=== PATIENT | male | born 1945 | race Native Hawaiian/Other Pacific Islander ===

== ENCOUNTER 2018-11-10 10:02 | Inpatient (IN) | payer MEDICARE ==
--- NOTE | 2018-11-10 10:32 | Emergency Department Report ---
ED General Adult HPI - General Chief complaint: Medical Clearance Stated complaint: MEDICAL CLEARANCE Time Seen by Provider: 11/10/18 10:23 Source: patient, family, RN notes reviewed, old records reviewed Mode of arrival: Ambulatory Limitations: No Limitations - History of Present Illness Initial comments: This is a pleasant 72-year-old gentleman who is not known to this provider previously. The patient has a past medical history of end-stage renal disease, on dialysis, typically Friday, Friday, and hypertension. The patient reports having dual citizenship, in both the [place], and in the [facility]. He presents to the emergency room for medical clearance. He last received dialysis on Friday in the [facility]. The patient reportedly went to a local Outpatient Dialysis Ctr[facility] nephrology, and was instructed to come to the emergency room for medical clearance. The patient denies all complaints at this time. He is reportedly sent for history and physical, hepatitis panel, basic laboratory studies, and other shekhar ropriate clearance for initiation of outpatient dialysis. He currently does not have outpatient dialysis chair time. Severity scale (0 -10): 0 Associated Symptoms: denies other symptoms - Related Data Home Medications Medication Instructions Recorded Confirmed Last Taken Aspirin [Aspirin EC] 100 mg PO DAILY 11/10/18 11/10/18 11/10/18 07:00 Atorvastatin [Lipitor Tab] 10 mg PO DAILY 11/10/18 11/10/18 11/09/18 20:00 B Complex 500 mg PO DAILY 11/10/18 11/10/18 11/10/18 07:00 Clonidine HCl [Kapvay] 0.1 mg PO PRN PRN 11/10/18 11/10/18 Unknown Felodipine [Plendil Tab] 10 mg PO QDAY 11/10/18 11/10/18 11/10/18 07:00 Metoprolol Tartrate 1 tab PO DAILY 11/10/18 11/10/18 11/10/18 07:00 Multivit-Min/FA/Lycopen/Lutein 1 tab PO QAM 11/10/18 11/10/18 11/10/18 07:00 [Centrum Silver Men Tablet] [place]-3 Fatty Acids/Fish Oil [Fish 1 cap PO QDAY 11/10/18 11/10/18 11/10/18 07:00 Oil] Omeprazole 1 tab PO QDAY 11/10/18 11/10/18 11/10/18 07:00 Allergies Allergy/AdvReac Type Severity Reaction Status Date / Time No Known Allergies Allergy Verified 11/10/18 11:41 ED Review of Systems ROS: Stated complaint: MEDICAL CLEARANCE Other details as noted in HPI Constitutional: denies: fever Eyes: denies: vision change ENT: denies: epistaxis Respiratory: denies: cough Cardiovascular: denies: chest pain Genitourinary: denies: dysuria Musculoskeletal: denies: back pain Skin: denies: lesions Neurological: denies: headache Psychiatric: denies: anxiety ED Past Medical Hx - Social History Smoking Status: Never Smoker Substance Use Type: None - Medications Home Medications: Home Medications Medication Instructions Recorded Confirmed Last Taken Type Aspirin [Aspirin EC] 100 mg PO DAILY 11/10/18 11/10/18 11/10/18 07:00 History Atorvastatin [Lipitor Tab] 10 mg PO DAILY 11/10/18 11/10/18 11/09/18 20:00 History B Complex 500 mg PO DAILY 11/10/18 11/10/18 11/10/18 07:00 History Clonidine HCl [Kapvay] 0.1 mg PO PRN PRN 11/10/18 11/10/18 Unknown History Felodipine [Plendil Tab] 10 mg PO QDAY 11/10/18 11/10/18 11/10/18 07:00 History Metoprolol Tartrate 1 tab PO DAILY 11/10/18 11/10/18 11/10/18 07:00 History Multivit-Min/FA/Lycopen/Lutein 1 tab PO QAM 11/10/18 11/10/18 11/10/18 07:00 History [Centrum Silver Men Tablet] [place]-3 Fatty Acids/Fish Oil [Fish 1 cap PO QDAY 11/10/18 11/10/18 11/10/18 07:00 History Oil] Omeprazole 1 tab PO QDAY 11/10/18 11/10/18 11/10/18 07:00 History ED Physical Exam - General Limitations: No Limitations General appearance: alert, in no apparent distress - Head Head exam: Present: atraumatic, normocephalic - Eye Eye exam: Present: normal appearance, EOMI. Absent: nystagmus - ENT ENT exam: Present: normal exam, normal orophraynx, mucous membranes moist, normal external ear exam, other (there is a right sided neck, vascular catheter noted, with no redness, pus, streaking or tenderness) - Neck Neck exam: Present: normal inspection, full ROM. Absent: tenderness, meningismus - Respiratory Respiratory exam: Present: normal lung sounds bilaterally. Absent: respiratory distress - Cardiovascular Cardiovascular Exam: Present: normal rhythm, bradycardia, systolic murmur. Absent: tachycardia, irregular rhythm, diastolic murmur, rubs, gallop - GI/Abdominal GI/Abdominal exam: Present: soft. Absent: distended, tenderness, guarding, rebound, rigid, pulsatile mass - Rectal Rectal exam: Present: deferred - Extremities Exam Extremities exam: Present: normal inspection, full ROM, pedal edema, other (2+ pulses noted in the bilateral upper, lower extremities. Compartments soft. No long bony tenderness. The pelvis is stable.). Absent: calf tenderness - Back Exam Back exam: Present: normal inspection, full ROM. Absent: tenderness, CVA tenderness (R), paraspinal tenderness, vertebral tenderness - Neurological Exam Neurological exam: Present: alert, oriented X3, CN II-XII intact, other (Extraocular movements intact. Tongue midline. No facial droop. Facial sensation intact to light touch in the V1, V2, V3 distribution bilaterally. 5 and 5 strength in 4 extremities.. Sensation is intact to light touch in 4 extremities.). Absent: motor sensory deficit - Psychiatric Psychiatric exam: Present: normal affect, normal mood - Skin Skin exam: Present: warm, dry, intact, normal color. Absent: rash ED Course Vital Signs 11/10/18 11/10/18 11/10/18 10:06 10:08 10:31 Temperature 98.7 F Pulse Rate 59 L Respiratory 12 20 Rate Blood Pressure 147/78 O2 Sat by Pulse 96 98 Oximetry - Reevaluation(s) Reevaluation #1: 11/10/18 11:40 EKG found to be bradycardic with prolonged MI interval. Given hyperkalemia of 5.3, and prolonged intervals, the patient will be treated medically for her hyperkalemia. We are waiting callback from nephrology, and from hospital medicine. Reevaluation #2: 11/10/18 11:56 Dr Monet to admit awaiting call back from nephrology - Consultations Consultation #1: 11/10/18 12:06 Dr. Luong of nephrology will admit ED Medical Decision Making - Lab Data Result diagrams: 11/10/18 10:32 11/10/18 10:32 Vital Signs 11/10/18 11/10/18 10:06 10:08 Temperature 98.7 F Pulse Rate 59 L Respiratory 12 Rate Blood Pressure 147/78 O2 Sat by Pulse 96 Oximetry Lab Results 11/10/18 11/10/18 Range/Units 10:32 10:32 WBC 8.8 (4.5-11.0) K/mm3 RBC 2.89 L (3.65-5.03) M/mm3 Hgb 8.1 L (11.8-15.2) gm/dl Hct 25.6 L (35.5-45.6) % MCV 89 (84-94) fl MCH 28 (28-32) pg MCHC 32 (32-34) % RDW 17.0 H (13.2-15.2) % Plt Count 244 (140-440) K/mm3 Sodium 143 (137-145) mmol/L Potassium 5.3 H (3.6-5.0) mmol/L Chloride 108.1 H (98-107) mmol/L Carbon Dioxide 14 L (22-30) mmol/L Anion Gap 26 mmol/L BUN 84 H (9-20) mg/dL Creatinine 8.7 H (0.8-1.5) mg/dL Estimated GFR 6 ml/min BUN/Creatinine Ratio 10 % Glucose 144 H (75-100) mg/dL Calcium 7.7 L (8.4-10.2) mg/dL Magnesium 2.70 H (1.7-2.3) mg/dL Total Bilirubin 0.30 (0.1-1.2) mg/dL AST 18 (5-40) units/L ALT 9 (7-56) units/L Alkaline Phosphatase 51 (35-129) units/L Total Protein 6.6 (6.3-8.2) g/dL Albumin 4.1 (3.9-5) g/dL Albumin/Globulin Ratio 1.6 % - EKG Data -: EKG Interpreted by Pa EKG shows normal: sinus rhythm Rate: bradycardia - EKG Data When compared to previous EKG there are: previous EKG unavailable 11/10/18 11:40 Bradycardic rhythm, 49 bpm, left axis deviation, left anterior fascicular block, MI interval prolonged, numerous T-wave abnormalities, no prior for comparison, not having chest pain, abnormal EKG. Not consistent with ST elevation myocar dial infarction. - Radiology Data Radiology results: report reviewed, image reviewed X-ray of the chest is negative for acute disease. Right-sided dialysis access catheter is noted. - Medical Decision Making Differential diagnosis, including not limited to: Anemia of chronic disease, hyperkalemia, metabolic acidosis Assessment and plan: 72-year-old gentleman, who does not have outpatient dialysis access, secondary to recently arriving from the [facility], with metabolic acidosis, uremia, azotemia and hyperkalemia. The patient is afebrile, with reassuring vital signs, and in no acute distress. We will obtain a nephrology and case management consult. EKG is pending at this time. He has no medical complaints at this time. He will be admitted for dialysis given his hyperkalemia, and metabolic derangements, and I will defer to the inpatient team to further obtain the necessary outpatient studies required to initiate outpatient dialysis here in the [facility]. Critical care attestation.: If time is entered above; I have spent that time in minutes in the direct care of this critically ill patient, excluding procedure time. ED Disposition Clinical Impression: End stage renal disease, Hyperkalemia, Metabolic acidosis, Anemia of chronic disease Disposition: OP ADMIT IP TO THIS HOSP Is pt being admited?: Yes Condition: Good Referrals: PRIMARY CARE, [Primary Care Provider] - 3-5 Days
[2018-11-10 10:49] LABS: Hematocrit 25.6 % (35.5-45.6); Hemoglobin 8.1 gm/dl (11.8-15.2); Mean Corpuscular HGB Conc 32 % (32-34); Mean Corpuscular Volume 89 fl (84-94); Platelet Count 244 K/mm3 (140-440); Red Blood Count 2.89 M/mm3 (3.65-5.03)
[2018-11-10 11:02] LABS: Albumin 4.1 g/dL (3.9-5); Calcium 7.7 mg/dL (8.4-10.2)
--- NOTE | 2018-11-10 11:07 | XRay Report ---
AP CHEST: HISTORY: End-stage renal disease Heart size and pulmonary vessels are within normal limits. Previous cardiac surgery changes with valve replacement are suspected. A right IJ dual-lumen catheter terminates in the superior right atrium. There is minor scarring or segmental atelectasis at the left lung base. Otherwise the lungs are clear. No pneumothorax. Small hiatal hernia is noted posterior to the heart. IMPRESSION: No acute cardiopulmonary process is identified.
[2018-11-10] MEDS ORDERED: PROVENTIL IH ONE ×2 (11:38→13:40)
[2018-11-10] MEDS ORDERED: HumuLIN R IV ONE (11:38)
[2018-11-10] MEDS ORDERED: D50W (25GM) Syringe IV ONE (11:38)
[2018-11-10] MEDS ORDERED: KIONEX PO ONE ×2 (11:38→22:07)
[2018-11-10] MEDS ORDERED: CALCIUM GLUCONATE 1,000 MG in NACL 0.9% 100 ML IV ONE (12:00)
[2018-11-10] MEDS ORDERED: SODIUM BICARBONATE IV ONE (13:00)
[2018-11-10 14:24] LABS: Hepatitis C Virus Antibody Non-Reactive (NonReactive)
[2018-11-10] MEDS ORDERED: NACL 0.9% 100 ML IV PRN (15:13)
--- NOTE | 2018-11-10 15:13 | Consultation ---
History of Present Illness - History of Present Illness Thank you for the consultation ! Patient was evaluated today My assessment and plan are as follows; End-stage renal disease: Patient is currently on hemodialysis, and will need to continue with hemodialysis while here in the hospital Short dialysis treatment today, then tomorrow, discussed with patient, appears to be stable no shortness of breath no edema Central venous catheter: Hygiene poor no erythema Anemia and end-stage renal disease: Monitor hemoglobin and hematocrit erythropoietin as needed. Workup as required Secondary hyperparathyroidism: Check phosphorus and PTH level periodically, binders as needed Malnutrition risk: High consider high-protein diet dietitian evaluation and follow-up in general 1.5 g protein per KG body weight Fluid restriction: 1200 cc per day not to exceed more than that Adequately counseled and educated about other hospital related issues as well Labs were discussed with patient and simple Kazakh Patient does appear to have good understanding of all the dialysis related issues Patient was adequately counseled and educated regarding multiple renal related issues. overall prognosis remains guarded at this time All renal related questions were answered and simple Kazakh pertinent lab studies as well as imaging results were also discussed with patient We will continue to follow and make recommendations from renal standpoint. Thank you for the consultation Author: Torsten Luong M.D. [facility], [address] [place] [address] Tel; [phone] Source of information: From patient History of present illness Patient is a 72-year-old [place] male who has been admitted here as he could not go to dialysis facility, patient needed to have a chest x-ray as well as proper evaluation before returning to dialysis facility including a hepatitis profile. According to the patient he has been on hemodialysis and has recently come back from [facility]. He was supposed to go to [facility] but his paperwork didn't go through and hence he was sent here for evaluation and management according to the patient he has been doing his dialysis with his central venous catheter which has been working well without any problem He has no complaints of any chest pain pressure or shortness of breath nausea vomiting his bicarbonate is 14, his potassium was 5.3 for which she has received some treatment Past medical history significant for End-stage renal disease currently on hemodialysis Anemia and end-stage renal disease Secondary hyperparathyroidism Hypertension Hyperlipidemia Current allergies: None Home medication present medication: Reviewed Social history: Reviewed Family history: Reviewed Review of systems patient unable to dialyze No other complaints including shortness of breath chest pain pressure nausea and vomiting or leg swelling rrent dialysis access is central venous catheter All other review of systems negative . Physical examination Vitals: Reviewed General: No acute distress HEENT: Oral mucosa moist no pallor or icterus central venous catheter in the neck, hygiene very poor Neck: Supple without any JVD thyromegaly or nodular mass Chest: Clear to auscultation Heart: Regular rate and rhythm S1-S2 heard no S3-S4 Abdomen: Soft nontender, bowel sounds present no renal bruit no suprapubic masses no CVA tenderness noted Extremity: Minimal edema dry skin no peripheral cyanosis Endocrine: Thyroid not enlarged Psychiatric: No agitation and aggression noted Musculoskeletal: No joint effusion noted Labs and x-rays: Reviewed from this admission Medications and Allergies Allergies Allergy/AdvReac Type Severity Reaction Status Date / Time No Known Allergies Allergy Verified 11/10/18 11:41 Home Medications Medication Instructions Recorded Confirmed Last Taken Type Aspirin [Aspirin EC] 100 mg PO DAILY 11/10/18 11/10/18 11/10/18 07:00 History Atorvastatin [Lipitor Tab] 10 mg PO DAILY 11/10/18 11/10/18 11/09/18 20:00 History B Complex 500 mg PO DAILY 11/10/18 11/10/18 11/10/18 07:00 History Clonidine HCl [Kapvay] 0.1 mg PO PRN PRN 11/10/18 11/10/18 Unknown History Felodipine [Plendil Tab] 10 mg PO QDAY 11/10/18 11/10/18 11/10/18 07:00 History Metoprolol Tartrate 1 tab PO DAILY 11/10/18 11/10/18 11/10/18 07:00 History Multivit-Min/FA/Lycopen/Lutein 1 tab PO QAM 11/10/18 11/10/18 11/10/18 07:00 History [Centrum Silver Men Tablet] [place]-3 Fatty Acids/Fish Oil [Fish 1 cap PO QDAY 11/10/18 11/10/18 11/10/18 07: 00 History Oil] Omeprazole 1 tab PO QDAY 11/10/18 11/10/18 11/10/18 07:00 History Exam - Vital Signs Vital signs: Vital Signs Pulse BP Pulse Ox 59 L 147/78 96 11/10/18 10:06 11/10/18 10:06 11/10/18 10:06 Results - Lab Results 11/10/18 10:32 11/10/18 10:32 Most recent lab results Calcium 7.7 mg/dL (8.4-10.2) L 11/10/18 10:32 Magnesium 2.70 mg/dL (1.7-2.3) H 11/10/18 10:32
[2018-11-10] MEDS ORDERED: NACL 0.9 (PRIMING MACHINE ONLY DIALYSIS) MC ONE (20:02)
[2018-11-10] MEDS ORDERED: AMBIEN PO PRN (23:16)
[2018-11-10] MEDS ORDERED: DILAUDID IV PRN (23:16)
[2018-11-10] MEDS ORDERED: SODIUM CHLORIDE FLUSH SYRINGE 10 ML IV PRN (23:16)
[2018-11-10] MEDS ORDERED: PERCOCET 5/325 PO PRN (23:16)
--- NOTE | 2018-11-11 04:57 | History and Physical Report ---
History of Present Illness Date of examination: 11/10/18 Date of admission: 11/10/18 11:57 Chief complaint: Missed Hemodialysis History of present illness: 72 y/o [place]/ male to a [place] was started on Hemodialysis in June 2018 and had a vas cath and failed AVG on Rt forearm.Moved to [facility] for a few months to be with his and comes back to [facility] on Friday11/08/18..He Had HD in [facility] on Friday.And due for HD yesterday.No arrangemernts were made for HD on regular basis here.Patient is a [facility] Citizen.No SOB No Orthopnea.Patient went Local HD center and was sent here for medical clearance and placement.Has a vas cath in Rt IJ with poor dressing. The patient denies all complaints at this time. He is reportedly sent for hist ory and physical, hepatitis panel, basic laboratory studies, and other appropriate clearance for initiation of outpatient dialysis. He currently does not have outpatient dialysis chair time.Out patient dialysis to be arranged by casework manager Past Medical Hx Htn ESRD HLD GERD Past surgical History AVG Vas cath Family history Htn Social History Smoking Status: Never Smoker Substance Use Type: None 'Review of Systems ROS: Stated complaint: MEDICAL CLEARANCE Other details as noted in HPI Constitutional: denies: fever Eyes: denies: vision change ENT: denies: epistaxis Respiratory: denies: cough Cardiovascular: denies: chest pain Genitourinary: denies: dysuria Musculoskeletal: denies: back pain Skin: denies: lesions Neurological: denies: headache Psychiatric: denies: anxiety Medications and Allergies Allergies Allergy/AdvReac Type Severity Reaction Status Date / Time No Known Allergies Allergy Verified 11/10/18 11:41 Home Medications Medication Instructions Recorded Confirmed Last Taken Type Aspirin [Aspirin EC] 100 mg PO DAILY 11/10/18 11/10/18 11/10/18 07:00 History Atorvastatin [Lipitor Tab] 10 mg PO DAILY 11/10/18 11/10/18 11/09/18 20:00 History B Complex 500 mg PO DAILY 11/10/18 11/10/18 11/10/18 07:00 History Clonidine HCl [Kapvay] 0.1 mg PO PRN PRN 11/10/18 11/10/18 Unknown History Felodipine [Plendil Tab] 10 mg PO QDAY 11/10/18 11/10/18 11/10/18 07:00 History Metoprolol Tartrate 1 tab PO DAILY 11/10/18 11/10/18 11/10/18 07:00 History Multivit-Min/FA/Lycopen/Lutein 1 tab PO QAM 11/10/18 11/10/18 11/10/18 07:00 History [Centrum Silver Men Tablet] [place]-3 Fatty Acids/Fish Oil [Fish 1 cap PO QDAY 11/10/18 11/10/18 11/10/18 07:00 History Oil] Omeprazole 1 tab PO QDAY 11/10/18 11/10/18 11/10/18 07:00 History Active Meds: Active Medications Acetaminophen (Tylenol) 650 mg PO Q4H PRN PRN Reason: Pain MILD(1-3)/Fever >100.5/WEISS Amlodipine Besylate (Norvasc) 10 mg PO DAILY [facility] Aspirin (Halfprin Ec) 100 mg PO DAILY [facility] Atorvastatin Calcium (Lipitor) 10 mg PO DAILY [facility] Clonidine HCl (Catapres) 0.1 mg PO Q8H PRN PRN Reason: BLOOD PRESSURE Famotidine (Pepcid) 10 mg PO BID [facility] Fish Oil (Fish Oil) 1,000 mg PO QDAY [facility] Hydromorphone HCl (Dilaudid) 0.5 mg IV Q3H PRN PRN Reason: Pain , Severe (7-10) Sodium Chloride (Nacl 0.9%) 100 mls @ 999 mls/hr IV QUENTIN PRN PRN Reason: Hypotension Metoprolol Tartrate (Lopressor) 50 mg PO DAILY [facility] Miscellaneous Medication (Multivit-Min/Fa/Lycopen/Lutein [Centrum Silver Men Tablet]) 1 tab PO QAM [facility] Miscellaneous Medication (Omeprazole [Omeprazole]) 1 tab PO QDAY [facility] Ondansetron HCl (Zofran) 4 mg IV Q8H PRN PRN Reason: Nausea And Vomiting Oxycodone/Acetaminophen (Percocet 5/325) 1 tab PO Q6H PRN PRN Reason: Pain, Moderate (4-6) Pneumococcal Polyvalent Vaccine (Pneumovax 23) 0.5 ml IM .ONCE ONE Stop: 11/11/18 12:01 Sodium Chloride (Sodium Chloride Flush Syringe 10 Ml) 10 ml IV BID [facility] Sodium Chloride (Sodium Chloride Flush Syringe 10 Ml) 10 ml IV PRN PRN PRN Reason: LINE FLUSH Zolpidem Tartrate (Ambien) 5 mg PO QHS PRN PRN Reason: Insomnia Review of Systems All systems: negative Exam - Constitutional Vitals: Temp Pulse Resp BP Pulse Ox 98.4 F 48 L 16 151/69 99 11/10/18 23:16 11/10/18 23:16 11/10/18 23:16 11/10/18 23:16 11/10/18 23:16 General appearance: Present: no acute distress, well-nourished - EENT Eyes: Present: PERRL ENT: hearing intact, clear oral mucosa, other - Neck Neck: Present: supple, normal ROM, other (Vas cath Rt IJ) - Respiratory Respiratory effort: normal Respiratory: bilateral: CTA - Cardiovascular Heart rate: 78 Rhythm: regular Heart Sounds: Present: S1 & S2. Absent: rub, click - Extremities Extremities: no ischemia, pulses intact, pulses symmetrical, No edema Peripheral Pulses: within normal limits - Abdominal General gastrointestinal: Present: soft, non-tender, non-distended, normal bowel sounds Male genitourinary: Present: normal - Rectal Rectal Exam: deferred - Integumentary Integumentary: Present: clear, warm, dry - Musculoskeletal Musculoskeletal: gait normal, strength equal bilaterally - Psychiatric Psychiatric: appropriate mood/affect, intact judgment & insight - Neurologic Neurologic: CNII-XII intact, moves all extremities Results - Labs CBC & Chem 7: 11/10/18 10:32 11/10/18 10:32 Labs: Laboratory Last Values WBC 8.8 K/mm3 (4.5-11.0) 11/10/18 10:32 RBC 2.89 M/mm3 (3.65-5.03) L 11/10/18 10:32 Hgb 8.1 gm/dl (11.8-15.2) L 11/10/18 10:32 Hct 25.6 % (35.5-45.6) L 11/10/18 10:32 MCV 89 fl (84-94) 11/10/18 10:32 MCH 28 pg (28-32) 11/10/18 10:32 MCHC 32 % (32-34) 11/10/18 10:32 RDW 17.0 % (13.2-15.2) H 11/10/18 10:32 Plt Count 244 K/mm3 (140-440) 11/10/18 10:32 Sodium 143 mmol/L (137-145) 11/10/18 10:32 Potassium 5.3 mmol/L (3.6-5.0) H 11/10/18 10:32 Chloride 108.1 mmol/L (98-107) H 11/10/18 10:32 Carbon Dioxide 14 mmol/L (22-30) L 11/10/18 10:32 Anion Gap 26 mmol/L 11/10/18 10:32 BUN 84 mg/dL (9-20) H 11/10/18 10:32 Creatinine 8.7 mg/dL (0.8-1.5) H 11/10/18 10:32 Estimated GFR 6 ml/min 11/10/18 10:32 BUN/Creatinine Ratio 10 % 11/10/18 10:32 Glucose 144 mg/dL (75-100) H 11/10/18 10:32 Hemoglobin A1c 5.8 % (4-6) 11/10/18 Unknown Calcium 7.7 mg/dL (8.4-10.2) L 11/10/18 10:32 Phosphorus 4.00 mg/dL (2.5-4.5) 11/10/18 16:29 Magnesium 2.70 mg/dL (1.7-2.3) H 11/10/18 10:32 Total Bilirubin 0.30 mg/dL (0.1-1.2) 11/10/18 10:32 AST 18 units/L (5-40) 11/10/18 10:32 ALT 9 units/L (7-56) 11/10/18 10:32 Alkaline Phosphatase 51 units/L (35-129) 11/10/18 10:32 Total Protein 6.6 g/dL (6.3-8.2) 11/10/18 10:32 Albumin 4.1 g/dL (3.9-5) 11/10/18 10:32 Albumin/Globulin Ratio 1.6 % 11/10/18 10:32 PTH Intact 217.4 pg/mL (15-65) H 11/10/18 16:29 Hepatitis A IgM Ab Non-reactive (NonReactive) 11/10/18 10:32 Hep B Core IgM Ab Non-reactive (NonReactive) 11/10/18 10:32 Hepatitis C Antibody Non-reactive (NonReactive) 11/10/18 10:32 Short CBC 11/10/18 Range/Units 10:32 WBC 8.8 (4.5-11.0) K/mm3 Hgb 8.1 L (11.8-15.2) gm/dl Hct 25.6 L (35.5-45.6) % Plt Count 244 (140-440) K/mm3 BMP 11/10/18 10:32 Sodium 143 Potassium 5.3 H Chloride 108.1 H Carbon Dioxide 14 L BUN 84 H Creatinine 8.7 H Glucose 144 H Calcium 7.7 L Liver Function 11/10/18 Range/Units 10:32 Total Bilirubin 0.30 (0.1-1.2) mg/dL AST 18 (5-40) units/L ALT 9 (7-56) units/L Alkaline Phosphatase 51 (35-129) units/L Albumin 4.1 (3.9-5) g/dL - Imaging and Cardiology EKG: report reviewed (49/min Sinus Bradycardia,LVH LAFB) Chest x-ray: report reviewed (NAF) Assessment and Plan Advance Directives: Yes (Full code) VTE prophylaxis?: Chemical Plan of care discussed with patient/family: Yes - Patient Problems (1) ESRD needing dialysis Current Visit: Yes Status: Chronic Plan to address problem: HD planned Nephrology consulted May need a new f [facility] IR consult placed Patient will be staying for a few months in [facility] He goes back and forth between 2 countries and doesn't seem to understand the implications. Apparently manages a rental property in [facility] and doesn't want to come here even though she is a [place] citizen. He is going to stay with his daughter Case management consulted (2) Hyperkalemia Current Visit: Yes Status: Acute Plan to address problem: Was given Kayexalate and BIcarb and Dextrose/insulin (3) HTN (hypertension) Current Visit: Yes Status: Chronic Qualifiers: Hypertension type: essential hypertension Qualified Code(s): I10 - Essential (primary) hypertension Plan to address problem: Cont antihypertensives (4) HLD (hyperlipidemia) Current Visit: Yes Status: Chronic Qualifiers: Hyperlipidemia type: mixed hyperlipidemia Qualified Code(s): E78.2 - Mixed hyperlipidemia Plan to address problem: COnt statins (5) GERD (gastroesophageal reflux disease) Current Visit: Yes Status: Chronic Qualifiers: Esophagitis presence: without esophagitis Qualified Code(s): K21.9 - Gastro-esophageal reflux disease without esophagitis Plan to address problem: COnt PPI's (6) Anemia of chronic disease Current Visit: Yes Status: Chronic Plan to address problem: May need Epogen Will defer to Nephrology (7) Secondary hyperparathyroidism (of renal origin) Current Visit: Yes Status: Chronic Plan to address problem: Check phosphorus and PTH levels (8) Malnutrition Current Visit: Yes Status: Chronic Qualifiers: Protein-calorie malnutrition severity: moderate Plan to address problem: High protein diet (9) DVT prophylaxis Current Visit: Yes Status: Acute Plan to address problem: Heparin and GI prophylaxis
[2018-11-11 05:46] LABS: Basophils # (Auto) 0.1 K/mm3 (0.0-0.1); Basophils % (Auto) 1.2 % (0.0-1.8); Eosinophils # (Auto) 0.5 K/mm3 (0.0-0.4); Eosinophils % (Auto) 6.9 % (0.0-4.3); Hematocrit 24.2 % (35.5-45.6); Lymphocytes # (Auto) 1.3 K/mm3 (1.2-5.4); Lymphocytes % (Auto) 18.7 % (13.4-35.0); Mean Corpuscular HGB Conc 33 % (32-34); Mean Corpuscular Volume 88 fl (84-94); Monocytes # (Auto) 0.5 K/mm3 (0.0-0.8); Platelet Count 220 K/mm3 (140-440); Red Blood Count 2.76 M/mm3 (3.65-5.03); Red Cell Distribution Width 16.6 % (13.2-15.2)
[2018-11-11] MEDS ORDERED: CATAPRES PO PRN (06:00)
[2018-11-11 06:12] LABS: Albumin 3.9 g/dL (3.9-5); Calcium 7.7 mg/dL (8.4-10.2)
[2018-11-11] MEDS ORDERED: HEPARIN 10,000 UNITS/10 ML ONE (08:12)
[2018-11-11] MEDS ORDERED: HEPARIN/NS 5000 UNIT/500ML(CATH LAB) 1,000 ML IR ONE (08:12)
[2018-11-11] MEDS ORDERED: VERSED ONE (08:19)
[2018-11-11] MEDS ORDERED: SUBLIMAZE ONE (08:19)
[2018-11-11] MEDS: XYLOCAINE 2% INFILTRATI ONE ×2 (08:29→08:32)
--- NOTE | 2018-11-11 08:47 | Consultation ---
History of Present Illness - Reason for Consult Consult date: 11/11/18 malfunctioning dialysis access - History of Present Illness Patient with a history of an stage renal disease on hemodialysis. He has a Vas- Cath in the right external jugular vein placed in the [facility] which is partially dislodged and nonfunctional. Patient will require access for hemodialysis Past History Past Medical History: dialysis, ESRD Past Surgical History: Other (right EJ Vas-Cath) Medications and Allergies Allergies Allergy/AdvReac Type Severity Reaction Status Date / Time No Known Allergies Allergy Verified 11/10/18 11:41 Home Medications Medication Instructions Recorded Confirmed Last Taken Type Aspirin [Aspirin EC] 100 mg PO DAILY 11/10/18 11/10/18 11/10/18 07:00 History Atorvastatin [Lipitor Tab] 10 mg PO DAILY 11/10/18 11/10/18 11/09/18 20:00 History B Complex 500 mg PO DAILY 11/10/18 11/10/18 11/10/18 07:00 History Clonidine HCl [Kapvay] 0.1 mg PO PRN PRN 11/10/18 11/10/18 Unknown History Felodipine [Plendil Tab] 10 mg PO QDAY 11/10/18 11/10/18 11/10/18 07:00 History Metoprolol Tartrate 1 tab PO DAILY 11/10/18 11/10/18 11/10/18 07:00 History Multivit-Min/FA/Lycopen/Lutein 1 tab PO QAM 11/10/18 11/10/18 11/10/18 07:00 Hi story [Centrum Silver Men Tablet] [place]-3 Fatty Acids/Fish Oil [Fish 1 cap PO QDAY 11/10/18 11/10/18 11/10/18 07:00 History Oil] Omeprazole 1 tab PO QDAY 11/10/18 11/10/18 11/10/18 07:00 History Active Meds: Active Medications Acetaminophen (Tylenol) 650 mg PO Q4H PRN PRN Reason: Pain MILD(1-3)/Fever >100.5/WEISS Amlodipine Besylate (Norvasc) 10 mg PO DAILY NAFISA Aspirin (Halfprin Ec) 100 mg PO DAILY NAFISA Atorvastatin Calcium (Lipitor) 10 mg PO DAILY NAFISA Clonidine HCl (Catapres) 0.1 mg PO Q8H PRN PRN Reason: BLOOD PRESSURE Famotidine (Pepcid) 10 mg PO BID [facility] Fish Oil (Fish Oil) 1,000 mg PO QDAY [facility] Hydromorphone HCl (Dilaudid) 0.5 mg IV Q3H PRN PRN Reason: Pain , Severe (7-10) Sodium Chloride (Nacl 0.9%) 100 mls @ 999 mls/hr IV QUENTIN PRN PRN Reason: Hypotension Metoprolol Tartrate (Lopressor) 50 mg PO DAILY [facility] Miscellaneous Medication (Multivit-Min/Fa/Lycopen/Lutein [Centrum Silver Men Tablet]) 1 tab PO QAM NAFISA Miscellaneous Medication (Omeprazole [Omeprazole]) 1 tab PO QDAY NAFISA Ondansetron HCl (Zofran) 4 mg IV Q8H PRN PRN Reason: Nausea And Vomiting Oxycodone/Acetaminophen (Percocet 5/325) 1 tab PO Q6H PRN PRN Reason: Pain, Moderate (4-6) Pneumococcal Polyvalent Vaccine (Pneumovax 23) 0.5 ml IM .ONCE ONE Stop: 11/11/18 12:01 Sodium Chloride (Sodium Chloride Flush Syringe 10 Ml) 10 ml IV BID [facility] Last Admin: 11/11/18 00:00 Dose: 10 ml Documented by: Sodium Chloride (Sodium Chloride Flush Syringe 10 Ml) 10 ml IV PRN PRN PRN Reason: LINE FLUSH Zolpidem Tartrate (Ambien) 5 mg PO QHS PRN PRN Reason: Insomnia Review of Systems All systems: negative Exam - Constitutional Vitals: Temp Pulse Resp BP Pulse Ox 98.5 F 50 L 15 151/76 100 11/11/18 03:40 11/11/18 03:40 11/11/18 03:40 11/11/18 03:40 11/11/18 03:40 General appearance: Present: no acute distress - EENT Eyes: Present: EOM intact ENT: hearing intact - Neck Neck: Present: supple, normal ROM - Respiratory Respiratory effort: normal - Extremities Extremities: no ischemia, Full ROM - Abdominal General gastrointestinal: Present: deferred Male genitourinary: Present: deferred - Rectal Rectal Exam: deferred - Integumentary Integumentary: Present: clear, warm - Musculoskeletal Musculoskeletal: strength equal bilaterally - Psychiatric Psychiatric: appropriate mood/affect, cooperative - Neurologic Neurologic: no focal deficits, moves all extremities Results - Labs CBC & Chem 7: 11/11/18 04:57 11/11/18 04:57 Labs: Abnormal lab results 11/10/18 11/10/18 11/10/18 Range/Units 10:32 10:32 16:29 RBC 2.89 L (3.65-5.03) M/mm3 Hgb 8.1 L (11.8-15.2) gm/dl Hct 25.6 L (35.5-45.6) % RDW 17.0 H (13.2-15.2) % Eos % (Auto) (0.0-4.3) % Eos # (0.0-0.4) K/mm3 Potassium 5.3 H (3.6-5.0) mmol/L Chloride 108.1 H (98-107) mmol/L Carbon Dioxide 14 L (22-30) mmol/L BUN 84 H (9-20) mg/dL Creatinine 8.7 H (0.8-1.5) mg/dL Glucose 144 H (75-100) mg/dL Calcium 7.7 L (8.4-10.2) mg/dL Magnesium 2.70 H (1.7-2.3) mg/dL Total Protein (6.3-8.2) g/dL PTH Intact 217.4 H (15-65) pg/mL 11/11/18 11/11/18 Range/Units 04:57 04:57 RBC 2.76 L (3.65-5.03) M/mm3 Hgb 8.0 L (11.8-15.2) gm/dl Hct 24.2 L (35.5-45.6) % RDW 16.6 H (13.2-15.2) % Eos % (Auto) 6.9 H (0.0-4.3) % Eos # 0.5 H (0.0-0.4) K/mm3 Potassium 5.3 H (3.6-5.0) mmol/L Chloride 113.9 H (98-107) mmol/L Carbon Dioxide 14 L (22-30) mmol/L BUN 85 H (9-20) mg/dL Creatinine 9.5 H (0.8-1.5) mg/dL Glucose 127 H (75-100) mg/dL Calcium 7.7 L (8.4-10.2) mg/dL Magnesium (1.7-2.3) mg/dL Total Protein 6.2 L (6.3-8.2) g/dL PTH Intact (15-65) pg/mL Assessment and Plan Patient will be brought to the [facility] for removal of his Vascath and placement of a PermCath using a different venotomy site.
--- NOTE | 2018-11-11 08:50 | Operative Report ---
Operative Report Operative Report: Exam: Ultrasound and fluoroscopic guided placement of permacath Clinical indication: Patient with a history of end-stage renal disease requiring dialysis access Date: 11/11/2018 Procedure: Following an explanation of the risks, benefits and alternatives; written informed consent was obtained. The patient was brought to the injury Suite and placed in supine position on the examination table. Initial ultrasound evaluation of his right neck demonstrated a patent right internal jugular vein. The patient's previously placed Vascath appeared to utilize a right external jugular vein. The patient's right neck and chest wall were prepped and draped in the usual sterile fashion. 1% lidocaine was used for anesthesia. Under ultrasound guidance, the right internal jugular vein was cannulated with a 7 cm 18-gauge needle. A 0.035 guidewire was advanced into the IVC under fluoroscopy to document intravenous positioning for anchoring. Needle was removed. An appropriate catheter exit site was chosen along the lateral right chest wall. 1% lidocaine was used for anesthesia of the catheter exit site along the trouble tract. A 23 cm tunnel hemodialysis catheter was then tunneled antegrade from the catheter exit site to the venotomy site. Following serial dilation over the guidewire under fluoroscopy, a 15 Malay peel-away sheath was placed over the guidewire under fluoroscopy and advanced centrally. The guidewire and trocar were removed. The catheter was placed through the peel-away sheath in the peel-away sheath removed. The catheter tip was positioned in the proximal right atrium. Both ports flushed and aspirated easily and were then locked with appropriate volumes of heparin. The venotomy was closed using 4-0 Vicryl suture and Dermabond. 3-0 Vicryl suture and Dermabond were also applied to the catheter exit site. The patient's previously placed Vas-Cath was then removed. Hemostasis was achieved using manual compression. A sterile dressing was then applied. The patient tolerated the procedure well. There were no immediate post procedure complications. Conscious sedation was performed under the guidance of radiologic nursing. Continuous cardiopulmonary monitoring was utilized. Impression: 1) Ultrasound and fluoroscopic guided placement of permacath via the right internal jugular vein. 2) Removal of previously placed Vas-Cath in the right external jugular vein.
[2018-11-11] MEDS ORDERED: NACL 0.9 (PRIMING MACHINE ONLY DIALYSIS) MC ONE (09:17)
[2018-11-11] MEDS ORDERED: NACL 0.9% 100 ML IV PRN (09:39)
--- NOTE | 2018-11-11 09:43 | Progress Note ---
Subjective Interval history: Patient was seen today for follow-up on multiple renal related issues Events of this hospitalization noted His dialysis catheter did not work yesterday A new catheter has been placed Patient does require dialysis today Given sodium bicarbonate due to metabolic acidosis Patient denies having any chest pain pressure or shortness of breath Vitals labs intake output medications were reviewed Social history: Reviewed Allergies: Reviewed Family history: Reviewed Physical examination HEENT: Oral mucosa moist no pallor or icterus Neck: Supple no JVD Until venous catheter site unremarkable Chest: Clear to auscultation anteriorly CVS: Regular rate and rhythm S1 and S2 heard Abdomen: Soft nontender no suprapubic masses no organomegaly appreciable Extremity: Dry skin less than 1+ peripheral edema Musculoskeletal: No joint effusion noted in knees and ankle Neurological: Alert awake Dermatology: No petechial rashes Psychiatry: No evidence of any agitation and aggression noted Assessment and plan End-stage renal disease: Patient will continue with hemodialysis, monitor dialysis related labs Will order for hemodialysis treatment today Patient will need fistula creation shortly Malfunctioning catheter which was replaced with a permacath Moderately severe metabolic acidosis given sodium bicarbonate yesterday patient does need hemodialysis and follow-up on labs Will start him on multivitamin 1 tablet daily Anemia in end-stage renal disease: Monitor hemoglobin and hematocrit, erythropoietin as needed Secondary hyperparathyroidism periodically check phosphorus and PTH level Hypertension and volume: , Adjust medications as needed, ultrafiltration as tolerated keep systolic blood pressure above 100 Malnutrition risk: High please consider high protein diet as well as nutrition follow-up, patient needs at least 1.5 g protein per KG body weight If he is doing otherwise well he can be considered for discharge after dialysis today to follow-up with dialysis facility for outpatient dialysis, social work case manager to follow-up on this Patient was adequately counseled and educated regarding multiple renal related issues Pertinent lab findings were discussed with patient, patient does exhibit good understanding of renal issues We'll continue to follow and make recommendation from renal standpoint Objective - Vital Signs Vital signs: Vital Signs - 12hr 11/10/18 11/11/18 23:16 03:40 Temperature 98.4 F 98.5 F Pulse Rate 48 L 50 L Respiratory 16 15 Rate Blood Pressure 151/69 151/76 O2 Sat by Pulse 99 100 Oximetry - Lab 11/11/18 04:57 11/11/18 04:57 Most recent lab results Calcium 7.7 mg/dL (8.4-10.2) L 11/11/18 04:57 Phosphorus 4.00 mg/dL (2.5-4.5) 11/10/18 16:29 Magnesium 2.70 mg/dL (1.7-2.3) H 11/10/18 10:32 Medications & Allergies - Medications Allergies/Adverse Reactions: Allergies No Known Allergies Allergy (Verified 11/10/18 11:41) Home Medications: Home Medications Medication Instructions Recorded Confirmed Last Taken Type Aspirin [Aspirin EC] 100 mg PO DAILY 11/10/18 11/10/18 11/10/18 07:00 History Atorvastatin [Lipitor Tab] 10 mg PO DAILY 11/10/18 11/10/18 11/09/18 20:00 History B Complex 500 mg PO DAILY 11/10/18 11/10/18 11/10/18 07:00 History Clonidine HCl [Kapvay] 0.1 mg PO PRN PRN 11/10/18 11/10/18 Unknown History Felodipine [Plendil Tab] 10 mg PO QDAY 11/10/18 11/10/18 11/10/18 07:00 History Metoprolol Tartrate 1 tab PO DAILY 11/10/18 11/10/18 11/10/18 07:00 History Multivit-Min/FA/Lycopen/Lutein 1 tab PO QAM 11/10/18 11/10/18 11/10/18 07:00 History [Centrum Silver Men Tablet] [place]-3 Fatty Acids/Fish Oil [Fish 1 cap PO QDAY 11/10/18 11/10/18 11/10/18 07:00 History Oil] Omeprazole 1 tab PO QDAY 11/10/18 11/10/18 11/10/18 07:00 History Active Medications: Generic Name Dose Route Start Last Admin Trade Name Freq PRN Reason Stop Dose Admin Acetaminophen 650 mg 11/10/18 23:16 Tylenol PO Q4H PRN Pain MILD(1-3)/Fever >100.5/WEISS Amlodipine Besylate 10 mg 11/11/18 10:00 Norvasc PO DAILY NAFISA Aspirin 100 mg 11/11/18 10:00 Halfprin Ec PO DAILY NAFISA Atorvastatin Calcium 10 mg 11/11/18 10:00 Lipitor PO DAILY NAFISA Clonidine HCl 0.1 mg 11/11/18 06:00 Catapres PO Q8H PRN BLOOD PRESSURE Famotidine 10 mg 11/11/18 10:00 Pepcid PO BID NAFISA Fish Oil 1,000 mg 11/11/18 10:00 Fish Oil PO QDAY NAFISA Hydromorphone HCl 0.5 mg 11/10/18 23:16 Dilaudid IV Q3H PRN Pain , Severe (7-10) Sodium Chloride 100 mls @ 999 mls/hr 11/10/18 15:13 Nacl 0.9% IV QUENTIN PRN Hypotension Sodium Chloride 100 mls @ 999 mls/hr 11/11/18 09:39 Nacl 0.9% IV QUENTIN PRN Hypotension Metoprolol Tartrate 50 mg 11/11/18 10:00 Lopressor PO DAILY NAFISA Miscellaneous Medication 1 tab 11/11/18 10:00 Multivit-Min/Fa/Lycopen/Lutein [Centrum Silver Men Tablet] PO QAM NAFISA Miscellaneous Medication 1 tab 11/11/18 10:00 Omeprazole [Omeprazole] PO QDAY NAFISA Ondansetron HCl 4 mg 11/10/18 23:16 Zofran IV Q8H PRN Nausea And Vomiting Oxycodone/Acetaminophen 1 tab 11/10/18 23:16 Percocet 5/325 PO Q6H PRN Pain, Moderate (4-6) Pneumococcal Polyvalent Vaccine 0.5 ml 11/11/18 12:00 Pneumovax 23 IM 11/11/18 12:01 .ONCE ONE Sodium Chloride 10 ml 11/10/18 23:45 11/11/18 00:00 Sodium Chloride Flush Syringe 10 Ml IV 10 ml BID NAFISA Administration Sodium Chloride 10 ml 11/10/18 23:16 Sodium Chloride Flush Syringe 10 Ml IV PRN PRN LINE FLUSH Zolpidem Tartrate 5 mg 11/10/18 23:16 Ambien PO QHS PRN Insomnia
[2018-11-11] MEDS ORDERED: FELODIPINE 10 MG PO SCH (10:00)
[2018-11-11] MEDS ORDERED: MULTIVIT MIN PO SCH (10:00)
[2018-11-11] MEDS ORDERED: LYCOPEN PO SCH (10:00)
[2018-11-11] MEDS ORDERED: LUTEIN PO SCH (10:00)
[2018-11-11] MEDS ORDERED: HALFPRIN EC PO SCH (10:00)
[2018-11-11] MEDS ORDERED: OMEPRAZOLE PO SCH (10:00)
[2018-11-11] MEDS ORDERED: [UNRECOGNIZED DRUG - OTHER] PO SCH (10:00)
[2018-11-11] MEDS ORDERED: AFLURIA QUAD 2018-2019 SYRINGE IM ONE (12:00)
[2018-11-11] MEDS ORDERED: PNEUMOVAX 23 IM ONE (12:00)
[2018-11-11] MEDS: PEPCID PO SCH ×3 (15:49→21:20)
[2018-11-11] MEDS: NORVASC PO SCH (15:49)
[2018-11-11] MEDS: PROTONIX PO SCH (15:50)
[2018-11-11] MEDS: THERAGRAN-M Tab PO SCH (15:50)
[2018-11-11] MEDS: LOPRESSOR PO SCH (15:51)
[2018-11-11] MEDS: FISH OIL PO SCH (15:51)
[2018-11-11] MEDS: SODIUM CHLORIDE FLUSH SYRINGE 10 ML IV SCH ×3 (15:52→21:12)
--- NOTE | 2018-11-11 18:08 | Progress Note ---
Assessment and Plan Assessment and plan: 72 y/o [place]/ male to a [place] was started on Hemodialysis in June 2018 and had a vas cath and failed AVG on Rt forearm.Moved to [facility] for a few months to be with his and comes back to [facility] on Friday11/08/18..He Had HD in [facility] on Friday.And due for HD yesterday.No arrangements were made for HD on regular basis here.Patient is a [place].No SOB No Orthopnea.Patient went Local HD center and was sent here for medical clearance and placement.Has a vas cath in Rt IJ with poor dressing. The patient denies all complaints at this time. He is reportedly sent for history and physical, hepatitis panel, basic laboratory studies, and other appropriate clearance for initiation of outpatient dialysis. He currently does not have outpatient dialysis chair time.Out patient dialysis to be arranged by rn case manager hospice (1) ESRD needing dialysis Current Visit: Yes Status: Chronic Plan to address problem: HD planned Nephrology consulted and input noted. Outpatient dialysis placement started by case management Access fixed Patient will be staying for a few months in [facility] He goes back and forth between 2 countries and doesn't seem to understand the implications. Apparently manages a rental property in [facility] and doesn't want to come here even though she is a [place] citizen. He is going to stay with his daughter Case management consulted (2) Hyperkalemia Current Visit: Yes Status: Acute Plan to address problem: Was given Kayexalate and BIcarb and Dextrose/insulin (3) HTN (hypertension) Current Visit: Yes Status: Chronic Qualifiers: Hypertension type: essential hypertension Qualified Code(s): I10 - Essential (primary) hypertension Plan to address problem: Cont antihypertensives (4) HLD (hyperlipidemia) Current Visit: Yes Status: Chronic Qualifiers: Hyperlipidemia type: mixed hyperlipidemia Qualified Code(s): E78.2 - Mixed hyperlipidemia Plan to address problem: COnt statins (5) GERD (gastroesophageal reflux disease) Current Visit: Yes Status: Chronic Qualifiers: Esophagitis presence: without esophagitis Qualified Code(s): K21.9 - Gastro-esophageal reflux disease without esophagitis Plan to address problem: COnt PPI's (6) Anemia of chronic disease Current Visit: Yes Status: Chronic Plan to address problem: May need Epogen Will defer to Nephrology (7) Secondary hyperparathyroidism (of renal origin) Current Visit: Yes Status: Chronic Plan to address problem: Check phosphorus and PTH levels (8) Malnutrition Current Visit: Yes Status: Chronic Qualifiers: Protein-calorie malnutrition severity: moderate Plan to address problem: High protein diet (9) DVT prophylaxis Current Visit: Yes Status: Acute Plan to address problem: Heparin and GI prophylaxis History Interval history: Patient seen and examined getting dialysis, access fixed, no new complaints. Hospitalist Physical - Physical exam Narrative exam: General appearance: Present: no acute distress, well-nourished - EENT Eyes: Present: PERRL ENT: hearing intact, clear oral mucosa, other - Neck Neck: Present: supple, normal ROM, other (Vas cath Rt IJ) - Respiratory Respiratory effort: normal Respiratory: bilateral: CTA - Cardiovascular Heart rate: 78 Rhythm: regular Heart Sounds: Present: S1 & S2. Absent: rub, click - Extremities Extremities: no ischemia, pulses intact, pulses symmetrical, No edema Peripheral Pulses: within normal limits - Abdominal General gastrointestinal: Present: soft, non-tender, non-distended, normal bowel sounds Male genitourinary: Present: normal - Rectal Rectal Exam: deferred - Integumentary Integumentary: Present: clear, warm, dry - Musculoskeletal Musculoskeletal: gait normal, strength equal bilaterally - Psychiatric Psychiatric: appropriate mood/affect, intact judgment & insight - Neurologic Neurologic: CNII-XII intact, moves all extremities - Constitutional Vitals: Temp Pulse Resp BP Pulse Ox 97.6 F 79 16 156/99 100 11/11/18 13:00 11/11/18 15:51 11/11/18 13:00 11/11/18 15:51 11/11/18 03:40 General appearance: Present: no acute distress Results - Labs CBC & Chem 7: 11/11/18 04:57 11/11/18 04:57 Labs: Laboratory Last Values WBC 6.9 K/mm3 (4.5-11.0) 11/11/18 04:57 RBC 2.76 M/mm3 (3.65-5.03) L 11/11/18 04:57 Hgb 8.0 gm/dl (11.8-15.2) L 11/11/18 04:57 Hct 24.2 % (35.5-45.6) L 11/11/18 04:57 MCV 88 fl (84-94) 11/11/18 04:57 MCH 29 pg (28-32) 11/11/18 04:57 MCHC 33 % (32-34) 11/11/18 04:57 RDW 16.6 % (13.2-15.2) H 11/11/18 04:57 Plt Count 220 K/mm3 (140-440) 11/11/18 04:57 Lymph % (Auto) 18.7 % (13.4-35.0) 11/11/18 04:57 [place] % (Auto) 7.0 % (0.0-7.3) 11/11/18 04:57 Eos % (Auto) 6.9 % (0.0-4.3) H 11/11/18 04:57 Baso % (Auto) 1.2 % (0.0-1.8) 11/11/18 04:57 Lymph # 1.3 K/mm3 (1.2-5.4) 11/11/18 04:57 [place] # 0.5 K/mm3 (0.0-0.8) 11/11/18 04:57 Eos # 0.5 K/mm3 (0.0-0.4) H 11/11/18 04:57 Baso # 0.1 K/mm3 (0.0-0.1) 11/11/18 04:57 Seg Neutrophils % 66.2 % (40.0-70.0) 11/11/18 04:57 Seg Neutrophils # 4.6 K/mm3 (1.8-7.7) 11/11/18 04:57 Sodium 143 mmol/L (137-145) 11/11/18 04:57 Potassium 5.3 mmol/L (3.6-5.0) H 11/11/18 04:57 Chloride 113.9 mmol/L (98-107) H 11/11/18 04:57 Carbon Dioxide 14 mmol/L (22-30) L 11/11/18 04:57 Anion Gap 20 mmol/L 11/11/18 04:57 BUN 85 mg/dL (9-20) H 11/11/18 04:57 Creatinine 9.5 mg/dL (0.8-1.5) H 11/11/18 04:57 Estimated GFR 5 ml/min 11/11/18 04:57 BUN/Creatinine Ratio 9 % 11/11/18 04:57 Glucose 127 mg/dL (75-100) H 11/11/18 04:57 Hemoglobin A1c 5.8 % (4-6) 11/10/18 Unknown Calcium 7.7 mg/dL (8.4-10.2) L 11/11/18 04:57 Phosphorus 4.00 mg/dL (2.5-4.5) 11/10/18 16:29 Magnesium 2.70 mg/dL (1.7-2.3) H 11/10/18 10:32 Total Bilirubin 0.40 mg/dL (0.1-1.2) 11/11/18 04:57 AST 19 units/L (5-40) 11/11/18 04:57 ALT 9 units/L (7-56) 11/11/18 04:57 Alkaline Phosphatase 45 units/L (35-129) 11/11/18 04:57 Total Protein 6.2 g/dL (6.3-8.2) L 11/11/18 04:57 Albumin 3.9 g/dL (3.9-5) 11/11/18 04:57 Albumin/Globulin Ratio 1.7 % 11/11/18 04:57 PTH Intact 217.4 pg/mL (15-65) H 11/10/18 16:29 Hepatitis A IgM Ab Non-reactive (NonReactive) 11/10/18 10:32 Hep B Core IgM Ab Non-reactive (NonReactive) 11/10/18 10:32 Hepatitis C Antibody Non-reactive (NonReactive) 11/10/18 10:32
[2018-11-12] MEDS: TYLENOL PO PRN ×2 (00:36→19:35)
[2018-11-12 06:12] LABS: Hematocrit 25.7 % (35.5-45.6); Hemoglobin 8.6 gm/dl (11.8-15.2)
[2018-11-12] MEDS ORDERED: NACL 0.9% 100 ML IV PRN (08:51)
--- NOTE | 2018-11-12 08:51 | Progress Note ---
Subjective Interval history: Patient was seen today for follow-up on multiple renal related issues Tolerated hemodialysis very well yesterday with a new catheter Previous catheter did not work Patient is from [facility] pending acceptance at [facility] Patient denies having any chest pain pressure or shortness of breath Vitals labs intake output medications were reviewed Social history: Reviewed Allergies: Reviewed Family history: Reviewed Physical examination HEENT: Oral mucosa moist no pallor or icterus Neck: Supple no JVD Bleeding some from CVC no fresh oozing Central venous catheter site unremarkable Chest: Clear to auscultation anteriorly CVS: Regular rate and rhythm S1 and S2 heard Abdomen: Soft nontender no suprapubic masses no organomegaly appreciable Extremity: Dry skin less than 1+ peripheral edema Musculoskeletal: No joint effusion noted in knees and ankle Neurological: Alert awake Dermatology: No petechial rashes Psychiatry: No evidence of any agitation and aggression noted Assessment and plan End-stage renal disease: Patient will continue with hemodialysis, monitor dialysis related labs Will keep him on Friday schedule Oozing from CVC , getting DDAVP, IV by Dr Hemphill , need s 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 Pending the patient acceptance at outpatient dialysis facility Metabolic acidosis: Currently better Continue to monitor dialysis related labs Catheter care: Discussed with patient Will also need a permanent access, will discuss with vascular surgery Will need to continue with multivitamin 1 tablet daily Anemia in end-stage renal disease: Monitor hemoglobin and hematocrit, erythropoietin as needed Secondary hyperparathyroidism periodically check phosphorus and PTH level Hypertension and volume: , Adjust medications as needed, ultrafiltration as tolerated keep systolic blood pressure above 100 Malnutrition risk: High please consider high protein diet as well as nutrition follow-up, patient needs at least 1.5 g protein per KG body weight Stable for discharge from renal standpoint We'll continue to follow and make recommendation from renal standpoint Objective - Vital Signs Vital signs: Vital Signs - 12hr 11/11/18 11/12/18 11/12/18 22:00 02:33 07:30 Temperature 98.4 F 98.3 F Pulse Rate 66 70 Pulse Rate [ 78 Right Radial] Respiratory 18 18 18 Rate Blood Pressure 135/77 170/80 O2 Sat by Pulse 100 98 97 Oximetry - Lab 11/12/18 05:52 11/11/18 04:57 Most recent lab results Calcium 7.7 mg/dL (8.4-10.2) L 11/11/18 04:57 Phosphorus 4.00 mg/dL (2.5-4.5) 11/10/18 16:29 Magnesium 2.70 mg/dL (1.7-2.3) H 11/10/18 10:32 Medications & Allergies - Medications Allergies/Adverse Reactions: Allergies No Known Allergies Allergy (Verified 11/10/18 11:41) Home Medications: Home Medications Medication Instructions Recorded Confirmed Last Taken Type Aspirin [Aspirin EC] 100 mg PO DAILY 11/10/18 11/10/18 11/10/18 07:00 History Atorvastatin [Lipitor Tab] 10 mg PO DAILY 11/10/18 11/10/18 11/09/18 20:00 History B Complex 500 mg PO DAILY 11/10/18 11/10/18 11/10/18 07:00 History Clonidine HCl [Kapvay] 0.1 mg PO PRN PRN 11/10/18 11/10/18 Unknown History Felodipine [Plendil Tab] 10 mg PO QDAY 11/10/18 11/10/18 11/10/18 07:00 History Metoprolol Tartrate 1 tab PO DAILY 11/10/18 11/10/18 11/10/18 07:00 History Multivit-Min/FA/Lycopen/Lutein 1 tab PO QAM 11/10/18 11/10/18 11/10/18 07:00 History [Centrum Silver Men Tablet] [place]-3 Fatty Acids/Fish Oil [Fish 1 cap PO QDAY 11/10/18 11/10/18 11/10/18 07:00 History Oil] Omeprazole 1 tab PO QDAY 11/10/18 11/10/18 11/10/18 07:00 History Allopurinol [Zyloprim] 100 mg PO QDAY 11/12/18 11/12/18 Unknown History Active Medications: Generic Name Dose Route Start Last Admin Trade Name Freq PRN Reason Stop Dose Admin Acetaminophen 650 mg 11/10/18 23:16 11/12/18 00:36 Tylenol PO 650 mg Q4H PRN Administration Pain MILD(1-3)/Fever >100.5/WEISS Amlodipine Besylate 10 mg 11/11/18 10:00 11/11/18 15:49 Norvasc PO 10 mg DAILY NAFISA Administration Atorvastatin Calcium 10 mg 11/11/18 10:00 11/11/18 15:50 Lipitor PO 10 mg DAILY NAFISA Administration Clonidine HCl 0.1 mg 11/11/18 06:00 Catapres PO Q8H PRN BLOOD PRESSURE Famotidine 10 mg 11/11/18 10:00 11/11/18 21:20 Pepcid PO Not Given BID NAFISA Fish Oil 1,000 mg 11/11/18 10:00 11/11/18 15:51 Fish Oil PO 1,000 mg QDAY NAFISA Administration Hydromorphone HCl 0.5 mg 11/10/18 23:16 Dilaudid IV Q3H PRN Pain , Severe (7-10) Sodium Chloride 100 mls @ 999 mls/hr 11/10/18 15:13 Nacl 0.9% IV QUENTIN PRN Hypotension Sodium Chloride 100 mls @ 999 mls/hr 11/11/18 09:39 Nacl 0.9% IV QUENTIN PRN Hypotension Metoprolol Tartrate 50 mg 11/11/18 10:00 11/11/18 15:51 Lopressor PO 50 mg DAILY NAFISA Administration Multivitamins/Minerals 1 each 11/11/18 12:00 11/11/18 15:50 Theragran-M Tab PO 1 each QDAY NAFISA Administration Ondansetron HCl 4 mg 11/10/18 23:16 Zofran IV Q8H PRN Nausea And Vomiting Oxycodone/Acetaminophen 1 tab 11/10/18 23:16 Percocet 5/325 PO Q6H PRN Pain, Moderate (4-6) Pantoprazole Sodium 40 mg 11/11/18 12:00 11/11/18 15:50 Protonix PO 40 mg DAILY NAFISA Administration Sodium Chloride 10 ml 11/10/18 23:45 11/11/18 21:12 Sodium Chloride Flush Syringe 10 Ml IV 10 ml BID NAFISA Administration Sodium Chloride 10 ml 11/10/18 23:16 Sodium Chloride Flush Syringe 10 Ml IV PRN PRN LINE FLUSH Zolpidem Tartrate 5 mg 11/10/18 23:16 Ambien PO QHS PRN Insomnia
[2018-11-12] MEDS ORDERED: DDAVP 20 MCG in NACL 0.9% 50 ML IV ONE (09:38)
[2018-11-12] MEDS: PROTONIX PO SCH (11:11)
[2018-11-12] MEDS: FISH OIL PO SCH (11:11)
[2018-11-12] MEDS: THERAGRAN-M Tab PO SCH (11:11)
--- NOTE | 2018-11-12 11:28 | Event Note ---
Date: 11/12/18 Contacted regarding bleeding from PermCath site. H&H reviewed which was stable. Pressure dressing applied. Prior dressing provided in adequate pressure. 20 g of DDAVP ordered. No further bleeding. Pressure dressing can be removed in 24-48 hours.
--- NOTE | 2018-11-12 14:46 | Progress Note ---
Assessment and Plan Assessment and plan: 72 y/o Maldivian/ male to a Maldivian was started on Hemodialysis in June 2018 and had a vas cath and failed AVG on Rt forearm.Moved to [facility] for a few months to be with his and comes back to [facility] on Friday11/08/18. He Had HD in [facility] on Friday. And due for HD yesterday. No arrangements were made for HD on regular basis here.Patient is a [facility] Citizen. No SOB No Orthopnea. Patient went Local HD center and was sent here for medical clearance and placement. Has a vas cath in Rt IJ with poor dressing. * Patient underwent replacement of Permacath * Noted some bleeding from site of previous permcath, expected for this condition. Recieved DDAVP and pressure applied. ASA held for 24 hrs. * Vascular and Nephrology input noted * Correction of Hyperkalemia with dialysis, In addition to Kayxalate * (1) ESRD needing dialysis (2) Hyperkalemia (3) HTN (hypertension) (4) HLD (hyperlipidemia) (5) GERD (gastroesophageal reflux disease) (6) Anemia of chronic disease (7) Secondary hyperparathyroidism (of renal origin) (8) Malnutrition (9) Metabolic Acidosis (10) Uremic Bleed- Resolved (11) DVT prophylaxis Plan Continue current management Awaiting chair time for dialysis outpatient and then the patient can be discharge Restart ASA on discharge per discussion with Nephrology History Interval history: Patient seen and examined this morning with no new complaints. Nursing staff reports the patient was bleeding from the neck area on the lateral side sites of Vas-Cath. Patient denies any chest pain, nausea, vomiting, or diarreha. Hospitalist Physical - Physical exam Narrative exam: VITAL SIGNS: Reviewed. GENERAL: The patient appeared well nourished and normally developed, Vital signs as documented. HEAD: No signs of head trauma. EYES: Pupils are equal. Extraocular motions intact. EARS: Hearing grossly intact. MOUTH: Oropharynx is normal. NECK: No adenopathy, no JVD. Pressure dressing in place with mild erythema noted. CHEST: Chest with clear breath sounds bilaterally. No wheezes, rales, or rhonchi. Permacath to the left chest wall CARDIAC: Regular rate and rhythm. S1 and S2, without murmurs, gallops, or rubs. VASCULAR: No Edema. Peripheral pulses normal and equal in all extremities. ABDOMEN: Soft, non tender and non distended. No rebound or guarding, and no masses palpated. Bowel Sounds normal. MUSCULOSKELETAL: Good range of motion of all major joints. Extremities without clubbing, cyanosis or edema. NEUROLOGIC EXAM: Alert and oriented x 3 No focal sensory or strength deficit s. Speech normal. Follows commands. PSYCHIATRIC: Mood normal. SKIN: No rash or lesions. - Constitutional Vitals: Temp Pulse Resp BP Pulse Ox 98.3 F 70 18 170/80 97 11/12/18 07:30 11/12/18 07:30 11/12/18 07:30 11/12/18 07:30 11/12/18 07:30 General appearance: Present: no acute distress Results - Labs CBC & Chem 7: 11/12/18 05:52 11/11/18 04:57 Labs: Laboratory Last Values WBC 6.9 K/mm3 (4.5-11.0) 11/11/18 04:57 RBC 2.76 M/mm3 (3.65-5.03) L 11/11/18 04:57 Hgb 8.6 gm/dl (11.8-15.2) L 11/12/18 05:52 Hct 25.7 % (35.5-45.6) L 11/12/18 05:52 MCV 88 fl (84-94) 11/11/18 04:57 MCH 29 pg (28-32) 11/11/18 04:57 MCHC 33 % (32-34) 11/11/18 04:57 RDW 16.6 % (13.2-15.2) H 11/11/18 04:57 Plt Count 220 K/mm3 (140-440) 11/11/18 04:57 Lymph % (Auto) 18.7 % (13.4-35.0) 11/11/18 04:57 [place] % (Auto) 7.0 % (0.0-7.3) 11/11/18 04:57 Eos % (Auto) 6.9 % (0.0-4.3) H 11/11/18 04:57 Baso % (Auto) 1.2 % (0.0-1.8) 11/11/18 04:57 Lymph # 1.3 K/mm3 (1.2-5.4) 11/11/18 04:57 [place] # 0.5 K/mm3 (0.0-0.8) 11/11/18 04:57 Eos # 0.5 K/mm3 (0.0-0.4) H 11/11/18 04:57 Baso # 0.1 K/mm3 (0.0-0.1) 11/11/18 04:57 Seg Neutrophils % 66.2 % (40.0-70.0) 11/11/18 04:57 Seg Neutrophils # 4.6 K/mm3 (1.8-7.7) 11/11/18 04:57 Sodium 143 mmol/L (137-145) 11/11/18 04:57 Potassium 5.3 mmol/L (3.6-5.0) H 11/11/18 04:57 Chloride 113.9 mmol/L (98-107) H 11/11/18 04:57 Carbon Dioxide 14 mmol/L (22-30) L 11/11/18 04:57 Anion Gap 20 mmol/L 11/11/18 04:57 BUN 85 mg/dL (9-20) H 11/11/18 04:57 Creatinine 9.5 mg/dL (0.8-1.5) H 11/11/18 04:57 Estimated GFR 5 ml/min 11/11/18 04:57 BUN/Creatinine Ratio 9 % 11/11/18 04:57 Glucose 127 mg/dL (75-100) H 11/11/18 04:57 POC Glucose 287 (70-105) H 11/10/18 14:04 Hemoglobin A1c 5.8 % (4-6) 11/10/18 Unknown Calcium 7.7 mg/dL (8.4-10.2) L 11/11/18 04:57 Phosphorus 4.00 mg/dL (2.5-4.5) 11/10/18 16:29 Magnesium 2.70 mg/dL (1.7-2.3) H 11/10/18 10:32 Total Bilirubin 0.40 mg/dL (0.1-1.2) 11/11/18 04:57 AST 19 units/L (5-40) 11/11/18 04:57 ALT 9 units/L (7-56) 11/11/18 04:57 Alkaline Phosphatase 45 units/L (35-129) 11/11/18 04:57 Total Protein 6.2 g/dL (6.3-8.2) L 11/11/18 04:57 Albumin 3.9 g/dL (3.9-5) 11/11/18 04:57 Albumin/Globulin Ratio 1.7 % 11/11/18 04:57 PTH Intact 217.4 pg/mL (15-65) H 11/10/18 16:29 Hepatitis A IgM Ab Non-reactive (NonReactive) 11/10/18 10:32 Hep B Core IgM Ab Non-reactive (NonReactive) 11/10/18 10:32 Hepatitis C Antibody Non-reactive (NonReactive) 11/10/18 10:32 - Imaging and Cardiology Chest x-ray: image reviewed (no acute pathology)
[2018-11-12] MEDS: PEPCID PO SCH ×2 (15:29→23:38)
[2018-11-12] MEDS: LOPRESSOR PO SCH (15:29)
[2018-11-12] MEDS: NORVASC PO SCH (15:29)
[2018-11-12] MEDS: SODIUM CHLORIDE FLUSH SYRINGE 10 ML IV SCH ×2 (15:30→21:30)
[2018-11-12] MEDS ORDERED: NACL 0.9 (PRIMING MACHINE ONLY DIALYSIS) MC ONE (19:00)
[2018-11-12] MEDS: ZOFRAN IV PRN (22:24)
[2018-11-13 04:41] LABS: Hematocrit 24.6 % (35.5-45.6); Hemoglobin 8.2 gm/dl (11.8-15.2)
[2018-11-13 08:08] LABS: Hematocrit 25.4 % (35.5-45.6); Hemoglobin 8.5 gm/dl (11.8-15.2)
[2018-11-13 08:29] LABS: Calcium 7.5 mg/dL (8.4-10.2)
[2018-11-13] MEDS: NORVASC PO SCH (09:40)
[2018-11-13] MEDS: PROTONIX PO SCH (09:40)
[2018-11-13] MEDS: THERAGRAN-M Tab PO SCH (09:40)
[2018-11-13] MEDS: FISH OIL PO SCH (09:40)
[2018-11-13] MEDS: LOPRESSOR PO SCH (09:41)
[2018-11-13] MEDS: SODIUM CHLORIDE FLUSH SYRINGE 10 ML IV SCH ×2 (09:41→21:13)
[2018-11-13] MEDS: PEPCID PO SCH ×2 (09:41→21:11)
[2018-11-13] MEDS ORDERED: DDAVP 20 MCG in NACL 0.9% 50 ML IV ONE (11:00)
[2018-11-13] MEDS ORDERED: XYLOCAINE 1%/ EPI 1:100,000 INFILTRATI ONE (13:54)
--- NOTE | 2018-11-13 14:29 | Event Note ---
Date: 11/13/18 Patient had bleeding again from the right neck. Pressure dressing reapplied and DDAVP readministered. Despite greater than 24 hrs of pressure dressing, patient still has some oozing after a few hours. Will be brought downstairs for evaluation in the [employer] lab[facility].
--- NOTE | 2018-11-13 15:42 | Progress Note ---
Assessment and Plan Bleed from Perm cath- s/p DDAVP and pressure - not resolved, plan to take back to OR today ESRD needing dialysis, renal following, need chair time Hyperkalemia due to ESRD - improved after kayexalate and HD HTN (hypertension) HLD (hyperlipidemia) GERD (gastroesophageal reflux disease) - cont home meds, adjust as needed Anemia of chronic disease, monitor H/H Secondary hyperparathyroidism (of renal origin) Metabolic Acidosis due to ESRD - Mx per renal DVT prophylaxis, SCD Plan Continue current management Awaiting chair time for dialysis outpatient and then the patient can be discharge Restart ASA on discharge if bleeding stops, per discussion with Nephrology Brief History: 72 y/o Citizen Of [place]/ male to a Citizen [place] was started on Hemodialysis in June 2018 and had a vas cath and failed AVG on Rt forearm. Moved to [facility] for a few months to be with his and comes back to [facility] on Friday11/08/18. He Had his last HD in [facility] before this admission. No arrangements were made for HD on regular basis here. Patient is a [facility] Citizen. Patient went Local HD center and was sent here for medical clearance and placement. Has a vas cath in Rt IJ with poor dressing. * Patient underwent replacement of Permacath * Need outpt HD set up before discharge * Noted bleeding from site of previous permcath, Recieved DDAVP and pressure applied. ASA held, plan for OR again today Hospitalist Physical VITAL SIGNS: Reviewed. GENERAL: The patient appeared well nourished and normally developed, Vital signs as documented. HEAD: No signs of head trauma. EYES: Pupils are equal. Extraocular motions intact. EARS: Hearing grossly intact. MOUTH: Oropharynx is normal. NECK: No adenopathy, no JVD. Pressure dressing in place with mild erythema noted. CHEST: Chest with clear breath sounds bilaterally. No wheezes, rales, or rhonchi. Permacath to the left chest wall CARDIAC: Regular rate and rhythm. S1 and S2, without murmurs, gallops, or r ubs. VASCULAR: No Edema. Peripheral pulses normal and equal in all extremities. ABDOMEN: Soft, non tender and non distended. No rebound or guarding, and no masses palpated. Bowel Sounds normal. MUSCULOSKELETAL: Good range of motion of all major joints. Extremities without clubbing, cyanosis or edema. NEUROLOGIC EXAM: Alert and oriented x 3 No focal sensory or strength deficits. Speech normal. Follows commands. PSYCHIATRIC: Mood normal. SKIN: No rash or lesions. Subjective Date of service: 11/13/18 Interval history: Patient seen and examined. Nursing staff reports the patient was cont to bleed from the neck area on the lateral side sites of perm-Cath o/n. Objective - Constitutional Vitals: Vital Signs - 12hr 11/13/18 11/13/18 11/13/18 08:25 09:40 09:41 Temperature 98.0 F Pulse Rate 79 79 79 Pulse Rate [ Right Radial] Respiratory 20 Rate Blood Pressure 133/84 133/84 133/84 O2 Sat by Pulse 100 Oximetry 11/13/18 11/13/18 11/13/18 10:00 11:18 11:27 Temperature Pulse Rate Pulse Rate [ 79 Right Radial] Respiratory 20 Rate Blood Pressure 149/73 117/83 O2 Sat by Pulse 100 Oximetry 11/13/18 11/13/18 11/13/18 11:38 12:09 13:29 Temperature 98.1 F Pulse Rate 67 Pulse Rate [ Right Radial] Respiratory 18 20 Rate Blood Pressure 152/59 131/71 O2 Sat by Pulse 92 Oximetry - Labs CBC & Chem 7: 11/14/18 04:30 11/14/18 04:30 Labs: Abnormal lab results 11/13/18 11/13/18 11/13/18 Range/Units 04:10 07:58 07:58 Hgb 8.2 L 8.5 L (11.8-15.2) gm/dl Hct 24.6 L 25.4 L (35.5-45.6) % Sodium 134 L D (137-145) mmol/L Chloride 94.7 L (98-107) mmol/L Creatinine 3.9 H D (0.8-1.5) mg/dL Glucose 123 H (75-100) mg/dL Calcium 7.5 L (8.4-10.2) mg/dL
--- NOTE | 2018-11-13 18:34 | Progress Note ---
Assessment and Plan Impression: * ESRD * HTN * Anemia in ESRD * HTN PLan: * hd q TTHSAT * uf as tolerated with hd * daily lytes * strict i/os * renal diet * stable for dc from renal standpoint Pending the patient acceptance at outpatient dialysis facility Subjective Date of service: 11/13/18 Principal diagnosis: renal failure Interval history: resting well in bed today Objective - Exam Narrative Exam: HEENT: Oral mucosa moist no pallor or icterus Neck: Supple no JVD Bleeding some from CVC no fresh oozing Central venous catheter site unremarkable Chest: Clear to auscultation anteriorly CVS: Regular rate and rhythm S1 and S2 heard Abdomen: Soft nontender no suprapubic masses no organomegaly appreciable Extremity: Dry skin less than 1+ peripheral edema Musculoskeletal: No joint effusion noted in knees and ankle Neurological: Alert awake Dermatology: No petechial rashes Psychiatry: No evidence of any agitation and aggression noted - Vital Signs Vital signs: Vital Signs - 12hr 11/13/18 11/13/18 11/13/18 08:25 09:40 09:41 Temperature 98.0 F Pulse Rate 79 79 79 Pulse Rate [ Right Radial] Respiratory 20 Rate Blood Pressure 133/84 133/84 133/84 O2 Sat by Pulse 100 Oximetry 11/13/18 11/13/18 11/13/18 10:00 11:18 11:27 Temperature Pulse Rate Pulse Rate [ 79 Right Radial] Respiratory 20 Rate Blood Pressure 149/73 117/83 O2 Sat by Pulse 100 Oximetry 11/13/18 11/13/18 11/13/18 11:38 12:09 13:29 Temperature 98.1 F Pulse Rate 67 Pulse Rate [ Right Radial] Respiratory 18 20 Rate Blood Pressure 152/59 131/71 O2 Sat by Pulse 92 Oximetry - Lab 11/13/18 07:58 11/13/18 07:58 Most recent lab results Calcium 7.5 mg/dL (8.4-10.2) L 11/13/18 07:58 Phosphorus 4.00 mg/dL (2.5-4.5) 11/10/18 16:29 Magnesium 2.70 mg/dL (1.7-2.3) H 11/10/18 10:32 Medications & Allergies - Medications Allergies/Adverse Reactions: Allergies No Known Allergies Allergy (Verified 11/10/18 11:41) Home Medications: Home Medications Medication Instructions Recorded Confirmed Last Taken Type Aspirin [Aspirin EC] 100 mg PO DAILY 11/10/18 11/10/18 11/10/18 07:00 History Atorvastatin [Lipitor Tab] 10 mg PO DAILY 11/10/18 11/10/18 11/09/18 20:00 History B Complex 500 mg PO DAILY 11/10/18 11/10/18 11/10/18 07:00 History Clonidine HCl [Kapvay] 0.1 mg PO PRN PRN 11/10/18 11/10/18 Unknown History Felodipine [Plendil Tab] 10 mg PO QDAY 11/10/18 11/10/18 11/10/18 07:00 History Metoprolol Tartrate 1 tab PO DAILY 11/10/18 11/10/18 11/10/18 07:00 History Multivit-Min/FA/Lycopen/Lutein 1 tab PO QAM 11/10/18 11/10/18 11/10/18 07:00 History [Centrum Silver Men Tablet] [place]-3 Fatty Acids/Fish Oil [Fish 1 cap PO QDAY 11/10/18 11/10/18 11/10/18 07:00 History Oil] Omeprazole 1 tab PO QDAY 11/10/18 11/10/18 11/10/18 07:00 History Allopurinol [Zyloprim] 100 mg PO QDAY 11/12/18 11/12/18 Unknown History Active Medications: Generic Name Dose Route Start Last Admin Trade Name Freq PRN Reason Stop Dose Admin Acetaminophen 650 mg 11/10/18 23:16 11/12/18 19:35 Tylenol PO 650 mg Q4H PRN Administration Pain MILD(1-3)/Fever >100.5/WEISS Amlodipine Besylate 10 mg 11/11/18 10:00 11/13/18 09:40 Norvasc PO 10 mg DAILY NAFISA Administration Atorvastatin Calcium 10 mg 11/11/18 10:00 11/13/18 09:39 Lipitor PO 10 mg DAILY NAFISA Administration Clonidine HCl 0.1 mg 11/11/18 06:00 Catapres PO Q8H PRN BLOOD PRESSURE Famotidine 10 mg 11/11/18 10:00 11/13/18 09:41 Pepcid PO Not Given BID NAFISA Fish Oil 1,000 mg 11/11/18 10:00 11/13/18 09:40 Fish Oil PO 1,000 mg QDAY NAFISA Administration Hydromorphone HCl 0.5 mg 11/10/18 23:16 Dilaudid IV Q3H PRN Pain , Severe (7-10) Sodium Chloride 100 mls @ 999 mls/hr 11/12/18 08:51 Nacl 0.9% IV QUENTIN PRN Hypotension Metoprolol Tartrate 50 mg 11/11/18 10:00 11/13/18 09:41 Lopressor PO 50 mg DAILY NAFISA Administration Multivitamins/Minerals 1 each 11/11/18 12:00 11/13/18 09:40 Theragran-M Tab PO 1 each QDAY NAFISA Administration Ondansetron HCl 4 mg 11/10/18 23:16 11/12/18 22:24 Zofran IV 4 mg Q8H PRN Administration Nausea And Vomiting Oxycodone/Acetaminophen 1 tab 11/10/18 23:16 11/13/18 12:09 Percocet 5/325 PO 1 tab Q6H PRN Administration Pain, Moderate (4-6) Pantoprazole Sodium 40 mg 11/11/18 12:00 11/13/18 09:40 Protonix PO 40 mg DAILY NAFISA Administration Sodium Chloride 10 ml 11/10/18 23:45 11/13/18 09:41 Sodium Chloride Flush Syringe 10 Ml IV 10 ml BID NAFISA Administration Sodium Chloride 10 ml 11/10/18 23:16 Sodium Chloride Flush Syringe 10 Ml IV PRN PRN LINE FLUSH Zolpidem Tartrate 5 mg 11/10/18 23:16 11/12/18 22:24 Ambien PO 5 mg QHS PRN Administration Insomnia
[2018-11-13] MEDS: TYLENOL PO PRN (22:35)
[2018-11-14 05:23] LABS: Basophils # (Auto) 0.1 K/mm3 (0.0-0.1); Basophils % (Auto) 1.2 % (0.0-1.8); Eosinophils # (Auto) 0.7 K/mm3 (0.0-0.4); Eosinophils % (Auto) 8.9 % (0.0-4.3); Hematocrit 20.3 % (35.5-45.6); Hemoglobin 6.8 gm/dl (11.8-15.2); Lymphocytes # (Auto) 1.7 K/mm3 (1.2-5.4); Lymphocytes % (Auto) 22.3 % (13.4-35.0); Mean Corpuscular HGB Conc 34 % (32-34); Mean Corpuscular Volume 87 fl (84-94); Monocytes # (Auto) 1.1 K/mm3 (0.0-0.8); Monocytes % (Auto) 14.2 % (0.0-7.3); Platelet Count 227 K/mm3 (140-440); Red Blood Count 2.34 M/mm3 (3.65-5.03); Red Cell Distribution Width 15.4 % (13.2-15.2)
[2018-11-14 06:21] LABS: Calcium 7.3 mg/dL (8.4-10.2)
[2018-11-14] MEDS ORDERED: NACL 0.9% 500 ML 500 ML IV ONE (08:33)
--- NOTE | 2018-11-14 09:10 | Progress Note ---
Assessment and Plan Impression: * ESRD * HTN * Anemia in ESRD * HTN PLan: * hd q TTHSAT * uf as tolerated with hd * daily lytes * strict i/os * renal diet * stable for dc from renal standpoint Pending the patient acceptance at outpatient dialysis facility Subjective Date of service: 11/14/18 Principal diagnosis: renal failure Interval history: resting well in bed today Objective - Exam Narrative Exam: HEENT: Oral mucosa moist no pallor or icterus Neck: Supple no JVD Bleeding some from CVC no fresh oozing Central venous catheter site unremarkable Chest: Clear to auscultation anteriorly CVS: Regular rate and rhythm S1 and S2 heard Abdomen: Soft nontender no suprapubic masses no organomegaly appreciable Extremity: Dry skin less than 1+ peripheral edema Musculoskeletal: No joint effusion noted in knees and ankle Neurological: Alert awake Dermatology: No petechial rashes Psychiatry: No evidence of any agitation and aggression noted - Vital Signs Vital signs: Vital Signs - 12hr 11/14/18 11/14/18 11/14/18 02:01 02:03 07:44 Temperature 98.4 F 98.8 F Pulse Rate 89 65 Respiratory 18 18 Rate Blood Pressure 152/72 173/79 O2 Sat by Pulse 98 96 Oximetry - Lab 11/14/18 04:30 11/14/18 04:30 Most recent lab results Calcium 7.3 mg/dL (8.4-10.2) L 11/14/18 04:30 Phosphorus 4.00 mg/dL (2.5-4.5) 11/10/18 16:29 Magnesium 2.70 mg/dL (1.7-2.3) H 11/10/18 10:32 Medications & Allergies - Medications Allergies/Adverse Reactions: Allergies No Known Allergies Allergy (Verified 11/10/18 11:41) Home Medications: Home Medications Medication Instructions Recorded Confirmed Last Taken Type Aspirin [Aspirin EC] 100 mg PO DAILY 11/10/18 11/10/18 11/10/18 07:00 History Atorvastatin [Lipitor Tab] 10 mg PO DAILY 11/10/18 11/10/18 11/09/18 20:00 History B Complex 500 mg PO DAILY 11/10/18 11/10/18 11/10/18 07:00 History Clonidine HCl [Kapvay] 0.1 mg PO PRN PRN 11/10/18 11/10/18 Unknown History Felodipine [Plendil Tab] 10 mg PO QDAY 11/10/18 11/10/18 11/10/18 07:00 History Metoprolol Tartrate 1 tab PO DAILY 11/10/18 11/10/18 11/10/18 07:00 History Multivit-Min/FA/Lycopen/Lutein 1 tab PO QAM 11/10/18 11/10/18 11/10/18 07:00 History [Centrum Silver Men Tablet] [place]-3 Fatty Acids/Fish Oil [Fish 1 cap PO QDAY 11/10/18 11/10/18 11/10/18 0 7:00 History Oil] Omeprazole 1 tab PO QDAY 11/10/18 11/10/18 11/10/18 07:00 History Allopurinol [Zyloprim] 100 mg PO QDAY 11/12/18 11/12/18 Unknown History Active Medications: Generic Name Dose Route Start Last Admin Trade Name Freq PRN Reason Stop Dose Admin Acetaminophen 650 mg 11/10/18 23:16 11/13/18 22:35 Tylenol PO 650 mg Q4H PRN Administration Pain MILD(1-3)/Fever >100.5/WEISS Amlodipine Besylate 10 mg 11/11/18 10:00 11/13/18 09:40 Norvasc PO 10 mg DAILY NAFISA Administration Atorvastatin Calcium 10 mg 11/11/18 10:00 11/13/18 09:39 Lipitor PO 10 mg DAILY NAFISA Administration Clonidine HCl 0.1 mg 11/11/18 06:00 Catapres PO Q8H PRN BLOOD PRESSURE Famotidine 10 mg 11/11/18 10:00 11/13/18 21:11 Pepcid PO 10 mg BID NAFISA Administration Fish Oil 1,000 mg 11/11/18 10:00 11/13/18 09:40 Fish Oil PO 1,000 mg QDAY NAFISA Administration Hydromorphone HCl 0.5 mg 11/10/18 23:16 Dilaudid IV Q3H PRN Pain , Severe (7-10) Sodium Chloride 100 mls @ 999 mls/hr 11/12/18 08:51 Nacl 0.9% IV QUENTIN PRN Hypotension Metoprolol Tartrate 50 mg 11/11/18 10:00 11/13/18 09:41 Lopressor PO 50 mg DAILY NAFISA Administration Multivitamins/Minerals 1 each 11/11/18 12:00 11/13/18 09:40 Theragran-M Tab PO 1 each QDAY NAFISA Administration Ondansetron HCl 4 mg 11/10/18 23:16 11/12/18 22:24 Zofran IV 4 mg Q8H PRN Administration Nausea And Vomiting Oxycodone/Acetaminophen 1 tab 11/10/18 23:16 11/13/18 12:09 Percocet 5/325 PO 1 tab Q6H PRN Administration Pain, Moderate (4-6) Pantoprazole Sodium 40 mg 11/11/18 12:00 11/13/18 09:40 Protonix PO 40 mg DAILY NAFISA Administration Sodium Chloride 10 ml 11/10/18 23:45 11/13/18 21:13 Sodium Chloride Flush Syringe 10 Ml IV 10 ml BID NAFISA Administration Sodium Chloride 10 ml 11/10/18 23:16 Sodium Chloride Flush Syringe 10 Ml IV PRN PRN LINE FLUSH Zolpidem Tartrate 5 mg 11/10/18 23:16 11/12/18 22:24 Ambien PO 5 mg QHS PRN Administration Insomnia
[2018-11-14] MEDS: NORVASC PO SCH ×2 (10:28→14:49)
[2018-11-14] MEDS: LOPRESSOR PO SCH ×2 (10:28→14:50)
--- NOTE | 2018-11-14 13:36 | Progress Note ---
Assessment and Plan Anemia - hb dropped to 6.8 today - due to acute blood loss and underlying Anemia of chronic disease, monitor H/H - transfuse one unit PRBC today Bleed from Perm cath- s/p DDAVP and pressure - not resolved with medical MX, s/p replacement of perm cath yesterday ESRD needing dialysis, renal following, need chair time Hyperkalemia due to ESRD - improved after kayexalate and HD HTN (hypertension) HLD (hyperlipidemia) GERD (gastroesophageal reflux disease) - cont home meds, adjust as needed Secondary hyperparathyroidism (of renal origin) Metabolic Acidosis due to ESRD - Mx per renal DVT prophylaxis, SCD Plan Continue current management Awaiting chair time for dialysis outpatient and then the patient can be discharge Restart ASA on discharge if bleeding stops, per discussion with Nephrology Brief History: 72 y/o Chadian/ male to a Chadian was started on Hemodialysis in June 2018 and had a vas cath and failed AVG on Rt forearm. Moved to [facility] for a few months to be with his and comes back to [facility] on Friday11/08/18. He Had his last HD in [facility] before this admission. No arrangements were made for HD on regular basis here. Patient is a [facility] Citizen. Patient went Local HD center and was sent here for medical clearance and placement. Has a vas cath in Rt IJ with poor dressing. His vascath removed and Patient underwent placement of Permacath. Noted bleeding from site of newly placed permcath, Recieved DDAVP and pressure applied. ASA held, but continue to bleed, then taken to OR again to replace permcath. Need outpt HD set up before discharge. Hospitalist Physical VITAL SIGNS: Reviewed. GENERAL: The patient appeared well nourished and normally developed, Vital signs as documented. HEAD: No signs of head trauma. EYES: Pupils are equal. Extraocular motions intact. EARS: Hearing grossly intact. MOUTH: Oropharynx is normal. NECK: No adenopathy, no JVD. Pressure dressing in place with mild erythema noted. CHEST: Chest with clear breath sounds bilaterally. No wheezes, rales, or rhonchi. Permacath to the left chest wall CARDIAC: Regular rate and rhythm. S1 and S2, without murmurs, gallops, or rubs . VASCULAR: No Edema. Peripheral pulses normal and equal in all extremities. ABDOMEN: Soft, non tender and non distended. No rebound or guarding, and no masses palpated. Bowel Sounds normal. MUSCULOSKELETAL: Good range of motion of all major joints. Extremities without clubbing, cyanosis or edema. NEUROLOGIC EXAM: Alert and oriented x 3 No focal sensory or strength deficits. Speech normal. Follows commands. PSYCHIATRIC: Mood normal. SKIN: No rash or lesions. Subjective Date of service: 11/14/18 Principal diagnosis: renal failure Interval history: Patient seen and examined. no acute issue o/n no chest pain, or SOB no further active bleeding Objective - Constitutional Vitals: Vital Signs - 12hr 11/14/18 11/14/18 11/14/18 02:01 02:03 07:44 Temperature 98.4 F 98.8 F Pulse Rate 89 65 Respiratory 18 18 Rate Blood Pressure 152/72 173/79 O2 Sat by Pulse 98 96 Oximetry 11/14/18 11/14/18 11/14/18 10:25 10:30 10:45 Temperature 98.4 F Pulse Rate 62 63 63 Respiratory 16 Rate Blood Pressure 160/93 180/84 151/83 O2 Sat by Pulse Oximetry 11/14/18 11/14/18 11/14/18 11:00 11:15 11:30 Temperature Pulse Rate 59 L 67 67 Respiratory Rate Blood Pressure 152/89 157/89 158/89 O2 Sat by Pulse Oximetry 11/14/18 11/14/18 11/14/18 11:45 12:00 12:15 Temperature Pulse Rate 67 62 67 Respiratory Rate Blood Pressure 157/89 149/85 166/78 O2 Sat by Pulse Oximetry 11/14/18 11/14/18 11/14/18 12:30 12:45 13:00 Temperature 98.4 F Pulse Rate 67 70 70 Respiratory 16 Rate Blood Pressure 166/78 149/88 168/92 O2 Sat by Pulse Oximetry 11/14/18 11/14/18 13:15 13:31 Temperature 98.3 F Pulse Rate 70 70 Respiratory 16 16 Rate Blood Pressure 154/93 126/87 O2 Sat by Pulse Oximetry - Labs CBC & Chem 7: 11/14/18 16:02 11/14/18 04:30 Labs: Abnormal lab results 11/14/18 11/14/18 11/14/18 Range/Units 04:30 04:30 11:12 RBC 2.34 L (3.65-5.03) M/mm3 Hgb 6.8 L (11.8-15.2) gm/dl Hct 20.3 L (35.5-45.6) % RDW 15.4 H (13.2-15.2) % [place] % (Auto) 14.2 H (0.0-7.3) % Eos % (Auto) 8.9 H (0.0-4.3) % [place] # 1.1 H (0.0-0.8) K/mm3 Eos # 0.7 H (0.0-0.4) K/mm3 Carbon Dioxide 20 L (22-30) mmol/L BUN 27 H (9-20) mg/dL Creatinine 6.1 H D (0.8-1.5) mg/dL Glucose 116 H (75-100) mg/dL Calcium 7.3 L (8.4-10.2) mg/dL Crossmatch See Detail
[2018-11-14] MEDS ORDERED: NACL 0.9 (PRIMING MACHINE ONLY DIALYSIS) MC ONE (13:46)
[2018-11-14] MEDS: PROTONIX PO SCH (14:50)
[2018-11-14] MEDS: SODIUM CHLORIDE FLUSH SYRINGE 10 ML IV SCH ×2 (14:51→21:00)
[2018-11-14] MEDS: PEPCID PO SCH ×2 (14:51→21:01)
[2018-11-14] MEDS: THERAGRAN-M Tab PO SCH (14:51)
[2018-11-14] MEDS: TYLENOL PO PRN (15:17)
[2018-11-14] MEDS: ZOFRAN IV PRN (15:17)
[2018-11-14] MEDS: FISH OIL PO SCH (15:17)
--- NOTE | 2018-11-14 15:38 | Vascular Lab Report ---
PROCEDURE: VL VENOUS DUPLEX UE BILAT TECHNIQUE: Transverse longitudinal sonograms obtained with stuart scale sonography. Spectral and color Doppler evaluation. Duplex study. HISTORY: vein mapping for esrd COMPARISONS: None FINDINGS: Vessel diameter measurement (cm) and an velocity (cm/s): Right upper extremity: Brachial artery 0.38; 86 Radial artery: 0.17; 41 Ulnar artery: 0.19; 76 Axillary artery: 0.61; 104 Axillary vein: 0.64 Basilic vein: Upper biceps: 0.6 Mid bicep: 0.19 Low bicep 0.17 Antecubital fossa: 0.27 Upper forearm: 0.1 Cephalic vein: Shoulder 0.25 Upper biceps 0.22 Mid biceps 0.22 Low biceps 0.23 Antecubital fossa 0.2 Upper forearm 0.17 Mid forearm 0.17 Distal forearm 0.12 Left upper extremity: Brachial artery: 0.44; 56 Radial artery: 0.2; 74 Ulnar artery: 0.17, 55 Axillary artery: 0.53; 86 Axillary vein: 0.5 Basilic vein: Upper biceps: 0.48 Mid bicep: 0.42 Lobe bicep: 0.42 And if cubital fossa: 0.31 Upper forearm: 0.28 Mid forearm: 0.28 Distal forearm: 0.25 Cephalic vein: Shoulder: 0.23 Upper bicep 0.26 Mid biceps 0.15 Low biceps 0.22 Antecubital fossa: 0.2 cm Upper forearm 0.14 Midforearm 0.19 Distal forearm 0.13 Bilateral cephalic and basilic veins are patent. No thrombus or filling defect. Arteries demonstrate normal triphasic waveforms. IMPRESSION: Arterial and venous measurements as above.. This document is electronically signed by Abner Paige MD., November 14 2018 03:36:02 PM ET
[2018-11-14 16:23] LABS: Hematocrit 26.3 % (35.5-45.6)
[2018-11-15] MEDS: FISH OIL PO SCH (10:52)
[2018-11-15] MEDS: PEPCID PO SCH ×2 (10:52→21:20)
[2018-11-15] MEDS: PROTONIX PO SCH (10:52)
[2018-11-15] MEDS: THERAGRAN-M Tab PO SCH (10:52)
[2018-11-15] MEDS: NORVASC PO SCH (10:53)
[2018-11-15] MEDS: SODIUM CHLORIDE FLUSH SYRINGE 10 ML IV SCH ×2 (10:53→21:21)
[2018-11-15] MEDS: LOPRESSOR PO SCH (10:53)
--- NOTE | 2018-11-15 11:41 | Progress Note ---
Assessment and Plan Anemia - hb dropped to 6.8 - due to acute blood loss and underlying Anemia of chronic disease, monitor H/H - s/p transfuse one unit PRBC on 11/14 Bleed from Perm cath- s/p DDAVP and pressure - not resolved with medical MX, s/p replacement of perm cath 11/13/18 ESRD needing dialysis, renal following, need chair time Hyperkalemia due to ESRD - improved after kayexalate and HD HTN (hypertension) HLD (hyperlipidemia) GERD (gastroesophageal reflux disease) - cont home meds, adjust as needed Secondary hyperparathyroidism (of renal origin) Metabolic Acidosis due to ESRD - Mx per renal DVT prophylaxis, SCD Plan Continue current management Awaiting chair time for dialysis outpatient pending hep B panel and then the patient can be discharge Restart ASA on discharge if bleeding stops, per discussion with Nephrology Brief History: 72 y/o Israeli/ male to a Israeli was started on Hemodialysis in June 2018 and had a vas cath and failed AVG on Rt forearm. Moved to [facility] for a few months to be with his and comes back to [facility] on Friday11/08/18. He Had his last HD in [facility] before this admission. No arrangements were made for HD on regular basis here. Patient is a [facility] Citizen. Patient went Local HD center and was sent here for medical clearance and placement. Has a vas cath in Rt IJ with poor dressing. His vascath removed and Patient underwent placement of Permacath. Noted bleeding from site of newly placed permcath, Recieved DDAVP and pressure applied. ASA held, but continue to bleed, then taken to OR again to replace permcath. Need outpt HD set up before discharge. Hospitalist Physical VITAL SIGNS: Reviewed. GENERAL: The patient appeared well nourished and normally developed, Vital signs as documented. HEAD: No signs of head trauma. EYES: Pupils are equal. Extraocular motions intact. EARS: Hearing grossly intact. MOUTH: Oropharynx is normal. NECK: No adenopathy, no JVD. Pressure dressing in place with mild erythema noted. CHEST: Chest with clear breath sounds bilaterally. No wheezes, rales, or rho nchi. Permacath to the left chest wall CARDIAC: Regular rate and rhythm. S1 and S2, without murmurs, gallops, or rubs. VASCULAR: No Edema. Peripheral pulses normal and equal in all extremities. ABDOMEN: Soft, non tender and non distended. No rebound or guarding, and no masses palpated. Bowel Sounds normal. MUSCULOSKELETAL: Good range of motion of all major joints. Extremities without clubbing, cyanosis or edema. NEUROLOGIC EXAM: Alert and oriented x 3 No focal sensory or strength deficits. Speech normal. Follows commands. PSYCHIATRIC: Mood normal. SKIN: No rash or lesions. Subjective Date of service: 11/15/18 Principal diagnosis: renal failure Interval history: Patient seen and examined. no acute issue o/n no chest pain, or SOB no further active bleeding Objective - Constitutional Vitals: Vital Signs - 12hr 11/15/18 11/15/18 02:07 09:20 Temperature 98.6 F 99.6 F Pulse Rate 90 Respiratory 20 Rate Blood Pressure 165/86 [Left] O2 Sat by Pulse 98 Oximetry - Labs CBC & Chem 7: 11/14/18 16:02 11/14/18 04:30 Labs: Abnormal lab results 11/14/18 11/14/18 Range/Units 11:12 16:02 Hgb 9.0 L (11.8-15.2) gm/dl Hct 26.3 L D (35.5-45.6) % Crossmatch See Detail
--- NOTE | 2018-11-15 12:20 | Progress Note ---
Assessment and Plan Impression: * ESRD * HTN * Anemia in ESRD * HTN PLan: * hd q TTHSAT * uf as tolerated with hd * daily lytes * strict i/os * renal diet * stable for dc from renal standpoint Pending the patient acceptance at outpatient dialysis facility Subjective Date of service: 11/15/18 Principal diagnosis: renal failure Interval history: resting well in bed today Objective - Exam Narrative Exam: HEENT: Oral mucosa moist no pallor or icterus Neck: Supple no JVD Bleeding some from CVC no fresh oozing Central venous catheter site unremarkable Chest: Clear to auscultation anteriorly CVS: Regular rate and rhythm S1 and S2 heard Abdomen: Soft nontender no suprapubic masses no organomegaly appreciable Extremity: Dry skin less than 1+ peripheral edema Musculoskeletal: No joint effusion noted in knees and ankle Neurological: Alert awake Dermatology: No petechial rashes Psychiatry: No evidence of any agitation and aggression noted - Vital Signs Vital signs: Vital Signs - 12hr 11/15/18 11/15/18 02:07 09:20 Temperature 98.6 F 99.6 F Pulse Rate 90 Respiratory 20 Rate Blood Pressure 165/86 [Left] O2 Sat by Pulse 98 Oximetry - Lab 11/14/18 16:02 11/14/18 04:30 Most recent lab results Calcium 7.3 mg/dL (8.4-10.2) L 11/14/18 04:30 Phosphorus 4.00 mg/dL (2.5-4.5) 11/10/18 16:29 Magnesium 2.70 mg/dL (1.7-2.3) H 11/10/18 10:32 Medications & Allergies - Medications Allergies/Adverse Reactions: Allergies No Known Allergies Allergy (Verified 11/10/18 11:41) Home Medications: Home Medications Medication Instructions Recorded Confirmed Last Taken Type Aspirin [Aspirin EC] 100 mg PO DAILY 11/10/18 11/10/18 11/10/18 07:00 History Atorvastatin [Lipitor Tab] 10 mg PO DAILY 11/10/18 11/10/18 11/09/18 20:00 History B Complex 500 mg PO DAILY 11/10/18 11/10/18 11/10/18 07:00 History Clonidine HCl [Kapvay] 0.1 mg PO PRN PRN 11/10/18 11/10/18 Unknown History Felodipine [Plendil Tab] 10 mg PO QDAY 11/10/18 11/10/18 11/10/18 07:00 History Metoprolol Tartrate 1 tab PO DAILY 11/10/18 11/10/18 11/10/18 07:00 History Multivit-Min/FA/Lycopen/Lutein 1 tab PO QAM 11/10/18 11/10/18 11/10/18 07:00 History [Centrum Silver Men Tablet] [place]-3 Fatty Acids/Fish Oil [Fish 1 cap PO QDAY 11/10/18 11/10/18 11/10/18 07:00 History Oil] Omeprazole 1 tab PO QDAY 11/10/18 11/10/18 11/10/18 07:00 History Allopurinol [Zyloprim] 100 mg PO QDAY 11/12/18 11/12/18 Unknown History Active Medications: Generic Name Dose Route Start Last Admin Trade Name Freq PRN Reason Stop Dose Admin Acetaminophen 650 mg 11/10/18 23:16 11/14/18 15:17 Tylenol PO 650 mg Q4H PRN Administration Pain MILD(1-3)/Fever >100.5/WEISS Amlodipine Besylate 10 mg 11/11/18 10:00 11/15/18 10:53 Norvasc PO 10 mg DAILY NAFISA Administration Atorvastatin Calcium 10 mg 11/11/18 10:00 11/15/18 10:52 Lipitor PO 10 mg DAILY NAFISA Administration Clonidine HCl 0.1 mg 11/11/18 06:00 Catapres PO Q8H PRN BLOOD PRESSURE Famotidine 10 mg 11/11/18 10:00 11/15/18 10:52 Pepcid PO 10 mg BID NAFISA Administration Fish Oil 1,000 mg 11/11/18 10:00 11/15/18 10:52 Fish Oil PO 1,000 mg QDAY NAFISA Administration Hydromorphone HCl 0.5 mg 11/10/18 23:16 Dilaudid IV Q3H PRN Pain , Severe (7-10) Sodium Chloride 100 mls @ 999 mls/hr 11/12/18 08:51 Nacl 0.9% IV QUENTIN PRN Hypotension Metoprolol Tartrate 50 mg 11/11/18 10:00 11/15/18 10:53 Lopressor PO 50 mg DAILY NAFISA Administration Multivitamins/Minerals 1 each 11/11/18 12:00 11/15/18 10:52 Theragran-M Tab PO 1 each QDAY NAFISA Administration Ondansetron HCl 4 mg 11/10/18 23:16 11/14/18 15:17 Zofran IV 4 mg Q8H PRN Administration Nausea And Vomiting Oxycodone/Acetaminophen 1 tab 11/10/18 23:16 11/13/18 12:09 Percocet 5/325 PO 1 tab Q6H PRN Administration Pain, Moderate (4-6) Pantoprazole Sodium 40 mg 11/11/18 12:00 11/15/18 10:52 Protonix PO 40 mg DAILY NAFISA Administration Sodium Chloride 10 ml 11/10/18 23:45 11/15/18 10:53 Sodium Chloride Flush Syringe 10 Ml IV 10 ml BID NAFISA Administration Sodium Chloride 10 ml 11/10/18 23:16 Sodium Chloride Flush Syringe 10 Ml IV PRN PRN LINE FLUSH Zolpidem Tartrate 5 mg 11/10/18 23:16 11/12/18 22:24 Ambien PO 5 mg QHS PRN Administration Insomnia
--- NOTE | 2018-11-16 08:08 | Procedure Note ---
Date of procedure: 11/13/18 Pre-op diagnosis: Oozing from catheter insertion site Post-op diagnosis: same Procedure: Patient status post placement of permacath which had persistent oozing despite the application of pressure dressings and DDAVP. Patient was brought to the cardiac catheterization lab. It is likely that a small vessel was transected from the catheter tunnel. The patient's venotomy site was clean and multiple 4- 0 Vicryl sutures were applied. Dermabond and a small compression dressing was then applied. The patient had no bleeding at the conclusion of the procedure. Anesthesia: local Surgeon: YOLANDA BRYANT Estimated blood loss: minimal Pathology: none Condition: stable Disposition: floor
[2018-11-16] MEDS: PEPCID PO SCH ×2 (09:09→22:03)
--- NOTE | 2018-11-16 09:09 | Event Note ---
Date: 11/16/18 Dressing change. No evidence of any bleeding following his intervention on Friday. Patient may be discharged from a vascular standpoint.
[2018-11-16] MEDS: LOPRESSOR PO SCH (09:10)
[2018-11-16] MEDS: FISH OIL PO SCH (09:10)
[2018-11-16] MEDS: THERAGRAN-M Tab PO SCH (09:10)
[2018-11-16] MEDS: NORVASC PO SCH (09:10)
[2018-11-16] MEDS: SODIUM CHLORIDE FLUSH SYRINGE 10 ML IV SCH ×2 (09:12→22:03)
[2018-11-16] MEDS: PROTONIX PO SCH (09:15)
--- NOTE | 2018-11-16 12:31 | Progress Note ---
Assessment and Plan - Patient Problems (1) End stage renal disease Current Visit: Yes Status: Acute Plan to address problem: End stage renal disease Access right IJ PermCath Patient does not yet have outpatient dialysis placement was discussed with soc ial worker who is is still working on outpatient dialysis placement Will need outpatient dialysis placement prior to discharge Appreciate social work assistance Current schedule Friday (2) Metabolic acidosis Current Visit: Yes Status: Acute Plan to address problem: Metabolic acidosis Mild We'll initiate hemodialysis currently Friday (3) Anemia of chronic disease Current Visit: Yes Status: Chronic Plan to address problem: Moderate anemia Hemoglobin 9 g per DL Etiologies secondary to chronic kidney disease Monitor CBC (4) Hypertension Current Visit: Yes Status: Acute Qualifiers: Hypertension type: essential hypertension Qualified Code(s): I10 - Essential (primary) hypertension Plan to address problem: Hypertension. Controlled Continue medications Optimize volume status with dialysis Needs outpatient dialysis placement prior to discharge Subjective Date of service: 11/11/18 Interval history: 72-year-old gentleman with medical history significant for end-stage renal disease recently transferred from [facility] unable to secure an outpatient dialysis unit as of yet admitted requiring dialysis He was seen today. He is anxious to be discharged denies any bleeding Denies any orthopnea PND Objective - Vital Signs Vital signs: Vital Signs - 12hr 11/16/18 11/16/18 11/16/18 02:42 07:30 09:10 Temperature 98.3 F 98.8 F Pulse Rate 62 66 66 Pulse Rate [ Right Radial] Respiratory 20 20 Rate Blood Pressure 144/74 168/87 168/87 O2 Sat by Pulse 94 100 Oximetry 11/16/18 10:00 Temperature Pulse Rate Pulse Rate [ 66 Right Radial] Respiratory 20 Rate Blood Pressure O2 Sat by Pulse 100 Oximetry - General Appearance General appearance: well-developed, well-nourished EENT: ATNC, PERRL Neck: no JVD, JVD Respiratory: Present: Clear to Ascultation Cardiology: S1S2 Gastrointestinal: normal, normoactive bowel sounds Integumentary: no rash Neurologic: alert and oriented x3, reflexes 2+ and symmetric, gait normal Musculoskeletal: deferred Psychiatric: mood/affect appropriate - Lab 11/14/18 16:02 11/14/18 04:30 Most recent lab results Calcium 7.3 mg/dL (8.4-10.2) L 03/16/19 04:30 Phosphorus 4.00 mg/dL (2.5-4.5) 11/10/18 16:29 Magnesium 2.70 mg/dL (1.7-2.3) H 11/10/18 10:32 Medications & Allergies - Medications Allergies/Adverse Reactions: Allergies No Known Allergies Allergy (Verified 11/10/18 11:41) Home Medications: Home Medications Medication Instructions Recorded Confirmed Last Taken Type Aspirin [Aspirin EC] 100 mg PO DAILY 11/10/18 11/10/18 11/10/18 07:00 History Atorvastatin [Lipitor Tab] 10 mg PO DAILY 11/10/18 11/10/18 11/09/18 20:00 History B Complex 500 mg PO DAILY 11/10/18 11/10/18 11/10/18 07:00 History Clonidine HCl [Kapvay] 0.1 mg PO PRN PRN 11/10/18 11/10/18 Unknown History Felodipine [Plendil Tab] 10 mg PO QDAY 11/10/18 11/10/18 11/10/18 07:00 History Metoprolol Tartrate 1 tab PO DAILY 11/10/18 11/10/18 11/10/18 07:00 History Multivit-Min/FA/Lycopen/Lutein 1 tab PO QAM 11/10/18 11/10/18 11/10/18 07:00 History [Centrum Silver Men Tablet] [place]-3 Fatty Acids/Fish Oil [Fish 1 cap PO QDAY 11/10/18 11/10/18 11/10/18 07:00 History Oil] Omeprazole 1 tab PO QDAY 11/10/18 11/10/18 11/10/18 07:00 History Allopurinol [Zyloprim] 100 mg PO QDAY 11/12/18 11/12/18 Unknown History Active Medications: Generic Name Dose Route Start Last Admin Trade Name Freq PRN Reason Stop Dose Admin Acetaminophen 650 mg 11/10/18 23:16 11/14/18 15:17 Tylenol PO 650 mg Q4H PRN Administration Pain MILD(1-3)/Fever >100.5/WEISS Amlodipine Besylate 10 mg 11/11/18 10:00 11/16/18 09:10 Norvasc PO 10 mg DAILY NAFISA Administration Atorvastatin Calcium 10 mg 11/11/18 10:00 11/16/18 09:09 Lipitor PO 10 mg DAILY NAFISA Administration Clonidine HCl 0.1 mg 11/11/18 06:00 Catapres PO Q8H PRN BLOOD PRESSURE Famotidine 10 mg 11/11/18 10:00 11/16/18 09:09 Pepcid PO 10 mg BID NAFISA Administration Fish Oil 1,000 mg 11/11/18 10:00 11/16/18 09:10 Fish Oil PO 1,000 mg QDAY NAFISA Administration Hydromorphone HCl 0.5 mg 11/10/18 23:16 11/15/18 17:06 Dilaudid IV 0.5 mg Q3H PRN Administration Pain , Severe (7-10) Sodium Chloride 100 mls @ 999 mls/hr 11/12/18 08:51 Nacl 0.9% IV QUENTIN PRN Hypotension Metoprolol Tartrate 50 mg 11/11/18 10:00 11/16/18 09:10 Lopressor PO 50 mg DAILY NAFISA Administration Multivitamins/Minerals 1 each 11/11/18 12:00 11/16/18 09:10 Theragran-M Tab PO 1 each QDAY NAFISA Administration Ondansetron HCl 4 mg 11/10/18 23:16 11/14/18 15:17 Zofran IV 4 mg Q8H PRN Administration Nausea And Vomiting Oxycodone/Acetaminophen 1 tab 11/10/18 23:16 11/13/18 12:09 Percocet 5/325 PO 1 tab Q6H PRN Administration Pain, Moderate (4-6) Pantoprazole Sodium 40 mg 11/11/18 12:00 11/16/18 09:15 Protonix PO 40 mg DAILY NAFISA Administration Sodium Chloride 10 ml 11/10/18 23:45 11/16/18 09:12 Sodium Chloride Flush Syringe 10 Ml IV 10 ml BID NAFISA Administration Sodium Chloride 10 ml 11/10/18 23:16 Sodium Chloride Flush Syringe 10 Ml IV PRN PRN LINE FLUSH Zolpidem Tartrate 5 mg 11/10/18 23:16 11/12/18 22:24 Ambien PO 5 mg QHS PRN Administration Insomnia
--- NOTE | 2018-11-16 14:56 | Progress Note ---
Assessment and Plan Anemia - hb dropped to 6.8 - due to acute blood loss and underlying Anemia of chronic disease, monitor H/H - s/p transfuse one unit PRBC on 11/14 Bleed from Perm cath- s/p DDAVP and pressure - not resolved with medical MX, s/p replacement of perm cath 11/13/18 ESRD needing dialysis, renal following, need chair time Hyperkalemia due to ESRD - improved after kayexalate and HD HTN (hypertension) HLD (hyperlipidemia) GERD (gastroesophageal reflux disease) - cont home meds, adjust as needed Secondary hyperparathyroidism (of renal origin) Metabolic Acidosis due to ESRD - Mx per renal DVT prophylaxis, SCD Plan Continue current management Awaiting chair time for dialysis outpatient pending hep B panel and then the patient can be discharge Restart ASA on discharge if bleeding stops, per discussion with Nephrology Brief History: 72 y/o [place]/ male to a [place] was started on Hemodialysis in June 2018 and had a vas cath and failed AVG on Rt forearm. Moved to [facility] for a few months to be with his and comes back to [facility] on Friday11/08/18. He Had his last HD in [facility] before this admission. No arrangements were made for HD on regular basis here. Patient is a [facility] Citizen. Patient went Local HD center and was sent here for medical clearance and placement. Has a vas cath in Rt IJ with poor dressing. His vascath removed and Patient underwent placement of Permacath. Noted bleeding from site of newly placed permcath, Recieved DDAVP and pressure applied. ASA held, but continue to bleed, then taken to OR again to replace permcath. Need outpt HD set up before discharge. Hospitalist Physical VITAL SIGNS: Reviewed. GENERAL: The patient appeared well nourished and normally developed, Vital signs as documented. HEAD: No signs of head trauma. EYES: Pupils are equal. Extraocular motions intact. EARS: Hearing grossly intact. MOUTH: Oropharynx is normal. NECK: No adenopathy, no JVD. Pressure dressing in place with mild erythema noted. CHEST: Chest with clear breath sounds bilaterally. No wheezes, rales, or rho nchi. Permacath to the left chest wall CARDIAC: Regular rate and rhythm. S1 and S2, without murmurs, gallops, or rubs. VASCULAR: No Edema. Peripheral pulses normal and equal in all extremities. ABDOMEN: Soft, non tender and non distended. No rebound or guarding, and no masses palpated. Bowel Sounds normal. MUSCULOSKELETAL: Good range of motion of all major joints. Extremities without clubbing, cyanosis or edema. NEUROLOGIC EXAM: Alert and oriented x 3 No focal sensory or strength deficits. Speech normal. Follows commands. PSYCHIATRIC: Mood normal. SKIN: No rash or lesions. Subjective Date of service: 11/16/18 Principal diagnosis: renal failure Interval history: Patient seen and examined. no acute issue o/n no chest pain, or SOB no further active bleeding Waiting for outpt HD set up Objective - Constitutional Vitals: Vital Signs - 12hr 11/16/18 11/16/18 11/16/18 07:30 09:10 10:00 Temperature 98.8 F Pulse Rate 66 66 Pulse Rate [ 66 Right Radial] Respiratory 20 20 Rate Blood Pressure 168/87 168/87 O2 Sat by Pulse 100 100 Oximetry 11/16/18 13:29 Temperature 98.8 F Pulse Rate 63 Pulse Rate [ Right Radial] Respiratory 20 Rate Blood Pressure 145/74 O2 Sat by Pulse 97 Oximetry - Labs CBC & Chem 7: 11/16/18 15:09 11/16/18 15:09
[2018-11-16 15:26] LABS: Hematocrit 25.7 % (35.5-45.6); Hemoglobin 8.8 gm/dl (11.8-15.2); Mean Corpuscular HGB Conc 34 % (32-34); Mean Corpuscular Volume 86 fl (84-94); Platelet Count 316 K/mm3 (140-440); Red Blood Count 2.98 M/mm3 (3.65-5.03); Red Cell Distribution Width 15.2 % (13.2-15.2)
[2018-11-16 15:47] LABS: Calcium 7.1 mg/dL (8.4-10.2)
[2018-11-17] MEDS: THERAGRAN-M Tab PO SCH (09:31)
[2018-11-17] MEDS: FISH OIL PO SCH (09:31)
[2018-11-17] MEDS: PROTONIX PO SCH (09:32)
[2018-11-17] MEDS: PEPCID PO SCH ×2 (09:32→23:36)
[2018-11-17] MEDS: SODIUM CHLORIDE FLUSH SYRINGE 10 ML IV SCH ×2 (09:32→23:36)
[2018-11-17] MEDS: NORVASC PO SCH (09:33)
[2018-11-17] MEDS: LOPRESSOR PO SCH (09:34)
[2018-11-17 09:56] LABS: Hepatitis B Surface Antigen Nonreactive (Negative)
--- NOTE | 2018-11-17 12:20 | Discharge Summary ---
Providers - Providers Date of Admission: 11/11/18 15:05 Date of discharge: 11/18/18 Attending physician: PRASHANTH TOBIN 11/10/18 10:32 Consult to Case Management [CONS] Stat Services Needed at Discharge: Sports Official Notified:: yes 11/10/18 11:20 Consult to Physician [CONS] Urgent Comment: Consulting Provider: CÉSAR SHIN Physician Instructions: Reason For Exam: ckd 11/10/18 22:08 Consult to Physician [CONS] Urgent Comment: Already informed Consulting Provider: YOLANDA BRYANT Physician Instructions: Reason For Exam: permacath placement 11/11/18 07:52 Consult to Case Management [CONS] Routine Services Needed at Discharge: Home Health Services Notified:: case management Additional Physician Instructions: Dialysis placement Hospitalization Condition: Good Pertinent studies: CXR Hospital course: Brief History: 72 y/o Cook Islander/ male who was started on Hemodialysis in June 2018 and had a vas cath and failed AVG on Rt forearm. Moved to [facility] for a few months to be with his and comes back to [facility] on Friday11/08/18. He Had his last HD in [facility] before this admission. No arrangements were made for HD on regular basis here. Patient is a [facility] Citizen. Patient went Local HD center and was sent here for medical clearance and placement. Has a vas cath in Rt IJ with poor dressing. His vascath removed and Patient underwent placement of Permacath. Noted bleeding from site of newly placed permcath, Recieved DDAVP and pressure applied. ASA held, but continue to bleed, then taken to OR again to replace permcath. H/H dropped due to acute bleed from permcath site, s/p one unit PRBC transfusion. Arranged outpt HD set up before discharge and was discharged home on stable condition. Discharge diagnosis and management: Anemia - hb dropped to 6.8 - due to acute blood loss from perm cath and underlying Anemia of chronic disease, monitor H/H - s/p transfuse one unit PRBC on 11/14 Bleed from Perm cath- s/p DDAVP and pressure - not resolved with medical MX, s/p replacement of perm cath 11/13/18 ESRD needing dialysis, renal following for HD, Hyperkalemia due to ESRD - improved after kayexalate and HD HTN (hypertension) HLD (hyperlipidemia) GERD (gastroesophageal reflux disease) - cont home meds, adjust as needed Secondary hyperparathyroidism (of renal origin) Metabolic Acidosis due to ESRD - Mx per renal DVT prophylaxis, SCD Hospitalist Physical VITAL SIGNS: Reviewed. GENERAL: The patient appeared well nourished and normally developed, Vital signs as documented. HEAD: No signs of head trauma. EYES: Pupils are equal. Extraocular motions intact. EARS: Hearing grossly intact. MOUTH: Oropharynx is normal. NECK: No adenopathy, no JVD. Pressure dressing in place with mild erythema noted. CHEST: Chest with clear breath sounds bilaterally. No wheezes, rales, or rhonchi. Permacath to the left chest wall CARDIAC: Regular rate and rhythm. S1 and S2, without murmurs, gallops, or rubs. VASCULAR: No Edema. Peripheral pulses normal and equal in all extremities. ABDOMEN: Soft, non tender and non distended. No rebound or guarding, and no masses palpated. Bowel Sounds normal. MUSCULOSKELETAL: Good range of motion of all major joints. Extremities without clubbing, cyanosis or edema. NEUROLOGIC EXAM: Alert and oriented x 3 No focal sensory or strength deficits. Speech normal. Follows commands. PSYCHIATRIC: Mood normal. SKIN: No rash or lesions. Disposition: DC-01 TO HOME OR SELFCARE Time spent for discharge: 34 minutes Core Measure Documentation - Palliative Care Palliative Care/ Comfort Measures: Not Applicable - Core Measures Any of the following diagnoses?: none Exam - Constitutional Vitals: Temp Pulse Resp BP Pulse Ox 98.8 F 60 18 129/71 99 11/17/18 07:46 11/17/18 10:00 11/17/18 10:00 11/17/18 07:46 11/17/18 10:00 Plan Activity: advance as tolerated Weight Bearing Status: Non-Weight Bearing Diet: renal Special Instructions: restrict fluid intake to (1.2L/day) Follow up with: PRIMARY CARE, [Referring] - 3-5 Days Prescriptions: amLODIPine [Norvasc] 10 mg PO DAILY #30 tablet
--- NOTE | 2018-11-17 14:03 | Progress Note ---
Assessment and Plan - Patient Problems (1) End stage renal disease Current Visit: Yes Status: Acute Plan to address problem: End stage renal disease Access right IJ PermCath Patient does not yet have outpatient dialysis placement was discussed with soc ial worker who is is still working on outpatient dialysis placement Will need outpatient dialysis placement prior to discharge Appreciate social work assistance Current schedule Friday (2) Metabolic acidosis Current Visit: Yes Status: Acute Plan to address problem: Metabolic acidosis Mild We'll initiate hemodialysis currently Friday (3) Anemia of chronic disease Current Visit: Yes Status: Chronic Plan to address problem: Moderate anemia Hemoglobin 9 g per DL Etiologies secondary to chronic kidney disease Monitor CBC (4) Hypertension Current Visit: Yes Status: Acute Qualifiers: Hypertension type: essential hypertension Qualified Code(s): I10 - Essential (primary) hypertension Plan to address problem: Hypertension. Controlled Continue medications Optimize volume status with dialysis Needs outpatient dialysis placement prior to discharge Subjective Principal diagnosis: renal failure Interval history: 72-year-old gentleman with medical history significant for end-stage renal disease recently transferred from [facility] unable to secure an outpatient dialysis unit as of yet admitted requiring dialysis He was seen today. I attest I saw the patient on hemodialysis Denies any complaints He is awaiting hemodialysis placement Objective - Vital Signs Vital signs: Vital Signs - 12hr 11/17/18 11/17/18 11/17/18 07:46 10:00 10:15 Temperature 98.8 F 97.7 F Pulse Rate 60 56 L 59 L Pulse Rate [ 60 From Monitor] Respiratory 18 18 Rate Blood Pressure 129/71 128/77 121/75 O2 Sat by Pulse 99 99 Oximetry 11/17/18 11/17/18 11/17/18 10:30 10:45 11:00 Temperature Pulse Rate 108 H 63 62 Pulse Rate [ From Monitor] Respiratory Rate Blood Pressure 140/85 130/74 125/76 O2 Sat by Pulse Oximetry 11/17/18 11/17/18 11/17/18 11:15 11:30 11:45 Temperature Pulse Rate 66 64 64 Pulse Rate [ From Monitor] Respiratory Rate Blood Pressure 129/85 141/91 135/86 O2 Sat by Pulse Oximetry 11/17/18 11/17/18 11/17/18 12:00 12:15 12:30 Temperature Pulse Rate 66 77 67 Pulse Rate [ From Monitor] Respiratory Rate Blood Pressure 135/88 154/84 136/84 O2 Sat by Pulse Oximetry 11/17/18 12:45 Temperature Pulse Rate 74 Pulse Rate [ From Monitor] Respiratory Rate Blood Pressure 133/91 O2 Sat by Pulse Oximetry - General Appearance General appearance: well-developed, well-nourished EENT: ATNC, PERRL, mucous membranes moist Neck: no JVD Respiratory: Present: Clear to Ascultation Cardiology: regular, S1S2 Gastrointestinal: normal, normoactive bowel sounds Integumentary: no rash Neurologic: alert and oriented x3, CN 3-12 intact Musculoskeletal: deferred Psychiatric: mood/affect appropriate - Lab 11/16/18 15:09 11/16/18 15:09 Most recent lab results Calcium 7.1 mg/dL (8.4-10.2) L 11/16/18 15:09 Phosphorus 4.00 mg/dL (2.5-4.5) 11/10/18 16:29 Magnesium 2.70 mg/dL (1.7-2.3) H 11/10/18 10:32 - Imaging Chest x-ray: image reviewed (I reviewed chest x-ray without any edema) Medications & Allergies - Medications Allergies/Adverse Reactions: Allergies No Known Allergies Allergy (Verified 11/10/18 11:41) Home Medications: Home Medications Medication Instructions Recorded Confirmed Last Taken Type Aspirin [Aspirin EC] 100 mg PO DAILY 11/10/18 11/10/18 11/10/18 07:00 History Atorvastatin [Lipitor] 10 mg PO DAILY 11/10/18 11/10/18 11/09/18 20:00 History B Complex 500 mg PO DAILY 11/10/18 11/10/18 11/10/18 07:00 History Clonidine HCl [Kapvay] 0.1 mg PO PRN PRN 11/10/18 11/10/18 Unknown History Felodipine [Plendil] 10 mg PO QDAY 11/10/18 11/10/18 11/10/18 07:00 History Metoprolol Tartrate 1 tab PO DAILY 11/10/18 11/10/18 11/10/18 07:00 History Multivit-Min/FA/Lycopen/Lutein 1 tab PO QAM 11/10/18 11/10/18 11/10/18 07:00 History [Centrum Silver Men Tablet] [place]-3 Fatty Acids/Fish Oil [Fish 1 cap PO QDAY 11/10/18 11/10/18 11/10/18 07:00 History Oil] Allopurinol [Zyloprim] 100 mg PO QDAY 11/12/18 11/12/18 Unknown History amLODIPine [Norvasc] 10 mg PO DAILY #30 tablet 11/17/18 Unknown Rx Active Medications: Generic Name Dose Route Start Last Admin Trade Name Freq PRN Reason Stop Dose Admin Acetaminophen 650 mg 11/10/18 23:16 11/14/18 15:17 Tylenol PO 650 mg Q4H PRN Administration Pain MILD(1-3)/Fever >100.5/WEISS Amlodipine Besylate 10 mg 11/11/18 10:00 11/17/18 09:33 Norvasc PO Not Given DAILY NAFISA Atorvastatin Calcium 10 mg 11/11/18 10:00 11/17/18 09:31 Lipitor PO 10 mg DAILY NAFISA Administration Clonidine HCl 0.1 mg 11/11/18 06:00 Catapres PO Q8H PRN BLOOD PRESSURE Famotidine 10 mg 11/11/18 10:00 11/17/18 09:32 Pepcid PO 10 mg BID NAFISA Administration Fish Oil 1,000 mg 11/11/18 10:00 11/17/18 09:31 Fish Oil PO 1,000 mg QDAY NAFISA Administration Hydromorphone HCl 0.5 mg 11/10/18 23:16 11/15/18 17:06 Dilaudid IV 0.5 mg Q3H PRN Administration Pain , Severe (7-10) Sodium Chloride 100 mls @ 999 mls/hr 11/12/18 08:51 Nacl 0.9% IV QUENTIN PRN Hypotension Metoprolol Tartrate 50 mg 11/11/18 10:00 11/17/18 09:34 Lopressor PO Not Given DAILY [facility] Multivitamins/Minerals 1 each 11/11/18 12:00 11/17/18 09:31 Theragran-M Tab PO 1 each QDAY NAFISA Administration Ondansetron HCl 4 mg 11/10/18 23:16 11/14/18 15:17 Zofran IV 4 mg Q8H PRN Administration Nausea And Vomiting Oxycodone/Acetaminophen 1 tab 11/10/18 23:16 11/13/18 12:09 Percocet 5/325 PO 1 tab Q6H PRN Administration Pain, Moderate (4-6) Pantoprazole Sodium 40 mg 11/11/18 12:00 11/17/18 09:32 Protonix PO 40 mg DAILY NAFISA Administration Sodium Chloride 10 ml 11/10/18 23:45 11/17/18 09:32 Sodium Chloride Flush Syringe 10 Ml IV 10 ml BID NAFISA Administration Sodium Chloride 10 ml 11/10/18 23:16 Sodium Chloride Flush Syringe 10 Ml IV PRN PRN LINE FLUSH Zolpidem Tartrate 5 mg 11/10/18 23:16 11/12/18 22:24 Ambien PO 5 mg QHS PRN Administration Insomnia
[2018-11-17] MEDS ORDERED: NACL 0.9 (PRIMING MACHINE ONLY DIALYSIS) MC ONE (15:00)
[2018-11-17] MEDS ORDERED: SENOKOT S PO PRN (23:57)
[2018-11-18] MEDS: LOPRESSOR PO SCH (09:19)
[2018-11-18] MEDS: FISH OIL PO SCH (09:20)
[2018-11-18] MEDS: PEPCID PO SCH (09:20)
[2018-11-18] MEDS: NORVASC PO SCH (09:20)
[2018-11-18] MEDS: THERAGRAN-M Tab PO SCH (09:20)
[2018-11-18] MEDS: SODIUM CHLORIDE FLUSH SYRINGE 10 ML IV SCH (09:21)
[2018-11-18] MEDS: PROTONIX PO SCH (10:38)
--- NOTE | 2018-11-18 10:39 | Progress Note ---
Assessment and Plan Anemia - hb dropped to 6.8 - due to acute blood loss and underlying Anemia of chronic disease, monitor H/H - s/p transfuse one unit PRBC on 11/14 Bleed from Perm cath- s/p DDAVP and pressure - not resolved with medical MX, s/p replacement of perm cath 11/13/18 ESRD needing dialysis, renal following, need chair time Hyperkalemia due to ESRD - improved after kayexalate and HD HTN (hypertension) HLD (hyperlipidemia) GERD (gastroesophageal reflux disease) - cont home meds, adjust as needed Secondary hyperparathyroidism (of renal origin) Metabolic Acidosis due to ESRD - Mx per renal DVT prophylaxis, SCD Plan Continue current management Awaiting chair time for dialysis outpatient pending hep B panel and then the patient can be discharge Restart ASA on discharge if bleeding stops, per discussion with Nephrology Brief History: 72 y/o Brazilian/ male to a Brazilian was started on Hemodialysis in June 2018 and had a vas cath and failed AVG on Rt forearm. Moved to [facility] for a few months to be with his and comes back to [facility] on Friday11/08/18. He Had his last HD in [facility] before this admission. No arrangements were made for HD on regular basis here. Patient is a [facility] Citizen. Patient went Local HD center and was sent here for medical clearance and placement. Has a vas cath in Rt IJ with poor dressing. His vascath removed and Patient underwent placement of Permacath. Noted bleeding from site of newly placed permcath, Recieved DDAVP and pressure applied. ASA held, but continue to bleed, then taken to OR again to replace permcath. Need outpt HD set up before discharge. Hospitalist Physical VITAL SIGNS: Reviewed. GENERAL: The patient appeared well nourished and normally developed, Vital signs as documented. HEAD: No signs of head trauma. EYES: Pupils are equal. Extraocular motions intact. EARS: Hearing grossly intact. MOUTH: Oropharynx is normal. NECK: No adenopathy, no JVD. Pressure dressing in place with mild erythema noted. CHEST: Chest with clear breath sounds bilaterally. No wheezes, rales, or rho nchi. Permacath to the left chest wall CARDIAC: Regular rate and rhythm. S1 and S2, without murmurs, gallops, or rubs. VASCULAR: No Edema. Peripheral pulses normal and equal in all extremities. ABDOMEN: Soft, non tender and non distended. No rebound or guarding, and no masses palpated. Bowel Sounds normal. MUSCULOSKELETAL: Good range of motion of all major joints. Extremities without clubbing, cyanosis or edema. NEUROLOGIC EXAM: Alert and oriented x 3 No focal sensory or strength deficits. Speech normal. Follows commands. PSYCHIATRIC: Mood normal. SKIN: No rash or lesions. Subjective Date of service: 11/17/18 Principal diagnosis: renal failure Interval history: Patient seen and examined. no acute issue o/n no chest pain, or SOB no further active bleeding Waiting for outpt HD set up Objective - Constitutional Vitals: Vital Signs - 12hr 11/18/18 11/18/18 11/18/18 02:53 02:54 07:19 Temperature 98.7 F 99.0 F Pulse Rate 71 79 Respiratory 18 18 Rate Blood Pressure 138/80 154/85 O2 Sat by Pulse 99 99 Oximetry 11/18/18 09:19 Temperature Pulse Rate 79 Respiratory Rate Blood Pressure 154/85 O2 Sat by Pulse Oximetry - Labs CBC & Chem 7: 11/16/18 15:09 11/16/18 15:09
[2018-11-18] MEDS ORDERED: NACL 0.9% 100 ML IV PRN (11:00)
--- NOTE | 2018-11-18 13:23 | Progress Note ---
Assessment and Plan - Patient Problems (1) End stage renal disease Current Visit: Yes Status: Acute Plan to address problem: End stage renal disease Access right IJ PermCath Patient does not yet have outpatient dialysis placement was discussed with soc ial worker who is is still working on outpatient dialysis placement Will need outpatient dialysis placement prior to discharge Appreciate social work assistance Repeat dialysis today Dialysis schedule outpatient will be Friday at [facility] dialysis starting friday11/20/2018 at 3:30pm. (2) Metabolic acidosis Current Visit: Yes Status: Acute Plan to address problem: Metabolic acidosis Mild Continue hemodialysis currently Friday (3) Anemia of chronic disease Current Visit: Yes Status: Chronic Plan to address problem: Moderate anemia Hemoglobin 9 g per DL Etiologies secondary to chronic kidney disease Monitor CBC (4) Hypertension Current Visit: Yes Status: Acute Qualifiers: Hypertension type: essential hypertension Qualified Code(s): I10 - Essential (primary) hypertension Plan to address problem: Hypertension. Controlled Continue medications Optimize volume status with dialysis Patient can be discharged to follow up at outpatient dialysis on Friday Thank you for this consultation. Subjective Principal diagnosis: renal failure Interval history: 72-year-old gentleman with medical history significant for end-stage renal disease recently transferred from [facility] unable to secure an outpatient dialysis unit as of yet admitted requiring dialysis He was seen today. I attest I saw the patient on hemodialysis at 12:45pm Denies any complaints He has been accepted at [facility] with chair time 3:30pm starting this friday Appreciate social work assistance. The patient was notified Repeat hemodialysis today Discussed with patient's daughter regarding compliance with renal diet Objective - Vital Signs Vital signs: Vital Signs - 12hr 11/18/18 11/18/18 11/18/18 02:53 02:54 07:19 Temperature 98.7 F 99.0 F Pulse Rate 71 79 Respiratory 18 18 Rate Blood Pressure 138/80 154/85 O2 Sat by Pulse 99 99 Oximetry 11/18/18 11/18/18 11/18/18 09:19 10:50 11:00 Temperature 97.8 F Pulse Rate 79 60 61 Respiratory 20 Rate Blood Pressure 154/85 117/73 139/80 O2 Sat by Pulse Oximetry 11/18/18 11/18/18 11/18/18 11:15 11:30 11:45 Temperature Pulse Rate 60 57 L 57 L Respiratory Rate Blood Pressure 125/76 116/65 108/64 O2 Sat by Pulse Oximetry 11/18/18 11/18/18 11/18/18 12:00 12:15 12:30 Temperature Pulse Rate 60 59 L 60 Respiratory Rate Blood Pressure 129/74 131/75 121/73 O2 Sat by Pulse Oximetry - General Appearance General appearance: well-developed, well-nourished EENT: ATNC, PERRL, mucous membranes moist Neck: no JVD Respiratory: Present: Clear to Ascultation Cardiology: regular, S1S2 Gastrointestinal: normal, normoactive bowel sounds Integumentary: no rash Neurologic: alert and oriented x3, CN 3-12 intact Musculoskeletal: deferred Psychiatric: mood/affect appropriate - Lab 11/16/18 15:09 11/16/18 15:09 Most recent lab results Calcium 7.1 mg/dL (8.4-10.2) L 11/16/18 15:09 Phosphorus 4.00 mg/dL (2.5-4.5) 11/10/18 16:29 Magnesium 2.70 mg/dL (1.7-2.3) H 11/10/18 10:32 - Imaging Chest x-ray: report reviewed (I reviewed chest x-ray without any overt edema) Medications & Allergies - Medications Allergies/Adverse Reactions: Allergies No Known Allergies Allergy (Verified 11/10/18 11:41) Home Medications: Home Medications Medication Instructions Recorded Confirmed Last Taken Type Aspirin [Aspirin EC] 100 mg PO DAILY 11/10/18 11/10/18 11/10/18 07:00 History Atorvastatin [Lipitor] 10 mg PO DAILY 11/10/18 11/10/18 11/09/18 20:00 History B Complex 500 mg PO DAILY 11/10/18 11/10/18 11/10/18 07:00 History Clonidine HCl [Kapvay] 0.1 mg PO PRN PRN 11/10/18 11/10/18 Unknown History Felodipine [Plendil] 10 mg PO QDAY 11/10/18 11/10/18 11/10/18 07:00 History Metoprolol Tartrate 1 tab PO DAILY 11/10/18 11/10/18 11/10/18 07:00 History Multivit-Min/FA/Lycopen/Lutein 1 tab PO QAM 11/10/18 11/10/18 11/10/18 07:00 History [Centrum Silver Men Tablet] [place]-3 Fatty Acids/Fish Oil [Fish 1 cap PO QDAY 11/10/18 11/10/18 11/10/18 07:00 History Oil] Allopurinol [Zyloprim] 100 mg PO QDAY 11/12/18 11/12/18 Unknown History amLODIPine [Norvasc] 10 mg PO DAILY #30 tablet 11/17/18 Unknown Rx Active Medications: Generic Name Dose Route Start Last Admin Trade Name Freq PRN Reason Stop Dose Admin Acetaminophen 650 mg 11/10/18 23:16 11/14/18 15:17 Tylenol PO 650 mg Q4H PRN Administration Pain MILD(1-3)/Fever >100.5/WEISS Amlodipine Besylate 10 mg 11/11/18 10:00 11/18/18 09:20 Norvasc PO 10 mg DAILY NAFISA Administration Atorvastatin Calcium 10 mg 11/11/18 10:00 11/18/18 09:20 Lipitor PO 10 mg DAILY NAFISA Administration Clonidine HCl 0.1 mg 11/11/18 06:00 Catapres PO Q8H PRN BLOOD PRESSURE Famotidine 10 mg 11/11/18 10:00 11/18/18 09:20 Pepcid PO 10 mg BID NAFISA Administration Fish Oil 1,000 mg 11/11/18 10:00 11/18/18 09:20 Fish Oil PO 1,000 mg QDAY NAFISA Administration Hydromorphone HCl 0.5 mg 11/10/18 23:16 11/15/18 17:06 Dilaudid IV 0.5 mg Q3H PRN Administration Pain , Severe (7-10) Sodium Chloride 100 mls @ 999 mls/hr 11/18/18 11:00 Nacl 0.9% IV QUENTIN PRN Hypotension Metoprolol Tartrate 50 mg 11/11/18 10:00 11/18/18 09:19 Lopressor PO 50 mg DAILY NAFISA Administration Multivitamins/Minerals 1 each 11/11/18 12:00 11/18/18 09:20 Theragran-M Tab PO 1 each QDAY NAFISA Administration Ondansetron HCl 4 mg 11/10/18 23:16 11/14/18 15:17 Zofran IV 4 mg Q8H PRN Administration Nausea And Vomiting Oxycodone/Acetaminophen 1 tab 11/10/18 23:16 11/13/18 12:09 Percocet 5/325 PO 1 tab Q6H PRN Administration Pain, Moderate (4-6) Pantoprazole Sodium 40 mg 11/11/18 12:00 11/18/18 10:38 Protonix PO Not Given DAILY NAFISA Senna/Docusate Sodium 2 tab 11/17/18 23:57 11/18/18 00:46 Senokot S PO 2 tab QHS PRN Administration Laxative Effect Sodium Chloride 10 ml 11/10/18 23:45 11/18/18 09:21 Sodium Chloride Flush Syringe 10 Ml IV 10 ml BID NAFISA Administration Sodium Chloride 10 ml 11/10/18 23:16 Sodium Chloride Flush Syringe 10 Ml IV PRN PRN LINE FLUSH Zolpidem Tartrate 5 mg 11/10/18 23:16 11/12/18 22:24 Ambien PO 5 mg QHS PRN Administration Insomnia
[2018-11-18] MEDS ORDERED: PROCRIT IV STA (14:10)
[2018-11-18 19:18] VITALS: BP 125/74
[2018-11-18] MEDS ORDERED: NACL 0.9 (PRIMING MACHINE ONLY DIALYSIS) MC ONE (20:11)
== END 2018-11-18 15:40 | disposition home or self-care (01) | DRG 264 ==
LOC: ED 10:02 → 4A 11:57 → OBSVTOIN 11-11 15:05 → 2B-ACE 11-11 15:07
PROVIDERS: ADMIT Internal Medicine; ATTEND Internal Medicine
PROC: B2141ZZ Fluoroscopy of Right Heart using Low Osmolar Contrast (ICD-10-PCS; principal; 2018-11-11)
PROC: 05PYX3Z Removal of Infusion Device from Upper Vein, External Approach (ICD-10-PCS; 2018-11-11)
PROC: 0JH63XZ Insertion of Tunneled Vascular Access Device into Chest Subcutaneous Tissue and Fascia, Percutaneous Approach (ICD-10-PCS; 2018-11-11)
PROC: B244YZZ Ultrasonography of Right Heart using Other Contrast (ICD-10-PCS; 2018-11-11)
PROC: 02H633Z Insertion of Infusion Device into Right Atrium, Percutaneous Approach (ICD-10-PCS; 2018-11-11)
PROC: 3E0234Z Introduction of Serum, Toxoid and Vaccine into Muscle, Percutaneous Approach (ICD-10-PCS; 2018-11-11)
PROC: 5A1D70Z Performance of Urinary Filtration, Intermittent, Less than 6 Hours Per Day (ICD-10-PCS; 2018-11-11)
PROC: 5A1D70Z Performance of Urinary Filtration, Intermittent, Less than 6 Hours Per Day (ICD-10-PCS; 2018-11-12)
PROC: 0X363ZZ Control Bleeding in Right Upper Extremity, Percutaneous Approach (ICD-10-PCS; 2018-11-13)
PROC: 0J2TXYZ Change Other Device in Trunk Subcutaneous Tissue and Fascia, External Approach (ICD-10-PCS; 2018-11-13)
PROC: 30233N1 Transfusion of Nonautologous Red Blood Cells into Peripheral Vein, Percutaneous Approach (ICD-10-PCS; 2018-11-14)
PROC: 5A1D70Z Performance of Urinary Filtration, Intermittent, Less than 6 Hours Per Day (ICD-10-PCS; 2018-11-14)
PROC: 5A1D70Z Performance of Urinary Filtration, Intermittent, Less than 6 Hours Per Day (ICD-10-PCS; 2018-11-17)
PROC: 5A1D70Z Performance of Urinary Filtration, Intermittent, Less than 6 Hours Per Day (ICD-10-PCS; 2018-11-18)
DX: T82.42XA Displacement of vascular dialysis catheter, initial encounter (principal); N18.6 End stage renal disease; E87.2 Acidosis; E44.0 Moderate protein-calorie malnutrition; N25.81 Secondary hyperparathyroidism of renal origin; I12.0 Hypertensive chronic kidney disease with stage 5 chronic kidney disease or end stage renal disease; D62 Acute posthemorrhagic anemia; T82.41XA Breakdown (mechanical) of vascular dialysis catheter, initial encounter; D63.8 Anemia in other chronic diseases classified elsewhere; E87.5 Hyperkalemia; K21.9 Gastro-esophageal reflux disease without esophagitis; E78.2 Mixed hyperlipidemia; D63.1 Anemia in chronic kidney disease; T82.838A Hemorrhage due to vascular prosthetic devices, implants and grafts, initial encounter; Y83.8 Other surgical procedures as the cause of abnormal reaction of the patient, or of later complication, without mention of misadventure at the time of the procedure; Y92.89 Other specified places as the place of occurrence of the external cause; Z68.24 Body mass index [BMI] 24.0-24.9, adult; Z23 Encounter for immunization; Z82.49 Family history of ischemic heart disease and other diseases of the circulatory system; Z79.82 Long term (current) use of aspirin
CPT/HCPCS: 12001; 36415; 36558; 71046; 76937; 77001; 80048; 80053; 80074; 82962; 83036; 83735; 83970; 84100; 85014; 85018; 85025; 85027; 86850; 86900; 86901; 86920; 90686; 90732; 93005; 93010; 93970; 94640; G0378; A9270-GY; C1750; J0610; J0885; J1170; J1644; J1815; J2250; J2405; J2597; J3010; J7030; J7040; P9016

== ENCOUNTER 2018-12-09 13:38 | Emergency (ER) | payer MEDICARE, OTHER ==
[2018-12-09] MEDS ORDERED: NORCO 10/325 PO ONE (14:23)
[2018-12-09] MEDS ORDERED: ZOFRAN ODT PO ONE (14:23)
[2018-12-09 15:12] LABS: Basophils # (Auto) 0.1 K/mm3 (0.0-0.1); Eosinophils # (Auto) 0.1 K/mm3 (0.0-0.4); Eosinophils % (Auto) 0.7 % (0.0-4.3); Hematocrit 31.3 % (35.5-45.6); Hemoglobin 10.5 gm/dl (11.8-15.2); Lymphocytes # (Auto) 0.8 K/mm3 (1.2-5.4); Lymphocytes % (Auto) 9.4 % (13.4-35.0); Mean Corpuscular HGB Conc 34 % (32-34); Mean Corpuscular Volume 91 fl (84-94); Monocytes % (Auto) 10.6 % (0.0-7.3); Platelet Count 274 K/mm3 (140-440); Red Blood Count 3.43 M/mm3 (3.65-5.03); Red Cell Distribution Width 19.9 % (13.2-15.2)
--- NOTE | 2018-12-09 15:17 | Cat Scan Report ---
CT ABDOMEN PELVIS WITHOUT CONTRAST: HISTORY: Left flank pain. COMPARISON: none. TECHNIQUE: Helical CT in 1.25mm intervals without IV contrast. Sagittal and coronal reconstructions. FINDINGS: Lung bases: A very large hiatal hernia is identified. There is essentially a thoracic stomach. There is compressive atelectasis in the left lower lobe secondary to the hernia. A 2.4 x 1.3 cm ovoid mass is identified on the right side of T11. This most likely represents a benign neurogenic lesion such as a schwannoma or neurofibroma. Liver: Normal. Biliary system: Normal. Pancreas: Normal. Spleen: Normal. Kidneys/ureters/bladder: Both kidneys are atrophic with diffuse cortical thinning. There are scattered simple appearing cysts in both kidneys. No evidence for nephrolithiasis or hydronephrosis. The ureters and bladder are unremarkable. Adrenal glands: Normal. Aorta: Normal. Intestines: No evidence for bowel obstruction or focal inflammation. Appendix: Normal. Pelvic viscera: Normal. Ascites: None. Adenopathy: None. Musculoskeletal: Intact. Mild osteopenia is suspected. Mild levoscoliosis of the thoracolumbar spine. IMPRESSION: No acute process is identified. No clear explanation for left flank pain. Large hiatal hernia with compressive atelectasis in the left lower lobe. Chronic renal parenchymal disease. Bilateral renal cysts. Scoliosis.
[2018-12-09 15:22] LABS: INR 0.96 (0.87-1.13)
[2018-12-09 15:23] LABS: Partial Thromboplastin Time 38.3 Sec. (24.2-36.6)
[2018-12-09 15:41] LABS: Albumin 3.8 g/dL (3.9-5)
[2018-12-09 17:18] LABS: Bilirubin,Urine NEG (Negative); Blood,Urine NEG (Negative); Color,Urine Yellow (Yellow); Hyaline Casts,Urine 1 /LPF; Mucus,Urine FEW /HPF; Urobilinogen,Urine < 2.0 mg/dL (<2.0)
--- NOTE | 2018-12-09 17:46 | Emergency Department Report ---
ED General Adult HPI - General Chief complaint: Back Pain/Injury Stated complaint: CHILLS/BACK PAIN Time Seen by Provider: 12/09/18 14:04 Source: EMS Mode of arrival: Stretcher Limitations: No Limitations - History of Present Illness Initial comments: Patient presents to the emergency department with a chief complaint of left- sided flank pain that does not radiate. Patient has a history of low back pain but denies any recent injury. Patient states that he does make urine daily in that he is on dialysis. Patient has fever, abdominal pain, chest pain, headache. -: Gradual Location: back Radiation: non-radiation Severity scale (0 -10): 5 Quality: aching, dull Consistency: constant Improves with: rest Worsens with: movement Associated Symptoms: denies other symptoms Treatments Prior to Arrival: none - Related Data Home Medications Medication Instructions Recorded Confirmed Last Taken Aspirin [Aspirin EC] 100 mg PO DAILY 11/10/18 11/10/18 11/10/18 07:00 Atorvastatin [Lipitor] 10 mg PO DAILY 11/10/18 11/10/18 11/09/18 20:00 B Complex 500 mg PO DAILY 11/10/18 11/10/18 11/10/18 07:00 Clonidine HCl [Kapvay] 0.1 mg PO PRN PRN 11/10/18 11/10/18 Unknown Felodipine [Plendil] 10 mg PO QDAY 11/10/18 11/10/18 11/10/18 07:00 Metoprolol Tartrate 1 tab PO DAILY 11/10/18 11/10/18 11/10/18 07:00 Multivit-Min/FA/Lycopen/Lutein 1 tab PO QAM 11/10/18 11/10/18 11/10/18 07:00 [Centrum Silver Men Tablet] Cunningham-3 Fatty Acids/Fish Oil [Fish 1 cap PO QDAY 11/10/18 11/10/18 11/10/18 07:00 Oil] Allopurinol [Zyloprim] 100 mg PO QDAY 11/12/18 11/12/18 Unknown Previous Rx's Medication Instructions Recorded Last Taken Type amLODIPine [Norvasc] 10 mg PO DAILY #30 tablet 11/17/18 Unknown Rx Acetaminophen/Codeine [Tylenol 1 tab PO Q6H PRN #15 tab 12/09/18 Unknown Rx /Codeine # 3 tab] Allergies Allergy/AdvReac Type Severity Reaction Status Date / Time No Known Allergies Allergy Verified 11/10/18 11:41 ED Review of Systems ROS: Stated complaint: CHILLS/BACK PAIN Other details as noted in HPI Comment: All other systems reviewed and negative Constitutional: denies: chills, fever Eyes: denies: eye pain, eye discharge, vision change ENT: denies: ear pain, throat pain Respiratory: denies: cough, shortness of breath, wheezing Cardiovascular: denies: chest pain, palpitations Endocrine: no symptoms reported Gastrointestinal: denies: abdominal pain, nausea, diarrhea Genitourinary: denies: urgency, dysuria Musculoskeletal: back pain. denies: joint swelling, arthralgia Skin: denies: rash, lesions Neurological: denies: headache, weakness, paresthesias Psychiatric: denies: anxiety, depression Hematological/Lymphatic: denies: easy bleeding, easy bruising ED Past Medical Hx - Past Medical History Hx Hypertension: Yes Hx GERD: Yes Hx Renal Disease: Yes - Surgical History Additional Surgical History: open heart surgery - Social History Smoking Status: Never Smoker Substance Use Type: None - Medications Home Medications: Home Medications Medication Instructions Recorded Confirmed Last Taken Type Aspirin [Aspirin EC] 100 mg PO DAILY 11/10/18 11/10/18 11/10/18 07:00 History Atorvastatin [Lipitor] 10 mg PO DAILY 11/10/18 11/10/18 11/09/18 20:00 History B Complex 500 mg PO DAILY 11/10/18 11/10/18 11/10/18 07:00 History Clonidine HCl [Kapvay] 0.1 mg PO PRN PRN 11/10/18 11/10/18 Unknown History Felodipine [Plendil] 10 mg PO QDAY 11/10/18 11/10/18 11/10/18 07:00 History Metoprolol Tartrate 1 tab PO DAILY 11/10/18 11/10/18 11/10/18 07:00 History Multivit-Min/FA/Lycopen/Lutein 1 tab PO QAM 11/10/18 11/10/18 11/10/18 07:00 History [Centrum Silver Men Tablet] Cunningham-3 Fatty Acids/Fish Oil [Fish 1 cap PO QDAY 11/10/18 11/10/18 11/10/18 07:00 History Oil] Allopurinol [Zyloprim] 100 mg PO QDAY 11/12/18 11/12/18 Unknown History amLODIPine [Norvasc] 10 mg PO DAILY #30 tablet 11/17/18 Unknown Rx Acetaminophen/Codeine [Tylenol 1 tab PO Q6H PRN #15 tab 12/09/18 Unknown Rx /Codeine # 3 tab] ED Physical Exam - General Limitations: No Limitations General appearance: alert, in no apparent distress - Head Head exam: Present: atraumatic, normocephalic - Eye Eye exam: Present: normal appearance, PERRL, EOMI - ENT ENT exam: Present: mucous membranes moist - Neck Neck exam: Present: normal inspection - Respiratory Respiratory exam: Present: normal lung sounds bilaterally. Absent: respiratory distress, wheezes, rales, rhonchi - Cardiovascular Cardiovascular Exam: Present: regular rate, normal rhythm. Absent: systolic murmur, diastolic murmur, rubs, gallop - GI/Abdominal GI/Abdominal exam: Present: soft, normal bowel sounds. Absent: distended, tenderness - Rectal Rectal exam: Present: deferred - Extremities Exam Extremities exam: Present: normal inspection - Back Exam Back exam: Present: normal inspection - Neurological Exam Neurological exam: Present: alert, oriented X3, CN II-XII intact. Absent: motor sensory deficit - Psychiatric Psychiatric exam: Present: normal affect, normal mood - Skin Skin exam: Present: warm, dry, intact, normal color. Absent: rash ED Course Vital Signs 12/09/18 12/09/18 12/09/18 13:44 13:45 13:49 Temperature 99.7 F H Pulse Rate 88 89 89 Respiratory 15 14 16 Rate Blood Pressure Blood Pressure 137/92 [Left] O2 Sat by Pulse 95 96 99 Oximetry 12/09/18 12/09/18 12/09/18 14:01 14:15 14:30 Temperature Pulse Rate 88 78 78 Respiratory 12 16 15 Rate Blood Pressure 137/92 122/62 131/60 Blood Pressure [Left] O2 Sat by Pulse 95 94 95 Oximetry 12/09/18 12/09/18 12/09/18 15:27 15:30 15:45 Temperature Pulse Rate 71 70 78 Respiratory 17 25 H 13 Rate Blood Pressure 131/60 113/59 113/59 Blood Pressure [Left] O2 Sat by Pulse 87 96 99 Oximetry 12/09/18 12/09/18 12/09/18 16:00 16:15 16:31 Temperature Pulse Rate 73 75 75 Respiratory 17 17 11 L Rate Blood Pressure 129/70 126/64 127/60 Blood Pressure [Left] O2 Sat by Pulse 99 97 97 Oximetry 12/09/18 12/09/18 12/09/18 16:45 17:01 17:15 Temperature Pulse Rate 76 73 72 Respiratory 11 L 14 14 Rate Blood Pressure 127/60 118/57 118/57 Blood Pressure [Left] O2 Sat by Pulse 94 95 98 Oximetry ED Medical Decision Making - Lab Data Result diagrams: 12/09/18 14:53 12/09/18 14:53 Lab Results 12/09/18 12/09/18 12/09/18 Range/Units 14:53 14:53 14:53 WBC 9.0 (4.5-11.0) K/mm3 RBC 3.43 L (3.65-5.03) M/mm3 Hgb 10.5 L (11.8-15.2) gm/dl Hct 31.3 L (35.5-45.6) % MCV 91 (84-94) fl MCH 31 (28-32) pg MCHC 34 (32-34) % RDW 19.9 H (13.2-15.2) % Plt Count 274 (140-440) K/mm3 Lymph % (Auto) 9.4 L (13.4-35.0) % [place] % (Auto) 10.6 H (0.0-7.3) % Eos % (Auto) 0.7 (0.0-4.3) % Baso % (Auto) 1.0 (0.0-1.8) % Lymph # 0.8 L (1.2-5.4) K/mm3 [place] # 1.0 H (0.0-0.8) K/mm3 Eos # 0.1 (0.0-0.4) K/mm3 Baso # 0.1 (0.0-0.1) K/mm3 Seg Neutrophils % 78.3 H (40.0-70.0) % Seg Neutrophils # 7.0 (1.8-7.7) K/mm3 PT 13.4 (12.2-14.9) Sec. INR 0.96 (0.87-1.13) APTT 38.3 H (24.2-36.6) Sec. Sodium 137 (137-145) mmol/L Potassium 2.9 L* (3.6-5.0) mmol/L Chloride 96.9 L (98-107) mmol/L Carbon Dioxide 23 (22-30) mmol/L Anion Gap 20 mmol/L BUN 26 H (9-20) mg/dL Creatinine 5.3 H (0.8-1.5) mg/dL Estimated GFR 11 ml/min BUN/Creatinine Ratio 5 % Glucose 142 H (75-100) mg/dL Calcium 8.0 L (8.4-10.2) mg/dL Magnesium 2.10 (1.7-2.3) mg/dL Total Bilirubin 0.50 (0.1-1.2) mg/dL AST 17 (5-40) units/L ALT 11 (7-56) units/L Alkaline Phosphatase 57 (35-129) units/L Total Protein 6.8 (6.3-8.2) g/dL Albumin 3.8 L (3.9-5) g/dL Albumin/Globulin Ratio 1.3 % Urine Color (Yellow) Urine Turbidity (Clear) Urine pH (5.0-7.0) Ur Specific [place] (1.003-1.030) Urine Protein (Negative) mg/dL Urine Glucose (UA) (Negative) mg/dL Urine Ketones (Negative) mg/dL Urine Blood (Negative) Urine Nitrite (Negative) Urine Bilirubin (Negative) Urine Urobilinogen (<2.0) mg/dL Ur Leukocyte Esterase (Negative) Urine WBC (Auto) (0.0-6.0) /HPF Urine RBC (Auto) (0.0-6.0) /HPF U Epithel Cells (Auto) (0-13.0) /HPF Hyaline Casts /LPF Urine Mucus /HPF 12/09/18 Range/Units Unknown WBC (4.5-11.0) K/mm3 RBC (3.65-5.03) M/mm3 Hgb (11.8-15.2) gm/dl Hct (35.5-45.6) % MCV (84-94) fl MCH (28-32) pg MCHC (32-34) % RDW (13.2-15.2) % Plt Count (140-440) K/mm3 Lymph % (Auto) (13.4-35.0) % [place] % (Auto) (0.0-7.3) % Eos % (Auto) (0.0-4.3) % Baso % (Auto) (0.0-1.8) % Lymph # (1.2-5.4) K/mm3 [place] # (0.0-0.8) K/mm3 Eos # (0.0-0.4) K/mm3 Baso # (0.0-0.1) K/mm3 Seg Neutrophils % (40.0-70.0) % Seg Neutrophils # (1.8-7.7) K/mm3 PT (12.2-14.9) Sec. INR (0.87-1.13) APTT (24.2-36.6) Sec. Sodium (137-145) mmol/L Potassium (3.6-5.0) mmol/L Chloride (98-107) mmol/L Carbon Dioxide (22-30) mmol/L Anion Gap mmol/L BUN (9-20) mg/dL Creatinine (0.8-1.5) mg/dL Estimated GFR ml/min BUN/Creatinine Ratio % Glucose (75-100) mg/dL Calcium (8.4-10.2) mg/dL Magnesium (1.7-2.3) mg/dL Total Bilirubin (0.1-1.2) mg/dL AST (5-40) units/L ALT (7-56) units/L Alkaline Phosphatase (35-129) units/L Total Protein (6.3-8.2) g/dL Albumin (3.9-5) g/dL Albumin/Globulin Ratio % Urine Color Yellow (Yellow) Urine Turbidity Clear (Clear) Urine pH 5.0 (5.0-7.0) Ur Specific [place] 1.010 (1.003-1.030) Urine Protein 100 mg/dl (Negative) mg/dL Urine Glucose (UA) Neg (Negative) mg/dL Urine Ketones Neg (Negative) mg/dL Urine Blood Neg (Negative) Urine Nitrite Neg (Negative) Urine Bilirubin Neg (Negative) Urine Urobilinogen < 2.0 (<2.0) mg/dL Ur Leukocyte Esterase Neg (Negative) Urine WBC (Auto) 2.0 (0.0-6.0) /HPF Urine RBC (Auto) 2.0 (0.0-6.0) /HPF U Epithel Cells (Auto) < 1.0 (0-13.0) /HPF Hyaline Casts 1 /LPF Urine Mucus Few /HPF - Radiology Data Radiology results: report reviewed - Medical Decision Making Discussed results with the patient Critical care attestation.: If time is entered above; I have spent that time in minutes in the direct care of this critically ill patient, excluding procedure time. ED Disposition Clinical Impression: Flank pain, Lower back pain Disposition: TO HOME OR SELFCARE Is pt being admited?: No Does the pt Need Aspirin: No Condition: Stable Instructions: Acute Low Back Pain (ED), Flank Pain (ED) Additional Instructions: return if worse Prescriptions: Acetaminophen/Codeine [Tylenol /Codeine # 3 tab] 1 tab PO Q6H PRN #15 tab PRN Reason: pain Referrals: [facility] [Other] - 3-5 Days [facility] [Provider Group] - 3-5 Days [facility] [Provider Group] - 3-5 Days [facility] [Outside] - 3-5 Days Time of Disposition: 17:56
[2018-12-09 18:53] VITALS: BP 112/48
== END 2018-12-09 18:45 | disposition home or self-care (01) ==
LOC: ED 13:38
DX: R10.9 Unspecified abdominal pain (principal); M54.5 Low back pain; I10 Essential (primary) hypertension; K21.9 Gastro-esophageal reflux disease without esophagitis
CPT/HCPCS: 36415; 74176; 80053; 81001; 83735; 85025; 85610; 85730; Q0162

== ENCOUNTER 2019-01-13 13:51 | Inpatient (IN) | payer MEDICARE ==
--- NOTE | 2019-01-13 13:57 | Emergency Department Report ---
Blank Doc - Documentation Documentation: This is a 73-year-old male that presents with dialysis catheter displaced. Pat ient stated was doing dialysis and about 1.5 hours was displaced. This initial assessment/diagnostic orders/clinical plan/treatment(s) is/are subject to change based on patient's health status, clinical progression and re- assessment by fellow clinical providers in the ED. Further treatment and workup at subsequent clinical providers discretion. Patient/guardians urged not to elope from the ED as their condition may be serious if not clinically assessed and managed. Initial orders include: 1- Patient sent to MAIN ED for further evaluation and treatment. 2- labs 3- EKG
[2019-01-13 15:00] LABS: Basophils % (Auto) 0.8 % (0.0-1.8); Eosinophils # (Auto) 0.3 K/mm3 (0.0-0.4); Eosinophils % (Auto) 5.2 % (0.0-4.3); Hematocrit 39.5 % (35.5-45.6); Hemoglobin 13.2 gm/dl (11.8-15.2); Lymphocytes # (Auto) 1.1 K/mm3 (1.2-5.4); Lymphocytes % (Auto) 18.6 % (13.4-35.0); Mean Corpuscular HGB Conc 34 % (32-34); Mean Corpuscular Volume 91 fl (84-94); Monocytes # (Auto) 0.7 K/mm3 (0.0-0.8); Monocytes % (Auto) 11.9 % (0.0-7.3); Platelet Count 323 K/mm3 (140-440); Red Blood Count 4.34 M/mm3 (3.65-5.03); Red Cell Distribution Width 16.2 % (13.2-15.2)
[2019-01-13 15:20] LABS: Alanine Aminotransferase 10 units/L (7-56); Albumin 4.4 g/dL (3.9-5); BUN/Creatinine Ratio 6; Blood Urea Nitrogen 32 mg/dL (9-20); Calcium 8.7 mg/dL (8.4-10.2); Hemolysis Index 9
[2019-01-13 15:32] LABS: Bilirubin,Direct < 0.2 mg/dL (0-0.2)
--- NOTE | 2019-01-13 17:04 | Emergency Department Report ---
ED General Adult HPI - General Chief complaint: Medical Clearance Stated complaint: DISLODGEMENT OF DIALYSIS PORT Time Seen by Provider: 01/13/19 13:55 Source: patient, RN notes reviewed, old records reviewed Mode of arrival: Wheelchair Limitations: No Limitations - History of Present Illness Initial comments: Nephrology: Dr. Adan Vascular surgery: Dr. Hemphill Past medical history: End-stage renal disease, on dialysis, Friday, Friday, Friday, dual citizenship, resident of both the [facility] and the [facility], hypertension, high cholesterol This is a pleasant 73-year-old gentleman. I have evaluated this patient in the past. He is brought to the hospital by emergency medical services due to his dialysis catheter being dislodged during dialysis. The patient only reportedly received 90 minutes of his dialysis therapy. He indicates the permacath appears to be more dislodged and at baseline. He denies physical pain at this time. He denies other complaints at this time. In the emergency room, the patient is found to be afebrile, with reassuring vital signs. His physical exam demonstrates a dislodged permacath. Contacted vascular surgeon on-call, Dr. Hemphill, who advised admission for catheter site observation, as the catheter is at high risk for either dislodging, and causing uncontrollable bleeding, or at high risk for infection. He recommends the patient be nothing by mouth after midnight. The case is presented to the Hospital physician, Dr. Mobley, who has accepted the patient to the medical service for a dislodged PermCath. Discussed this with the patient, who verbalized understanding, and stated he is amenable to hospitalization for permacath exchange. -: Sudden Improves with: none Worsens with: none Associated Symptoms: denies other symptoms - Related Data Home Medications Medication Instructions Recorded Confirmed Last Taken Atorvastatin [Lipitor] 10 mg PO DAILY 11/10/18 12/12/18 12/11/18 18:00 B Complex 500 mg PO DAILY 11/10/18 12/12/18 12/12/18 06:00 Clonidine HCl [Kapvay] 0.1 mg PO PRN PRN 11/10/18 12/12/18 Unknown Felodipine [Plendil] 10 mg PO QDAY 11/10/18 12/12/18 12/12/18 06:00 Metoprolol Tartrate 1 tab PO DAILY 11/10/18 12/12/18 12/12/18 06:00 Multivit-Min/FA/Lycopen/Lutein 1 tab PO QAM 11/10/18 12/12/18 12/12/18 06:00 [Centrum Silver Men Tablet] [place]-3 Fatty Acids/Fish Oil [Fish 1 cap PO QDAY 11/10/18 12/12/18 12/12/18 06:00 Oil] Allopurinol [Zyloprim] 100 mg PO QDAY 11/12/18 12/12/18 12/12/18 06:00 Calcium Carbonate [Qsns-Rmn-288] 500 mg PO TID 12/14/18 12/14/18 12/11/18 Previous Rx's Medication Instructions Recorded Last Taken Type amLODIPine [Norvasc] 10 mg PO DAILY #30 tablet 11/17/18 12/12/18 06:00 Rx Acetaminophen [Tylenol] 325 mg PO Q4HR PRN #30 capsule 12/09/18 12/12/18 06:00 Rx Acetaminophen/Codeine [Tylenol 1 tab PO Q6H PRN #15 tab 12/09/18 Unknown Rx /Codeine # 3 tab] Aspirin EC [Aspirin Enteric Coated 81 mg PO QDAY tablet 12/18/18 Unknown Rx TAB] Allergies Allergy/AdvReac Type Severity Reaction Status Date / Time No Known Allergies Allergy Verified 12/12/18 07:15 ED Review of Systems ROS: Stated complaint: DISLODGEMENT OF DIALYSIS PORT Other details as noted in HPI Comment: All other systems reviewed and negative ED Past Medical Hx - Past Medical History Previous Medical History?: Yes Hx Hypertension: Yes Hx Congestive Heart Failure: No Hx GERD: Yes Hx Renal Disease: Yes Hx Kidney Stones: Yes - Surgical History Past Surgical History?: Yes Hx Open Heart Surgery: Yes (2012) Hx Cholecystectomy: No Hx Appendectomy: No Additional Surgical History: open heart surgery - Social History Smoking Status: Never Smoker Substance Use Type: None - Medications Home Medications: Home Medications Medication Instructions Recorded Confirmed Last Taken Type Atorvastatin [Lipitor] 10 mg PO DAILY 11/10/18 12/12/18 12/11/18 18:00 History B Complex 500 mg PO DAILY 11/10/18 12/12/18 12/12/18 06:00 History Clonidine HCl [Kapvay] 0.1 mg PO PRN PRN 11/10/18 12/12/18 Unknown History Felodipine [Plendil] 10 mg PO QDAY 11/10/18 12/12/18 12/12/18 06:00 History Metoprolol Tartrate 1 tab PO DAILY 11/10/18 12/12/18 12/12/18 06:00 History Multivit-Min/FA/Lycopen/Lutein 1 tab PO QAM 11/10/18 12/12/18 12/12/18 06:00 History [Centrum Silver Men Tablet] [place]-3 Fatty Acids/Fish Oil [Fish 1 cap PO QDAY 11/10/18 12/12/18 12/12/18 06:00 History Oil] Allopurinol [Zyloprim] 100 mg PO QDAY 11/12/18 12/12/18 12/12/18 06:00 History amLODIPine [Norvasc] 10 mg PO DAILY #30 tablet 11/17/18 12/12/18 12/12/18 06:00 Rx Acetaminophen [Tylenol] 325 mg PO Q4HR PRN #30 capsule 12/09/18 12/12/18 12/12/18 06:00 Rx Acetaminophen/Codeine [Tylenol 1 tab PO Q6H PRN #15 tab 12/09/18 12/12/18 Unknown Rx /Codeine # 3 tab] Calcium Carbonate [[id number]-313] 500 mg PO TID 12/14/18 12/14/18 12/11/18 History Aspirin EC [Aspirin Enteric Coated 81 mg PO QDAY tablet 12/18/18 Unknown Rx TAB] ED Physical Exam - General Limitations: No Limitations General appearance: alert, in no apparent distress - Head Head exam: Present: atraumatic, normocephalic - Eye Eye exam: Present: normal appearance, EOMI. Absent: nystagmus - ENT ENT exam: Present: normal exam, normal orophraynx, mucous membranes moist, normal external ear exam - Neck Neck exam: Present: normal inspection, full ROM. Absent: tenderness, meningismus - Respiratory Respiratory exam: Present: normal lung sounds bilaterally, other (there is a right-sided permacath noted, with no redness, pus or streaking, approximately 8-10 cm of catheter are noted from the introduction site.). Absent: respiratory distress, wheezes, rales, rhonchi, stridor, chest wall tenderness - Cardiovascular Cardiovascular Exam: Present: normal rhythm, bradycardia, normal heart sounds. Absent: tachycardia, irregular rhythm, systolic murmur, diastolic murmur, rubs, gallop - GI/Abdominal GI/Abdominal exam: Present: soft. Absent: distended, tenderness, guarding, rebo und, rigid, pulsatile mass - Rectal Rectal exam: Present: deferred - Extremities Exam Extremities exam: Present: normal inspection, full ROM, other (2+ pulses noted in the bilateral upper, lower extremities. Compartments soft. No long bony tenderness. The pelvis is stable.). Absent: calf tenderness - Back Exam Back exam: Present: normal inspection, full ROM. Absent: tenderness, CVA tenderness (R), muscle spasm, paraspinal tenderness, vertebral tenderness - Neurological Exam Neurological exam: Present: alert, oriented X3, other (Extraocular movements intact. Tongue midline. No facial droop. Facial sensation intact to light touch in the V1, V2, V3 distribution bilaterally. 5 and 5 strength in 4 extremities.. Sensation is intact to light touch in 4 extremities.). Absent: motor sensory deficit - Psychiatric Psychiatric exam: Present: normal affect, normal mood - Skin Skin exam: Present: warm, dry, intact, normal color. Absent: rash ED Course Vital Signs 01/13/19 13:58 Temperature 98.1 F Pulse Rate 52 L Respiratory 20 Rate Blood Pressure 165/86 O2 Sat by Pulse 100 Oximetry ED Medical Decision Making - Lab Data Result diagrams: 01/13/19 14:29 01/13/19 14:29 Vital Signs 01/13/19 13:58 Temperature 98.1 F Pulse Rate 52 L Respiratory 20 Rate Blood Pressure 165/86 O2 Sat by Pulse 100 Oximetry Lab Results 01/13/19 01/13/19 01/13/19 Range/Units 14:29 14:29 14:38 WBC 6.1 (4.5-11.0) K/mm3 RBC 4.34 (3.65-5.03) M/mm3 Hgb 13.2 (11.8-15.2) gm/dl Hct 39.5 (35.5-45.6) % MCV 91 (84-94) fl MCH 31 (28-32) pg MCHC 34 (32-34) % RDW 16.2 H (13.2-15.2) % Plt Count 323 (140-440) K/mm3 Lymph % (Auto) 18.6 (13.4-35.0) % [place] % (Auto) 11.9 H (0.0-7.3) % Eos % (Auto) 5.2 H (0.0-4.3) % Baso % (Auto) 0.8 (0.0-1.8) % Lymph # 1.1 L (1.2-5.4) K/mm3 [place] # 0.7 (0.0-0.8) K/mm3 Eos # 0.3 (0.0-0.4) K/mm3 Baso # 0.0 (0.0-0.1) K/mm3 Seg Neutrophils % 63.5 (40.0-70.0) % Seg Neutrophils # 3.9 (1.8-7.7) K/mm3 Sodium 132 L (137-145) mmol/L Potassium 3.8 (3.6-5.0) mmol/L Chloride 94.8 L (98-107) mmol/L Carbon Dioxide 20 L (22-30) mmol/L Anion Gap 21 mmol/L BUN 32 H (9-20) mg/dL Creatinine 5.4 H (0.8-1.5) mg/dL Estimated GFR 10 ml/min BUN/Creatinine Ratio 6 % Glucose 109 H (75-100) mg/dL Calcium 8.7 (8.4-10.2) mg/dL Total Bilirubin 0.50 (0.1-1.2) mg/dL Direct Bilirubin < 0.2 (0-0.2) mg/dL Indirect Bilirubin 0.3 mg/dL AST 19 (5-40) units/L ALT 10 (7-56) units/L Alkaline Phosphatase 68 (35-129) units/L Total Protein 7.2 (6.3-8.2) g/dL Albumin 4.4 (3.9-5) g/dL Albumin/Globulin Ratio 1.6 % Blood Type O POSITIVE Antibody Screen Negative - EKG Data -: EKG Interpreted by Me Rate: bradycardia - EKG Data 01/13/19 18:35 This is a sinus bradycardia, left axis deviation, QTC prolonged, UT interval prolonged, borderline left anterior fascicular block, borderline left ventricular hypertrophy, not having chest pain, this is an abnormal EKG, this is not consistent with ST elevation myocardial infarction. - Medical Decision Making Differential diagnosis, including but not limited to, end-stage renal disease, hyperkalemia, permacath dislodgment Assessment and plan: 73-year-old gentleman with dislodged vascular dialysis access catheter, with recommendations for overnight observation, secondary to risk of bleeding and infection, as per vascular surgery, to have catheter changed tomorrow. Critical care attestation.: If time is entered above; I have spent that time in minutes in the direct care of this critically ill patient, excluding procedure time. ED Disposition Clinical Impression: ESRD needing dialysis, Dialysis catheter clot or failure Disposition: 09 OP ADMIT IP TO THIS HOSP Is pt being admited?: Yes Condition: Good Referrals: [facility] [Other] - 3-5 Days
--- NOTE | 2019-01-13 17:50 | History and Physical Report ---
History of Present Illness Chief complaint: My catheter fell out History of present illness: 73 YO Male with ESRD on HD(M,W,F), GERD, HTN, CAD S/P CABG presents to ED for evaluation. Pt states that he went to his routine dialysis center for dialysis. Pt was undergoing dialysis and was unable to complete dialysis because his dialysis catheter was not working. Pt underwent dialysis for 1/5 hours but usually is dialyzed for hrs. EMS notified and the patient transported to [facility]. Pt seen and evaluated in ED and found to have a dislodged dialysis catheter, as well as ESRD complicated by Acidosis. Pt denies fever, chills, CP, Palpitations, NVD, Trauma, BRBPR, Productive cough, skin rash, or recent ill contacts. Nephro logy consulted in ED. IR consulted in ED for dialysis catheter replacement. Prior admission on 12/12/18 reviewed. All listed medication reviewed at time of admission. Past History Past Medical History: CAD, ESRD, GERD, hypertension Past Surgical History: CABG, Other (Dialysis access) Social history: , lives with family. denies: smoking, alcohol abuse, prescription drug abuse Family history: hypertension Medications and Allergies Allergies Allergy/AdvReac Type Severity Reaction Status Date / Time No Known Allergies Allergy Verified 12/12/18 07:15 Home Medications Medication Instructions Recorded Confirmed Last Taken Type Atorvastatin [Lipitor] 10 mg PO DAILY 11/10/18 12/12/18 12/11/18 18:00 History B Complex 500 mg PO DAILY 11/10/18 12/12/18 12/12/18 06:00 History Clonidine HCl [Kapvay] 0.1 mg PO PRN PRN 11/10/18 12/12/18 Unknown History Felodipine [Plendil] 10 mg PO QDAY 11/10/18 12/12/18 12/12/18 06:00 History Metoprolol Tartrate 1 tab PO DAILY 11/10/18 12/12/18 12/12/18 06:00 History Multivit-Min/FA/Lycopen/Lutein 1 tab PO QAM 11/10/18 12/12/18 12/12/18 06:00 History [Centrum Silver Men Tablet] [place]-3 Fatty Acids/Fish Oil [Fish 1 cap PO QDAY 11/10/18 12/12/18 12/12/18 06:00 History Oil] Allopurinol [Zyloprim] 100 mg PO QDAY 11/12/18 12/12/18 12/12/18 06:00 History amLODIPine [Norvasc] 10 mg PO DAILY #30 tablet 11/17/18 12/12/18 12/12/18 06:00 Rx Acetaminophen [Tylenol] 325 mg PO Q4HR PRN #30 capsule 12/09/18 12/12/18 12/12/18 06:00 Rx Acetaminophen/Codeine [Tylenol 1 tab PO Q6H PRN #15 tab 12/09/18 12/12/18 Unknown Rx /Codeine # 3 tab] Calcium Carbonate [[id number]] 500 mg PO TID 12/14/18 12/14/18 12/11/18 History Aspirin EC [Aspirin Enteric Coated 81 mg PO QDAY tablet 12/18/18 Unknown Rx TAB] Review of Systems Constitutional: no weight loss, no weight gain, no fever, no chills Ears, nose, mouth and throat: no ear pain, no ear discharge, no tinnitis, no decreased hearing, no nose pain Cardiovascular: no chest pain, no orthopnea, no palpitations, no rapid/irregular heart beat, no edema Respiratory: no cough, no cough with sputum, no excessive sputum, no hemoptysis, no shortness of breath Gastrointestinal: no abdominal pain, no nausea, no vomiting, no diarrhea, no constipation Genitourinary Male: no hematuria, no flank pain, no discharge, no urinary frequency, no urinary hesitancy Rectal: no pain, no incontinence, no bleeding Musculoskeletal: no neck stiffness, no neck pain, no shooting arm pain, no low back pain, no shooting leg pain Integumentary: no rash, no pruritis, no redness, no sores, no wounds Neurological: no head injury, no transient paralysis, no paralysis, no weakness, no parathesias, no numbness, no tingling Psychiatric: no anxiety, no memory loss, no change in sleep habits, no sleep disturbances, no insomnia, no hypersomnia, no change in appetite Endocrine: no cold intolerance, no heat intolerance, no polyphagia, no excessive thirst, no polydipsia, no polyuria Hematologic/Lymphatic: no easy bruising, no easy bleeding, no lymphadenopathy Allergic/Immunologic: no allergic rhinitis, no wheezing, no persistent infections, no anaphylaxis Exam - Constitutional Vitals: Temp Pulse Resp BP Pulse Ox 98.1 F 52 L 20 165/86 100 01/13/19 13:58 01/13/19 13:58 01/13/19 13:58 01/13/19 13:58 01/13/19 13:58 General appearance: Present: mild distress - EENT Eyes: Present: PERRL ENT: hearing intact, clear oral mucosa - Neck Neck: Present: supple, normal ROM - Respiratory Respiratory effort: normal Respiratory: bilateral: CTA - Cardiovascular Heart Sounds: Present: S1 & S2. Absent: rub, click - Extremities Extremities: pulses symmetrical, No edema Peripheral Pulses: within normal limits - Abdominal General gastrointestinal: Present: soft, non-tender, non-distended, normal bowel sounds Male genitourinary: Present: normal - Integumentary Integumentary: Present: clear, warm, dry - Musculoskeletal Musculoskeletal: gait normal, strength equal bilaterally - Psychiatric Psychiatric: appropriate mood/affect, intact judgment & insight - Neurologic Neurologic: CNII-XII intact, moves all extremities Results - Labs CBC & Chem 7: 01/13/19 14:29 01/13/19 14:29 Labs: Abnormal lab results 01/13/19 01/13/19 Range/Units 14:29 14:29 RDW 16.2 H (13.2-15.2) % [place] % (Auto) 11.9 H (0.0-7.3) % Eos % (Auto) 5.2 H (0.0-4.3) % Lymph # 1.1 L (1.2-5.4) K/mm3 Sodium 132 L (137-145) mmol/L Chloride 94.8 L (98-107) mmol/L Carbon Dioxide 20 L (22-30) mmol/L BUN 32 H (9-20) mg/dL Creatinine 5.4 H (0.8-1.5) mg/dL Glucose 109 H (75-100) mg/dL Assessment and Plan - Patient Problems (1) ESRD needing dialysis Current Visit: Yes Status: Chronic Plan to address problem: Nephrology consulted in dialysis, CBC, CMP, strict I/O, monitor uop q shift, daily weight, avoid nephrotoxic agents, (2) Metabolic acidosis Current Visit: No Status: Acute Plan to address problem: BMP, IV bicarbonate, repeat bmp in am. (3) Dialysis catheter clot or failure Current Visit: Yes Status: Acute Plan to address problem: IR consulted, pending replacement in AM. (4) HTN (hypertension) Current Visit: Yes Status: Acute Qualifiers: Hypertension type: essential hypertension Qualified Code(s): I10 - Essential (primary) hypertension Plan to address problem: Monitor BP q shift, continue current antihypertensive therapy (5) GERD (gastroesophageal reflux disease) Current Visit: No Status: Chronic Qualifiers: Esophagitis presence: without esophagitis Qualified Code(s): K21.9 - Gastro-esophageal reflux disease without esophagitis Plan to address problem: PPi therapy, supportive care. (6) DVT prophylaxis Current Visit: No Status: Acute Plan to address problem: SCD to BLE while in bed,
[2019-01-13] MEDS ORDERED: ZOFRAN IV PRN (18:04)
[2019-01-13] MEDS ORDERED: TYLENOL PO PRN (18:04)
[2019-01-13] MEDS ORDERED: SODIUM CHLORIDE FLUSH SYRINGE 10 ML IV PRN (18:04)
[2019-01-13] MEDS ORDERED: PROVENTIL IH PRN (18:04)
[2019-01-13] MEDS ORDERED: TYLENOL #3 PO PRN (18:06)
[2019-01-13] MEDS ORDERED: NON-FORMULARY (Clonidine Hcl [Kapvay] 0.1 MG) PO PRN (18:06)
[2019-01-13] MEDS ORDERED: NON-FORMULARY (Acetaminophen [Tylenol] 325 MG) PO PRN (18:06)
[2019-01-13] MEDS ORDERED: CATAPRES PO PRN (20:39)
[2019-01-13] MEDS: SODIUM CHLORIDE FLUSH SYRINGE 10 ML IV SCH (22:24)
[2019-01-13] MEDS: OSCAL PO SCH (23:00)
[2019-01-14] MEDS ORDERED: AMBIEN PO PRN (02:26)
[2019-01-14 05:49] LABS: Calcium 7.7 mg/dL (8.4-10.2)
--- NOTE | 2019-01-14 09:11 | Consultation ---
History of Present Illness - Reason for Consult Consult date: 01/14/19 end stage renal disease Past History Past Medical History: CAD, ESRD, GERD, hypertension Past Surgical History: CABG, Other (Dialysis access) Social history: , lives with family. denies: smoking, alcohol abuse, prescription drug abuse Family history: hypertension Medications and Allergies Allergies Allergy/AdvReac Type Severity Reaction Status Date / Time No Known Allergies Allergy Verified 12/12/18 07:15 Home Medications Medication Instructions Recorded Confirmed Last Taken Type Atorvastatin [Lipitor] 10 mg PO DAILY 11/10/18 01/13/19 12/11/18 18:00 History B Complex 500 mg PO DAILY 11/10/18 01/13/19 12/12/18 06:00 History Clonidine HCl [Kapvay] 0.1 mg PO PRN PRN 11/10/18 01/13/19 Unknown History Felodipine [Plendil] 10 mg PO QDAY 11/10/18 01/13/19 12/12/18 06:00 History Metoprolol Tartrate 1 tab PO DAILY 11/10/18 01/13/19 12/12/18 06:00 History Multivit-Min/FA/Lycopen/Lutein 1 tab PO QAM 11/10/18 01/13/19 12/12/18 06:00 History [Centrum Silver Men Tablet] [place]-3 Fatty Acids/Fish Oil [Fish 1 cap PO QDAY 11/10/18 01/13/19 12/12/18 06:00 History Oil] Allopurinol [Zyloprim] 100 mg PO QDAY 11/12/18 01/13/19 12/12/18 06:00 History amLODIPine [Norvasc] 10 mg PO DAILY #30 tablet 11/17/18 01/13/19 12/12/18 06:00 Rx Acetaminophen [Tylenol] 325 mg PO Q4HR PRN #30 capsule 12/09/18 01/13/19 12/12/18 06:00 Rx Acetaminophen/Codeine [Tylenol 1 tab PO Q6H PRN #15 tab 12/09/18 01/13/19 Unknown Rx /Codeine # 3 tab] Calcium Carbonate [[id number]] 500 mg PO TID 12/14/18 01/13/19 12/11/18 His tory Aspirin EC [Aspirin Enteric Coated 81 mg PO QDAY tablet 12/18/18 01/13/19 Unknown Rx TAB] Active Meds: Active Medications Acetaminophen (Tylenol) 650 mg PO Q4H PRN PRN Reason: Pain MILD(1-3)/Fever >100.5/WEISS Acetaminophen/Codeine Phosphate (Tylenol #3) 1 tab PO Q6H PRN PRN Reason: pain Albuterol (Proventil) 2.5 mg IH Q4HRT PRN PRN Reason: Shortness Of Breath Allopurinol (Zyloprim) 100 mg PO QDAY [facility] Amlodipine Besylate (Norvasc) 10 mg PO DAILY [facility] Aspirin (Halfprin Ec) 81 mg PO QDAY [facility] Atorvastatin Calcium (Lipitor) 10 mg PO DAILY [facility] Calcium Carbonate/Glycine (Oscal) 500 mg PO TID [facility] Last Admin: 01/13/19 23:00 Dose: 500 mg Documented by: Clonidine HCl (Catapres) 0.1 mg PO DAILY PRN PRN Reason: Hypertension Fish Oil (Fish Oil) 1,000 mg PO QDAY [facility] Metoprolol Tartrate (Lopressor) 50 mg PO DAILY [facility] Multivitamins/Minerals (Theragran-M Tab) 1 each PO QDAY [facility] Ondansetron HCl (Zofran) 4 mg IV Q8H PRN PRN Reason: Nausea And Vomiting Sodium Chloride (Sodium Chloride Flush Syringe 10 Ml) 10 ml IV BID [facility] Last Admin: 01/13/19 22:24 Dose: 10 ml Documented by: Sodium Chloride (Sodium Chloride Flush Syringe 10 Ml) 10 ml IV PRN PRN PRN Reason: LINE FLUSH Vitamin B Complex/Vitamin C (Allbee With C) 1 each PO QDAY [facility] Zolpidem Tartrate (Ambien) 5 mg PO QHS PRN PRN Reason: Sleep Last Admin: 01/14/19 02:38 Dose: 5 mg Documented by: Exam - Vital Signs Vital signs: Vital Signs Temp Pulse Resp BP Pulse Ox 98.1 F 52 L 20 165/86 100 01/13/19 13:58 01/13/19 13:58 01/13/19 13:58 01/13/19 13:58 01/13/19 13:58 Results - Lab Results 01/13/19 14:29 01/14/19 04:51 Most recent lab results Calcium 7.7 mg/dL (8.4-10.2) L 05/16/19 04:51 Assessment and Plan Impression: * End stage renal disease * Malfunctioning/dislodged permcath * Possible (not definite) small mobile bioprosthetic AV vegetation * Hx of Catheter associated bactermia --Blood cx: MRSE (Dec 09 - outpatient dialysis clinic, 2/2 bottles) --Blood cx: NGTD (Dec 11) * Aortic valve replacement * Lower back pain * Hypertension * Anemia secondary to ESRD * Secondary hyperparathyroidism Plan: * Continue HD MWF - UF as tolerated * Resume Vanco - patient to receive 6week course (stop date 01/23) * IR consulted by ED * Continue antiHTN medications * Dose medications for renal function * Epogen TIW prn * Renal diet
[2019-01-14] MEDS ORDERED: VANCOMYCIN/NS 1 GM/250 ML 1 GM/250 ML BAG IV ONE (09:17)
[2019-01-14] MEDS ORDERED: LYCOPEN PO SCH (10:00)
[2019-01-14] MEDS ORDERED: ALLBEE WITH C PO SCH (10:00)
[2019-01-14] MEDS ORDERED: NORVASC PO SCH ×2 (10:00)
[2019-01-14] MEDS ORDERED: FISH OIL PO SCH (10:00)
[2019-01-14] MEDS ORDERED: LOPRESSOR PO SCH (10:00)
[2019-01-14] MEDS ORDERED: FELODIPINE 10 MG PO SCH (10:00)
[2019-01-14] MEDS ORDERED: MULTIVIT MIN PO SCH (10:00)
[2019-01-14] MEDS ORDERED: HALFPRIN EC PO SCH (10:00)
[2019-01-14] MEDS ORDERED: LUTEIN PO SCH (10:00)
[2019-01-14] MEDS ORDERED: THERAGRAN-M Tab PO SCH (10:00)
[2019-01-14] MEDS ORDERED: VANCOMYCIN PHARMACY TO DOSE IV SCH (10:00)
[2019-01-14] MEDS ORDERED: ZYLOPRIM PO SCH (10:00)
[2019-01-14] MEDS ORDERED: B COMPLEX PO SCH (10:00)
[2019-01-14] MEDS ORDERED: [UNRECOGNIZED DRUG - OTHER] PO SCH (10:00)
[2019-01-14] MEDS: SODIUM CHLORIDE FLUSH SYRINGE 10 ML IV SCH (10:45)
[2019-01-14] MEDS: OSCAL PO SCH (10:45)
--- NOTE | 2019-01-14 11:48 | Progress Note ---
Assessment and Plan Assessment and plan: My catheter fell out History of present illness: 73 YO Male with ESRD on HD(M,W,F), GERD, HTN, CAD S/P CABG presents to ED for evaluation. Pt states that he went to his routine dialysis center for dialysis. Pt was undergoing dialysis and was unable to complete dialysis because his dialysis catheter was not working. Pt underwent dialysis for 1/5 hours but usually is dialyzed for hrs. EMS notified and the patient transported to [facility]. Pt seen and evaluated in ED and found to have a dislodged dialysis catheter, as well as ESRD complicated by Acidosis. Pt denies fever, chills, CP, Palpitations, NVD, Trauma, BRBPR, Productive cough, skin rash, or recent ill contacts. Nephrology consulted in ED. IR consulted in ED for dialysis catheter replacement. Prior admission on 12/12/18 reviewed. All listed medication reviewed at time of admission. Past History Past Medical History: CAD, ESRD, GERD, hypertension ESRD needing dialysis Nephrology consulted in dialysis, CBC, CMP, strict I/O, monitor uop q shift, daily weight, avoid nephrotoxic agents, Metabolic acidosis BMP, IV bicarbonate, repeat bmp in am. Dialysis catheter clot or failure IR consulted, pending replacement in AM. HTN (hypertension) Monitor BP q shift, continue current antihypertensive therapy GERD (gastroesophageal reflux disease) PPi therapy, supportive care. DVT prophylaxis SCD to BLE while in bed, Hospitalist Physical - Constitutional Vitals: Temp Pulse Resp BP Pulse Ox 97.6 F 60 18 154/70 98 01/14/19 07:46 01/14/19 08:24 01/14/19 08:24 01/14/19 10:48 01/14/19 08:24 General appearance: Present: mild distress Results - Labs CBC & Chem 7: 01/13/19 14:29 01/14/19 04:51 Labs: Laboratory Last Values WBC 6.1 K/mm3 (4.5-11.0) 01/13/19 14:29 RBC 4.34 M/mm3 (3.65-5.03) 01/13/19 14:29 Hgb 13.2 gm/dl (11.8-15.2) 01/13/19 14:29 Hct 39.5 % (35.5-45.6) 01/13/19 14:29 MCV 91 fl (84-94) 01/13/19 14:29 MCH 31 pg (28-32) 01/13/19 14:29 MCHC 34 % (32-34) 01/13/19 14:29 RDW 16.2 % (13.2-15.2) H 01/13/19 14:29 Plt Count 323 K/mm3 (140-440) 01/13/19 14:29 Lymph % (Auto) 18.6 % (13.4-35.0) 01/13/19 14:29 [place] % (Auto) 11.9 % (0.0-7.3) H 01/13/19 14:29 Eos % (Auto) 5.2 % (0.0-4.3) H 01/13/19 14:29 Baso % (Auto) 0.8 % (0.0-1.8) 01/13/19 14:29 Lymph # 1.1 K/mm3 (1.2-5.4) L 01/13/19 14:29 [place] # 0.7 K/mm3 (0.0-0.8) 01/13/19 14:29 Eos # 0.3 K/mm3 (0.0-0.4) 01/13/19 14:29 Baso # 0.0 K/mm3 (0.0-0.1) 01/13/19 14:29 Seg Neutrophils % 63.5 % (40.0-70.0) 01/13/19 14:29 Seg Neutrophils # 3.9 K/mm3 (1.8-7.7) 01/13/19 14:29 Sodium 133 mmol/L (137-145) L 01/14/19 04:51 Potassium 4.3 mmol/L (3.6-5.0) 01/14/19 04:51 Chloride 98.4 mmol/L (98-107) 01/14/19 04:51 Carbon Dioxide 19 mmol/L (22-30) L 01/14/19 04:51 20 mmol/L 01/14/19 04:51 BUN 37 mg/dL (9-20) H 01/14/19 04:51 6.5 mg/dL (0.8-1.5) H 01/14/19 04:51 Estimated GFR 8 ml/min 01/14/19 04:51 6 % 01/14/19 04:51 Glucose 114 mg/dL (75-100) H 01/14/19 04:51 POC Glucose 115 (70-105) H 01/14/19 08:19 Calcium 7.7 mg/dL (8.4-10.2) L 01/14/19 04:51 0.50 mg/dL (0.1-1.2) 01/13/19 14:29 < 0.2 mg/dL (0-0.2) 01/13/19 14:29 0.3 mg/dL 01/13/19 14:29 AST 19 units/L (5-40) 01/13/19 14:29 ALT 10 units/L (7-56) 01/13/19 14:29 68 units/L (35-129) 01/13/19 14:29 7.2 g/dL (6.3-8.2) 01/13/19 14:29 4.4 g/dL (3.9-5) 01/13/19 14:29 1.6 % 01/13/19 14:29 Blood Type O POSITIVE 01/13/19 14:38 Antibody Screen Negative 01/13/19 14:38 Active Medications - Current Medications Current Medications: Generic Name Dose Route Start Last Admin Trade Name Freq PRN Reason Stop Dose Admin Acetaminophen 650 mg 01/13/19 18:04 Tylenol PO Q4H PRN Pain MILD(1-3)/Fever >100.5/WEISS Acetaminophen/Codeine Phosphate 1 tab 01/13/19 18:06 Tylenol #3 PO Q6H PRN pain Albuterol 2.5 mg 01/13/19 18:04 Proventil IH Q4HRT PRN Shortness Of Breath Allopurinol 100 mg 01/14/19 10:00 01/14/19 10:46 Zyloprim PO 100 mg QDAY NAFISA Administration Amlodipine Besylate 10 mg 01/14/19 10:00 01/14/19 10:54 Norvasc PO Not Given DAILY NAFISA Aspirin 81 mg 01/14/19 10:00 01/14/19 10:46 Halfprin Ec PO 81 mg QDAY NAFISA Administration Atorvastatin Calcium 10 mg 01/14/19 10:00 01/14/19 10:46 Lipitor PO 10 mg DAILY NAFISA Administration Calcium Carbonate/Glycine 500 mg 01/13/19 20:00 01/14/19 10:45 Oscal PO 500 mg TID NAFISA Administration Clonidine HCl 0.1 mg 01/13/19 20:39 Catapres PO DAILY PRN Hypertension Fish Oil 1,000 mg 01/14/19 10:00 01/14/19 10:44 Fish Oil PO 1,000 mg QDAY NAFISA Administration Vancomycin HCl 1 gm in 250 mls @ 167.007 mls/hr 01/14/19 09:17 Vancomycin/Ns 1 Gm/250 Ml IV 01/14/19 10:46 ONCE ONE Protocol Metoprolol Tartrate 50 mg 01/14/19 10:00 01/14/19 10:48 Lopressor PO 50 mg DAILY NAFISA Administration Multivitamins/Minerals 1 each 01/14/19 10:00 01/14/19 10:44 Theragran-M Tab PO 1 each QDAY NAFISA Administration Ondansetron HCl 4 mg 01/13/19 18:04 Zofran IV Q8H PRN Nausea And Vomiting Sodium Chloride 10 ml 01/13/19 22:00 01/14/19 10:45 Sodium Chloride Flush Syringe 10 Ml IV 10 ml BID NAFISA Administration Sodium Chloride 10 ml 01/13/19 18:04 Sodium Chloride Flush Syringe 10 Ml IV PRN PRN LINE FLUSH Vitamin B Complex/Vitamin C 1 each 01/14/19 10:00 01/14/19 10:45 Allbee With C PO 1 each QDAY NAFISA Administration Zolpidem Tartrate 5 mg 01/14/19 02:26 01/14/19 02:38 Ambien PO 5 mg QHS PRN Administration Sleep
--- NOTE | 2019-01-14 11:52 | Discharge Summary ---
Providers - Providers Date of Admission: 01/13/19 18:05 Attending physician: MARIA TERESA BAL MD 01/13/19 17:03 Consult to Physician [CONS] Urgent Comment: called ans. serv/ yuli Consulting Provider: YOLANDA BELLA Physician Instructions: Reason For Exam: permacath malposition 01/13/19 18:08 Consult to Physician [CONS] Routine Comment: called answ. service/ yuli Consulting Provider: JACEY HINES Physician Instructions: Reason For Exam: ESRD Primary care physician: MURTAZA LAWSON Hospitalization Condition: Good Hospital course: 73-year-old man with history of end-stage renal disease who presents with dialysis catheter malfunction. Patient was admitted to the hospital, he underwent exchange of dialysis catheter after which he was discharged. Diagnoses End-stage renal disease Dialysis catheter malfunction Hypertension GERD Disposition: DC- TO HOME OR SELFCARE Time spent for discharge: 33 mins Core Measure Documentation - Palliative Care Palliative Care/ Comfort Measures: Not Applicable - Core Measures Any of the following diagnoses?: none Exam - Constitutional Vitals: Temp Pulse Resp BP Pulse Ox 97.6 F 60 18 154/70 98 01/14/19 07:46 01/14/19 08:24 01/14/19 08:24 01/14/19 10:48 01/14/19 08:24 General appearance: Present: no acute distress, well-nourished - EENT Eyes: Present: PERRL ENT: hearing intact, clear oral mucosa - Neck Neck: Present: supple, normal ROM - Respiratory Respiratory effort: normal Respiratory: bilateral: CTA - Cardiovascular Heart Sounds: Present: S1 & S2. Absent: rub, click - Extremities Extremities: pulses symmetrical, No edema Peripheral Pulses: within normal limits - Abdominal General gastrointestinal: Present: soft, non-tender, non-distended, normal bowel sounds Male genitourinary: Present: normal - Integumentary Integumentary: Present: clear, warm, dry - Musculoskeletal Musculoskeletal: gait normal, strength equal bilaterally - Psychiatric Psychiatric: appropriate mood/affect, intact judgment & insight - Neurologic Neurologic: CNII-XII intact, moves all extremities Plan Follow up with: [facility] [Other] - 3-5 Days
[2019-01-14] MEDS ORDERED: XYLOCAINE 1%/ EPI 1:100,000 INFILTRATI ONE (12:05)
[2019-01-14] MEDS ORDERED: ANCEF/STERILE WATER 2 GM/20 ML 2 GM/20 ML SYRINGE IV ONE (12:05)
[2019-01-14] MEDS ORDERED: NACL 0.9% 250ML 250 ML ONE (12:05)
[2019-01-14] MEDS ORDERED: HEPARIN/NS 5000 UNIT/500ML(CATH LAB) 500 ML IR ONE (12:05)
--- NOTE | 2019-01-14 12:08 | Consultation ---
History of Present Illness - Reason for Consult Consult date: 01/14/19 Permcath dislodgement - History of Present Illness 73 year old Male with ESRD on HD(M,W,F), GERD, HTN, CAD S/P CABG presents to ED for evaluation. Pt states that he went to his routine dialysis center for dialysis. Pt was undergoing dialysis and was unable to complete dialysis because his dialysis catheter was partially dislodged. Pt underwent dialysis for 1.5 hours but usually is dialyzed for a longer period. EMS notified and the patient transported to [facility]. Pt seen and evaluated in ED and found to have a dislodged dialysis catheter, as well as ESRD complicated by Acidosis. Pt denies fever, chills, CP, Palpitations, NVD, Trauma, BRBPR, Productive cough, skin rash, or recent ill contacts. Nephrology consulted in ED. IR consulted in ED for dialysis catheter replacement. Prior admission on 12/12/18 reviewed. All listed medication reviewed at time of admission. Patient's catheter was partially dislodged and needs to be replaced. Could not be discharged due to concern about catheter completely falling out and patient bleeding. Past History Past Medical History: CAD, ESRD, GERD, hypertension Past Surgical History: CABG, Other (Dialysis access) Social history: , lives with family. denies: smoking, alcohol abuse, prescription drug abuse Family history: hypertension Medications and Allergies Allergies Allergy/AdvReac Type Severity Reaction Status Date / Time No Known Allergies Allergy Verified 12/12/18 07:15 Home Medications Medication Instructions Recorded Confirmed Last Taken Type Atorvastatin [Lipitor] 10 mg PO DAILY 11/10/18 01/13/19 12/11/18 18:00 History B Complex 500 mg PO DAILY 11/10/18 01/13/19 12/12/18 06:00 History Clonidine HCl [Kapvay] 0.1 mg PO PRN PRN 11/10/18 01/13/19 Unknown History Felodipine [Plendil] 10 mg PO QDAY 11/10/18 01/13/19 12/12/18 06:00 History Metoprolol Tartrate 1 tab PO DAILY 11/10/18 01/13/19 12/12/18 06:00 History Multivit-Min/FA/Lycopen/Lutein 1 tab PO QAM 11/10/18 01/13/19 12/12/18 06:00 History [Centrum Silver Men Tablet] [facility] Fatty Acids/Fish Oil [Fish 1 cap PO QDAY 11/10/18 01/13/19 12/12/18 06:00 History Oil] Allopurinol [Zyloprim] 100 mg PO QDAY 11/12/18 01/13/19 12/12/18 06:00 History amLODIPine [Norvasc] 10 mg PO DAILY #30 tablet 11/17/18 01/13/19 12/12/18 06:00 Rx Acetaminophen [Tylenol] 325 mg PO Q4HR PRN #30 capsule 12/09/18 01/13/19 12/12/18 06:00 Rx Acetaminophen/Codeine [Tylenol 1 tab PO Q6H PRN #15 tab 12/09/18 01/13/19 Unknown Rx /Codeine # 3 tab] Calcium Carbonate [[id number]] 500 mg PO TID 12/14/18 01/13/19 12/11/18 History Aspirin EC [Aspirin Enteric Coated 81 mg PO QDAY tablet 12/18/18 01/13/19 Unknown Rx TAB] Active Meds: Active Medications Acetaminophen (Tylenol) 650 mg PO Q4H PRN PRN Reason: Pain MILD(1-3)/Fever >100.5/WEISS Acetaminophen/Codeine Phosphate (Tylenol #3) 1 tab PO Q6H PRN PRN Reason: pain Albuterol (Proventil) 2.5 mg IH Q4HRT PRN PRN Reason: Shortness Of Breath Allopurinol (Zyloprim) 100 mg PO QDAY [facility] Last Admin: 01/14/19 10:46 Dose: 100 mg Documented by: Amlodipine Besylate (Norvasc) 10 mg PO DAILY [facility] Last Admin: 01/14/19 10:54 Dose: Not Given Documented by: Aspirin (Halfprin Ec) 81 mg PO QDAY [facility] Last Admin: 01/14/19 10:46 Dose: 81 mg Documented by: Atorvastatin Calcium (Lipitor) 10 mg PO DAILY [facility] Last Admin: 01/14/19 10:46 Dose: 10 mg Documented by: Calcium Carbonate/Glycine (Oscal) 500 mg PO TID [facility] Last Admin: 01/14/19 10:45 Dose: 500 mg Documented by: Clonidine HCl (Catapres) 0.1 mg PO DAILY PRN PRN Reason: Hypertension Fish Oil (Fish Oil) 1,000 mg PO QDAY [facility] Last Admin: 01/14/19 10:44 Dose: 1,000 mg Documented by: Vancomycin HCl (Vancomycin/Ns 1 Gm/250 Ml) 1 gm in 250 mls @ 167.007 mls/hr IV ONCE ONE; Protocol Stop: 01/14/19 10:46 Metoprolol Tartrate (Lopressor) 50 mg PO DAILY [facility] Last Admin: 01/14/19 10:48 Dose: 50 mg Documented by: Multivitamins/Minerals (Theragran-M Tab) 1 each PO QDAY [facility] Last Admin: 01/14/19 10:44 Dose: 1 each Documented by: Ondansetron HCl (Zofran) 4 mg IV Q8H PRN PRN Reason: Nausea And Vomiting Sodium Chloride (Sodium Chloride Flush Syringe 10 Ml) 10 ml IV BID [facility] Last Admin: 01/14/19 10:45 Dose: 10 ml Documented by: Sodium Chloride (Sodium Chloride Flush Syringe 10 Ml) 10 ml IV PRN PRN PRN Reason: LINE FLUSH Vitamin B Complex/Vitamin C ([place]bee With C) 1 each PO QDAY [facility] Last Admin: 01/14/19 10:45 Dose: 1 each Documented by: Zolpidem Tartrate (Ambien) 5 mg PO QHS PRN PRN Reason: Sleep Last Admin: 01/14/19 02:38 Dose: 5 mg Documented by: Review of Systems All systems: negative (see HPI) Exam - Constitutional Vitals: Temp Pulse Resp BP Pulse Ox 97.6 F 60 18 154/70 98 01/14/19 07:46 01/14/19 08:24 01/14/19 08:24 01/14/19 10:48 01/14/19 08:24 General appearance: Present: no acute distress - EENT Eyes: Present: EOM intact ENT: hearing intact - Respiratory Respiratory effort: normal - Cardiovascular Rhythm: other (chest catheter taped to body.) - Extremities Extremities: normal temperature, normal color - Abdominal General gastrointestinal: Present: soft - Psychiatric Psychiatric: appropriate mood/affect, cooperative Results - Labs CBC & Chem 7: 01/13/19 14:29 01/14/19 04:51 Labs: Abnormal lab results 01/13/19 01/13/19 01/14/19 Range/Units 14:29 14:29 04:51 RDW 16.2 H (13.2-15.2) % Lamar % (Auto) 11.9 H (0.0-7.3) % Eos % (Auto) 5.2 H (0.0-4.3) % Lymph # 1.1 L (1.2-5.4) K/mm3 Sodium 132 L 133 L (137-145) mmol/L Chloride 94.8 L (98-107) mmol/L Carbon Dioxide 20 L 19 L (22-30) mmol/L BUN 32 H 37 H (9-20) mg/dL Creatinine 5.4 H 6.5 H (0.8-1.5) mg/dL Glucose 109 H 114 H (75-100) mg/dL POC Glucose (70-105) Calcium 7.7 L (8.4-10.2) mg/dL 01/14/19 Range/Units 08:19 RDW (13.2-15.2) % Lamar % (Auto) (0.0-7.3) % Eos % (Auto) (0.0-4.3) % Lymph # (1.2-5.4) K/mm3 Sodium (137-145) mmol/L Chloride (98-107) mmol/L Carbon Dioxide (22-30) mmol/L BUN (9-20) mg/dL Creatinine (0.8-1.5) mg/dL Glucose (75-100) mg/dL POC Glucose 115 H (70-105) Calcium (8.4-10.2) mg/dL Assessment and Plan 73 year old with ESRD and permcath partial dislodgment. Needs to have permcath exchanged. R/B/A discussed with patient.
[2019-01-14] MEDS: VERSED ONE ×2 (12:34→12:41)
[2019-01-14] MEDS: SUBLIMAZE ONE ×2 (12:34→12:41)
[2019-01-14] MEDS: HEPARIN 10,000 UNITS/10 ML ONE ×2 (12:42→12:43)
--- NOTE | 2019-01-14 12:52 | Operative Report ---
Operative Report Operative Report: EXAM: 1. Fluoroscopic guided exchange of a right internal jugular tunneled cuffed hemodialysis catheter. DATE: 01/14/19 INDICATION: PermCath malfunction with partial dislodgment of PermCath requiring exchange MEDICATIONS: Please see nursing report for full details. DIRECTOR PERIOPERATIVE: YOLANDA BELLA MD DEVICES: 23 cm tip to cuff 15 Fr dual lumen hemodialysis catheter ; existing catheter was a 23 cm tip to cuff dual lumen hemodialysis catheter CONTRAST: None PROCEDURE: The risks, benefits, and alternatives were discussed and informed consent was obtained. The patient was transported to the angiography suite in satisfactory/stable condition and was transported onto the angiography table. The patient was prepped and draped in a sterile fashion. The existing PermCath was prepped and draped in a sterile fashion. Heparin was removed from the lumens and then saline was used to flush the lumens. A stiff angled Glidewire was advanced through each of the lumens of the existing PermCath. Lidocaine was used to anesthetize the existing PermCath dermatotomy. The PermCath was already partially dislodged with the tip in the right innominate vein. Over the 0.035 inch wire, the existing PermCath was removed and the wire was cleaned with ChloraPrep. A new PermCath was advanced over the wire and position centrally under fluoroscopic guidance. 2-0 Ethilon suture was used to secure the catheter at the dermatotomy. The catheter was charged with heparin in thousand units per mL of space. Sterile dressing applied. Biopatch applied. The patient was transferred from the angiography suite back to the floor in stable condition. FINDINGS: 1. Excellent flow was obtained through the dialysis catheter with 20 mL syringes. 2. The new catheter tip is in the right atrium. IMPRESSION: 1. Successful fluoroscopic guided replacement of a right internal jugular tunneled cuffed hemodialysis catheter.
[2019-01-14] MEDS ORDERED: NACL 0.9% 100 ML IV PRN (13:07)
[2019-01-14 14:13] VITALS: BP 153/70
== END 2019-01-14 15:30 | disposition home or self-care (01) | DRG 286 ==
LOC: ED 13:51 → 2B-ACE 18:05
PROVIDERS: ADMIT Internal Medicine; ATTEND Internal Medicine
PROC: 0JPT3XZ Removal of Tunneled Vascular Access Device from Trunk Subcutaneous Tissue and Fascia, Percutaneous Approach (ICD-10-PCS; principal; 2019-01-14)
PROC: B2141ZZ Fluoroscopy of Right Heart using Low Osmolar Contrast (ICD-10-PCS; 2019-01-14)
PROC: 0JH63XZ Insertion of Tunneled Vascular Access Device into Chest Subcutaneous Tissue and Fascia, Percutaneous Approach (ICD-10-PCS; 2019-01-14)
PROC: 05PY33Z Removal of Infusion Device from Upper Vein, Percutaneous Approach (ICD-10-PCS; 2019-01-14)
PROC: 02H633Z Insertion of Infusion Device into Right Atrium, Percutaneous Approach (ICD-10-PCS; 2019-01-14)
DX: T82.42XA Displacement of vascular dialysis catheter, initial encounter (principal); N18.6 End stage renal disease; E87.2 Acidosis; N25.81 Secondary hyperparathyroidism of renal origin; I12.0 Hypertensive chronic kidney disease with stage 5 chronic kidney disease or end stage renal disease; T82.41XA Breakdown (mechanical) of vascular dialysis catheter, initial encounter; K21.9 Gastro-esophageal reflux disease without esophagitis; Z95.1 Presence of aortocoronary bypass graft; I25.10 Atherosclerotic heart disease of native coronary artery without angina pectoris; Y83.8 Other surgical procedures as the cause of abnormal reaction of the patient, or of later complication, without mention of misadventure at the time of the procedure; Y92.89 Other specified places as the place of occurrence of the external cause; D63.1 Anemia in chronic kidney disease; Z95.2 Presence of prosthetic heart valve; Z79.82 Long term (current) use of aspirin
CPT/HCPCS: 36415; 36581; 77001; 80048; 80076; 80202; 82962; 85025; 86850; 86900; 86901; 93005; 93010; 96374; 99285; G0378; A9270-GY; C1750; C1769; J0690; J1644; J2250; J3010; J3246; J7050

== ENCOUNTER 2019-03-25 10:55 | Day surgery (SDC) | payer MEDICARE ==
[~2019-03-25 10:55] MED LIST: ANCEF/NS 1 GM/50 ML 1 GM/50 ML BAG IV NR
[2019-03-25] MEDS ORDERED: NACL 0.9% 1000 ML 1,000 ML ONE (11:33)
[2019-03-25] MEDS ORDERED: SUBLIMAZE IV PRN (11:35)
--- NOTE | 2019-03-25 11:35 | Anesthesia Day of Surgery ---
Anesthesia Day of Surgery - Day of Surgery Patient Examined: Yes Patient H&P Reviewed: Yes Patient is NPO: Yes Beta Blockers: Yes
--- NOTE | 2019-03-25 11:35 | Anesthesia Consultation ---
Anesthesia Consult and Med Hx Date of service: 03/25/19 - Airway Anesthetic Teeth Evaluation: Dentures ROM Head & Neck: Adequate Mental/Hyoid Distance: Adequate Mallampati Class: Class II Intubation Access Assessment: Probably Good - Pulmonary Exam CTA: Yes - Cardiac Exam Cardiac Exam: RRR - Pre-Operative Health Status ASA Pre-Surgery Classification: ASA4 Proposed Anesthetic Plan: General - Pulmonary Hx Smoking: Yes (Former; quit 5 yrs) Hx Respiratory Symptoms: No - Cardiovascular System Hx Hypertension: Yes Hx Coronary Artery Disease: Yes Hx Heart Attack/AMI: Yes (took metoprolol and clonidine this morning) Hx Percutaneous Transluminal Coronary Angioplasty (PTCA): No Hx Cardia Arrhythmia: Yes (hx atrial bradycardia) Hx Pacemaker: No Hx Internal Defibrillator: No Hx Valvular Heart Disease: Yes (s/p AVR 2013; MVP) - Central Nervous System CVA: No - Gastrointestinal Hx Gastroesophageal Reflux Disease: Yes (Well controlled ) - Endocrine Hx End Stage Renal Disease: Yes (last HD 03/24/19) Hx Liver Disease: No Hx Insulin Dependent Diabetes: No Hx Non-Insulin Dependent Diabetes: No Hx Thyroid Disease: No - Hematic Hx Anemia: Yes - Other Systems Hx Obesity: No - Additional Comments Anesthesia Medical History Comments: HOLLIS 11/2018 EF 55-60%
[2019-03-25] MEDS ORDERED: NACL 0.9% 1000 ML 1,000 ML IV SCH (12:00)
[2019-03-25] MEDS ORDERED: MARCAINE 0.5% INFILTRATI ONE ×2 (12:23→14:26)
[2019-03-25] MEDS ORDERED: PAPAVERINE ONE (12:23)
[2019-03-25] MEDS ORDERED: PROTAMINE SULFATE ONE (12:23)
[2019-03-25] MEDS ORDERED: HEPARIN 10,000 UNITS/10 ML ONE (12:24)
[2019-03-25] MEDS ORDERED: SODIUM BICARBONATE ONE (12:24)
[2019-03-25] MEDS ORDERED: XYLOCAINE 1%/ EPI 1:100,000 INFILTRATI ONE (12:24)
[2019-03-25] MEDS ORDERED: NACL 0.9% 500 ML 500 ML ONE (12:24)
[2019-03-25] MEDS ORDERED: NITROGLYCERIN SYRINGE 0 ML ONE (12:25)
[2019-03-25] MEDS ORDERED: NACL 0.9% 250ML 250 ML ONE (12:28)
[2019-03-25] MEDS ORDERED: RIFADIN ONE (12:28)
[2019-03-25] MEDS ORDERED: XYLOCAINE MPF 2% ONE (12:54)
[2019-03-25] MEDS ORDERED: SUBLIMAZE ONE ×2 (12:55→14:26)
[2019-03-25] MEDS ORDERED: VERSED ONE (12:55)
[2019-03-25] MEDS ORDERED: DIPRIVAN 10 MG/ML IV ONE (12:55)
[2019-03-25] MEDS ORDERED: PHENYLEPHRINE/NS Syringe 1,000 MCG/10 ML IV ONE (13:00)
[2019-03-25] MEDS ORDERED: ANCEF/STERILE WATER 2 GM/20 ML IV NR (13:00)
[2019-03-25] MEDS ORDERED: HEPARIN 10,000 UNITS/10 ML IV ONE (14:26)
[2019-03-25] MEDS ORDERED: NACL 0.9% 250ML IV ONE (14:27)
[2019-03-25] MEDS ORDERED: NACL 0.9% 500 ML IRRIGATION ONE (14:27)
[2019-03-25] MEDS ORDERED: RIFADIN IV ONE (14:28)
--- NOTE | 2019-03-25 15:09 | Short Stay Summary ---
Short Stay Documentation Date of service: 03/25/19 Narrative H&P: See H&P - History H&P: obtained from office - Allergies and Medications Current Medications: Allergies No Known Allergies Allergy (Verified 03/24/19 17:36) Home Medications Medication Instructions Recorded Confirmed Last Taken Type Atorvastatin [Lipitor] 10 mg PO DAILY 11/10/18 03/24/19 03/24/19 09:00 History B Complex 500 mg PO DAILY 11/10/18 03/24/19 03/24/19 09:00 History Clonidine HCl [Kapvay] 0.1 mg PO PRN PRN 11/10/18 03/25/19 03/25/19 07:00 History Metoprolol Tartrate 1 tab PO DAILY 11/10/18 03/25/19 03/25/19 07:00 History Multivit-Min/FA/Lycopen/Lutein 1 tab PO QAM 11/10/18 03/24/19 03/24/19 09:00 History [Centrum Silver Men Tablet] [facility]-3 Fatty Acids/Fish Oil [Fish 1 cap PO QDAY 11/10/18 03/25/19 03/24/19 09:00 History Oil] Allopurinol [Zyloprim] 100 mg PO QDAY 11/12/18 03/24/19 03/24/19 09:00 History Calcium Carbonate [[id number]] 500 mg PO TID 12/14/18 03/25/19 03/24/19 18:00 History Aspirin EC 81 mg PO QDAY tablet 12/18/18 03/24/19 03/24/19 09:00 Rx Omeprazole 20 mg PO DAILY 03/24/19 03/25/19 03/24/19 09:00 History Active Medications Cefazolin Sodium (Ancef/Sterile Water 2 Gm/20 Ml) 2 gm IV PREOP NR Stop: 03/25/19 23:59 Fentanyl (Sublimaze) 50 mcg IV Q5MIN PRN PRN Reason: Pain , Severe (7-10) Stop: 03/25/19 23:36 Sodium Chloride (Nacl 0.9% 1000 Ml) 1,000 mls @ 42 mls/hr IV DIRECT [facility] Last Admin: 03/25/19 12:15 Dose: 42 mls/hr Documented by: - Brief post op/procedure progress note Date of procedure: 03/25/19 Pre-op diagnosis: ESRD Post-op diagnosis: same Procedure: 1. Creation of Left Brachial Artery to Left Axillary Vein AV Graft with 6 mm Bovine Graft Anesthesia: LEONARD Surgeon: RUBÉN MORROW Estimated blood loss: minimal Pathology: none Condition: stable - Disposition Condition at discharge: Good Disposition: DC-01 TO HOME OR SELFCARE Short Stay Discharge Plan Activity: other (no heavy lifting with left arm) Wound: open to air, keep clean and dry, other (okay to wash the wound with soap and water but do not soak in water) Follow up with: RUBÉN MORROW MD [Staff Physician] - 14 Days Prescriptions: HYDROcodone/APAP 7.5-325 [Wilson 7.5/325] 1 each PO Q6HR PRN #40 tablet PRN Reason: Pain
--- NOTE | 2019-03-25 15:11 | Operative Report ---
Operative Report Operative Report: Date of procedure: 03/25/2019 Pre-operative diagnosis: End-Stage Renal Disease Post-operative diagnosis: Same Procedure(s): 1. Creation of Left Brachial Artery to Axillary Vein AV Graft with 6 mm Bovine Graft Surgeon: Jaime Paige MD Dual Rate Supervisor: None Anesthesia: General Endotracheal Anesthesia EBL: Minimal Counts: Correct Complications: None Condition: Stable Findings: Successful Creation of Left Arm AV Graft Specimen: None Indication: The patient is a 73-year-old male with a history of end-stage renal disease who is currently on hemodialysis through a right internal jugular permacath. He is in need of long-term dialysis access and does not have adequate vein for creation of AV fistula. He requires creation of AV graft in his left arm because he is right-hand dominant. He was given risks, benefits, and alternative procedures and consented to the procedure. Description of Procedure: The patient was brought to the operating room and laid in supine position after general endotracheal anesthesia was achieved the left arm was prepped and draped in normal sterile fashion. A longitudinal incision was made on the medial aspect of the arm just proximal to the antecubital crease and carried down to the brachial artery using sharp dissection. The brachial artery was dissected out circumferentially both proximally and distally and controlled with vessel loops. A second incision was created in longitudinal fashion on the medial aspect of the arm just distal to the axillary crease and carried down to the axillary vein using sharp dissection. Axillary vein was dissected out circumferentially and controlled with a vessel loop. I then used a Zayra-Wick tunneler to tunnel from the brachial artery incision to the axillary vein incision and then put an 6 mm bovine through the tunnel. I infused with heparinized saline to ensure that it was not twisted or kinked. I put the brachial artery vessel loops on tension controlling the flow and then created an arteriotomy using an 11 blade and Silva scissors. I beveled the graft and created an end-to-side anastomosis using 6-0 Prolene running fashion. I clamped the graft just proximal to the anastomosis and then released the vessel loops restoring flow in the brachial artery. I placed quick clot in incision to achi tomer hemostasis. I cut the proximal end of the graft to the appropriate length and beveled the graft in preparation for a venous anastomosis. I controlled the axillary vein a Satinsky clamp and created a venotomy using an 11 blade and Silva scissors. I created an end to side anastomosis using a 6-0 Prolene in running fashion. Prior to completing the anastomosis I flushed the graft to ensure there was no thrombus and then completed the anastamosis. I released all clamps allowing flow into the AV graft which had an excellent thrill. I packed the wound with quick clot to achieve hemostasis. I anesthetized both wounds with 0.5% Marcaine and then closed both wounds in 2 layers using 3-0 Vicryl in running fashion in the deep dermal layer and 4-0 Monocryl in running fashion the subcuticular layer. I dressed both wounds with Dermabond. The patient tolerated the procedure well all sponge needle and instrument counts were correct the patient was taken to recovery in stable condition.
[2019-03-25 16:06] VITALS: BP 158/91
--- NOTE | 2019-03-25 16:16 | Post Anesthesia Evaluation ---
- Post Anesthesia Evaluation Patient Participated: Yes Airway Patent: Yes Stable Respiratory Function: Yes Nausea/Vomiting: No Temp > 96.8F: Yes Pain Manageable: Yes Adequeate Hydration: Yes Anesthesia Complications: No
== END 2019-03-25 10:56 | disposition home or self-care (01) ==
LOC: OR 10:55
PROVIDERS: ATTEND Surgery Vascular Surgery
DX: I12.0 Hypertensive chronic kidney disease with stage 5 chronic kidney disease or end stage renal disease (principal); N18.6 End stage renal disease; E78.5 Hyperlipidemia, unspecified; K21.9 Gastro-esophageal reflux disease without esophagitis; I25.10 Atherosclerotic heart disease of native coronary artery without angina pectoris; M19.90 Unspecified osteoarthritis, unspecified site; M06.9 Rheumatoid arthritis, unspecified; F32.9 Major depressive disorder, single episode, unspecified; Z98.890 Other specified postprocedural states; Z79.899 Other long term (current) drug therapy; Z79.82 Long term (current) use of aspirin; Z87.891 Personal history of nicotine dependence; Z86.718 Personal history of other venous thrombosis and embolism; Z87.442 Personal history of urinary calculi; Z99.2 Dependence on renal dialysis; Z86.2 Personal history of diseases of the blood and blood-forming organs and certain disorders involving the immune mechanism
CPT/HCPCS: 36830; 82803; C1768; J0690; J1644; J2250; J2370; J2704; J3010; J3490; J7030; J7040; J7050; J2440; J2720

== ENCOUNTER 2019-04-01 12:35 | Emergency (ER) | payer MEDICARE ==
--- NOTE | 2019-04-01 12:44 | Emergency Department Report ---
Blank Doc - Documentation Documentation: This is a 73-year-old male that presents with hematuria with some abdominal pa in. This initial assessment/diagnostic orders/clinical plan/treatment(s) is/are subject to change based on patient's health status, clinical progression and re- assessment by fellow clinical providers in the ED. Further treatment and workup at subsequent clinical providers discretion. Patient/guardians urged not to elope from the ED as their condition may be serious if not clinically assessed and managed. Initial orders include: 1- Patient sent to MAIN ED for further evaluation and treatment 2- labs 3- UA
[2019-04-01 13:12] LABS: Basophils # (Auto) 0.1 K/mm3 (0.0-0.1); Basophils % (Auto) 0.9 % (0.0-1.8); Eosinophils # (Auto) 0.6 K/mm3 (0.0-0.4); Eosinophils % (Auto) 4.5 % (0.0-4.3); Hematocrit 37.1 % (35.5-45.6); Hemoglobin 12.6 gm/dl (11.8-15.2); Lymphocytes % (Auto) 14.8 % (13.4-35.0); Mean Corpuscular HGB Conc 34 % (32-34); Mean Corpuscular Volume 95 fl (84-94); Monocytes # (Auto) 1.1 K/mm3 (0.0-0.8); Monocytes % (Auto) 8.1 % (0.0-7.3); Red Blood Count 3.91 M/mm3 (3.65-5.03); Red Cell Distribution Width 16.8 % (13.2-15.2)
--- NOTE | 2019-04-01 13:15 | Emergency Department Report ---
HPI - General Chief Complaint: Abdominal Pain Time Seen by Provider: 04/01/19 12:43 - HPI HPI: Room 5 The patient is a 73-year-old male presenting with chief complaint of hematuria. Patient admits to hematuria for one day. Patient denies dysuria or fever. Patient denies nausea or vomiting. Patient denies pain of any type Location: [See above] Duration: [See above] Quality: [See above] Severity: [See above] Modifying factors: [see above] Context: [see above] Mode of transportation: [not driving] ED Past Medical Hx - Past Medical History Hx Hypertension: Yes Hx Deep Vein Thrombosis: Yes Hx GERD: Yes Hx Renal Disease: Yes Hx Arthritis: Yes (All joints) Hx Headaches / Migraines: Yes Hx Kidney Stones: Yes - Surgical History Hx Open Heart Surgery: Yes (2012 Aortic valve replacement) Additional Surgical History: open heart surgery - Family History Family history: no significant - Social History Smoking Status: Never Smoker Substance Use Type: None - Medications Home Medications: Home Medications Medication Instructions Recorded Confirmed Last Taken Type Atorvastatin [Lipitor] 10 mg PO DAILY 11/10/18 04/01/19 03/24/19 09:00 History B Complex 500 mg PO DAILY 11/10/18 04/01/19 03/24/19 09:00 History Clonidine HCl [Kapvay] 0.1 mg PO BID PRN 11/10/18 04/01/19 03/25/19 07:00 History Metoprolol Tartrate 1 tab PO DAILY 11/10/18 04/01/19 03/25/19 07:00 History Multivit-Min/FA/Lycopen/Lutein 1 tab PO QAM 11/10/18 04/01/19 03/24/19 09:00 History [Centrum Silver Men Tablet] [place]-3 Fatty Acids/Fish Oil [Fish 1 cap PO DAILY 11/10/18 04/01/19 03/24/19 09:00 History Oil] Allopurinol [Zyloprim] 100 mg PO DAILY 11/12/18 04/01/19 03/24/19 09:00 History Calcium Carbonate [Pcen-Kbi-609] 500 mg PO TID 12/14/18 04/01/19 03/24/19 18:00 History Aspirin EC 81 mg PO QDAY tablet 12/18/18 04/01/19 03/24/19 09:00 Rx HYDROcodone/APAP 7.5-325 [[place] 1 each PO Q6HR PRN #40 tablet 03/25/19 04/01/19 Unknown Rx 7.5/325] Omeprazole 40 mg PO DAILY 04/01/19 04/01/19 Unknown History Sulfamethoxazole/Trimethoprim 1 each PO BID #14 tablet 04/01/19 Unknown Rx [Bactrim DS TAB] ED Review of Systems ROS: Stated complaint: BLOOD IN URINE/DIALYSIS PATIENT Other details as noted in HPI Constitutional: denies: fever Eyes: denies: eye pain ENT: denies: throat pain Respiratory: no symptoms reported Cardiovascular: denies: chest pain Endocrine: no symptoms reported Gastrointestinal: denies: abdominal pain, nausea, vomiting Genitourinary: hematuria. denies: dysuria Musculoskeletal: denies: back pain Neurological: denies: headache Physical Exam - Physical Exam Vital Signs: Vital Signs 04/01/19 12:43 Temperature 98.3 F Pulse Rate 59 L Respiratory 20 Rate Blood Pressure 140/74 O2 Sat by Pulse 99 Oximetry Physical Exam: GENERAL: The patient is well-developed well-nourished male standing in room not obtained. Acute distress. [] HEENT: Normocephalic. Atraumatic. Extraocular motions are intact. Patient has moist mucous membranes. NECK: Supple. Trachea midline CHEST/LUNGS: Clear to auscultation. There is no respiratory distress noted. HEART/CARDIOVASCULAR: Regular. There is no tachycardia. There is no gallop rub or murmur. ABDOMEN: Abdomen is soft, nontender. Patient has normal bowel sounds. There is no abdominal distention. SKIN: There is no rash. There is no edema. There is no diaphoresis. NEURO: The patient is awake, alert, and oriented. The patient is cooperative. The patient has normal speech and gait. MUSCULOSKELETAL: There is no CVA tenderness. There is no evidence of acute injury. ED Course Vital Signs 04/01/19 12:43 Temperature 98.3 F Pulse Rate 59 L Respiratory 20 Rate Blood Pressure 140/74 O2 Sat by Pulse 99 Oximetry ED Medical Decision Making - Lab Data Result diagrams: 04/01/19 12:48 04/01/19 12:48 Laboratory Tests 04/01/19 04/01/19 04/01/19 12:48 12:48 12:48 WBC 13.4 H RBC 3.91 Hgb 12.6 Hct 37.1 MCV 95 H MCH 32 MCHC 34 RDW 16.8 H Plt Count 278 Lymph % (Auto) 14.8 [place] % (Auto) 8.1 H Eos % (Auto) 4.5 H Baso % (Auto) 0.9 Lymph # 2.0 [place] # 1.1 H Eos # 0.6 H Baso # 0.1 Add Manual Diff Complete Seg Neutrophils % 71.7 H Seg Neutrophils # 9.6 H PT INR APTT Sodium 130 L Potassium 4.0 Chloride 91.2 L Carbon Dioxide 22 Anion Gap 21 BUN 24 H Creatinine 5.1 H Estimated GFR 11 BUN/Creatinine Ratio 5 Glucose 106 H Calcium 8.7 Total Creatine Kinase 77 Urine Color Urine Turbidity Urine pH Ur Specific [place] Urine Protein Urine Glucose (UA) Urine Ketones Urine Blood Urine Nitrite Urine Bilirubin Urine Urobilinogen Ur Leukocyte Esterase Urine WBC (Auto) Urine RBC (Auto) U Epithel Cells (Auto) 04/01/19 04/01/19 13:13 14:15 WBC RBC Hgb Hct MCV MCH MCHC RDW Plt Count Lymph % (Auto) [place] % (Auto) Eos % (Auto) Baso % (Auto) Lymph # [place] # Eos # Baso # Add Manual Diff Seg Neutrophils % Seg Neutrophils # PT 12.5 INR 0.96 APTT 23.7 L Sodium Potassium Chloride Carbon Dioxide Anion Gap BUN Creatinine Estimated GFR BUN/Creatinine Ratio Glucose Calcium Total Creatine Kinase Urine Color Yellow Urine Turbidity Hazy Urine pH 7.0 Ur Specific [place] 1.012 Urine Protein 100 mg/dl Urine Glucose (UA) Neg Urine Ketones Neg Urine Blood Neg Urine Nitrite Neg Urine Bilirubin Neg Urine Urobilinogen < 2.0 Ur Leukocyte Esterase Tr Urine WBC (Auto) 6.0 Urine RBC (Auto) < 1.0 U Epithel Cells (Auto) < 1.0 - Radiology Data Radiology results: report reviewed (CT abdomen and pelvis), image reviewed (CT abdomen and pelvis) [facility] [address] [place] [address] Cat Scan Report Signed Patient: BILL SARMIENTO MR#: [id number] : 1945 Acct:[id number] Age/Sex: 73 / M ADM Date: 04/01/19 Loc: ED Attending Dr: Ordering Physician: MIC EUCEDA MD Date of Service: 04/01/19 Procedure(s): CT abdomen pelvis wo con Accession Number(s): [id number] cc: MIC EUCEDA MD CT ABDOMEN AND PELVIS WITHOUT CONTRAST HISTORY: Hematuria for 2 days COMPARISON: None. TECHNIQUE: Axial CT images were obtained through the abdomen and pelvis without IV contrast. Sagittal and coronal reformatted images. All CT scans at this location are performed using CT dose reduction for ALARA by means of automated exposure control. FINDINGS: CT ABDOMEN: Lung Bases: A large hiatal hernia is identified. The visualized lung bases are adequately aerated. Heart size is borderline. 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 Liver: No significant abnormality. Biliary: No significant abnormality. Spleen: No significant abnormality. Unenlarged. Pancreas: No significant abnormality. Adrenals: No significant abnormality. Kidneys: Both kidneys are atrophic with multiple simple appearing cysts. There is no evidence for obvious mass, calculus or hydronephrosis. The ureters are normal course and caliber. The bladder is unremarkable. Lymphatics: No lymphad enopathy. Vasculature: No significant abnormality. Bowel/Peritoneum: Mild diverticulosis of the colon is noted. No evidence for inflammation or obstruction. No free air or free fluid. Normal appendix. CT PELVIS: : No significant abnormality. Osseous Structures: Intact. Moderate thoracolumbar spondylosis is noted. Additional Findings: None IMPRESSION: No acute process is identified. No clear explanation for hematuria. Renal atrophy with bilateral renal cysts, unchanged. Large hiatal hernia. Mild diverticulosis of the colon. Signer Name: Heraclio Estrada Jr, MD Signed: 04/01/2019 2:13 PM Workstation Name: [id number] Transcribed By: TTR Dictated By: HERACLIO ESTRADA JR, MD Electronically Authenticated By: HERACLIO ESTRADA JR, MD Signed Date/Time: 04/01/19 1413 DD/ 1408 TD/TT: - Medical Decision Making Patient's workup has been negative so far with exception of leukocytosis. Given the lack of other etiology for hematuria I will treat patient empirically for UTI while awaiting urine culture - Differential Diagnosis UTI, renal colic, bladder mass, prostatitis Critical care attestation.: If time is entered above; I have spent that time in minutes in the direct care of this critically ill patient, excluding procedure time. ED Disposition Clinical Impression: Hematuria Disposition: DC-01 TO HOME OR SELFCARE Is pt being admited?: No Does the pt Need Aspirin: No Condition: Stable Instructions: Acute Hematuria (ED) Additional Instructions: Return to the emergency department immediately should you develop worsening symptoms, fever, inability to tolerate food or liquid or any other concerns. Prescriptions: Sulfamethoxazole/Trimethoprim [Bactrim DS TAB] 1 each PO BID #14 tablet Referrals: ZOIE ARTEAGA MD [Staff Physician] - 3-5 Days (Dr. Arteaga is a urologist. Please follow up with him for further evaluation) Time of Disposition: 14:46
[2019-04-01 13:20] LABS: Platelet Count 278 K/mm3 (140-440)
[2019-04-01 13:32] LABS: Calcium 8.7 mg/dL (8.4-10.2)
[2019-04-01 13:42] LABS: INR 0.96 (0.87-1.13)
[2019-04-01 13:43] LABS: Partial Thromboplastin Time 23.7 Sec. (24.2-36.6)
--- NOTE | 2019-04-01 14:17 | Cat Scan Report ---
CT ABDOMEN AND PELVIS WITHOUT CONTRAST HISTORY: Hematuria for 2 days COMPARISON: None. TECHNIQUE: Axial CT images were obtained through the abdomen and pelvis without IV contrast. Sagittal and coronal reformatted images. All CT scans at this location are performed using CT dose reduction for ALARA by means of automated exposure control. FINDINGS: CT ABDOMEN: Lung Bases: A large hiatal hernia is identified. The visualized lung bases are adequately aerated. He art size is borderline. 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 Liver: No significant abnormality. Biliary: No significant abnormality. Spleen: No significant abnormality. Unenlarged. Pancreas: No significant abnormality. Adrenals: No significant abnormality. Kidneys: Both kidneys are atrophic with multiple simple appearing cysts. There is no evidence for obv ious mass, calculus or hydronephrosis. The ureters are normal course and caliber. The bladder is unre markable. Lymphatics: No lymphadenopathy. Vasculature: No significant abnormality. Bowel/Peritoneum: Mild diverticulosis of the colon is noted. No evidence for inflammation or obstruct ion. No free air or free fluid. Normal appendix. CT PELVIS: : No significant abnormality. Osseous Structures: Intact. Moderate thoracolumbar spondylosis is noted. Additional Findings: None IMPRESSION: No acute process is identified. No clear explanation for hematuria. Renal atrophy with bilateral renal cysts, unchanged. Large hiatal hernia. Mild diverticulosis of the colon. Signer Name: Heraclio Estrada Jr, MD Signed: 04/01/2019 2:13 PM Workstation Name: [id number]
[2019-04-01 14:36] LABS: Bilirubin,Urine NEG (Negative); Blood,Urine NEG (Negative); Color,Urine Yellow (Yellow); RBC,Urine < 1.0 /HPF (0.0-6.0); Urobilinogen,Urine < 2.0 mg/dL (<2.0)
[2019-04-01 16:20] VITALS: BP 124/56
== END 2019-04-01 16:20 | disposition home or self-care (01) ==
LOC: ED 12:35
DX: R31.9 Hematuria, unspecified (principal); I10 Essential (primary) hypertension; K21.9 Gastro-esophageal reflux disease without esophagitis; M19.90 Unspecified osteoarthritis, unspecified site; G43.909 Migraine, unspecified, not intractable, without status migrainosus; Z87.442 Personal history of urinary calculi; Z86.718 Personal history of other venous thrombosis and embolism; Z98.890 Other specified postprocedural states; Z79.899 Other long term (current) drug therapy
CPT/HCPCS: 36415; 74176; 80048; 81001; 82550; 85025; 85610; 85730; 87086

== ENCOUNTER 2019-06-22 19:01 | Inpatient (IN) | payer MEDICARE ==
--- NOTE | 2019-06-22 21:14 | Emergency Department Report ---
ED General Adult HPI - General Chief complaint: Altered Mental Status Stated complaint: WEAKNESS/CONSTIPATION/MISSED DIALYSIS Time Seen by Provider: 06/22/19 21:05 Source: EMS Mode of arrival: Stretcher Limitations: Altered Mental Status - History of Present Illness Initial comments: 73-year-old male brought in by EMS and daughter for altered mental status with weakness 1 week. Daughter reports that patient had missed his dialysis on Friday the went today. Good reports he's had 4 falls today. Daughter reports that he is having some memory loss in delusional thoughts of people. Patient complains of hip pain. Daughter reports Patient has fallen 4 times today fell on his buttocks and one unwitnessed fall. Daughter reports no downt [place]. Reported loss of consciousness or head injury. Patient is followed by [facility] on [facility] for dialysis. His dialysis days are Friday and Friday. Patient does not have a primary care provider at this time. Patient has recently relocated from the [facility] 2018 and lives with his daughter. Onset/Timin -: week(s) ( for weakness and today with multiple falls) Severity scale (0 -10): 0 Improves with: none Worsens with: none - Related Data Home Medications Medication Instructions Recorded Confirmed Last Taken B Complex 500 mg PO DAILY 11/10/18 06/23/19 03/24/19 09:00 Clonidine HCl [Kapvay] 0.1 mg PO BID 11/10/18 06/23/19 03/25/19 07:00 Metoprolol Tartrate 1 tab PO BID 11/10/18 06/23/19 03/25/19 07:00 Multivit-Min/FA/Lycopen/Lutein 1 tab PO QAM 11/10/18 06/23/19 03/24/19 09:00 [Centrum Silver Men Tablet] [place]-3 Fatty Acids/Fish Oil [Fish 1 cap PO DAILY 11/10/18 06/23/19 03/24/19 09:00 Oil] Calcium Carbonate [Nfnm-Eog-324] 500 mg PO TID 12/14/18 06/23/19 03/24/19 18:00 Omeprazole 40 mg PO DAILY 04/01/19 06/23/19 Unknown Allergies Allergy/AdvReac Type Severity Reaction Status Date / Time No Known Allergies Allergy Verified 03/24/19 17:36 ED Review of Systems ROS: Stated complaint: WEAKNESS/CONSTIPATION/MISSED DIALYSIS Other details as noted in HPI ED Past Medical Hx - Past Medical History Hx Hypertension: Yes Hx Heart Attack/AMI: Yes (took metoprolol and clonidine this morning) Hx Deep Vein Thrombosis: Yes Hx GERD: Yes Hx Liver Disease: No Hx Renal Disease: Yes Hx Arthritis: Yes (All joints) Hx Headaches / Migraines: Yes Hx Kidney Stones: Yes - Surgical History Hx Open Heart Surgery: Yes (2012 Aortic valve replacement) Hx Pacemaker: No Hx Internal Defibrillator: No Additional Surgical History: open heart surgery - Social History Smoking Status: Never Smoker Substance Use Type: None - Medications Home Medications: Home Medications Medication Instructions Recorded Confirmed Last Taken Type B Complex 500 mg PO DAILY 11/10/18 06/23/19 03/24/19 09:00 History Clonidine HCl [Kapvay] 0.1 mg PO BID 11/10/18 06/23/19 03/25/19 07:00 History Metoprolol Tartrate 1 tab PO BID 11/10/18 06/23/19 03/25/19 07:00 History Multivit-Min/FA/Lycopen/Lutein 1 tab PO QAM 11/10/18 06/23/19 03/24/19 09:00 History [Centrum Silver Men Tablet] [place]-3 Fatty Acids/Fish Oil [Fish 1 cap PO DAILY 11/10/18 06/23/19 03/24/19 09:00 History Oil] Calcium Carbonate [Kseh-Vmy-381] 500 mg PO TID 12/14/18 06/23/19 03/24/19 18:00 History Omeprazole 40 mg PO DAILY 04/01/19 06/23/19 Unknown History ED Physical Exam - General Limitations: Altered Mental Status General appearance: alert, in no apparent distress - Head Head exam: Present: atraumatic, normocephalic - Eye Eye exam: Present: normal appearance - ENT ENT exam: Present: mucous membranes moist - Neck Neck exam: Present: normal inspection, full ROM - Respiratory Respiratory exam: Present: normal lung sounds bilaterally. Absent: respiratory distress - Cardiovascular Cardiovascular Exam: Present: regular rate, normal rhythm. Absent: systolic murmur, diastolic murmur, rubs, gallop - GI/Abdominal GI/Abdominal exam: Present: soft, normal bowel sounds. Absent: distended, tenderness - Extremities Exam Extremities exam: Present: normal inspection - Neurological Exam Neurological exam: Present: alert, oriented X3 - Expanded Neurological Exam Expanded Cranial nerves: EOM's Intact: Normal, Gag Reflex: Normal, Tongue Deviation: Normal, Nystagmus: Normal, Facial Sensation: Normal, Facial Palsy with Forehead Movement: Normal, Facial Palsy without Forehead Movement: Normal Cerebellar function: Finger to Nose: Normal, Heel to Klein: Normal, Romberg: Normal Upper motor neuron: [place] Neglect: Normal, Pronator Drift: Normal, Babinski Sign: Normal, Sensory Extinction: Normal Sensory exam: Upper Extremity Light Touch: Normal, Upper Extremity Pin Prick: Normal, Upper Extremity Temperature: Normal, UE 2 Point Discrimination: Normal, Lower Extremity Light Touch: Normal, Lower Extremity Pin Prick: Normal, Lower Extremity Temperature: Normal, LE 2 Point Discrimination: Normal Motor strength exam: RUE: 4, LUE: 4, RLE: 4, LLE: 4 Best Eye Response ([place]): (4) open spontaneously Best Motor Response ([place]): (6) obeys commands Best Verbal Response ([place]): (5) oriented [place] Total: 15 - Psychiatric Psychiatric exam: Present: normal affect, normal mood - Skin Skin exam: Present: warm, dry, intact, normal color. Absent: rash ED Course Vital Signs 06/22/19 06/22/19 06/22/19 20:28 20:31 20:34 Temperature 98.8 F Pulse Rate 99 H 56 L 54 L Respiratory 19 23 Rate Blood Pressure 144/58 144/58 O2 Sat by Pulse 100 Oximetry 06/22/19 06/22/19 06/22/19 20:45 21:00 21:15 Temperature Pulse Rate 57 L 60 61 Respiratory 20 20 24 Rate Blood Pressure 151/58 140/64 140/64 O2 Sat by Pulse 78 L 97 100 Oximetry 06/22/19 06/22/19 06/22/19 22:07 22:41 22:45 Temperature Pulse Rate 67 Respiratory 16 Rate Blood Pressure 136/56 136/56 132/58 O2 Sat by Pulse 97 Oximetry 06/22/19 06/22/19 06/22/19 22:53 23:00 23:15 Temperature 97.7 F Pulse Rate 56 L 56 L Respiratory 14 17 Rate Blood Pressure 151/63 136/56 O2 Sat by Pulse 100 Oximetry 06/22/19 06/22/19 06/23/19 23:31 23:45 00:01 Temperature Pulse Rate 69 62 60 Respiratory 21 15 9 L Rate Blood Pressure 136/66 131/59 138/62 O2 Sat by Pulse 98 100 94 Oximetry 06/23/19 06/23/19 06/23/19 00:15 00:30 00:45 Temperature Pulse Rate 58 L 58 L 62 Respiratory 22 20 20 Rate Blood Pressure 124/59 130/62 125/49 O2 Sat by Pulse 99 98 98 Oximetry 06/23/19 06/23/19 06/23/19 01:00 01:15 01:30 Temperature Pulse Rate 58 L 59 L 57 L Respiratory 11 L 22 21 Rate Blood Pressure 124/49 129/59 136/60 O2 Sat by Pulse 100 99 100 Oximetry 06/23/19 06/23/19 06/23/19 01:45 02:01 02:15 Temperature Pulse Rate 59 L 59 L 58 L Respiratory 10 L 12 17 Rate Blood Pressure 130/62 129/59 129/59 O2 Sat by Pulse 85 100 98 Oximetry 06/23/19 06/23/19 06/23/19 02:31 02:47 03:01 Temperature Pulse Rate 69 60 Respiratory 15 19 Rate Blood Pressure 128/94 128/94 128/94 O2 Sat by Pulse 99 69 L 100 Oximetry 06/23/19 06/23/19 06/23/19 03:11 03:21 03:31 Temperature Pulse Rate 59 L 58 L 55 L Respiratory 16 13 9 L Rate Blood Pressure 128/94 128/94 128/94 O2 Sat by Pulse 100 90 Oximetry 06/23/19 03:41 Temperature Pulse Rate 60 Respiratory 19 Rate Blood Pressure 128/94 O2 Sat by Pulse Oximetry ED Medical Decision Making - Lab Data Result diagrams: 06/22/19 21:25 06/22/19 21:54 Critical care attestation.: If time is entered above; I have spent that time in minutes in the direct care of this critically ill patient, excluding procedure time. ED Disposition Disposition: -09 OP ADMIT IP TO THIS HOSP Is pt being admited?: Yes Does the pt Need Aspirin: Yes Condition: Stable
[2019-06-22] MEDS ORDERED: TYLENOL PO ONE (21:15)
--- NOTE | 2019-06-22 21:20 | Event Note ---
Date of service: 06/22/19 Face to Face: This is a 73-year-old gentleman. I have evaluated this patient in the past. He presents to the ER with his daughter. Has a history of end-stage renal disease, on dialysis, presumed early dementia. He is brought to the hospital by his daughter for increasing frequency of falls. She reports the patient has been progressively unsteady over the past few weeks and months. However, he reportedly refuses to walk without a walker. He is reportedly had 3-4 falls within the past 2-3 days. He denies physical pain. He is alert to name, location. He knows his daughter by name. There is no past pointing, there is no pronator drift, there is normal [id number], and he walks with a steady gait with a one-person assist. There is no facial droop, the tongue is midline, and he has 5 out of 5 strength bilateral upper, lower extremities, and sensation is intact to light touch in bilateral upper, lower extremities. Laboratory studies are reviewed and appreciated, has a nonspecific drop in hemoglobin, hematocrit. It is macrocytic, however, may be anemia of chronic disease. Recommended. Guaiac examination, rectal temperature, EKG, straight catheter for urinalysis acquisition, and medication reconciliation. I suspect that the patient is experiencing the natural expected history of underlying dementia, and may benefit from outpatient home physical therapy, and or occupational therapy. Case management consult has been requested, assuming patient is discharged. We are waiting for the aforementioned interventions to be performed. Currently, he is afebrile with reassuring vital signs, his objective imaging studies were negative for emergent findings. Elevated troponin is reviewed and appreciated, this is most likely a type II, troponin leak, likely secondary to underlying chronic renal insufficiency. change in plans at 1135 pm found to have dramatic drop in hemoglobin and hematocrit he is guiac positive no recollection of colonscopy he may have a slow gi bleed contributing to his symptoms d/w GI, Dr Josue Banks, who will follow in consultation recommend admission for furthe revaluation instructed INES to ascertain who the patients private renal doctor is patient and daughter do not know who his renal doctor is Vital Signs 06/22/19 06/22/19 06/22/19 20:28 20:31 20:34 Temperature 98.8 F Pulse Rate 99 H 56 L 54 L Respiratory 19 23 Rate Blood Pressure 144/58 144/58 O2 Sat by Pulse 100 Oximetry 06/22/19 06/22/19 06/22/19 20:45 21:00 21:15 Temperature Pulse Rate 57 L 60 61 Respiratory 20 20 24 Rate Blood Pressure 151/58 140/64 140/64 O2 Sat by Pulse 78 L 97 100 Oximetry 06/22/19 06/22/19 22:07 22:53 Temperature 97.7 F Pulse Rate Respiratory Rate Blood Pressure 136/56 O2 Sat by Pulse Oximetry Lab Results 06/22/19 06/22/19 06/22/19 Range/Units 21:25 21:25 21:25 WBC 7.9 (4.5-11.0) K/mm3 RBC 2.46 L (3.65-5.03) M/mm3 Hgb 8.6 L (11.8-15.2) gm/dl Hct 26.1 L (35.5-45.6) % MCV 106 H (84-94) fl MCH 35 H (28-32) pg MCHC 33 (32-34) % RDW 16.5 H (13.2-15.2) % Plt Count 144 (140-440) K/mm3 Lymph % (Auto) 15.4 (13.4-35.0) % [place] % (Auto) 9.3 H (0.0-7.3) % Eos % (Auto) 3.9 (0.0-4.3) % Baso % (Auto) 1.3 (0.0-1.8) % Lymph # 1.2 (1.2-5.4) K/mm3 [place] # 0.7 (0.0-0.8) K/mm3 Eos # 0.3 (0.0-0.4) K/mm3 Baso # 0.1 (0.0-0.1) K/mm3 Seg Neutrophils % 70.1 H (40.0-70.0) % Seg Neutrophils # 5.5 (1.8-7.7) K/mm3 PT 12.5 (12.2-14.9) Sec. INR 0.96 (0.87-1.13) APTT 27.5 (24.2-36.6) Sec. Sodium (137-145) mmol/L Potassium (3.6-5.0) mmol/L Chloride (98-107) mmol/L Carbon Dioxide (22-30) mmol/L Anion Gap mmol/L BUN (9-20) mg/dL Creatinine (0.8-1.5) mg/dL Estimated GFR ml/min BUN/Creatinine Ratio % Glucose (75-100) mg/dL POC Glucose (70-105) Calcium (8.4-10.2) mg/dL Ammonia 56.0 (25-60) umol/L Total Creatine Kinase (55-170) units/L Troponin T (0.00-0.029) ng/mL TSH (0.270-4.200) mlU/mL Salicylates (2.8-20.0) mg/dL Acetaminophen (10.0-30.0) ug/mL Plasma/Serum Alcohol (0-0.07) % 06/22/19 06/22/19 06/22/19 Range/Units 21:25 21:54 21:54 WBC (4.5-11.0) K/mm3 RBC (3.65-5.03) M/mm3 Hgb (11.8-15.2) gm/dl Hct (35.5-45.6) % MCV (84-94) fl MCH (28-32) pg MCHC (32-34) % RDW (13.2-15.2) % Plt Count (140-440) K/mm3 Lymph % (Auto) (13.4-35.0) % [place] % (Auto) (0.0-7.3) % Eos % (Auto) (0.0-4.3) % Baso % (Auto) (0.0-1.8) % Lymph # (1.2-5.4) K/mm3 [place] # (0.0-0.8) K/mm3 Eos # (0.0-0.4) K/mm3 Baso # (0.0-0.1) K/mm3 Seg Neutrophils % (40.0-70.0) % Seg Neutrophils # (1.8-7.7) K/mm3 PT (12.2-14.9) Sec. INR (0.87-1.13) APTT (24.2-36.6) Sec. Sodium 132 L (137-145) mmol/L Potassium 3.3 L (3.6-5.0) mmol/L Chloride 92.7 L (98-107) mmol/L Carbon Dioxide 23 (22-30) mmol/L Anion Gap 20 mmol/L BUN 24 H (9-20) mg/dL Creatinine 5.0 H (0.8-1.5) mg/dL Estimated GFR 11 ml/min BUN/Creatinine Ratio 5 % Glucose 105 H (75-100) mg/dL POC Glucose (70-105) Calcium 12.0 H (8.4-10.2) mg/dL Ammonia (25-60) umol/L Total Creatine Kinase (55-170) units/L Troponin T 0.032 H (0.00-0.029) ng/mL TSH 1.180 (0.270-4.200) mlU/mL Salicylates (2.8-20.0) mg/dL Acetaminophen (10.0-30.0) ug/mL Plasma/Serum Alcohol (0-0.07) % 06/22/19 06/22/19 06/22/19 Range/Units 21:54 21:54 21:54 WBC (4.5-11.0) K/mm3 RBC (3.65-5.03) M/mm3 Hgb (11.8-15.2) gm/dl Hct (35.5-45.6) % MCV (84-94) fl MCH (28-32) pg MCHC (32-34) % RDW (13.2-15.2) % Plt Count (140-440) K/mm3 Lymph % (Auto) (13.4-35.0) % [place] % (Auto) (0.0-7.3) % Eos % (Auto) (0.0-4.3) % Baso % (Auto) (0.0-1.8) % Lymph # (1.2-5.4) K/mm3 [place] # (0.0-0.8) K/mm3 Eos # (0.0-0.4) K/mm3 Baso # (0.0-0.1) K/mm3 Seg Neutrophils % (40.0-70.0) % Seg Neutrophils # (1.8-7.7) K/mm3 PT (12.2-14.9) Sec. INR (0.87-1.13) APTT (24.2-36.6) Sec. Sodium (137-145) mmol/L Potassium (3.6-5.0) mmol/L Chloride (98-107) mmol/L Carbon Dioxide (22-30) mmol/L Anion Gap mmol/L BUN (9-20) mg/dL Creatinine (0.8-1.5) mg/dL Estimated GFR ml/min BUN/Creatinine Ratio % Glucose (75-100) mg/dL POC Glucose (70-105) Calcium (8.4-10.2) mg/dL Ammonia (25-60) umol/L Total Creatine Kinase 248 H (55-170) units/L Troponin T (0.00-0.029) ng/mL TSH (0.270-4.200) mlU/mL Salicylates < 0.3 L (2.8-20.0) mg/dL Acetaminophen < 5.0 L (10.0-30.0) ug/mL Plasma/Serum Alcohol (0-0.07) % 06/22/19 06/22/19 Range/Units 21:54 22:06 WBC (4.5-11.0) K/mm3 RBC (3.65-5.03) M/mm3 Hgb (11.8-15.2) gm/dl Hct (35.5-45.6) % MCV (84-94) fl MCH (28-32) pg MCHC (32-34) % RDW (13.2-15.2) % Plt Count (140-440) K/mm3 Lymph % (Auto) (13.4-35.0) % [place] % (Auto) (0.0-7.3) % Eos % (Auto) (0.0-4.3) % Baso % (Auto) (0.0-1.8) % Lymph # (1.2-5.4) K/mm3 [place] # (0.0-0.8) K/mm3 Eos # (0.0-0.4) K/mm3 Baso # (0.0-0.1) K/mm3 Seg Neutrophils % (40.0-70.0) % Seg Neutrophils # (1.8-7.7) K/mm3 PT (12.2-14.9) Sec. INR (0.87-1.13) APTT (24.2-36.6) Sec. Sodium (137-145) mmol/L Potassium (3.6-5.0) mmol/L Chloride (98-107) mmol/L Carbon Dioxide (22-30) mmol/L Anion Gap mmol/L BUN (9-20) mg/dL Creatinine (0.8-1.5) mg/dL Estimated GFR ml/min BUN/Creatinine Ratio % Glucose (75-100) mg/dL POC Glucose 115 H (70-105) Calcium (8.4-10.2) mg/dL Ammonia (25-60) umol/L Total Creatine Kinase (55-170) units/L Troponin T (0.00-0.029) ng/mL TSH (0.270-4.200) mlU/mL Salicylates (2.8-20.0) mg/dL Acetaminophen (10.0-30.0) ug/mL Plasma/Serum Alcohol < 0.01 (0-0.07) %
[2019-06-22 21:37] LABS: Basophils # (Auto) 0.1 K/mm3 (0.0-0.1); Basophils % (Auto) 1.3 % (0.0-1.8); Eosinophils # (Auto) 0.3 K/mm3 (0.0-0.4); Eosinophils % (Auto) 3.9 % (0.0-4.3); Hematocrit 26.1 % (35.5-45.6); Hemoglobin 8.6 gm/dl (11.8-15.2); Lymphocytes # (Auto) 1.2 K/mm3 (1.2-5.4); Lymphocytes % (Auto) 15.4 % (13.4-35.0); Mean Corpuscular HGB Conc 33 % (32-34); Mean Corpuscular Volume 106 fl (84-94); Monocytes # (Auto) 0.7 K/mm3 (0.0-0.8); Monocytes % (Auto) 9.3 % (0.0-7.3); Platelet Count 144 K/mm3 (140-440); Red Blood Count 2.46 M/mm3 (3.65-5.03); Red Cell Distribution Width 16.5 % (13.2-15.2)
[2019-06-22 21:47] LABS: INR 0.96 (0.87-1.13)
[2019-06-22 21:48] LABS: Partial Thromboplastin Time 27.5 Sec. (24.2-36.6)
--- NOTE | 2019-06-22 22:23 | Cat Scan Report ---
CT BRAIN: 06/22/2019 INDICATION / CLINICAL INFORMATION: fall AMS. COMPARISON: None available. FINDINGS: BRAIN/INTRACRANIAL STRUCTURES: Unenhanced CT images of the brain demonstrate no evidence of acute int racranial abnormality. Ventricles and sulci are prominent in size, consistent with prominent diffuse cerebral atrophy. There is no evidence of acute ischemic injury, hemorrhage, or mass. There are no abnormal extra-axial fluid collections. EXTRACRANIAL STRUCTURES: Unremarkable. IMPRESSION: No acute abnormality. All CT scans at this location are performed using dose reduction to ALARA by means of automated expos ure control. Signer Name: Ilan Mari MD Signed: 06/22/2019 10:19 PM Workstation Name: [id number]
--- NOTE | 2019-06-22 22:47 | Cat Scan Report ---
CT CERVICAL SPINE: 06/22/2019 INDICATION / CLINICAL INFORMATION: fall. COMPARISON: None available. FINDINGS: CT images of the cervical spine were obtained. Images are evaluated in the axial, coronal, and sagit olga planes. There is no evidence of acute abnormality. Vertebral body alignment is intact. There is no evidence of fracture. Facet degenerative changes are present primarily on the right side in the mid and lower cervical spin e. LEVEL BY LEVEL ANALYSIS: . CRANIOCERVICAL JUNCTION: Unremarkable. PARASPINAL STRUCTURES: Unremarkable IMPRESSION: No acute abnormality. All CT scans at this location are performed using dose reduction to ALARA by means of automated expos ure control. Signer Name: Ilan Mari MD Signed: 06/22/2019 10:43 PM Workstation Name: [id number]
--- NOTE | 2019-06-22 22:48 | XRay Report ---
BILATERAL HIP RADIOGRAPHS 3 VIEWS INDICATION / CLINICAL INFORMATION: fall hip pain COMPARISON: None available. FINDINGS: BONES / JOINT(S): No acute fracture or subluxation. There is mild degenerative change in the hips SOFT TISSUES: No significant abnormality. ADDITIONAL FINDINGS: None. Signer Name: Francisco J Elizondo MD Signed: 06/22/2019 10:44 PM Workstation Name: [email or web address]
[2019-06-22 23:28] LABS: Bacteria,Urine 3+ /HPF (Negative); Bilirubin,Urine NEG (Negative); Blood,Urine LG (Negative); Color,Urine Yellow (Yellow); Urobilinogen,Urine < 2.0 mg/dL (<2.0)
[2019-06-22 23:35] LABS: Chol/HDL Ratio 2.47 %
[2019-06-22 23:36] LABS: RBC,Urine > 182.0 /HPF (0.0-6.0)
[2019-06-23] MEDS ORDERED: CATAPRES PO PRN (00:51)
[2019-06-23] MEDS ORDERED: ZOFRAN IV PRN (00:53)
[2019-06-23] MEDS ORDERED: SODIUM CHLORIDE FLUSH SYRINGE 10 ML IV PRN (00:53)
[2019-06-23] MEDS ORDERED: TYLENOL PO PRN (00:53)
--- NOTE | 2019-06-23 01:02 | History and Physical Report ---
<TERESA KRISHNA - Last Filed: 06/23/19 01:59> History of Present Illness Date of examination: 06/23/19 Date of admission: 06/23/2019 Chief complaint: AMS, frequent falls History of present illness: 73-year-old Malagasy male with history of ESRD on HD, anemia, hypertension, gout, GERD, kidney stones, and migraines, who presents to [facility] ED with complaints of AMS and increase in frequency of falls. Pt is a poor historian. History is provided by daughter who is present at the bedside, and review of medical records. Patient's daughter states that patient had multiple falls over the past 2 days. Per pt he has been feeling dizzy lately and his balance is off. He is complaining of bilateral 6/10 hip pain. The daughter believes that her father's mentation is altered and he is not at baseline. Patient missed scheduled dialysis appointment at [facility] ([place], [place]) on Thursday 06/21, because he was not feeling well. Pt has displayed increased weakness over the past week. Pt states that he has been constipated, and used fleet enema on Friday and was able to pass small amount of very dark stool. He has not has a bowel movement since. Denies: head injury/ trauma, loss of consciousness, or visual disturbances A review of medical records showed that patient was seen in ED on 04/01/2019 complaints of hematuria. He was treated empirically for UTI and advised follow- up with Dr. Arteaga (urologist) as outpatient. Past History Past Medical History: arthritis, ESRD (on HD M/W/F), GERD, hypertension, hyperlipidemia, other (gout, kidney stones, migraines) Past Surgical History: Other (Aortic valve replacement (2012), NEERAJ AV fistula) Social history: lives with family Family history: hypertension Medications and Allergies Allergies Allergy/AdvReac Type Severity Reaction Status Date / Time No Known Allergies Allergy Verified 03/24/19 17:36 Home Medications Medication Instructions Recorded Confirmed Last Taken Type B Complex 500 mg PO DAILY 11/10/18 06/23/19 03/24/19 09:00 History Clonidine HCl [Kapvay] 0.1 mg PO BID 11/10/18 06/23/19 03/25/19 07:00 History Metoprolol Tartrate 1 tab PO BID 0306/23/19 03/25/19 07:00 History Multivit-Min/FA/Lycopen/Lutein 1 tab PO QAM 11/10/18 06/23/19 03/24/19 09:00 History [Centrum Silver Men Tablet] Mildred-3 Fatty Acids/Fish Oil [Fish 1 cap PO DAILY 11/10/18 06/23/19 03/24/19 09:00 History Oil] Calcium Carbonate [[id number]] 500 mg PO TID 12/14/18 06/23/19 03/24/19 18:00 History Omeprazole 40 mg PO DAILY 04/01/19 06/23/19 Unknown History Review of Systems All systems: negative Constitutional: weakness Gastrointestinal: constipation, melena Musculoskeletal: frequent falls Neurological: other (dizziness) Exam - Physical Exam Narrative exam: General appearance: Present: No acute distress, alert and orientedx3, well- developed, adult male, - EENT Eyes: Present: PERRL, EOM intact ENT: hearing intact, missing teeth - Neck Neck: Present: supple, normal ROM - Respiratory Respiratory effort: Non-labored Respiratory: bilateral: CTA with diminished bases bilaterally - Cardiovascular Heart rate:60 (bpm) Rhythm:SB, prolonged ME interval, incomplete left bundle branch block Heart Sounds: Present: S1, S2 - Extremities Extremities: no ischemia, pulses intact, upper arm AV fistula - Peripheral Assessment Peripheral Pulses: within normal limits - Abdominal General gastrointestinal: soft, non-tender, normal bowel sounds, heme positive - Integumentary Integumentary: Present: warm, dry - Musculoskeletal Musculoskeletal: generalized weakness, able to move all extremities -Neurological Neurological: CN II-XII grossly intact - Psychiatric Psychiatric: cooperative - Constitutional Vitals: Temp Pulse Resp BP Pulse Ox 97.7 F 61 24 136/56 100 06/22/19 22:53 06/22/19 21:15 06/22/19 21:15 06/22/19 22:07 06/22/19 21:15 Results - Labs CBC & Chem 7: 06/22/19 21:25 06/22/19 21:54 Labs: Laboratory Last Values WBC 7.9 K/mm3 (4.5-11.0) 06/22/19 21:25 RBC 2.46 M/mm3 (3.65-5.03) L 06/22/19 21:25 Hgb 8.6 gm/dl (11.8-15.2) L 06/22/19 21: Hct 26.1 % (35.5-45.6) L 06/22/19 21: MCV 106 fl (84-94) H 06/22/19 21:25 MCH 35 pg (28-32) H 06/22/19 21: MCHC 33 % (32-34) 06/22/19 21: RDW 16.5 % (13.2-15.2) H 06/22/19 21:25 Plt Count 144 K/mm3 (140-440) 06/22/19 21: Lymph % (Auto) 15.4 % (13.4-35.0) 06/22/19 21: [place] % (Auto) 9.3 % (0.0-7.3) H 06/22/19 21: Eos % (Auto) 3.9 % (0.0-4.3) 06/22/19 21: Baso % (Auto) 1.3 % (0.0-1.8) 06/22/19 21: Lymph # 1.2 K/mm3 (1.2-5.4) 06/22/19 21: [place] # 0.7 K/mm3 (0.0-0.8) 06/22/19 21: Eos # 0.3 K/mm3 (0.0-0.4) 06/22/19 21:25 Baso # 0.1 K/mm3 (0.0-0.1) 06/22/19 21: Seg Neutrophils % 70.1 % (40.0-70.0) H 06/22/19 21:25 Seg Neutrophils # 5.5 K/mm3 (1.8-7.7) 06/22/19 21:25 PT 12.5 Sec. (12.2-14.9) 06/22/19 21: INR 0.96 (0.87-1.13) 06/22/19 21:25 APTT 27.5 Sec. (24.2-36.6) 06/22/19 21:25 Sodium 132 mmol/L (137-145) L 06/22/19: Potassium 3.3 mmol/L (3.6-5.0) L 06/22/19 21:54 Chloride 92.7 mmol/L (98-107) L 06/22/19 21:54 Carbon Dioxide 23 mmol/L (22-30) 06/22/19 21:54 Anion Gap 20 mmol/L 06/22/19 21:54 BUN 24 mg/dL (9-20) H 06/22/19 21:54 Creatinine 5.0 mg/dL (0.8-1.5) H 06/22/19 21:54 Estimated GFR 11 ml/min 06/22/19 21:54 BUN/Creatinine Ratio 5 % 06/22/19 21:54 Glucose 105 mg/dL (75-100) H 06/22/19 21:54 POC Glucose 115 (70-105) H 06/22/19 22:06 Calcium 12.0 mg/dL (8.4-10.2) H 06/22/19 21:54 Ammonia 56.0 umol/L (25-60) 06/22/19 21:25 Total Creatine Kinase 248 units/L (55-170) H 06/22/19 21:54 Troponin T 0.032 ng/mL (0.00-0.029) H 06/22/19 21:54 Triglycerides 133 mg/dL (2-149) 06/22/19 21:54 Cholesterol 173 mg/dL (50-199) 06/22/19 21:54 LDL Cholesterol Direct 102 mg/dL (50-130) 06/22/19 21:54 HDL Cholesterol 70 mg/dL (40-59) H 06/22/19 21:54 Cholesterol/HDL Ratio 2.47 % 06/22/19 21:54 TSH 1.180 mlU/mL (0.270-4.200) 06/22/19 21:25 Urine Color Yellow (Yellow) 06/22/19 22:45 Urine Turbidity Slightly-cloudy (Clear) 06/22/19 22:45 Urine pH 5.0 (5.0-7.0) 06/22/19 22:45 Ur Specific [place] 1.012 (1.003-1.030) 06/22/19 22:45 Urine Protein 100 mg/dl mg/dL (Negative) 06/22/19 22:45 Urine Glucose (UA) Neg mg/dL (Negative) 06/22/19 22:45 Urine Ketones Neg mg/dL (Negative) 06/22/19 22:45 Urine Blood Lg (Negative) 06/22/19 22:45 Urine Nitrite Neg (Negative) 06/22/19 22:45 Urine Bilirubin Neg (Negative) 06/22/19 22:45 Urine Urobilinogen < 2.0 mg/dL (<2.0) 06/22/19 22:45 Ur Leukocyte Esterase Tr (Negative) 06/22/19 22:45 Urine WBC (Auto) 32.0 /HPF (0.0-6.0) H 06/22/19 22:45 Urine RBC (Auto) > 182.0 /HPF (0.0-6.0) 06/22/19 22:45 Urine Bacteria (Auto) 3+ /HPF (Negative) 06/22/19 22:45 Salicylates < 0.3 mg/dL (2.8-20.0) L 06/22/19 21:54 Acetaminophen < 5.0 ug/mL (10.0-30.0) L 06/22/19 21:54 Plasma/Serum Alcohol < 0.01 % (0-0.07) 06/22/19 21:54 Blood Type O POSITIVE 06/22/19 23:46 - Imaging and Cardiology Imaging and Cardiology: CT Head: FINDINGS: BRAIN/INTRACRANIAL STRUCTURES: Unenhanced CT images of the brain demonstrate no evidence of acute intracranial abnormality. Ventricles and sulci are prominent in size, consistent with prominent diffuse cerebral atrophy. There is no evidence of acute ischemic injury, hemorrhage, or mass. There are no abnormal extra- axial fluid collections. EXTRACRANIAL STRUCTURES: Unremarkable. IMPRESSION: No acute abnormality. CT Cervical Spine: FINDINGS: CT images of the cervical spine were obtained. Images are evaluated in the axial, coronal, and sagittal planes. There is no evidence of acute abnormality. Vertebral body alignment is intact. There is no evidence of fracture. Facet degenerative changes are present primarily on the right side in the mid and lower cervical spine. LEVEL BY LEVEL ANALYSIS: CRANIOCERVICAL JUNCTION: Unremarkable. PARASPINAL STRUCTURES: Unremarkable IMPRESSION: No acute abnormality. XR Bilateral Hips: FINDINGS: BONES / JOINT(S): No acute fracture or subluxation. There is mild degenerative change in the hips SOFT TISSUES: No significant abnormality. ADDITIONAL FINDINGS: None. Assessment and Plan Assessment and plan: 73-year-old Malagasy male with history of ESRD on HD, anemia, hypertension, gout, GERD, kidney stones, and migraines, who presents to [facility] ED with complaints of AMS and increase in frequency of falls. UTI -Hx of UTI -Empirically tx for UTI 04/01/19 -Urine WBC 32 -Urine culture pending -On IV Abx Anemia of Chronic Disease -Acute blood loss -Hemoglobin on admission 8.6 -Heme positive -Continue to monitor hemoglobin -Transfuse as needed -PPI BID -GI consulted Acute metabolic encephalopathy -Likely secondary to UTI -Continue supportive care -Neuro checks ESRD on HD -M/W/F -Missed HD on 06/21; last dialyzed 06/22 -Nephrology consulted Elevated Troponin -Likely secondary to chronic renal insufficiency -EKG unrevealing for acute ischemic abnormalities Recent Fall -Per daughter pt has been experiencing increased frequency of falls -Unsteady gait -XR Bilateral Hips showed mild degenerative change in the hips -CT Head negative -CT Cervical Spine -PT/OT eval pending -Case Management consult pending HTN -Monitor BP -Resume home antihypertensive meds DVT PPX -SCD's -Hold all antiplatelet and systemic anticoagulation for now Advance Directives: No VTE prophylaxis?: Mechanical Plan of care discussed with patient/family: Yes <KANDI SOTELO - Last Filed: 06/23/19 06:37> History of Present Illness Date of admission: 06/23/19 00:53 Medications and Allergies Active Meds: Active Medications Acetaminophen (Tylenol) 650 mg PO Q4H PRN PRN Reason: Pain MILD(1-3)/Fever >100.5/WEISS Allopurinol (Zyloprim) 100 mg PO DAILY [facility] Atorvastatin Calcium (Lipitor) 10 mg PO DAILY [facility] Calcium Carbonate/Glycine (Oscal) 1,250 mg PO TID [facility] Clonidine HCl (Catapres) 0.1 mg PO BID PRN PRN Reason: Blood Pressure Fish Oil (Fish Oil) 1,000 mg PO DAILY [facility] Ceftriaxone Sodium (Rocephin/Ns 1 Gm/50 Ml) 1 gm in 50 mls @ 100 mls/hr IV Q24HR [facility]; Protocol Metoprolol Tartrate (Lopressor) 50 mg PO DAILY@0800 [facility] Multivitamins/Minerals (Theragran-M Tab) 1 each PO QDAY [facility] Ondansetron HCl (Zofran) 4 mg IV Q6H PRN PRN Reason: Nausea And Vomiting Pantoprazole Sodium (Protonix) 40 mg IV BID [facility]AFISA Sodium Chloride (Sodium Chloride Flush Syringe 10 Ml) 10 ml IV BID NAFISA Sodium Chloride (Sodium Chloride Flush Syringe 10 Ml) 10 ml IV PRN PRN PRN Reason: LINE FLUSH Vitamin B Complex/Vitamin C ([place] With C) 1 each PO QDAY NAFISA Exam - Constitutional Vitals: Temp Pulse Resp BP Pulse Ox 98.4 F 56 L 18 137/64 99 06/23/19 04:29 06/23/19 04:29 06/23/19 05:00 06/23/19 04:29 06/23/19 04:29 Results - Labs CBC & Chem 7: 06/22/19 21:25 06/22/19 21:54 Labs: Laboratory Last Values WBC 7.9 K/mm3 (4.5-11.0) 06/22/19 21:25 RBC 2.46 M/mm3 (3.65-5.03) L 06/22/19 21:25 Hgb 8.6 gm/dl (11.8-15.2) L 06/22/19 21:25 Hct 26.1 % (35.5-45.6) L 06/22/19 21:25 MCV 106 fl (84-94) H 06/22/19 21:25 MCH 35 pg (28-32) H 06/22/19 21:25 MCHC 33 % (32-34) 06/22/19 21:25 RDW 16.5 % (13.2-15.2) H 06/22/19 21:25 Plt Count 144 K/mm3 (140-440) 06/22/19 21:25 Lymph % (Auto) 15.4 % (13.4-35.0) 06/22/19 21:25 [place] % (Auto) 9.3 % (0.0-7.3) H 06/22/19 21:25 Eos % (Auto) 3.9 % (0.0-4.3) 06/22/19 21:25 Baso % (Auto) 1.3 % (0.0-1.8) 06/22/19 21:25 Lymph # 1.2 K/mm3 (1.2-5.4) 06/22/19 21:25 [place] # 0.7 K/mm3 (0.0-0.8) 06/22/19 21:25 Eos # 0.3 K/mm3 (0.0-0.4) 06/22/19 21:25 Baso # 0.1 K/mm3 (0.0-0.1) 06/22/19 21:25 Seg Neutrophils % 70.1 % (40.0-70.0) H 06/22/19 21:25 Seg Neutrophils # 5.5 K/mm3 (1.8-7.7) 06/22/19 21:25 PT 12.5 Sec. (12.2-14.9) 06/22/19 21:25 INR 0.96 (0.87-1.13) 06/22/19 21:25 APTT 27.5 Sec. (24.2-36.6) 06/22/19 21:25 Sodium 132 mmol/L (137-145) L 06/22/19 21:54 Potassium 3.3 mmol/L (3.6-5.0) L 06/22/19 21:54 Chloride 92.7 mmol/L (98-107) L 06/22/19 21:54 Carbon Dioxide 23 mmol/L (22-30) 06/22/19 21:54 Anion Gap 20 mmol/L 06/22/19 21:54 BUN 24 mg/dL (9-20) H 06/22/19 21:54 Creatinine 5.0 mg/dL (0.8-1.5) H 06/22/19 21:54 Estimated GFR 11 ml/min 06/22/19 21:54 BUN/Creatinine Ratio 5 % 06/22/19 21:54 Glucose 105 mg/dL (75-100) H 06/22/19 21:54 POC Glucose 115 (70-105) H 06/22/19 22:06 Calcium 12.0 mg/dL (8.4-10.2) H 06/22/19 21:54 Ammonia 56.0 umol/L (25-60) 06/22/19 21:25 Total Creatine Kinase 248 units/L (55-170) H 06/22/19 21:54 Troponin T 0.032 ng/mL (0.00-0.029) H 06/22/19 21:54 Triglycerides 133 mg/dL (2-149) 06/22/19 21:54 Cholesterol 173 mg/dL (50-199) 06/22/19 21:54 LDL Cholesterol Direct 102 mg/dL (50-130) 06/22/19 21:54 HDL Cholesterol 70 mg/dL (40-59) H 06/22/19 21:54 Cholesterol/HDL Ratio 2.47 % 06/22/19 21:54 TSH 1.180 mlU/mL (0.270-4.200) 06/22/19 21:25 Urine Color Yellow (Yellow) 06/22/19 22:45 Urine Turbidity Slightly-cloudy (Clear) 06/22/19 22:45 Urine pH 5.0 (5.0-7.0) 06/22/19 22:45 Ur Specific [place] 1.012 (1.003-1.030) 06/22/19 22:45 Urine Protein 100 mg/dl mg/dL (Negative) 06/22/19 22:45 Urine Glucose (UA) Neg mg/dL (Negative) 06/22/19:45 Urine Ketones Neg mg/dL (Negative) 06/22/19 22:45 Urine Blood Lg (Negative) 06/22/19 22:45 Urine Nitrite Neg (Negative) 06/22/19:45 Urine Bilirubin Neg (Negative) 06/22/19:45 Urine Urobilinogen < 2.0 mg/dL (<2.0) 06/22/19 22:45 Ur Leukocyte Esterase Tr (Negative) 06/22/19 22:45 Urine WBC (Auto) 32.0 /HPF (0.0-6.0) H 06/22/19:45 Urine RBC (Auto) > 182.0 /HPF (0.0-6.0) 06/22/19 22:45 Urine Bacteria (Auto) 3+ /HPF (Negative) 06/22/19 22:45 Salicylates < 0.3 mg/dL (2.8-20.0) L 06/22/19 21:54 Acetaminophen < 5.0 ug/mL (10.0-30.0) L 06/22/19 21:54 Plasma/Serum Alcohol < 0.01 % (0-0.07) 06/22/19 21:54 Blood Type O POSITIVE 06/22/19 23:46 Antibody Screen Negative 06/22/19 23:46 Assessment and Plan Assessment and plan: 73-year-old man with a history of end-stage renal disease on dialysis, hyp ertension, GERD, ago was brought to the emergency room by her daughter for increased falls over the last 2 days and confusion. He was found to have a urinary tract infection. Change Levaquin to Rocephin. Also his hemoglobin was noted to be lower than previous admissions, he was heme positive, agree with GI consult. Cardiac enzymes, check serial enzymes and echo
[2019-06-23 07:28] LABS: Creatine Kinase MB 3.4 ng/mL (0.0-4.0)
[2019-06-23] MEDS: OSCAL PO SCH ×4 (08:28→20:01)
[2019-06-23] MEDS: METOPROLOL PO SCH (08:29)
[2019-06-23] MEDS: PROTONIX IV SCH ×2 (09:20→21:59)
[2019-06-23] MEDS: ROCEPHIN/NS 1 GM/50 ML 1 GM/50 ML BAG IV SCH (09:20)
[2019-06-23] MEDS: SODIUM CHLORIDE FLUSH SYRINGE 10 ML IV SCH ×2 (09:21→23:41)
[2019-06-23] MEDS: ZYLOPRIM PO SCH (09:39)
[2019-06-23] MEDS: ALLBEE WITH C PO SCH (09:39)
[2019-06-23] MEDS: FISH OIL PO SCH (09:39)
[2019-06-23] MEDS: THERAGRAN-M Tab PO SCH (09:39)
[2019-06-23] MEDS ORDERED: PROTONIX PO SCH (10:00)
[2019-06-23] MEDS ORDERED: ROCEPHIN/NS 1 GM/50 ML 1 GM/50 ML BAG IV SCH (10:00)
[2019-06-23] MEDS ORDERED: LEVAQUIN 750MG/150ML 750 MG/150 ML BAG IV SCH (10:00)
--- NOTE | 2019-06-23 12:20 | Gastroenterology Consultation ---
History of Present Illness - Reason for Consult Consult date: 06/23/19 GIB Requesting physician: GURPREET TAN - History of Present Illness Patient is a 73 y/o male with PMH of ESRD on HD, chronic anemia, HTN, gout, GERD, kidney stones, and migraines who presented to ED with AMS and increase frequency in falls per daughter. Upon admission, he was found to have a drop in H/H compared to previous admission to which GI has been consulted. This afternoon patient was resting in bed w/o acute distress but noted to be poor historian. Currently has no GI complaints. Denies fever, CP, SOB, N/v, abd pain, hematemesis, melena, diarrhea, constipation or hematochezia. No prior hx of GI bleeding. No NSAID use. No previous EGD/colonoscopy per pt. No known Fhx of GI cancers. Past History Past Medical History: other (as per HPI) Past Surgical History: Other (Aortic valve replacement (2012), NEERAJ AV fistula) Social history: lives with family Family history: hypertension Medications and Allergies Allergies Allergy/AdvReac Type Severity Reaction Status Date / Time No Known Allergies Allergy Verified 03/24/19 17:36 Home Medications Medication Instructions Recorded Confirmed Last Taken Type B Complex 500 mg PO DAILY 11/10/18 06/23/19 03/24/19 09:00 History Clonidine HCl [Kapvay] 0.1 mg PO BID 11/10/18 06/23/19 03/25/19 07:00 History Metoprolol Tartrate 1 tab PO BID 11/10/18 06/23/19 03/25/19 07:00 History Multivit-Min/FA/Lycopen/Lutein 1 tab PO QAM 11/10/18 06/23/19 03/24/19 09:00 History [Centrum Silver Men Tablet] [place]-3 Fatty Acids/Fish Oil [Fish 1 cap PO DAILY 11/10/18 06/23/19 03/24/19 09:00 History Oil] Calcium Carbonate [[id number]] 500 mg PO TID 12/14/18 06/23/19 03/24/19 18:00 History Omeprazole 40 mg PO DAILY 04/01/19 06/23/19 Unknown History Active Meds: Active Medications Acetaminophen (Tylenol) 650 mg PO Q4H PRN PRN Reason: Pain MILD(1-3)/Fever >100.5/WEISS Allopurinol (Zyloprim) 100 mg PO DAILY [facility] Last Admin: 06/23/19 09:39 Dose: Not Given Documented by: Atorvastatin Calcium (Lipitor) 10 mg PO DAILY [facility] Last Admin: 06/23/19 09:39 Dose: Not Given Documented by: Calcium Carbonate/Glycine (Oscal) 1,250 mg PO TID [facility] Last Admin: 06/23/19 08:30 Dose: Not Given Documented by: Clonidine HCl (Catapres) 0.1 mg PO BID PRN PRN Reason: Blood Pressure Fish Oil (Fish Oil) 1,000 mg PO DAILY [facility] Last Admin: 06/23/19 09:39 Dose: Not Given Documented by: Ceftriaxone Sodium (Rocephin/Ns 1 Gm/50 Ml) 1 gm in 50 mls @ 100 mls/hr IV Q24HR [facility]; Protocol Last Admin: 06/23/19 09:20 Dose: 100 mls/hr Documented by: Metoprolol Tartrate (Lopressor) 50 mg PO DAILY@0800 [facility] Last Admin: 06/23/19 08:29 Dose: Not Given Documented by: Multivitamins/Minerals (Theragran-M Tab) 1 each PO QDAY [facility] Last Admin: 06/23/19 09:39 Dose: Not Given Documented by: Ondansetron HCl (Zofran) 4 mg IV Q6H PRN PRN Reason: Nausea And Vomiting Pantoprazole Sodium (Protonix) 40 mg IV BID [facility] Last Admin: 06/23/19 09:20 Dose: 40 mg Documented by: Sodium Chloride (Sodium Chloride Flush Syringe 10 Ml) 10 ml IV BID [facility] Last Admin: 06/23/19 09:21 Dose: 10 ml Documented by: Sodium Chloride (Sodium Chloride Flush Syringe 10 Ml) 10 ml IV PRN PRN PRN Reason: LINE FLUSH Vitamin B Complex/Vitamin C (Allbee With C) 1 each PO QDAY [facility] Last Admin: 06/23/19 09:39 Dose: Not Given Documented by: medications reviewed/updated as required Review of Systems - Review of Systems All systems: negative Gastrointestinal: no abdominal pain, no nausea, no vomiting, no hematemesis, no coffee ground emesis, no melena, no hematochezia Exam - Constitutional Vital Signs: Temp Pulse Resp BP Pulse Ox 98.2 F 56 L 18 156/80 94 06/23/19 08:45 06/23/19 08:45 06/23/19 08:45 06/23/19 09:11 06/23/19 09:11 General appearance: no acute distress - EENT Eyes: PERRL, EOM intact ENT: hearing intact - Respiratory Respiratory effort: normal Respiratory: bilateral: CTA - Cardiovascular Rhythm: regular - Gastrointestinal General gastrointestinal: Present: soft, non-tender, non-distended, normal bowel sounds Rectal Exam: stool brown (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 (Meli RN)) - Neurologic Neurological: oriented to person, oriented to place - Labs CBC & Chem 7: 06/22/19 21:25 06/22/19 21:54 Lab Results: Laboratory Results - last 24 hr 06/22/19 06/22/19 06/22/19 21:25 21:25 21:25 WBC 7.9 RBC 2.46 L Hgb 8.6 L Hct 26.1 L MCV 106 H MCH 35 H MCHC 33 RDW 16.5 H Plt Count 144 Lymph % (Auto) 15.4 [place] % (Auto) 9.3 H Eos % (Auto) 3.9 Baso % (Auto) 1.3 Lymph # 1.2 [place] # 0.7 Eos # 0.3 Baso # 0.1 Seg Neutrophils % 70.1 H Seg Neutrophils # 5.5 PT 12.5 INR 0.96 APTT 27.5 Sodium Potassium Chloride Carbon Dioxide Anion Gap BUN Creatinine Estimated GFR BUN/Creatinine Ratio Glucose POC Glucose Calcium Ammonia 56.0 Total Creatine Kinase CK-MB (CK-2) CK-MB (CK-2) Rel Index Troponin T Triglycerides Cholesterol LDL Cholesterol Direct HDL Cholesterol Cholesterol/HDL Ratio TSH Urine Color Urine Turbidity Urine pH Ur Specific [place] Urine Protein Urine Glucose (UA) Urine Ketones Urine Blood Urine Nitrite Urine Bilirubin Urine Urobilinogen Ur Leukocyte Esterase Urine WBC (Auto) Urine RBC (Auto) Urine Bacteria (Auto) Salicylates Acetaminophen Plasma/Serum Alcohol Blood Type Antibody Screen 06/22/19 06/22/19 06/22/19 21:25 21:54 21:54 WBC RBC Hgb Hct MCV MCH MCHC RDW Plt Count Lymph % (Auto) [place] % (Auto) Eos % (Auto) Baso % (Auto) Lymph # [place] # Eos # Baso # Seg Neutrophils % Seg Neutrophils # PT INR APTT Sodium 132 L Potassium 3.3 L Chloride 92.7 L Carbon Dioxide 23 Anion Gap 20 BUN 24 H Creatinine 5.0 H Estimated GFR 11 BUN/Creatinine Ratio 5 Glucose 105 H POC Glucose Calcium 12.0 H Ammonia Total Creatine Kinase CK-MB (CK-2) CK-MB (CK-2) Rel Index Troponin T 0.032 H Triglycerides 133 Cholesterol 173 LDL Cholesterol Direct 102 HDL Cholesterol 70 H Cholesterol/HDL Ratio 2.47 TSH 1.180 Urine Color Urine Turbidity Urine pH Ur Specific [place] Urine Protein Urine Glucose (UA) Urine Ketones Urine Blood Urine Nitrite Urine Bilirubin Urine Urobilinogen Ur Leukocyte Esterase Urine WBC (Auto) Urine RBC (Auto) Urine Bacteria (Auto) Salicylates Acetaminophen Plasma/Serum Alcohol Blood Type Antibody Screen 06/22/19 06/22/19 06/22/19 21:54 21:54 21:54 WBC RBC Hgb Hct MCV MCH MCHC RDW Plt Count Lymph % (Auto) [place] % (Auto) Eos % (Auto) Baso % (Auto) Lymph # [place] # Eos # Baso # Seg Neutrophils % Seg Neutrophils # PT INR APTT Sodium Potassium Chloride Carbon Dioxide Anion Gap BUN Creatinine Estimated GFR BUN/Creatinine Ratio Glucose POC Glucose Calcium Ammonia Total Creatine Kinase 248 H CK-MB (CK-2) CK-MB (CK-2) Rel Index Troponin T Triglycerides Cholesterol LDL Cholesterol Direct HDL Cholesterol Cholesterol/HDL Ratio TSH Urine Color Urine Turbidity Urine pH Ur Specific [place] Urine Protein Urine Glucose (UA) Urine Ketones Urine Blood Urine Nitrite Urine Bilirubin Urine Urobilinogen Ur Leukocyte Esterase Urine WBC (Auto) Urine RBC (Auto) Urine Bacteria (Auto) Salicylates < 0.3 L Acetaminophen < 5.0 L Plasma/Serum Alcohol Blood Type Antibody Screen 06/22/19 06/22/19 06/22/19 21:54 22:06 22:45 WBC RBC Hgb Hct MCV MCH MCHC RDW Plt Count Lymph % (Auto) [place] % (Auto) Eos % (Auto) Baso % (Auto) Lymph # [place] # Eos # Baso # Seg Neutrophils % Seg Neutrophils # PT INR APTT Sodium Potassium Chloride Carbon Dioxide Anion Gap BUN Creatinine Estimated GFR BUN/Creatinine Ratio Glucose POC Glucose 115 H Calcium Ammonia Total Creatine Kinase CK-MB (CK-2) CK-MB (CK-2) Rel Index Troponin T Triglycerides Cholesterol LDL Cholesterol Direct HDL Cholesterol Cholesterol/HDL Ratio TSH Urine Color Yellow Urine Turbidity Slightly-cloudy Urine pH 5.0 Ur Specific [place] 1.012 Urine Protein 100 mg/dl Urine Glucose (UA) Neg Urine Ketones Neg Urine Blood Lg Urine Nitrite Neg Urine Bilirubin Neg Urine Urobilinogen < 2.0 Ur Leukocyte Esterase Tr Urine WBC (Auto) 32.0 H Urine RBC (Auto) > 182.0 Urine Bacteria (Auto) 3+ Salicylates Acetaminophen Plasma/Serum Alcohol < 0.01 Blood Type Antibody Screen 06/22/19 06/23/19 06/23/19 23:46 06:55 06:55 WBC RBC Hgb Hct MCV MCH MCHC RDW Plt Count Lymph % (Auto) [place] % (Auto) Eos % (Auto) Baso % (Auto) Lymph # [place] # Eos # Baso # Seg Neutrophils % Seg Neutrophils # PT INR APTT Sodium Potassium Chloride Carbon Dioxide Anion Gap BUN Creatinine Estimated GFR BUN/Creatinine Ratio Glucose POC Glucose Calcium Ammonia Total Creatine Kinase 173 H CK-MB (CK-2) 3.4 CK-MB (CK-2) Rel Index 1.9 Troponin T 0.026 Triglycerides Cholesterol LDL Cholesterol Direct HDL Cholesterol Cholesterol/HDL Ratio TSH Urine Color Urine Turbidity Urine pH Ur Specific [place] Urine Protein Urine Glucose (UA) Urine Ketones Urine Blood Urine Nitrite Urine Bilirubin Urine Urobilinogen Ur Leukocyte Esterase Urine WBC (Auto) Urine RBC (Auto) Urine Bacteria (Auto) Salicylates Acetaminophen Plasma/Serum Alcohol Blood Type O POSITIVE Antibody Screen Negative Assessment and Plan 1.anemia -stool occult positive -INR WNL -Hgb 8.6-trended down compared to previous admission -continue to monitor H/H and transfuse as needed -no active signs of bleeding -rectal with brown stool -etiology unclear-likely 2/2 chronic disease vs other -iron studies in am -will schedule for EGD/colonoscopy tomorrow for further evaluation (r/o GI patho logy) -okay for clear liquids today then NPO after MN -continue PPI and supportive care -will follow
[2019-06-23 13:26] LABS: Creatine Kinase MB 3.8 ng/mL (0.0-4.0)
[2019-06-23 13:37] LABS: Hepatitis B Surface Antigen Non-Reactive (Negative); Hepatitis C Virus Antibody Non-Reactive (NonReactive)
--- NOTE | 2019-06-23 15:59 | Consultation ---
History of Present Illness - Reason for Consult end stage renal disease - History of Present Illness 73 year old Gentleman with medical history of End stage renal disease, HTN, recently started on dialysis . He reports he has feeling unwell reports some dark stools. Denies any orthopnea or PND. Denies any abdominal pain. He reports he had dialysis yesterday but usual schedule is MWF at [facility]. He denies any lower extremity edema. Past History Past Medical History: other (as per HPI) Past Surgical History: Other (Aortic valve replacement (2013), NEERAJ AV fistula) Social history: lives with family Family history: hypertension Medications and Allergies Allergies Allergy/AdvReac Type Severity Reaction Status Date / Time No Known Allergies Allergy Verified 03/24/19 17:36 Home Medications Medication Instructions Recorded Confirmed Last Taken Type B Complex 500 mg PO DAILY 11/10/18 06/23/19 03/24/19 09:00 History Clonidine HCl [Kapvay] 0.1 mg PO BID 11/10/18 06/23/19 03/25/19 07:00 History Metoprolol Tartrate 1 tab PO BID 11/10/18 06/23/19 03/25/19 07:00 History Multivit-Min/FA/Lycopen/Lutein 1 tab PO QAM 11/10/18 06/23/19 03/24/19 09:00 History [Centrum Silver Men Tablet] [place]-3 Fatty Acids/Fish Oil [Fish 1 cap PO DAILY 11/10/18 06/23/19 03/24/19 09:00 History Oil] Calcium Carbonate [[id number]] 500 mg PO TID 12/14/18 06/23/19 03/24/19 18:00 History Omeprazole 40 mg PO DAILY 04/01/19 06/23/19 Unknown History Active Meds: Active Medications Acetaminophen (Tylenol) 650 mg PO Q4H PRN PRN Reason: Pain MILD(1-3)/Fever >100.5/WEISS Allopurinol (Zyloprim) 100 mg PO DAILY [facility] Last Admin: 06/23/19 09:39 Dose: Not Given Documented by: Atorvastatin Calcium (Lipitor) 10 mg PO DAILY [facility] Last Admin: 06/23/19 09:39 Dose: Not Given Documented by: Calcium Carbonate/Glycine (Oscal) 1,250 mg PO TID [facility] Last Admin: 06/23/19 14:25 Dose: 1,250 mg Documented by: Clonidine HCl (Catapres) 0.1 mg PO BID PRN PRN Reason: Blood Pressure Fish Oil (Fish Oil) 1,000 mg PO DAILY [facility] Last Admin: 06/23/19 09:39 Dose: Not Given Documented by: Ceftriaxone Sodium (Rocephin/Ns 1 Gm/50 Ml) 1 gm in 50 mls @ 100 mls/hr IV Q24H R [facility]; Protocol Last Admin: 06/23/19 09:20 Dose: 100 mls/hr Documented by: Metoprolol Tartrate (Lopressor) 50 mg PO DAILY@0800 [facility] Last Admin: 06/23/19 08:29 Dose: Not Given Documented by: Multivitamins/Minerals (Theragran-M Tab) 1 each PO QDAY [facility] Last Admin: 06/23/19 09:39 Dose: Not Given Documented by: Ondansetron HCl (Zofran) 4 mg IV Q6H PRN PRN Reason: Nausea And Vomiting Pantoprazole Sodium (Protonix) 40 mg IV BID [facility] Last Admin: 06/23/19 09:20 Dose: 40 mg Documented by: Polyethylene Glycol/Electrolytes (Golytely) 4,000 ml PO ONCE ONE Stop: 06/23/19 16:12 Sodium Chloride (Sodium Chloride Flush Syringe 10 Ml) 10 ml IV BID [facility] Last Admin: 06/23/19 09:21 Dose: 10 ml Documented by: Sodium Chloride (Sodium Chloride Flush Syringe 10 Ml) 10 ml IV PRN PRN PRN Reason: LINE FLUSH Vitamin B Complex/Vitamin C (Allbee With C) 1 each PO QDAY [facility] Last Admin: 06/23/19 09:39 Dose: Not Given Documented by: Review of Systems Constitutional: no weight loss, no weight gain, no fever, no chills Ears, nose, mouth and throat: no ear pain, no ear discharge Cardiovascular: no chest pain, no orthopnea, no palpitations Respiratory: no cough, no cough with sputum Gastrointestinal: other (dark stools. ), no abdominal pain, no nausea, no vomiting Genitourinary Male: no dysuria, no urinary frequency, no urinary hesitancy Musculoskeletal: no neck stiffness, no neck pain Integumentary: no deferred, no rash Neurological: no head injury, no transient paralysis Psychiatric: no anxiety, no memory loss Endocrine: no cold intolerance, no heat intolerance Hematologic/Lymphatic: easy bleeding, no easy bruising Exam - Vital Signs Vital signs: Vital Signs Pulse 99 H 06/22/19 20:28 - General Appearance General appearance: well-developed, well-nourished EENT: ATNC, PERRL Neck: Present: neck supple Respiratory: Clear to Ascultation Heart: regular, S1S2 Gastrointestinal: Present: normal, normoactive bowel sounds Integumentary: no rash Neurologic: alert and oriented x3, CN 3-12 intact Psychiatric: mood/affect appropriate Results - Lab Results 06/22/19 21:25 06/22/19 21:54 Most recent lab results Calcium 12.0 mg/dL (8.4-10.2) H 06/22/19 21:54 - Image Kidney/bladder ultrasound: other (I reviewed head CT without any acute ab normality. ) Assessment and Plan - Patient Problems (1) End stage renal disease Current Visit: Yes Status: Acute Plan to address problem: End stage renal disease access :left arm AVF Will repeat diaysis MWF. (2) Anemia of chronic disease Current Visit: Yes Status: Chronic Plan to address problem: Moderate anemia : Hb: 8.8g/dl 2/2 renal failure will add epogen evaluate for ongoing bleeding. (3) HTN (hypertension) Current Visit: No Status: Acute Qualifiers: Hypertension type: essential hypertension Qualified Code(s): I10 - Essential (primary) hypertension Plan to address problem: HTN :uncontrolled continue current medications. (4) Hypokalemia Current Visit: No Status: Acute Plan to address problem: Hypokalemia : recently received hemodialysis . repeat HD today.
[2019-06-23] MEDS ORDERED: GOLYTELY PO ONE ×2 (16:11→20:00)
--- NOTE | 2019-06-23 16:59 | Event Note ---
Date: 06/23/19 Patient has history of ESRD on HD, had dark stool, anemia. GI and nephrology consulted and recommendations appreciated. continue management per H/P.
[2019-06-24 06:18] LABS: Basophils # (Auto) 0.1 K/mm3 (0.0-0.1); Eosinophils # (Auto) 0.2 K/mm3 (0.0-0.4); Eosinophils % (Auto) 2.5 % (0.0-4.3); Hematocrit 26.1 % (35.5-45.6); Hemoglobin 8.9 gm/dl (11.8-15.2); Lymphocytes # (Auto) 0.8 K/mm3 (1.2-5.4); Lymphocytes % (Auto) 11.9 % (13.4-35.0); Mean Corpuscular HGB Conc 34 % (32-34); Mean Corpuscular Volume 101 fl (84-94); Monocytes # (Auto) 0.6 K/mm3 (0.0-0.8); Platelet Count 229 K/mm3 (140-440); Red Blood Count 2.57 M/mm3 (3.65-5.03); Red Cell Distribution Width 15.8 % (13.2-15.2)
[2019-06-24 06:40] LABS: Calcium 9.8 mg/dL (8.4-10.2)
[2019-06-24] MEDS ORDERED: NACL 0.9% 1000 ML 1,000 ML IV SCH ×2 (08:00→11:00)
[2019-06-24] MEDS: METOPROLOL PO SCH (08:38)
[2019-06-24] MEDS: OSCAL PO SCH ×2 (08:38→15:14)
--- NOTE | 2019-06-24 10:06 | Progress Note ---
Assessment and Plan - Patient Problems (1) End stage renal disease Current Visit: Yes Status: Acute Plan to address problem: End stage renal disease access :left arm AVF Will repeat diaysis MWF. (2) Anemia of chronic disease Current Visit: Yes Status: Chronic Plan to address problem: Moderate anemia : Hb: 8.9g/dl 2/2 renal failure will add epogen Hemoglobin is stable. (3) HTN (hypertension) Current Visit: No Status: Acute Qualifiers: Hypertension type: essential hypertension Qualified Code(s): I10 - Essential (primary) hypertension Plan to address problem: HTN :uncontrolled continue current medications. (4) Hypokalemia Current Visit: No Status: Acute Plan to address problem: Hypokalemia : recently received hemodialysis . continue HD MWf. Subjective Interval history: 73 year old Gentleman with medical history of End stage renal disease, HTN, recently started on dialysis . He reports he has feeling unwell reports some dark stools. Denies any orthopnea or PND. Denies any abdominal pain. He reports he had dialysis yesterday but usual schedule is MWF at [facility]. He denies any lower extremity edema. patient seen today has not had any dark stools anxious to be discharged,. Objective - Vital Signs Vital signs: Vital Signs - 12hr 06/24/19 06/24/19 06/24/19 01:19 02:10 08:32 Temperature 97.8 F 99.4 F Pulse Rate 67 98 H Respiratory 18 18 18 Rate Blood Pressure 107/46 137/73 O2 Sat by Pulse 92 99 Oximetry - General Appearance General appearance: well-developed, well-nourished EENT: ATNC, PERRL Neck: no JVD Respiratory: Present: Clear to Ascultation Cardiology: regular, S1S2 Gastrointestinal: normal, normoactive bowel sounds Integumentary: no rash Neurologic: alert and oriented x3, CN 3-12 intact Musculoskeletal: deferred Psychiatric: mood/affect appropriate - Lab 06/24/19 05:49 06/24/19 05:49 Most recent lab results Calcium 9.8 mg/dL (8.4-10.2) D 06/24/19 05:49 - Imaging Chest x-ray: image reviewed Medications & Allergies - Medications Allergies/Adverse Reactions: Allergies No Known Allergies Allergy (Verified 03/24/19 17:36) Home Medications: Home Medications Medication Instructions Recorded Confirmed Last Taken Type B Complex 500 mg PO DAILY 11/10/18 06/23/19 03/24/19 09:00 History Clonidine HCl [Kapvay] 0.1 mg PO BID 11/10/18 06/23/19 03/25/19 07:00 History Metoprolol Tartrate 1 tab PO BID 11/10/18 06/23/19 03/25/19 07:00 History Multivit-Min/FA/Lycopen/Lutein 1 tab PO QAM 11/10/18 06/23/19 03/24/19 09:00 History [Centrum Silver Men Tablet] [place]-3 Fatty Acids/Fish Oil [Fish 1 cap PO DAILY 11/10/18 06/23/19 03/24/19 09:00 History Oil] Calcium Carbonate [[id number]] 500 mg PO TID 12/14/18 06/23/19 03/24/19 18:00 History Omeprazole 40 mg PO DAILY 04/01/19 06/23/19 Unknown History Active Medications: Generic Name Dose Route Start Last Admin Trade Name Jeronimo PRN Reason Stop Dose Admin Acetaminophen 650 mg 06/23/19 00:53 06/24/19 00:14 Tylenol PO 650 mg Q4H PRN Administration Pain MILD(1-3)/Fever >100.5/WEISS Allopurinol 100 mg 06/23/19 10:00 06/23/19 09:39 Zyloprim PO Not Given DAILY [facility] Atorvastatin Calcium 10 mg 06/23/19 10:00 06/23/19 09:39 Lipitor PO Not Given DAILY [facility] Calcium Carbonate/Glycine 1,250 mg 06/23/19 08:00 06/23/19 20:01 Oscal PO 1,250 mg TID NAFISA Administration Clonidine HCl 0.1 mg 06/23/19 00:51 Catapres PO BID PRN Blood Pressure Fish Oil 1,000 mg 06/23/19 10:00 06/23/19 09:39 Fish Oil PO Not Given DAILY [facility] Ceftriaxone Sodium 1 gm in 50 mls @ 100 mls/hr 06/23/19 02:03 06/23/19 09:50 Rocephin/Ns 1 Gm/50 Ml IV Infused Q24HR NAFISA Infusion Protocol Sodium Chloride 1,000 mls @ 50 mls/hr 06/24/19 08:00 Nacl 0.9% 1000 Ml IV DIRECT [facility] Metoprolol Tartrate 50 mg 06/23/19 08:00 06/23/19 08:29 Lopressor PO Not Given DAILY@0800 [facility] Multivitamins/Minerals 1 each 06/23/19 10:00 06/23/19 09:39 Theragran-M Tab PO Not Given QDAY [facility] Ondansetron HCl 4 mg 06/23/19 00:53 Zofran IV Q6H PRN Nausea And Vomiting Pantoprazole Sodium 40 mg 06/23/19 10:00 06/23/19 21:59 Protonix IV 40 mg BID NAFISA Administration Sodium Chloride 10 ml 06/23/19 10:00 06/23/19 23:41 Sodium Chloride Flush Syringe 10 Ml IV 10 ml BID NAFISA Administration Sodium Chloride 10 ml 06/23/19 00:53 Sodium Chloride Flush Syringe 10 Ml IV PRN PRN LINE FLUSH Vitamin B Complex/Vitamin C 1 each 06/23/19 10:00 06/23/19 09:39 Allbee With C PO Not Given QDAY [facility]
[2019-06-24] MEDS ORDERED: PROCRIT SUB-Q NR (10:08)
[2019-06-24] MEDS: THERAGRAN-M Tab PO SCH (10:17)
[2019-06-24] MEDS: PROTONIX IV SCH (10:17)
[2019-06-24] MEDS: SODIUM CHLORIDE FLUSH SYRINGE 10 ML IV SCH (10:17)
[2019-06-24] MEDS: FISH OIL PO SCH (10:18)
[2019-06-24] MEDS: ALLBEE WITH C PO SCH (10:18)
[2019-06-24] MEDS: ZYLOPRIM PO SCH (10:18)
[2019-06-24] MEDS ORDERED: XYLOCAINE MPF 2% ONE (10:30)
--- NOTE | 2019-06-24 10:36 | Anesthesia Day of Surgery ---
Anesthesia Day of Surgery - Day of Surgery Patient Examined: Yes Patient H&P Reviewed: Yes Patient is NPO: Yes
--- NOTE | 2019-06-24 10:38 | Anesthesia Consultation ---
Anesthesia Consult and Med Hx Date of service: 06/24/19 - Airway Anesthetic Teeth Evaluation: Good, Dentures ROM Head & Neck: Adequate Mental/Hyoid Distance: Adequate Mallampati Class: Class II Intubation Access Assessment: Probably Good - Pre-Operative Health Status ASA Pre-Surgery Classification: ASA3 Proposed Anesthetic Plan: MAC - Pulmonary Hx Smoking: Yes Hx Respiratory Symptoms: No - Cardiovascular System Hx Hypertension: Yes Hx Coronary Artery Disease: Yes Hx Heart Attack/AMI: Yes Hx Percutaneous Transluminal Coronary Angioplasty (PTCA): No Hx Cardia Arrhythmia: Yes (hx atrial bradycardia) Hx Pacemaker: No Hx Internal Defibrillator: No Hx Valvular Heart Disease: Yes (s/p AVR 2013; MVP) - Central Nervous System CVA: No Hx Psychiatric Problems: Yes (Depression) - Gastrointestinal Hx Ulcer: No (Esoph varices) Hx Gastroesophageal Reflux Disease: Yes (Well controlled ) - Endocrine Hx Renal Disease: Yes Hx End Stage Renal Disease: Yes (Last HD yesterday) Hx Liver Disease: No Hx Insulin Dependent Diabetes: No Hx Non-Insulin Dependent Diabetes: No Hx Thyroid Disease: No - Hematic Hx Anemia: Yes - Other Systems Hx Cancer: No Hx Obesity: No
[2019-06-24] MEDS ORDERED: DIPRIVAN 10 MG/ML IV ONE (14:10)
--- NOTE | 2019-06-24 14:29 | Post Operative Note ---
Pre-op diagnosis: Anemia Post-op diagnosis: other (Fair prep, tics, Int hemorr, gastritis, HH) Findings: 1. No bleeding upper/lower 2. Tics in colon (few, medium) 3. Fair prep 4. Grade I internal hemorrhoids 5. Antrum gastritis, cold bx 6. No varices 7. Hiatal Hernia Procedure: EGD with cold bx and Colonoscopy Anesthesia: MAC Surgeon: CHAPO HOOK Estimated blood loss: minimal Pathology: list (1. Gastric Antrum) Specimen disposition: to lab Condition: stable Disposition: floor (1. Suspect anemia from ESRD; no acute bleeding. 2. Protonix QD for gastritis. 3. Avoid NSAIDs, but cardiac ASA is OK. 4. Consider surgical repair of HH. 5. Will sign; please call with questions.)
--- NOTE | 2019-06-24 14:46 | Operative Report ---
PROCEDURE PERFORMED: Esophagogastroduodenoscopy with cold biopsy as well as colonoscopy. PREOPERATIVE DIAGNOSES: Diverticulosis, fair preparation, hemorrhoids, gastritis. ENDOSCOPIST: Giacomo Ferrell MD INSTRUMENT: Olympus video endoscope. MEDICATIONS: MAC anesthesia by Anesthesia Services. COMPLICATIONS: No apparent complications. ESTIMATED BLOOD LOSS: Minimal. SPECIMENS: Gastric antrum. IMPLANTS: None. ASSISTANTS: None. CONDITION AT COMPLETION: Stable. TECHNIQUE: The patient was informed of the risks and benefits of the procedure. He signed the informed consent to proceed. He was placed in left lateral decubitus position. The above sedative medications were given. His vital signs remained stable throughout the procedure. The instrument was advanced from the mouth to the second portion of the duodenum under direct visualization. At that point, the bowel was insufflated and the endoscope was slowly withdrawn. The bed was then rotated and the colonoscope was advanced from the anus to the cecum under direct visualization. The cecum was identified by the appendiceal orifice and the ileocecal valve. The bowel was then insufflated and the endoscope was slowly withdrawn. The quality of preparation was fair. FINDINGS: 1. No acute bleeding in the upper or lower gastrointestinal tract. 2. A few scattered diverticula in the colon, medium size. 3. Only fair preparation of the colon with a small amount of solid stool throughout the colon that was lavaged as possible. 4. Grade 1 internal hemorrhoids. 5. Gastritis, mild, with erosions in the antrum, status post cold biopsy. 6. No evidence of esophageal or gastric varices. 7. Hiatal hernia present. RECOMMENDATIONS: 1. I suspect his anemia is from end-stage renal disease; there was no active bleeding present. 2. Protonix daily therapy for gastritis. 3. Avoid nonsteroidal anti-inflammatory drugs, but cardiac aspirin is okay. 4. Consider surgical repair of hiatal hernia. 5. We will sign off. Please call with questions. JOB# [id number] FALGUNI/NTS
[2019-06-24] MEDS: ROCEPHIN/NS 1 GM/50 ML 1 GM/50 ML BAG IV SCH (15:15)
--- NOTE | 2019-06-24 15:15 | Post Anesthesia Evaluation ---
- Post Anesthesia Evaluation Patient Participated: Yes Airway Patent: Yes Stable Respiratory Function: Yes Nausea/Vomiting: No Temp > 96.8F: Yes Pain Manageable: Yes Adequeate Hydration: Yes Anesthesia Complications: No Block Receding Appropriately: Not Applicable Patient on Ventilator: No
--- NOTE | 2019-06-24 15:27 | Progress Note ---
Assessment and Plan Assessment and plan: 73-year-old male with history of ESRD on HD, anemia, hypertension, gout, GERD, kidney stones, and migraines, who presents to [facility] ED with complaints of AMS and increase in frequency of falls. UTI -Hx of UTI -Empirically tx for UTI 04/01/19 -Urine WBC 32 -Urine culture pending -On IV Abx Anemia of Chronic Disease -Acute blood loss -Hemoglobin on admission 8.6 -Heme positive -Continue to monitor hemoglobin -Transfuse as needed -PPI BID -GI consulted and did EGD, no active bleeding, biopsy was taken. Acute metabolic encephalopathy - resolved ESRD on HD -M/W/F -Missed HD on 06/21; last dialyzed 06/22 -Nephrology consulted Elevated Troponin -Likely secondary to chronic renal insufficiency -EKG unrevealing for acute ischemic abnormalities Recent Fall -Per daughter pt has been experiencing increased frequency of falls -Unsteady gait -XR Bilateral Hips showed mild degenerative change in the hips -CT Head negative -CT Cervical Spine -PT/OT eval no needs -Case Management consult pending HTN -Monitor BP -Resume home antihypertensive meds DVT PPX -SCD's -Hold all antiplatelet and systemic anticoagulation for now History Interval history: patient was seen and evaluated this morning, no new complaints, patient is going to have EGD today. Hospitalist Physical - Physical exam Narrative exam: Not in cardiopulmonary distress. The patient appeared well nourished and normally developed. Vital signs as documented. Head exam is unremarkable. No scleral icterus . Neck is without jugular venous distension, thyromegaly, or carotid bruits. Lungs are clear to auscultation. Cardiac exam reveals regular rate and Rhythm. First and second heart sounds normal. No murmurs, rubs or gallops. Abdominal exam reveals normal bowel sounds, no masses, no organomegaly and no aortic enlargement. Extremities are nonedematous and both femoral and pedal pulses are normal. GOVERNMENT PROFESSOR: Alert and oriented 3. No focal weakness. - Constitutional Vitals: Temp Pulse Resp BP Pulse Ox 98.6 F 79 16 138/67 99 06/24/19 10:18 06/24/19 10:18 06/24/19 10:18 06/24/19 10:18 06/24/19 10:18 Results - Labs CBC & Chem 7: 06/24/19 05:49 06/24/19 05:49 Labs: Laboratory Last Values WBC 6.8 K/mm3 (4.5-11.0) 06/24/19 05:49 RBC 2.57 M/mm3 (3.65-5.03) L 06/24/19 05:49 Hgb 8.9 gm/dl (11.8-15.2) L 06/24/19 05:49 Hct 26.1 % (35.5-45.6) L 06/24/19 05:49 MCV 101 fl (84-94) H 06/24/19 05:49 MCH 35 pg (28-32) H 06/24/19 05:49 MCHC 34 % (32-34) 06/24/19 05:49 RDW 15.8 % (13.2-15.2) H 06/24/19 05:49 Plt Count 229 K/mm3 (140-440) 06/24/19 05:49 Lymph % (Auto) 11.9 % (13.4-35.0) L 06/24/19 05:49 Edmunds % (Auto) 9.0 % (0.0-7.3) H 06/24/19 05:49 Eos % (Auto) 2.5 % (0.0-4.3) 06/24/19 05:49 Baso % (Auto) 1.0 % (0.0-1.8) 06/24/19 05:49 Lymph # 0.8 K/mm3 (1.2-5.4) L 06/24/19 05:49 Edmunds # 0.6 K/mm3 (0.0-0.8) 06/24/19 05:49 Eos # 0.2 K/mm3 (0.0-0.4) 06/24/19 05:49 Baso # 0.1 K/mm3 (0.0-0.1) 06/24/19 05:49 Seg Neutrophils % 75.6 % (40.0-70.0) H 06/24/19 05:49 Seg Neutrophils # 5.1 K/mm3 (1.8-7.7) 06/24/19 05:49 PT 12.5 Sec. (12.2-14.9) 06/22/19 21:25 INR 0.96 (0.87-1.13) 06/22/19 21:25 APTT 27.5 Sec. (24.2-36.6) 06/22/19 21:25 Sodium 136 mmol/L (137-145) L 06/24/19 05:49 Potassium 3.6 mmol/L (3.6-5.0) 06/24/19 05:49 Chloride 94.2 mmol/L (98-107) L 06/24/19 05:49 Carbon Dioxide 23 mmol/L (22-30) 06/24/19 05:49 Anion Gap 22 mmol/L 06/24/19 05:49 BUN 14 mg/dL (9-20) 06/24/19 05:49 Creatinine 4.3 mg/dL (0.8-1.5) H 06/24/19 05:49 Estimated GFR 14 ml/min 06/24/19 05:49 BUN/Creatinine Ratio 3 % 06/24/19 05:49 Glucose 146 mg/dL (75-100) H 06/24/19 05:49 POC Glucose 115 (70-105) H 06/22/19 22:06 Calcium 9.8 mg/dL (8.4-10.2) D 06/24/19 05:49 Iron 61 ug/dL (49-181) 06/24/19 05:49 TIBC 255 mcg/dL (250-450) 06/24/19 05:49 Ferritin 699.3 ng/mL (13.0-400.0) H 06/24/19 05:49 Ammonia 56.0 umol/L (25-60) 06/22/19 21:25 Total Creatine Kinase 186 units/L (55-170) H 06/23/19 12:46 CK-MB (CK-2) 3.8 ng/mL (0.0-4.0) 06/23/19 12:46 CK-MB (CK-2) Rel Index 2.0 (0-4) 06/23/19 12:46 Troponin T 0.027 ng/mL (0.00-0.029) 06/23/19 12:46 Triglycerides 133 mg/dL (2-149) 06/22/19 21:54 Cholesterol 173 mg/dL (50-199) 06/22/19 21:54 LDL Cholesterol Direct 102 mg/dL (50-130) 06/22/19 21:54 HDL Cholesterol 70 mg/dL (40-59) H 06/22/19 21:54 Cholesterol/HDL Ratio 2.47 % 06/22/19 21:54 TSH 1.180 mlU/mL (0.270-4.200) 06/22/19 21:25 Urine Color Yellow (Yellow) 06/22/19 22:45 Urine Turbidity Slightly-cloudy (Clear) 06/22/19 22:45 Urine pH 5.0 (5.0-7.0) 06/22/19 22:45 Ur Specific [place] 1.012 (1.003-1.030) 06/22/19 22:45 Urine Protein 100 mg/dl mg/dL (Negative) 06/22/19 22:45 Urine Glucose (UA) Neg mg/dL (Negative) 06/22/19 22:45 Urine Ketones Neg mg/dL (Negative) 06/22/19 22:45 Urine Blood Lg (Negative) 06/22/19 22:45 Urine Nitrite Neg (Negative) 06/22/19 22:45 Urine Bilirubin Neg (Negative) 06/22/19 22:45 Urine Urobilinogen < 2.0 mg/dL (<2.0) 06/22/19 22:45 Ur Leukocyte Esterase Tr (Negative) 06/22/19 22:45 Urine WBC (Auto) 32.0 /HPF (0.0-6.0) H 06/22/19 22:45 Urine RBC (Auto) > 182.0 /HPF (0.0-6.0) 06/22/19 22:45 Urine Bacteria (Auto) 3+ /HPF (Negative) 06/22/19 22:45 Salicylates < 0.3 mg/dL (2.8-20.0) L 06/22/19 21:54 Acetaminophen < 5.0 ug/mL (10.0-30.0) L 06/22/19 21:54 Plasma/Serum Alcohol < 0.01 % (0-0.07) 06/22/19 21:54 Hepatitis A IgM Ab Non-reactive (NonReactive) 06/23/19 12:59 Hep Bs Antigen Non-reactive (Negative) 06/23/19 12:59 Hep B Core IgM Ab Non-reactive (NonReactive) 06/23/19 12:59 Hepatitis C Antibody Non-reactive (NonReactive) 06/23/19 12:59 Blood Type O POSITIVE 06/22/19 23:46 Antibody Screen Negative 06/22/19 23:46 Active Medications - Current Medications Current Medications: Generic Name Dose Route Start Last Admin Trade Name Freq PRN Reason Stop Dose Admin Acetaminophen 650 mg 06/23/19 00:53 06/24/19 00:14 Tylenol PO 650 mg Q4H PRN Administration Pain MILD(1-3)/Fever >100.5/WEISS Allopurinol 100 mg 06/23/19 10:00 06/24/19 10:18 Zyloprim PO Not Given DAILY [facility] Atorvastatin Calcium 10 mg 06/23/19 10:00 06/24/19 10:18 Lipitor PO Not Given DAILY [facility] Calcium Carbonate/Glycine 1,250 mg 06/23/19 08:00 06/24/19 15:14 Oscal PO 1,250 mg TID NAFISA Administration Clonidine HCl 0.1 mg 06/23/19 00:51 Catapres PO BID PRN Blood Pressure Fish Oil 1,000 mg 06/23/19 10:00 06/24/19 10:18 Fish Oil PO Not Given DAILY [facility] Ceftriaxone Sodium 1 gm in 50 mls @ 100 mls/hr 06/23/19 02:03 06/24/19 15:15 Rocephin/Ns 1 Gm/50 Ml IV 100 mls/hr Q24HR [facility] Administration Protocol Sodium Chloride 1,000 mls @ 50 mls/hr 06/24/19 11:00 Nacl 0.9% 1000 Ml IV DIRECT [facility] Metoprolol Tartrate 50 mg 06/23/19 08:00 06/24/19 08:38 Lopressor PO Not Given DAILY@0800 [facility] Multivitamins/Minerals 1 each 06/23/19 10:00 06/24/19 10:17 Theragran-M Tab PO Not Given QDAY [facility] Ondansetron HCl 4 mg 06/23/19 00:53 Zofran IV Q6H PRN Nausea And Vomiting Pantoprazole Sodium 40 mg 06/23/19 10:00 06/24/19 10:17 Protonix IV Not Given BID [facility] Sodium Chloride 10 ml 06/23/19 10:00 06/24/19 10:17 Sodium Chloride Flush Syringe 10 Ml IV Not Given BID NAFISA Sodium Chloride 10 ml 06/23/19 00:53 Sodium Chloride Flush Syringe 10 Ml IV PRN PRN LINE FLUSH Vitamin B Complex/Vitamin C 1 each 06/23/19 10:00 06/24/19 10:18 Allbee With C PO Not Given QDAY NAFISA
[2019-06-24 15:30] VITALS: BP 149/72
--- NOTE | 2019-06-24 16:38 | Discharge Summary ---
Providers - Providers Date of Admission: 06/23/19 00:53 Date of discharge: 06/24/19 Attending physician: ISA CRUZ MD 06/22/19 21:31 Consult to Case Management [CONS] Stat Services Needed at Discharge: Physical Therapy Occupational Therapy Youth Officer Notified:: awaiting call back 06/22/19 23:34 Consult to Physician [CONS] Urgent Comment: SARAI Consulting Provider: GONZÁLEZ SINGH Physician Instructions: WILL SEE PATIENT LATE. Reason For Exam: lgib 06/23/19 00:53 Consult to Physician [CONS] Routine Comment: SARAI Consulting Provider: JACEY HINES Physician Instructions: CONSULT WAS CALLED TO Reason For Exam: ESRD on HD M/W/F 06/23/19 00:57 Occupational Therapy Evaluate and Treat [CONS] Routine Comment: Reason For Exam: recent fall/ unsteady gait Physical Therapy Evaluation and Treat [CONS] Routine Comment: Reason For Exam: recent fall/unsteady gait Primary care physician: FARM APPRAISER Hospitalization Reason for admission: UTI, ESRD on HD, generalized weakness, anemia Condition: Stable Hospital course: 73-year-old male with history of ESRD on HD, anemia, hypertension, gout, GERD, kidney stones, and migraines, who presents to [facility] ED with complaints of AMS and increase in frequency of falls. The AMS was due to metabolic encephalopathy and resolved. UTI; patient has UTI and treated with antibiotics. Anemia of Chronic Disease; continue epogen during dialysis per nephrology. GI consulted and did EGD which were negative for acute findings. ESRD on HD; M/W/F. Patient get HD while inpatient. Patient missed a HD section because he was sick. NSTEMI type 2; No chest pain or SOB. EKG unrevealing for acute ischemic abnormalities Recent Fall; evaluated by PT/OT and recommended rolling walker which the patient declined. NO need for HH per PT. HTN; continue home medications. Patient was hemodynamically stable at the time of discharge. Appropriate antibiotics were given at the time of discharge. Disposition: - TO HOME OR SELFCARE Time spent for discharge: 32 minutes - Discharge Diagnoses (1) End stage renal disease Status: Acute (2) Urinary tract infection, site not specified Status: Acute (3) Anemia of chronic disease Status: Chronic (4) HTN (hypertension) Status: Acute Qualifiers: Hypertension type: essential hypertension Qualified Code(s): I10 - Essential (primary) hypertension Core Measure Documentation - Palliative Care Palliative Care/ Comfort Measures: Not Applicable - Core Measures Any of the following diagnoses?: none Exam - Physical Exam Narrative exam: Not in cardiopulmonary distress. The patient appeared well nourished and normally developed. Vital signs as documented. Head exam is unremarkable. No scleral icterus . Neck is without jugular venous distension, thyromegaly, or carotid bruits. Lungs are clear to auscultation. Cardiac exam reveals regular rate and Rhythm. First and second heart sounds normal. No murmurs, rubs or gallops. Abdominal exam reveals normal bowel sounds, no masses, no organomegaly and no aortic enlargement. Extremities are nonedematous and both femoral and pedal pulses are normal. GMAT INSTRUCTOR: Alert and oriented 3. No focal weakness. - Constitutional Vitals: Temp Pulse Resp BP Pulse Ox 98.0 F 73 18 149/72 96 06/24/19 15:15 06/24/19 15:15 06/24/19 15:15 06/24/19 15:15 06/24/19 15:15 Plan Activity: no restrictions Weight Bearing Status: Full Weight Bearing Diet: low salt, renal Follow up with: PRIMARY CAREMD [Primary Care Provider] - 3-5 Days Prescriptions: cefUROXime [Ceftin] 250 mg PO Q12H #12 tablet Omeprazole 40 mg PO DAILY #30
[2019-06-25] MEDS ORDERED: LEVAQUIN 500MG/100ML 500 MG/100 ML BAG IV SCH (10:00)
== END 2019-06-24 17:20 | disposition home or self-care (01) | DRG 70 ==
LOC: ED 19:01 → 2B-ACE 06-23 00:53
PROVIDERS: ADMIT Internal Medicine; ATTEND Internal Medicine
PROC: 5A1D70Z Performance of Urinary Filtration, Intermittent, Less than 6 Hours Per Day (ICD-10-PCS; 2019-06-23)
PROC: 0DB68ZX Excision of Stomach, Via Natural or Artificial Opening Endoscopic, Diagnostic (ICD-10-PCS; principal; 2019-06-24)
PROC: 0DJD8ZZ Inspection of Lower Intestinal Tract, Via Natural or Artificial Opening Endoscopic (ICD-10-PCS; 2019-06-24)
DX: G93.41 Metabolic encephalopathy (principal); N18.6 End stage renal disease; I12.0 Hypertensive chronic kidney disease with stage 5 chronic kidney disease or end stage renal disease; N39.0 Urinary tract infection, site not specified; E87.6 Hypokalemia; I25.10 Atherosclerotic heart disease of native coronary artery without angina pectoris; F17.200 Nicotine dependence, unspecified, uncomplicated; F32.9 Major depressive disorder, single episode, unspecified; K21.9 Gastro-esophageal reflux disease without esophagitis; M10.9 Gout, unspecified; G43.909 Migraine, unspecified, not intractable, without status migrainosus; D63.1 Anemia in chronic kidney disease; K64.8 Other hemorrhoids; K57.90 Diverticulosis of intestine, part unspecified, without perforation or abscess without bleeding; K44.9 Diaphragmatic hernia without obstruction or gangrene; K29.70 Gastritis, unspecified, without bleeding; M19.90 Unspecified osteoarthritis, unspecified site; I25.2 Old myocardial infarction; Z87.442 Personal history of urinary calculi; Z99.2 Dependence on renal dialysis; Z79.899 Other long term (current) drug therapy; Z95.2 Presence of prosthetic heart valve; Z82.49 Family history of ischemic heart disease and other diseases of the circulatory system
CPT/HCPCS: 36415; 70450; 72125; 73521; 80048; 80061; 80074; 80320; 81001; 82140; 82271; 82550; 82553; 82728; 82962; 83550; 84443; 84484; 85025; 85610; 85730; 86850; 86900; 86901; 87086; 88305; 88342; 93005; 93010; G0378; A9270-GY; C9113; G0480; J0696; J0885; J2704; J7030

== ENCOUNTER 2020-08-17 19:16 | Emergency (ER) | payer MEDICARE ==
--- NOTE | 2020-08-17 20:01 | Emergency Department Report ---
Blank Doc - Documentation Documentation: 74-year-old male that presents with coughing up blood. Was sent by PCP for PNA. This initial assessment/diagnostic orders/clinical plan/treatment(s) is/are subject to change based on patient's health status, clinical progression and re- assessment by fellow clinical providers in the ED. Further treatment and workup at subsequent clinical providers discretion. Patient/guardians urged not to elope from the ED as their condition may be serious if not clinically assessed and managed. Initial orders include: 1- Patient sent to MAIN ED for further evaluation and treatment 2- cardiac workup
--- NOTE | 2020-08-17 20:57 | XRay Report ---
CHEST PA AND LATERAL VIEWS INDICATION: Chest Pain. COMPARISON: 01/05/2020 FINDINGS: Support devices: None. Heart: Within normal limits. Lungs/Pleura: No acute pulmonary or pleural findings. Left basilar scarring is again noted. Hiatal hernia is again noted. IMPRESSION: 1. No acute findings. Signer Name: Jerome Julian MD Signed: 08/17/2020 8:52 PM Workstation Name: [id number]
[2020-08-18 00:10] LABS: Albumin 4.5 g/dL (3.9-5); Calcium 9.3 mg/dL (8.4-10.2)
[2020-08-18 00:15] LABS: Basophils # (Auto) 0.1 K/mm3 (0.0-0.1); Eosinophils # (Auto) 0.4 K/mm3 (0.0-0.4); Eosinophils % (Auto) 4.3 % (0.0-4.3); Hematocrit 44.1 % (35.5-45.6); Hemoglobin 14.7 gm/dl (11.8-15.2); Lymphocytes # (Auto) 1.7 K/mm3 (1.2-5.4); Lymphocytes % (Auto) 19.1 % (13.4-35.0); Mean Corpuscular HGB Conc 33 % (32-34); Mean Corpuscular Volume 94 fl (84-94); Monocytes # (Auto) 1.1 K/mm3 (0.0-0.8); Monocytes % (Auto) 12.1 % (0.0-7.3); Platelet Count 238 K/mm3 (140-440); Red Blood Count 4.69 M/mm3 (3.65-5.03); Red Cell Distribution Width 16.8 % (13.2-15.2)
[2020-08-18 00:24] LABS: INR 1.06 (0.87-1.13)
[2020-08-18 07:54] VITALS: BP 137/112
--- NOTE | 2020-08-18 11:13 | Emergency Department Report ---
ED General Adult HPI - General Chief complaint: Dyspnea/Respdistress Stated complaint: COUGHING OF BLOOD Time Seen by Provider: 08/17/20 20:00 Source: patient Mode of arrival: Stretcher Limitations: No Limitations - History of Present Illness Initial comments: 74 years old Georgian male with current medical history history of HTN ,end- stage renal disease on hemodialysis and chronic atrial fibrillation presents to the emergency department today via guidance of his healthcare provider on suspicion for a pneumonia which he was contacted and made aware and advised to come to the emergency department for treatment and further evaluation. He was recently admitted at [facility] for A. fib exacerbation and discharged 2 days ago. Hospital stay was 1 day. Currently he has no significant complaints reports having no chest pain no shortness of breath no lower extremity edema does feel hungry and fatigued he has been sitting in the emergency department for 14 hours. States he is able to get to ambulate without any dyspnea and reports no orthopnea. No hemoptysis, no hematemesis, no hematochezia. - Related Data Home Medications Medication Instructions Recorded Confirmed Last Taken Clonidine HCl [Kapvay] 0.1 mg PO QDAY PRN 11/10/18 01/05/20 03/25/19 07:00 AtorvaSTATin 10 mg PO QHS 01/05/20 01/05/20 01/04/20 Fexofenadine (Nf) 180 mg PO QDAY 01/05/20 01/05/20 01/05/20 Melatonin 10 mg PO HS PRN 01/05/20 01/05/20 01/04/20 [place]-3 Fatty Acids/Fish Oil [Fish 1 each PO TID 01/05/20 01/05/20 01/05/20 Oil] Omeprazole 20 mg PO BID 01/05/20 01/05/20 01/05/20 allopurinoL [Zyloprim] 100 mg PO QDAY 01/05/20 01/05/20 01/05/20 Previous Rx's Medication Instructions Recorded Last Taken Type Apixaban [Eliquis] 2.5 mg PO BID #60 tablet 01/07/20 Unknown Rx Aspirin EC [Halfprin EC] 81 mg PO QDAY tablet 01/07/20 Unknown Rx AtorvaSTATin 10 mg PO QHS tablet 01/07/20 Unknown Rx Calcium Carbonate [Oscal 1250MG 1,250 mg PO TID tablet 01/07/20 Unknown Rx TAB] Metoprolol [Lopressor TAB] 50 mg PO BID #60 tablet 01/07/20 Unknown Rx Pantoprazole [Protonix TAB] 20 mg PO QDAY #30 tablet. 01/07/20 Unknown Rx oxyCODONE /ACETAMINOPHEN [Percocet 1 tab PO Q6H PRN #12 tablet 01/07/20 Unknown Rx 5/325 mg] Allergies Allergy/AdvReac Type Severity Reaction Status Date / Time No Known Allergies Allergy Verified 03/24/19 17:36 ED Review of Systems ROS: Stated complaint: COUGHING OF BLOOD Other details as noted in HPI ED Past Medical Hx - Past Medical History Previous Medical History?: Yes Hx Hypertension: Yes Hx Heart Attack/AMI: Yes Hx Deep Vein Thrombosis: Yes Hx GERD: Yes Hx Liver Disease: No Hx Renal Disease: Yes (Dialysis MWF Left fistula) Hx Arthritis: Yes Hx Headaches / Migraines: Yes Hx Kidney Stones: Yes Additional medical history: A-Fib - Surgical History Past Surgical History?: Yes Hx Open Heart Surgery: Yes (2012 Aortic valve replacement) Hx Pacemaker: No Hx Internal Defibrillator: No Additional Surgical History: open heart surgery - Social History Smoking Status: Never Smoker Substance Use Type: None - Medications Home Medications: Home Medications Medication Instructions Recorded Confirmed Last Taken Type Clonidine HCl [Kapvay] 0.1 mg PO QDAY PRN 11/10/18 01/05/20 03/25/19 07:00 History AtorvaSTATin 10 mg PO QHS 01/05/20 01/05/20 01/04/20 History Fexofenadine (Nf) 180 mg PO QDAY 01/05/20 01/05/20 01/05/20 History Melatonin 10 mg PO HS PRN 01/05/20 01/05/20 01/04/20 History [place]-3 Fatty Acids/Fish Oil [Fish 1 each PO TID 01/05/20 01/05/20 01/05/20 History Oil] Omeprazole 20 mg PO BID 01/05/20 01/05/20 01/05/20 History allopurinoL [Zyloprim] 100 mg PO QDAY 01/05/20 01/05/20 01/05/20 History Apixaban [Eliquis] 2.5 mg PO BID #60 tablet 01/07/20 Unknown Rx Aspirin EC [Halfprin EC] 81 mg PO QDAY tablet 01/07/20 Unknown Rx AtorvaSTATin 10 mg PO QHS tablet 01/07/20 Unknown Rx Calcium Carbonate [Oscal 1250MG 1,250 mg PO TID tablet 01/07/20 Unknown Rx TAB] Metoprolol [Lopressor TAB] 50 mg PO BID #60 tablet 01/07/20 Unknown Rx Pantoprazole [Protonix TAB] 20 mg PO QDAY #30 tablet. 01/07/20 Unknown Rx oxyCODONE /ACETAMINOPHEN [Percocet 1 tab PO Q6H PRN #12 tablet 01/07/20 Unknown Rx 5/325 mg] ED Physical Exam - General Limitations: No Limitations General appearance: alert, in no apparent distress - Head Head exam: Present: atraumatic, normocephalic - Eye Eye exam: Present: normal appearance - ENT ENT exam: Present: normal exam, normal orophraynx, mucous membranes moist, TM's normal bilaterally - Neck Neck exam: Present: normal inspection, full ROM - Respiratory Respiratory exam: Present: normal lung sounds bilaterally. Absent: respiratory distress, wheezes, rales, rhonchi, chest wall tenderness, accessory muscle use - Cardiovascular Cardiovascular Exam: Present: normal rhythm, bradycardia. Absent: systolic murmur, diastolic murmur, rubs, gallop, clicks, JVD, S3 - GI/Abdominal GI/Abdominal exam: Present: soft, normal bowel sounds - Rectal Rectal exam: Present: deferred - Extremities Exam Extremities exam: Present: normal inspection, normal capillary refill - Back Exam Back exam: Present: normal inspection. Absent: CVA tenderness (R), CVA tenderness (L) - Neurological Exam Neurological exam: Present: alert, oriented X3, CN II-XII intact - Psychiatric Psychiatric exam: Present: normal affect, normal mood - Skin Skin exam: Present: warm, dry, intact, normal color. Absent: rash ED Course Vital Signs 08/17/20 08/18/20 19:57 07:54 Temperature 98.6 F 97.5 F L Pulse Rate 57 L 50 L Respiratory 18 16 Rate Blood Pressure 150/65 Blood Pressure 137/112 [Right] O2 Sat by Pulse 96 97 Oximetry ED Medical Decision Making - Lab Data Result diagrams: 08/17/20 23:00 08/17/20 23:00 Lab Results 08/17/20 08/17/20 08/17/20 Range/Units 23:00 23:00 23:00 WBC 8.8 (4.5-11.0) K/mm3 RBC 4.69 (3.65-5.03) M/mm3 Hgb 14.7 (11.8-15.2) gm/dl Hct 44.1 (35.5-45.6) % MCV 94 (84-94) fl MCH 31 (28-32) pg MCHC 33 (32-34) % RDW 16.8 H (13.2-15.2) % Plt Count 238 (140-440) K/mm3 Lymph % (Auto) 19.1 (13.4-35.0) % [place] % (Auto) 12.1 H (0.0-7.3) % Eos % (Auto) 4.3 (0.0-4.3) % Baso % (Auto) 1.0 (0.0-1.8) % Lymph # (Auto) 1.7 (1.2-5.4) K/mm3 [place] # (Auto) 1.1 H (0.0-0.8) K/mm3 Eos # (Auto) 0.4 (0.0-0.4) K/mm3 Baso # (Auto) 0.1 (0.0-0.1) K/mm3 Seg Neutrophils % 63.5 (40.0-70.0) % Seg Neutrophils # 5.6 (1.8-7.7) K/mm3 PT 13.6 (12.2-14.9) Sec. INR 1.06 (0.87-1.13) APTT 34.0 (24.2-36.6) Sec. Sodium 135 L (137-145) mmol/L Potassium 4.1 (3.6-5.0) mmol/L Chloride 93.0 L (98-107) mmol/L Carbon Dioxide 26 (22-30) mmol/L Anion Gap 20 mmol/L BUN 39 H (9-20) mg/dL Creatinine 7.1 H (0.8-1.3) mg/dL Estimated GFR 8 ml/min BUN/Creatinine Ratio 5 % Glucose 110 H (75-100) mg/dL Calcium 9.3 (8.4-10.2) mg/dL Total Bilirubin 0.40 (0.1-1.2) mg/dL AST 22 (5-40) units/L ALT 10 (7-56) units/L Alkaline Phosphatase 77 (35-129) units/L Troponin T 0.020 (0.00-0.029) ng/mL Total Protein 7.4 (6.3-8.2) g/dL Albumin 4.5 (3.9-5) g/dL Albumin/Globulin Ratio 1.6 % 08/18/ Range/Units 01:46 WBC (4.5-11.0) K/mm3 RBC (3.65-5.03) M/mm3 Hgb (11.8-15.2) gm/dl Hct (35.5-45.6) % MCV (84-94) fl MCH (28-32) pg MCHC (32-34) % RDW (13.2-15.2) % Plt Count (140-440) K/mm3 Lymph % (Auto) (13.4-35.0) % [place] % (Auto) (0.0-7.3) % Eos % (Auto) (0.0-4.3) % Baso % (Auto) (0.0-1.8) % Lymph # (Auto) (1.2-5.4) K/mm3 [place] # (Auto) (0.0-0.8) K/mm3 Eos # (Auto) (0.0-0.4) K/mm3 Baso # (Auto) (0.0-0.1) K/mm3 Seg Neutrophils % (40.0-70.0) % Seg Neutrophils # (1.8-7.7) K/mm3 PT (12.2-14.9) Sec. INR (0.87-1.13) APTT (24.2-36.6) Sec. Sodium (137-145) mmol/L Potassium (3.6-5.0) mmol/L Chloride (98-107) mmol/L Carbon Dioxide (22-30) mmol/L Anion Gap mmol/L BUN (9-20) mg/dL Creatinine (0.8-1.3) mg/dL Estimated GFR ml/min BUN/Creatinine Ratio % Glucose (75-100) mg/dL Calcium (8.4-10.2) mg/dL Total Bilirubin (0.1-1.2) mg/dL AST (5-40) units/L ALT (7-56) units/L Alkaline Phosphatase (35-129) units/L Troponin T 0.016 (0.00-0.029) ng/mL Total Protein (6.3-8.2) g/dL Albumin (3.9-5) g/dL Albumin/Globulin Ratio % - EKG Data EKG shows normal: sinus rhythm Rate: tachycardia - EKG Data When compared to previous EKG there are: no significant change Interpretation: no acute changes - Radiology Data Radiology results: report reviewed Chest x-ray performed on this visit shows no acute processes no infiltrate only old scarring read by Dr. Jerome Funes. Unable to copy and paste due to the television not working - Medical Decision Making This patient presents with acute cough, most consistent with bronchitis. Differential diagnosis includes hyperreactive airway disease, sinus congestion, allergies, bronchitis, pneumonia. Presentation not consistent with acute bacterial pneumonia, influenza, asthma, transient airway hyperresponsiveness. Presentation not consistent with chronic causes of cough (including GERD, asthma, postnasal discharge, medication side effect, CHF, lung cancer or mass). Normal chest x-ray CXR End-stage renal disease on dialysis patient currently potassium is 4.1 no evidence of any emergent or urgent renal process requiring emergent or urgent dialysis at this present time will however do advise him to contact his dialysis center and follow-up to get back into the rotation of his usual dialysis Plan: , supportive care, Critical care attestation.: If time is entered above; I have spent that time in minutes in the direct care of this critically ill patient, excluding procedure time. ED Disposition Clinical Impression: ESRD needing dialysis, Cough Disposition: DC-01 TO HOME OR SELFCARE Is pt being admited?: No Does the pt Need Aspirin: No Condition: Stable Instructions: Cough, Adult, [id number] Additional Instructions: Please be sure to consult and contact your dialysis center to get back" for your dialysis currently your potassium is 4.1 and no evidence of any fluid retention at present Referrals: PRIMARY CARE, [Primary Care Provider] - 2-3 Days
== END 2020-08-18 12:59 | disposition home or self-care (01) ==
LOC: ED 19:16
DX: I12.0 Hypertensive chronic kidney disease with stage 5 chronic kidney disease or end stage renal disease (principal); N18.6 End stage renal disease; R05 Cough; I25.2 Old myocardial infarction; K21.9 Gastro-esophageal reflux disease without esophagitis; M19.91 Primary osteoarthritis, unspecified site; G43.909 Migraine, unspecified, not intractable, without status migrainosus; Z99.2 Dependence on renal dialysis; Z98.890 Other specified postprocedural states; Z79.899 Other long term (current) drug therapy
CPT/HCPCS: 36415; 71046; 80053; 84484; 85025; 85610; 85730; 93005

== ENCOUNTER 2021-08-06 12:13 | Emergency (ER) | payer MEDICARE ==
[2021-08-06 13:27] LABS: Basophils # (Auto) 0.1 K/mm3 (0.0-0.1); Basophils % (Auto) 1.2 % (0.0-1.8); Eosinophils # (Auto) 0.1 K/mm3 (0.0-0.4); Eosinophils % (Auto) 1.9 % (0.0-4.3); Lymphocytes # (Auto) 0.9 K/mm3 (1.2-5.4); Lymphocytes % (Auto) 14.4 % (13.4-35.0); Mean Corpuscular HGB Conc 31 % (32-34); Mean Corpuscular Volume 95 fl (84-94); Monocytes # (Auto) 0.7 K/mm3 (0.0-0.8); Monocytes % (Auto) 11.8 % (0.0-7.3); Platelet Count 238 K/mm3 (140-440); Red Blood Count 4.66 M/mm3 (3.65-5.03); Red Cell Distribution Width 19.5 % (13.2-15.2)
[2021-08-06 13:34] LABS: Hematocrit 44.2 % (35.5-45.6); Hemoglobin 13.6 gm/dl (11.8-15.2)
--- NOTE | 2021-08-06 13:34 | XRay Report ---
CHEST 1 VIEW 08/06/2021 1:02 PM INDICATION / CLINICAL INFORMATION: missed dialysis, weakness. COMPARISON: 08/17/20 FINDINGS: SUPPORT DEVICES: None. HEART / MEDIASTINUM: Heart is upper normal size and stable. Median sternotomy wires and aortic valve prosthesis are unchanged. LUNGS / PLEURA: No significant pulmonary or pleural abnormality. No pneumothorax. ADDITIONAL FINDINGS: Left upper arm venous stent. IMPRESSION: 1. No acute findings. Signer Name: Brett Quintanilla MD Signed: 08/06/2021 1:30 PM Workstation Name: [id number]
--- NOTE | 2021-08-06 13:48 | Emergency Department Report ---
ED General Adult HPI - General Chief complaint: Weakness Stated complaint: WEAKNESS/MISSED DIALYSIS Time Seen by Provider: 08/06/21 12:33 Source: EMS, old records reviewed Mode of arrival: Stretcher Limitations: No Limitations - History of Present Illness Initial comments: 75-year male presents to the hospital complains of missing dialysis. Patient received dialysis Friday, Friday, and Friday. Today he was upset because he sent money to a family member and they did not receive the money. He was distraught and did not go to dialysis today. His daughter called EMS to bring patient to the hospital because he missed dialysis. Patient complains of being emotionally upset but denies any physical complaints of headache, pain, weakness, or shortness of breath. - Related Data Home Medications Medication Instructions Recorded Confirmed Last Taken Clonidine HCl [Kapvay] 0.1 mg PO QDAY PRN 11/10/18 01/05/20 03/25/19 07:00 AtorvaSTATin 10 mg PO QHS 01/05/20 01/05/20 01/04/20 Fexofenadine (Nf) 180 mg PO QDAY 01/05/20 01/05/20 01/05/20 Melatonin 10 mg PO HS PRN 01/05/20 01/05/20 01/04/20 [place]-3 Fatty Acids/Fish Oil [Fish 1 each PO TID 01/05/20 01/05/20 01/05/20 Oil] Omeprazole 20 mg PO BID 01/05/20 01/05/20 01/05/20 allopurinoL [Zyloprim] 100 mg PO QDAY 01/05/20 01/05/20 01/05/20 Previous Rx's Medication Instructions Recorded Last Taken Type Apixaban [Eliquis] 2.5 mg PO BID #60 tablet 01/07/20 Unknown Rx Aspirin EC [Halfprin EC] 81 mg PO QDAY tablet 01/07/20 Unknown Rx AtorvaSTATin 10 mg PO QHS tablet 01/07/20 Unknown Rx Calcium Carbonate [Oscal 1250MG 1,250 mg PO TID tablet 01/07/20 Unknown Rx TAB] Metoprolol [Lopressor TAB] 50 mg PO BID #60 tablet 01/07/20 Unknown Rx Pantoprazole [Protonix TAB] 20 mg PO QDAY #30 tablet. 01/07/20 Unknown Rx oxyCODONE /ACETAMINOPHEN [Percocet 1 tab PO Q6H PRN #12 tablet 01/07/20 Unknown Rx 5/325 mg] Allergies Allergy/AdvReac Type Severity Reaction Status Date / Time No Known Allergies Allergy Verified 03/24/19 17:36 ED Review of Systems ROS: Stated complaint: WEAKNESS/MISSED DIALYSIS Other details as noted in HPI Comment: All other systems reviewed and negative ED Past Medical Hx - Past Medical History Hx Hypertension: Yes Hx Heart Attack/AMI: Yes Hx Deep Vein Thrombosis: Yes Hx GERD: Yes Hx Liver Disease: No Hx Renal Disease: Yes (Dialysis MWF Left fistula) Hx Arthritis: Yes Hx Headaches / Migraines: Yes Hx Kidney Stones: Yes Additional medical history: A-Fib - Surgical History Hx Open Heart Surgery: Yes (2012 Aortic valve replacement) Hx Pacemaker: No Hx Internal Defibrillator: No Additional Surgical History: open heart surgery - Social History Smoking Status: Never Smoker Substance Use Type: None - Medications Home Medications: Home Medications Medication Instructions Recorded Confirmed Last Taken Type Clonidine HCl [Kapvay] 0.1 mg PO QDAY PRN 11/10/18 01/05/20 03/25/19 07:00 History AtorvaSTATin 10 mg PO QHS 01/05/20 01/05/20 01/04/20 History Fexofenadine (Nf) 180 mg PO QDAY 01/05/20 01/05/20 01/05/20 History Melatonin 10 mg PO HS PRN 01/05/20 01/05/20 01/04/20 History [place]-3 Fatty Acids/Fish Oil [Fish 1 each PO TID 01/05/20 01/05/20 01/05/20 History Oil] Omeprazole 20 mg PO BID 01/05/20 01/05/20 01/05/20 History allopurinoL [Zyloprim] 100 mg PO QDAY 01/05/20 01/05/20 01/05/20 History Apixaban [Eliquis] 2.5 mg PO BID #60 tablet 01/07/20 Unknown Rx Aspirin EC [Halfprin EC] 81 mg PO QDAY tablet 01/07/20 Unknown Rx AtorvaSTATin 10 mg PO QHS tablet 01/07/20 Unknown Rx Calcium Carbonate [Oscal 1250MG 1,250 mg PO TID tablet 01/07/20 Unknown Rx TAB] Metoprolol [Lopressor TAB] 50 mg PO BID #60 tablet 01/07/20 Unknown Rx Pantoprazole [Protonix TAB] 20 mg PO QDAY #30 tablet. 01/07/20 Unknown Rx oxyCODONE /ACETAMINOPHEN [Percocet 1 tab PO Q6H PRN #12 tablet 01/07/20 Unknown Rx 5/325 mg] ED Physical Exam - General Limitations: No Limitations - Other Other exam information: General: No acute distress Head: Atraumatic Eyes: normal appearance ENT: Moist mucous membranes Neck: Normal appearance, no midline tenderness Chest: Clear to auscultation bilaterally CV: Regular rate and rhythm Abdomen: Soft, normal bowel sounds, nontender, nondistended, no rebound or guarding Back: Normal inspection Extremity: full range of motion, left arm dialysis access Neuro: Alert O x 3, no facial asymmetry, speech clear, no gross motor sensory deficit Psych: Appropriate behavior Skin: No rash ED Course Vital Signs 08/06/21 08/06/21 08/06/21 12:16 12:40 12:43 Temperature 98.2 F 99.1 F Pulse Rate 63 63 71 Respiratory 18 22 Rate Blood Pressure Blood Pressure 150/70 139/64 [Right] O2 Sat by Pulse 99 98 98 Oximetry 08/06/21 08/06/21 08/06/21 12:46 12:52 13:00 Temperature Pulse Rate 61 62 Respiratory 20 15 Rate Blood Pressure 142/68 123/60 Blood Pressure [Right] O2 Sat by Pulse 98 99 97 Oximetry 08/06/21 08/06/21 08/06/21 13:16 13:30 13:46 Temperature Pulse Rate 64 61 71 Respiratory 21 19 24 Rate Blood Pressure 123/60 123/61 123/61 Blood Pressure [Right] O2 Sat by Pulse 99 97 97 Oximetry 08/06/21 08/06/21 08/06/21 14:00 14:16 14:30 Temperature Pulse Rate 57 L 60 74 Respiratory 10 L 14 19 Rate Blood Pressure 129/57 129/57 136/93 Blood Pressure [Right] O2 Sat by Pulse 97 95 94 Oximetry 08/06/21 14:46 Temperature Pulse Rate 65 Respiratory 22 Rate Blood Pressure 136/93 Blood Pressure [Right] O2 Sat by Pulse 97 Oximetry - Consultations Consultation #1: 08/06/21 15:17 Received call from nurse practitioner Ilana regarding patient's need for dialysis. Patient does not meet criteria for emergent dialysis. Will call to see if dialysis tomorrow can be arranged 08/06/21 15:22 Case discussed with on-call web site admin and patient can go to his dialysis center tomorrow since there is no indication for emergent dialysis at this time ED Medical Decision Making - Lab Data Result diagrams: 08/06/21 13:00 08/06/21 13:00 Lab Results 08/06/21 08/06/21 Range/Units 13:00 13:00 WBC 6.3 (4.5-11.0) K/mm3 RBC 4.66 (3.65-5.03) M/mm3 Hgb 13.6 (11.8-15.2) gm/dl Hct 44.2 (35.5-45.6) % MCV 95 H (84-94) fl MCH 29 (28-32) pg MCHC 31 L (32-34) % RDW 19.5 H (13.2-15.2) % Plt Count 238 (140-440) K/mm3 Lymph % (Auto) 14.4 (13.4-35.0) % [place] % (Auto) 11.8 H (0.0-7.3) % Eos % (Auto) 1.9 (0.0-4.3) % Baso % (Auto) 1.2 (0.0-1.8) % Lymph # (Auto) 0.9 L (1.2-5.4) K/mm3 [place] # (Auto) 0.7 (0.0-0.8) K/mm3 Eos # (Auto) 0.1 (0.0-0.4) K/mm3 Baso # (Auto) 0.1 (0.0-0.1) K/mm3 Seg Neutrophils % 70.7 H (40.0-70.0) % Seg Neutrophils # 4.4 (1.8-7.7) K/mm3 Sodium 139 (137-145) mmol/L Potassium 5.0 (3.6-5.0) mmol/L Chloride 99.7 (98-107) mmol/L Carbon Dioxide 19 L (22-30) mmol/L Anion Gap 25 mmol/L BUN 48 H (9-20) mg/dL Creatinine 11.9 H (0.8-1.3) mg/dL Estimated GFR 4 ml/min BUN/Creatinine Ratio 4 % Glucose 113 H (75-100) mg/dL Calcium 8.2 L (8.4-10.2) mg/dL - Radiology Data Radiology results: report reviewed CHEST 1 VIEW 08/06/2021 1:02 PM INDICATION / CLINICAL INFORMATION: missed dialysis, weakness. COMPARISON: 08/17/20 FINDINGS: SUPPORT DEVICES: None. HEART / MEDIASTINUM: Heart is upper normal size and stable. Median sternotomy wires and aortic valve prosthesis are unchanged. LUNGS / PLEURA: No significant pulmonary or pleural abnormality. No pn eumothorax. ADDITIONAL FINDINGS: Left upper arm venous stent. IMPRESSION: 1. No acute findings. Critical Care Time: No Critical care attestation.: If time is entered above; I have spent that time in minutes in the direct care of this critically ill patient, excluding procedure time. ED Disposition Clinical Impression: Missed dialysis, Asymptomatic Disposition: 01 HOME / SELF CARE / HOMELESS Is pt being admited?: No Does the pt Need Aspirin: No Condition: Stable Instructions: Dialysis Additional Instructions: I have discussed you need for dialysis with your web site admin. You do not meet criteria for emergent admission and dialysis today. Go to your dialysis center tomorrow (call for for him to ensure they can accommodate you). Referrals: dialysis, center [Other] - 08/07/21 Time of Disposition: 15:31
[2021-08-06 13:49] LABS: Calcium 8.2 mg/dL (8.4-10.2)
--- NOTE | 2021-08-06 16:48 | Cat Scan Report ---
NONENHANCED CT SCAN OF THE HEAD: INDICATION / CLINICAL INFORMATION: 75 years Male; recent falls. TECHNIQUE: Routine CT head without contrast. All CT scans at this location are performed using CT dos e reduction for ALARA by means of automated exposure control. COMPARISON: CT scan of the head from 06/22/2019 FINDINGS: BRAIN / INTRACRANIAL CONTENTS: No intracranial sequela from the trauma; no scalp hematoma; no fluid l evel in the visualized portions of the paranasal sinuses No acute hemorrhage, mass effect, midline shift, hydrocephalus, or acute, large territorial infarct. No chronic infarct or focal atrophy. Mild volume loss in the right medial temporal lobe; unchanged CRANIOCERVICAL JUNCTION: No significant abnormality. ORBITS: No significant abnormality of visualized orbits. SINUSES / MASTOIDS: No significant abnormality of the visualized paranasal sinuses or mastoid air johnie ls. ADDITIONAL FINDINGS: None. IMPRESSION: No intracranial sequela from the trauma; no focal parenchymal lesion; CT findings unchanged Signer Name: Virginie Arroyo MD Signed: 08/06/2021 4:44 PM Workstation Name: [id number]
--- NOTE | 2021-08-06 16:51 | Cat Scan Report ---
CT abdomen pelvis wo con INDICATION / CLINICAL INFORMATION: blood in urine. TECHNIQUE: Axial CT imaging of abdomen and pelvis was obtained without contrast. Coronal and sagittal reformatte d imaging obtained and reviewed. All CT scans at this location are performed using CT dose reduction for ALARA by means of automated exposure control. COMPARISON: Prior CT abdomen/pelvis 04/01/2019 FINDINGS: CT abdomen without IV contrast demonstrates large hiatal hernia with 80% of the stomach above the lev el of the diaphragm. This is unchanged from 2019 exam. For noncontrast exam, the liver, spleen, pancreas, and adrenal glands all appear grossly unremarkable . Gallbladder is present and without obvious abnormality. This kidneys are slightly atrophic and cont ain several simple cysts unchanged from prior exam. No hydronephrosis or intrarenal calculi identifie d. Visualized GI tract is grossly unremarkable within the abdomen. CT pelvis without contrast demonstrates a prominently enlarged prostate gland. The prostate gland has a maximum transverse diameter of 5.8 cm. No pelvic mass, free fluid, or focal inflammatory changes n oted. Moderate diverticulosis is noted throughout the sigmoid colon. A normal appendix is present in the right midabdomen. Urinary bladder is only partially filled but no obvious mass or bladder calculi noted. Visualized lung bases are grossly clear. There continues to be a smoothly marginated oval soft tissue mass in the right lung base adjacent to the vertebral body consistent with a benign tumor, most like ly schwannoma or neurofibroma. This is unchanged from 2019. Visualized osseous structures do not demonstrate any acute skeletal abnormality. Mild spondylitic marquise nges are noted throughout the visualized spine. IMPRESSION: 1. No definite abnormality is identified to account for the patient's complaint of hematuria. 2. Very large hiatal hernia. 3. Enlarged prostate gland. 4. Diverticulosis. 5. Bilateral atrophic kidneys containing several simple cysts, unchanged from 2019. Signer Name: Freda Mederos MD Signed: 08/06/2021 4:47 PM Workstation Name: [id number]
[2021-08-06 18:35] VITALS: BP 120/58
== END 2021-08-06 12:40 | disposition home or self-care (01) ==
LOC: ED 12:13
DX: Z91.15 Patient's noncompliance with renal dialysis (principal); I10 Essential (primary) hypertension; K57.10 Diverticulosis of small intestine without perforation or abscess without bleeding; Z86.79 Personal history of other diseases of the circulatory system
CPT/HCPCS: 36415; 70450; 71045; 74176; 80048; 85025; 99284

== ENCOUNTER 2021-09-19 15:46 | Emergency (ER) | payer MEDICARE ==
--- NOTE | 2021-09-19 17:49 | Event Note ---
Date: 09/19/21 The patient was evaluated in the emergency department for symptoms described in the history of present illness. He/she was evaluated in the context of the global COVID-19 pandemic, which necessitated consideration that the patient might be at risk for infection with the virus that causes COVID-19. Institutional protocols and algorithms that pertain to the evaluation of patients at risk for COVID-19 are in a state of rapid change based on information released by regulatory bodies including the CDC and federal and state organizations. These policies and algorithms were followed during the patient's care in the emergency department. Please note that these policies, procedures and recommendations changed on a rapid basis. Verbal report received from emergency medical services. EMS documentation not available at time of chart dictation Nephrology: [facility] Medical screening examination note: 75-year-old gentleman, with history of A. fib with RVR, last here in 2020 for this, had extensive work-up at that time, who was brought to the hospital by emergency medical services with an EMS articulated complaint of A. fib with RVR while at hemodialysis, which is now resolved. Patient currently in normal sinus rhythm. He endorses no acute complaints. He denies urinary symptoms. Prehospital EKG reviewed and appreciated by myself, appears to be consistent with a sinus rhythm. Sitting EKGs are consistent with A. fib with RVR, and EMS articulated to myself that this patient did have A. fib with RVR while at hemodialysis. Check x-ray of the chest, obtain formal ER twelve-lead EKG, obtain appropriate laboratory studies, detailed history and physical examination to be performed by the oncoming ER provider
--- NOTE | 2021-09-19 18:20 | XRay Report ---
XR chest routine 2V INDICATION / CLINICAL INFORMATION: Dysrhythmia COMPARISON: 08/06/2021 FINDINGS: SUPPORT DEVICES: None. HEART / MEDIASTINUM: Prior median sternotomy. Prior cardiac valve replacement. No significant abnorma lity. LUNGS / PLEURA: Lungs are clear. Costophrenic sulci are sharp. No pneumothorax. ADDITIONAL FINDINGS: No significant additional findings. IMPRESSION: 1. No acute findings. Signer Name: Davey Benoit MD Signed: 09/19/2021 6:15 PM Workstation Name: [id number]
[2021-09-19 18:35] LABS: Basophils # (Auto) 0.1 K/mm3 (0.0-0.1); Basophils % (Auto) 0.9 % (0.0-1.8); Eosinophils # (Auto) 0.2 K/mm3 (0.0-0.4); Eosinophils % (Auto) 2.1 % (0.0-4.3); Hematocrit 44.6 % (35.5-45.6); Hemoglobin 14.4 gm/dl (11.8-15.2); Lymphocytes # (Auto) 1.1 K/mm3 (1.2-5.4); Lymphocytes % (Auto) 14.7 % (13.4-35.0); Mean Corpuscular HGB Conc 32 % (32-34); Mean Corpuscular Volume 92 fl (84-94); Monocytes # (Auto) 0.8 K/mm3 (0.0-0.8); Monocytes % (Auto) 10.8 % (0.0-7.3); Platelet Count 265 K/mm3 (140-440); Red Blood Count 4.86 M/mm3 (3.65-5.03); Red Cell Distribution Width 15.5 % (13.2-15.2)
[2021-09-19 18:45] LABS: INR 0.83 (0.87-1.13)
[2021-09-19 18:46] LABS: Partial Thromboplastin Time 26.5 Sec. (24.2-36.6)
[2021-09-19 18:57] LABS: Calcium 8.6 mg/dL (8.4-10.2)
[2021-09-20 01:50] VITALS: BP 148/72
--- NOTE | 2021-09-20 03:33 | Emergency Department Report ---
ED General Adult HPI - General Chief complaint: High BP Stated complaint: IRREGULAR HEARTBEAT Time Seen by Provider: 09/20/21 03:25 Source: patient Mode of arrival: Stretcher Limitations: No Limitations - History of Present Illness Initial comments: Mr. Marky Verduzco is a 75-year-old male with a past medical history of A. fib with RVR as well as end-stage renal disease requiring dialysis who was initially evaluated emergency department by physician Dr. Salinas (please see his note for more detail) he reports being here for hypertension which was related to his dialysis as has reportedly been the case in the past. He reports no chest pain no palpitations no headache no fever chills or sweats states that he feels normal overall but had to be checked out so he is able to return for dialysis at his scheduled time states he did not miss dialysis he was able to receive dialysis today. There is reported in the after mentioned a physician's note that there was some issues with A. fib with with RVR resulting in his visit today Mr.James Gardner denies those complaints and reasoning for for visit. . Radiation: non-radiation Severity scale (0 -10): 0 Improves with: none Worsens with: none Associated Symptoms: denies other symptoms. denies: diaphoresis, headaches, loss of appetite, malaise, nausea/vomiting, rash, shortness of breath, syncope, weakness Treatments Prior to Arrival: none - Related Data Home Medications Medication Instructions Recorded Confirmed Last Taken Clonidine HCl [Kapvay] 0.1 mg PO QDAY PRN 11/10/18 01/05/20 03/25/19 07:00 AtorvaSTATin 10 mg PO QHS 01/05/20 01/05/20 01/04/20 Fexofenadine (Nf) 180 mg PO QDAY 01/05/20 01/05/20 01/05/20 Melatonin 10 mg PO HS PRN 01/05/20 01/05/20 01/04/20 [place]-3 Fatty Acids/Fish Oil [Fish 1 each PO TID 01/05/20 01/05/20 01/05/20 Oil] Omeprazole 20 mg PO BID 01/05/20 01/05/20 01/05/20 allopurinoL [Zyloprim] 100 mg PO QDAY 01/05/20 01/05/20 01/05/20 Previous Rx's Medication Instructions Recorded Last Taken Type Apixaban [Eliquis] 2.5 mg PO BID #60 tablet 01/07/20 Unknown Rx Aspirin EC [Halfprin EC] 81 mg PO QDAY tablet 01/07/20 Unknown Rx AtorvaSTATin 10 mg PO QHS tablet 01/07/20 Unknown Rx Calcium Carbonate [Oscal 1250MG 1,250 mg PO TID tablet 01/07/20 Unknown Rx TAB] Metoprolol [Lopressor TAB] 50 mg PO BID #60 tablet 01/07/20 Unknown Rx Pantoprazole [Protonix TAB] 20 mg PO QDAY #30 tablet. 01/07/20 Unknown Rx oxyCODONE /ACETAMINOPHEN [Percocet 1 tab PO Q6H PRN #12 tablet 01/07/20 Unknown Rx 5/325 mg] Allergies Allergy/AdvReac Type Severity Reaction Status Date / Time No Known Allergies Allergy Verified 03/24/19 17:36 ED Review of Systems ROS: Stated complaint: IRREGULAR HEARTBEAT Other details as noted in HPI Comment: All other systems reviewed and negative ED Past Medical Hx - Past Medical History Hx Hypertension: Yes Hx Heart Attack/AMI: Yes Hx Deep Vein Thrombosis: Yes Hx GERD: Yes Hx Liver Disease: No Hx Renal Disease: Yes (Dialysis MWF Left fistula) Hx Arthritis: Yes Hx Headaches / Migraines: Yes Hx Kidney Stones: Yes Additional medical history: A-Fib - Surgical History Hx Open Heart Surgery: Yes (2012 Aortic valve replacement) Hx Pacemaker: No Hx Internal Defibrillator: No Additional Surgical History: open heart surgery - Social History Smoking Status: Never Smoker Substance Use Type: None - Medications Home Medications: Home Medications Medication Instructions Recorded Confirmed Last Taken Type Clonidine HCl [Kapvay] 0.1 mg PO QDAY PRN 11/10/18 01/05/20 03/25/19 07:00 History AtorvaSTATin 10 mg PO QHS 01/05/20 01/05/20 01/04/20 History Fexofenadine (Nf) 180 mg PO QDAY 01/05/20 01/05/20 01/05/20 History Melatonin 10 mg PO HS PRN 01/05/20 01/05/20 01/04/20 History [place]-3 Fatty Acids/Fish Oil [Fish 1 each PO TID 01/05/20 01/05/20 01/05/20 History Oil] Omeprazole 20 mg PO BID 01/05/20 01/05/20 01/05/20 History allopurinoL [Zyloprim] 100 mg PO QDAY 01/05/20 01/05/20 01/05/20 History Apixaban [Eliquis] 2.5 mg PO BID #60 tablet 01/07/20 Unknown Rx Aspirin EC [Halfprin EC] 81 mg PO QDAY tablet 01/07/20 Unknown Rx AtorvaSTATin 10 mg PO QHS tablet 01/07/20 Unknown Rx Calcium Carbonate [Oscal 1250MG 1,250 mg PO TID tablet 01/07/20 Unknown Rx TAB] Metoprolol [Lopressor TAB] 50 mg PO BID #60 tablet 01/07/20 Unknown Rx Pantoprazole [Protonix TAB] 20 mg PO QDAY #30 tablet. 01/07/20 Unknown Rx oxyCODONE /ACETAMINOPHEN [Percocet 1 tab PO Q6H PRN #12 tablet 01/07/20 Unknown Rx 5/325 mg] ED Physical Exam - General Limitations: No Limitations General appearance: alert, in no apparent distress, other (Alert and oriented x3 ambulatory on his own power is talking in normal sentences caring him multiple conversations with persons with with no issues) - Head Head exam: Present: atraumatic, normocephalic - Eye Eye exam: Present: normal appearance, PERRL, EOMI Pupils: Present: normal accommodation - ENT ENT exam: Present: normal exam, normal orophraynx, mucous membranes moist, TM's normal bilaterally - Neck Neck exam: Present: normal inspection, full ROM - Respiratory Respiratory exam: Present: normal lung sounds bilaterally. Absent: respiratory distress - Cardiovascular Cardiovascular Exam: Present: regular rate, normal rhythm. Absent: systolic murmur, diastolic murmur, rubs, gallop - GI/Abdominal GI/Abdominal exam: Present: soft, normal bowel sounds - Rectal Rectal exam: Present: deferred - Extremities Exam Extremities exam: Present: normal inspection - Back Exam Back exam: Present: normal inspection. Absent: CVA tenderness (R), CVA tenderness (L) - Neurological Exam Neurological exam: Present: alert, oriented X3, CN II-XII intact - Psychiatric Psychiatric exam: Present: normal affect, normal mood. Absent: depressed, agitated, anxious, flat affect, manic, homicidal ideation, suicidal ideation - Skin Skin exam: Present: warm, dry, intact, normal color. Absent: rash ED Course Vital Signs 09/19/21 09/20/21 20:46 01:49 Temperature 98.2 F Pulse Rate 54 L 57 L Respiratory 18 18 Rate Blood Pressure 147/65 148/72 [Right] O2 Sat by Pulse 99 97 Oximetry ED Medical Decision Making - Lab Data Result diagrams: 09/19/21 18:16 09/19/21 18:16 Lab Results 09/19/21 09/19/21 09/19/21 Range/Units 18:16 18:16 18:16 WBC 7.6 (4.5-11.0) K/mm3 RBC 4.86 (3.65-5.03) M/mm3 Hgb 14.4 (11.8-15.2) gm/dl Hct 44.6 (35.5-45.6) % MCV 92 (84-94) fl MCH 30 (28-32) pg MCHC 32 (32-34) % RDW 15.5 H (13.2-15.2) % Plt Count 265 (140-440) K/mm3 Lymph % (Auto) 14.7 (13.4-35.0) % [place] % (Auto) 10.8 H (0.0-7.3) % Eos % (Auto) 2.1 (0.0-4.3) % Baso % (Auto) 0.9 (0.0-1.8) % Lymph # (Auto) 1.1 L (1.2-5.4) K/mm3 [place] # (Auto) 0.8 (0.0-0.8) K/mm3 Eos # (Auto) 0.2 (0.0-0.4) K/mm3 Baso # (Auto) 0.1 (0.0-0.1) K/mm3 Seg Neutrophils % 71.5 H (40.0-70.0) % Seg Neutrophils # 5.4 (1.8-7.7) K/mm3 PT 12.4 (12.2-14.9) Sec. INR 0.83 L (0.87-1.13) APTT 26.5 (24.2-36.6) Sec. Sodium 134 L (137-145) mmol/L Potassium 3.7 (3.6-5.0) mmol/L Chloride 96.3 L (98-107) mmol/L Carbon Dioxide 24 (22-30) mmol/L Anion Gap 17 mmol/L BUN 9 (9-20) mg/dL Creatinine 3.6 H (0.8-1.3) mg/dL Estimated GFR 17 ml/min BUN/Creatinine Ratio 3 % Glucose 101 H (75-100) mg/dL Calcium 8.6 (8.4-10.2) mg/dL Magnesium 2.10 (1.7-2.3) mg/dL TSH (0.270-4.200) mlU/mL 09/19/21 Range/Units 18:16 WBC (4.5-11.0) K/mm3 RBC (3.65-5.03) M/mm3 Hgb (11.8-15.2) gm/dl Hct (35.5-45.6) % MCV (84-94) fl MCH (28-32) pg MCHC (32-34) % RDW (13.2-15.2) % Plt Count (140-440) K/mm3 Lymph % (Auto) (13.4-35.0) % [place] % (Auto) (0.0-7.3) % Eos % (Auto) (0.0-4.3) % Baso % (Auto) (0.0-1.8) % Lymph # (Auto) (1.2-5.4) K/mm3 [place] # (Auto) (0.0-0.8) K/mm3 Eos # (Auto) (0.0-0.4) K/mm3 Baso # (Auto) (0.0-0.1) K/mm3 Seg Neutrophils % (40.0-70.0) % Seg Neutrophils # (1.8-7.7) K/mm3 PT (12.2-14.9) Sec. INR (0.87-1.13) APTT (24.2-36.6) Sec. Sodium (137-145) mmol/L Potassium (3.6-5.0) mmol/L Chloride (98-107) mmol/L Carbon Dioxide (22-30) mmol/L Anion Gap mmol/L BUN (9-20) mg/dL Creatinine (0.8-1.3) mg/dL Estimated GFR ml/min BUN/Creatinine Ratio % Glucose (75-100) mg/dL Calcium (8.4-10.2) mg/dL Magnesium (1.7-2.3) mg/dL TSH 0.833 (0.270-4.200) mlU/mL - EKG Data EKG shows normal: sinus rhythm Rate: normal - Radiology Data Radiology results: report reviewed Chest x-ray normal - Medical Decision Making Presents to the emergency department complaining of high blood pressure. Patient is otherwise asymptomatic without confusion, chest pain, hematuria, or SOB. BP today is in the 140s over 80s Doubt CV, AMI, heart failure, renal infarction or failure or other end organ damage. Disposition:Discussed with patient their elevated blood pressure and need for close outpatient management of their hypertension. Is encouraged to maintain follow-up with his resaw feeder and primary care provider to closely monitor his blood pressure and advised him to follow-up with cardiology to have further evaluate his reported A. fib with RVR which has not been witnessed or present during his entire visit emergency department which was over a 10-hour. Critical care attestation.: If time is entered above; I have spent that time in minutes in the direct care of this critically ill patient, excluding procedure time. ED Disposition Clinical Impression: Hypertension Disposition: 01 HOME / SELF CARE / HOMELESS Is pt being admited?: No Does the pt Need Aspirin: No Condition: Stable Instructions: Preventing Hypertension, Hypertension (ED) Additional Instructions: To be sure to maintain close follow-up with your primary care provider and maintain your scheduled dialysis. You have been evaluated emergency department today for elevated blood pressure. Your evaluation did not show evidence of any medical conditions requiring emergent intervention at this time. Your labs did not show any evidence of any significant elevation resulting in any emergent condition does not appear to be present at this time Please schedule an appointment with your primary care physician. Return to emergency department if you experience worsening uncontrolled pain, fevers of 100.4 or greater, recurrent vomiting, inability to tolerate food or fluids by mouth, bloody stools or vomit, black tarry stools, chest pain or any other concerning symptoms. Referrals: PRIMARY CARE, [Primary Care Provider] - 3-5 Days
== END 2021-09-20 04:00 | disposition home or self-care (01) ==
LOC: ED 15:46
DX: I12.0 Hypertensive chronic kidney disease with stage 5 chronic kidney disease or end stage renal disease (principal); K21.9 Gastro-esophageal reflux disease without esophagitis; I21.9 Acute myocardial infarction, unspecified; I82.409 Acute embolism and thrombosis of unspecified deep veins of unspecified lower extremity; N18.6 End stage renal disease; N20.0 Calculus of kidney; M19.90 Unspecified osteoarthritis, unspecified site; G43.909 Migraine, unspecified, not intractable, without status migrainosus; Z98.890 Other specified postprocedural states; Z99.2 Dependence on renal dialysis; Z79.899 Other long term (current) drug therapy
CPT/HCPCS: 36415; 71046; 80048; 83735; 84443; 85025; 85610; 85730; 93005; 99284

== ENCOUNTER 2022-01-07 08:35 | Emergency (ER) | payer MEDICARE ==
[2022-01-07] MEDS ORDERED: SODIUM CHLORIDE 0.9% 1000 ML 1,000 ML IV ONE (08:46)
[2022-01-07 09:07] LABS: Basophils # (Auto) 0.1 K/mm3 (0.0-0.1); Basophils % (Auto) 1.7 % (0.0-1.8); Eosinophils # (Auto) 0.3 K/mm3 (0.0-0.4); Eosinophils % (Auto) 3.7 % (0.0-4.3); Hemoglobin 11.6 gm/dl (11.8-15.2); Lymphocytes # (Auto) 1.1 K/mm3 (1.2-5.4); Lymphocytes % (Auto) 15.4 % (13.4-35.0); Mean Corpuscular HGB Conc 32 % (32-34); Mean Corpuscular Volume 91 fl (84-94); Monocytes # (Auto) 0.6 K/mm3 (0.0-0.8); Monocytes % (Auto) 8.7 % (0.0-7.3); Platelet Count 324 K/mm3 (140-440); Red Blood Count 3.94 M/mm3 (3.65-5.03); Red Cell Distribution Width 14.2 % (13.2-15.2)
[2022-01-07 09:25] LABS: Calcium 8.5 mg/dL (8.4-10.2)
[2022-01-07 10:24] LABS: Bilirubin,Urine NEG (Negative); Blood,Urine NEG (Negative); Color,Urine Straw (Yellow); Urobilinogen,Urine < 2.0 mg/dL (<2.0)
--- NOTE | 2022-01-07 12:53 | Cat Scan Report ---
CT ABDOMEN AND PELVIS WITHOUT CONTRAST HISTORY: pain COMPARISON: 08/06/2021 TECHNIQUE: Axial CT images were obtained through the abdomen and pelvis without IV contrast. Sagittal and coronal reformatted images. All CT scans at this location are performed using CT dose reduction for ALARA by means of automated exposure control. FINDINGS: CT ABDOMEN: Lung Bases: There is a very large hiatal hernia the entire stomach in the left hemithorax. No obstruc tion. The visualized lung bases are otherwise clear. Stable mild cardiomegaly. Liver: No significant abnormality. Biliary: No significant abnormality. Spleen: No significant abnormality. Unenlarged. Pancreas: No significant abnormality. Adrenals: No significant abnormality. Kidneys: The right kidney appears atrophic with diffuse cortical thinning. Intermediate density lesio ns measuring 4 cm near the lower pole 3 cm to the upper pole are unchanged and probably represent com plex cysts. The left kidney is normal size and contains a 2.5 cm cyst near the superior pole. These f indings are unchanged since 08/06/2021. Lymphatics: No lymphadenopathy. Vasculature: Mild atherosclerotic disease is noted in the abdominal aorta and iliac arteries without acute abnormality. The venous structures are unremarkable on noncontrast CT. Bowel/Peritoneum: No significant abnormality. No free air. No free fluid. The appendix is unremarkabl e. Mild sigmoid diverticulosis is noted. CT PELVIS: : The bladder and distal ureters are unremarkable. The prostate gland is mildly enlarged. Osseous Structures: No acute abnormality. Mild levocurvature of the lumbar spine with mild degenerati ve changes are unchanged. Additional Findings: None IMPRESSION: No acute inflammatory process is identified in the abdomen or pelvis. Large hiatal hernia with thoracic stomach. Mild diverticulosis of the distal colon. Bilateral renal cysts as described. Mild right renal atrophy. Mild prostatomegaly. No significant change is appreciated since 08/06/2021. Signer Name: Heraclio Estrada Jr, MD Signed: 01/07/2022 12:48 PM Workstation Name: [id number]
--- NOTE | 2022-01-07 13:05 | Emergency Department Report ---
ED Dysuria HPI - HPI Chief Complaint: Abdominal Pain Stated Complaint: ABD PAIN Time Seen by Provider: 01/07/22 08:45 Duration: Today Location of Discomfort: Urethra (dysuria) Symptoms: Frequency: Yes, Suprapubic Pain: No, Flank Pain: No, Hematuria: No, Abdominal Pain: No Other History: CRF on diaysis ED Review of Systems ROS: Stated complaint: ABD PAIN Other details as noted in HPI Constitutional: denies: chills, fever Eyes: denies: eye pain, eye discharge, vision change ENT: denies: ear pain, throat pain Respiratory: denies: cough, shortness of breath, wheezing Cardiovascular: denies: chest pain, palpitations Endocrine: no symptoms reported Gastrointestinal: denies: abdominal pain, nausea, diarrhea Genitourinary: denies: urgency, dysuria Musculoskeletal: denies: back pain, joint swelling, arthralgia Skin: denies: rash, lesions Neurological: denies: headache, weakness, paresthesias Psychiatric: denies: anxiety, depression Hematological/Lymphatic: denies: easy bleeding, easy bruising ED Past Medical Hx - Past Medical History Previous Medical History?: Yes Hx Hypertension: Yes Hx Heart Attack/AMI: Yes Hx Deep Vein Thrombosis: Yes Hx GERD: Yes Hx Liver Disease: No Hx Renal Disease: Yes (Dialysis MWF Left fistula) Hx Arthritis: Yes Hx Headaches / Migraines: Yes Hx Kidney Stones: Yes Additional medical history: A-Fib - Surgical History Hx Open Heart Surgery: Yes (2012 Aortic valve replacement) Hx Pacemaker: No Hx Internal Defibrillator: No Additional Surgical History: open heart surgery - Social History Smoking Status: Never Smoker Substance Use Type: None - Medications Home Medications: Home Medications Medication Instructions Recorded Confirmed Last Taken Type Clonidine HCl [Kapvay] 0.1 mg PO QDAY PRN 11/10/18 01/05/20 03/25/19 07:00 History AtorvaSTATin 10 mg PO QHS 01/05/20 01/05/20 01/04/20 History Fexofenadine (Nf) 180 mg PO QDAY 01/05/20 01/05/20 01/05/20 History Melatonin 10 mg PO HS PRN 01/05/20 01/05/20 01/04/20 History [place]-3 Fatty Acids/Fish Oil [Fish 1 each PO TID 01/05/20 01/05/20 01/05/20 History Oil] Omeprazole 20 mg PO BID 01/05/20 01/05/20 01/05/20 History allopurinoL [Zyloprim] 100 mg PO QDAY 01/05/20 01/05/20 01/05/20 History Apixaban [Eliquis] 2.5 mg PO BID #60 tablet 01/07/20 Unknown Rx Aspirin EC [Halfprin EC] 81 mg PO QDAY tablet 01/07/20 Unknown Rx AtorvaSTATin 10 mg PO QHS tablet 01/07/20 Unknown Rx Calcium Carbonate [Oscal 1250MG 1,250 mg PO TID tablet 01/07/20 Unknown Rx TAB] Metoprolol [Lopressor TAB] 50 mg PO BID #60 tablet 01/07/20 Unknown Rx Pantoprazole [Protonix TAB] 20 mg PO QDAY #30 tablet. 01/07/20 Unknown Rx oxyCODONE /ACETAMINOPHEN [Percocet 1 tab PO Q6H PRN #12 tablet 01/07/20 Unknown Rx 5/325 mg] Dysuria Exam - Exam General: Vital signs noted. No distress. Alert and acting appropriately. Exam: Yes Moist Mucous Membranes, No CVA Tenderness, No Abdominal Tenderness, No Rigidity or Guarding Exam: normal exam otherwise Labs: Lab Results 01/07/22 01/07/22 01/07/22 Range/Units 08:59 08:59 10:13 WBC 7.4 (4.5-11.0) K/mm3 RBC 3.94 (3.65-5.03) M/mm3 Hgb 11.6 L (11.8-15.2) gm/dl Hct 36.0 (35.5-45.6) % MCV 91 (84-94) fl MCH 30 (28-32) pg MCHC 32 (32-34) % RDW 14.2 (13.2-15.2) % Plt Count 324 (140-440) K/mm3 Lymph % (Auto) 15.4 (13.4-35.0) % [place] % (Auto) 8.7 H (0.0-7.3) % Eos % (Auto) 3.7 (0.0-4.3) % Baso % (Auto) 1.7 (0.0-1.8) % Lymph # (Auto) 1.1 L (1.2-5.4) K/mm3 [place] # (Auto) 0.6 (0.0-0.8) K/mm3 Eos # (Auto) 0.3 (0.0-0.4) K/mm3 Baso # (Auto) 0.1 (0.0-0.1) K/mm3 Seg Neutrophils % 70.5 H (40.0-70.0) % Seg Neutrophils # 5.2 (1.8-7.7) K/mm3 Sodium 130 L (137-145) mmol/L Potassium 4.1 (3.6-5.0) mmol/L Chloride 91.6 L (98-107) mmol/L Carbon Dioxide 21 L (22-30) mmol/L Anion Gap 22 mmol/L BUN 34 H (9-20) mg/dL Creatinine 9.0 H (0.8-1.3) mg/dL Estimated GFR 6 ml/min BUN/Creatinine Ratio 4 % Glucose 108 H (75-100) mg/dL Calcium 8.5 (8.4-10.2) mg/dL Amylase 216 H (27-131) units/L Lipase 93 H (13-60) units/L Urine Color Straw (Yellow) Urine Turbidity Clear (Clear) Urine pH 8.0 H (5.0-7.0) Ur Specific [place] 1.006 (1.003-1.030) Urine Protein 30 mg/dl (Negative) mg/dL Urine Glucose (UA) Neg (Negative) mg/dL Urine Ketones Neg (Negative) mg/dL Urine Blood Neg (Negative) Urine Nitrite Neg (Negative) Urine Bilirubin Neg (Negative) Urine Urobilinogen < 2.0 (<2.0) mg/dL Ur Leukocyte Esterase Neg (Negative) Urine WBC (Auto) 1.0 (0.0-6.0) /HPF Urine RBC (Auto) 1.0 (0.0-6.0) /HPF ED Course Vital Signs 01/07/22 01/07/22 01/07/22 08:41 09:53 10:00 Pulse Rate 80 55 L 61 Respiratory 18 27 H 20 Rate Blood Pressure 157/62 157/62 Blood Pressure 169/83 [Right] O2 Sat by Pulse 100 99 99 Oximetry 01/07/22 01/07/22 01/07/22 10:13 10:16 10:30 Pulse Rate 55 L 55 L Respiratory 31 H 14 Rate Blood Pressure 157/62 157/62 Blood Pressure [Right] O2 Sat by Pulse 100 100 99 Oximetry 01/07/22 01/07/22 01/07/22 10:46 11:00 11:16 Pulse Rate 56 L 57 L 57 L Respiratory 25 H 30 H 28 H Rate Blood Pressure 157/62 141/66 141/66 Blood Pressure [Right] O2 Sat by Pulse 97 97 99 Oximetry 01/07/22 01/07/22 11:30 11:46 Pulse Rate 54 L 63 Respiratory 25 H 13 Rate Blood Pressure 141/66 141/66 Blood Pressure [Right] O2 Sat by Pulse 99 94 Oximetry ED Medical Decision Making - Lab Data Result diagrams: 01/07/22 08:59 01/07/22 08:59 - Radiology Data Radiology results: report reviewed, image reviewed - Medical Decision Making work up neg , ua clear ct negative CRF noted chronic Critical care attestation.: If time is entered above; I have spent that time in minutes in the direct care of this critically ill patient, excluding procedure time. ED Disposition Clinical Impression: Polyuria Disposition: 01 HOME / SELF CARE / HOMELESS Is pt being admited?: No Does the pt Need Aspirin: No Condition: Stable Instructions: Urodynamic Testing, [id number] Referrals: [facility] [Other] - 3-5 Days
[2022-01-07 14:04] VITALS: BP 105/66
== END 2022-01-07 14:04 | disposition home or self-care (01) ==
LOC: ED 08:35
DX: R35.89 Other polyuria (principal); I10 Essential (primary) hypertension; I21.9 Acute myocardial infarction, unspecified; Z86.718 Personal history of other venous thrombosis and embolism; K21.9 Gastro-esophageal reflux disease without esophagitis; M19.90 Unspecified osteoarthritis, unspecified site; G43.909 Migraine, unspecified, not intractable, without status migrainosus; N20.0 Calculus of kidney; Z98.890 Other specified postprocedural states
CPT/HCPCS: 36415; 74176; 80048; 81001; 82150; 83690; 85025; 99284

== ENCOUNTER 2022-03-13 11:49 | Emergency (ER) | payer MEDICARE ==
--- NOTE | 2022-03-13 14:28 | Emergency Department Report ---
ED General Adult HPI - General Chief complaint: Dizziness Stated complaint: DIZZY PUI?: No Time Seen by Provider: 03/13/22 13:39 Source: patient, EMS Mode of arrival: Stretcher Limitations: No Limitations - History of Present Illness Initial comments: This is a 76-year-old male with end-stage renal disease on hemodialysis brought in by EMS from [facility] as patient was having shakes and also diarrhea. Have spoken to the daughter over the phone (Gay Burton at [phone]) who states that father has been having diarrhea for the past 2 weeks; denies any recent hospitalization or antibiotics. According to the daughter they just started father on Imodium. According to her daughter that dementia does run in the family as the patient's parents does have dementia. According to the Jelani they have noticed it for the past 4 months and has been getting progressively worse that patient has been having memory issues which they have noticed that patient has been trouble keeping the current date and time. The daughter also noticed that the patient has been having visual hallucination where the patient will see his father and mother. Daughter also states patient has been getting more confused as well. At the time my evaluation patient stated that he feels very weak and denies any other symptoms. Patient knows Demar Modi is the president and also that he is in [facility]. Patient doesn't know what year it is; think its 2001 and not sure month or date. Patient denies any other symptoms denies fever chill night sweat dizziness blurred vision lightheadedness headache tinnitus ear pain runny nose sore throat loss of taste loss of smell chest pain palpitation short of breath cough abdominal pain nausea vomiting constipation dysuria myalgia arthralgia new rash and heat or cold intolerance. Severity scale (0 -10): 0 - Related Data Home Medications Medication Instructions Recorded Confirmed Last Taken Clonidine HCl [Kapvay] 0.1 mg PO QDAY PRN 11/10/18 01/05/20 03/25/19 07:00 AtorvaSTATin 10 mg PO QHS 01/05/20 01/05/20 01/04/20 Fexofenadine (Nf) 180 mg PO QDAY 01/05/20 01/05/20 01/05/20 Melatonin 10 mg PO HS PRN 01/05/20 01/05/20 01/04/20 [place]-3 Fatty Acids/Fish Oil [Fish 1 each PO TID 01/05/20 01/05/20 01/05/20 Oil] Omeprazole 20 mg PO BID 01/05/20 01/05/20 01/05/20 allopurinoL [Zyloprim] 100 mg PO QDAY 01/05/20 01/05/20 01/05/20 Previous Rx's Medication Instructions Recorded Last Taken Type Apixaban [Eliquis] 2.5 mg PO BID #60 tablet 01/07/20 Unknown Rx Aspirin EC [Halfprin EC] 81 mg PO QDAY tablet 01/07/20 Unknown Rx AtorvaSTATin 10 mg PO QHS tablet 01/07/20 Unknown Rx Calcium Carbonate [Oscal 1250MG 1,250 mg PO TID tablet 01/07/20 Unknown Rx TAB] Metoprolol [Lopressor TAB] 50 mg PO BID #60 tablet 01/07/20 Unknown Rx Pantoprazole [Protonix TAB] 20 mg PO QDAY #30 tablet. 01/07/20 Unknown Rx oxyCODONE /ACETAMINOPHEN [Percocet 1 tab PO Q6H PRN #12 tablet 01/07/20 Unknown Rx 5/325 mg] levoFLOXacin [Levaquin TAB] 500 mg PO Q24H 3 Days #3 tablet 03/13/22 Unknown Rx levoFLOXacin [Levaquin] 750 mg PO QDAY 1 Days #1 tablet 03/13/22 Unknown Rx levoFLOXacin [Levaquin] 750 mg PO QDAY 7 Days #7 tablet 03/13/22 Unknown Rx Allergies Allergy/AdvReac Type Severity Reaction Status Date / Time No Known Allergies Allergy Verified 03/13/22 12:21 ED Review of Systems ROS: Stated complaint: DIZZY Other details as noted in HPI Comment: All other systems reviewed and negative Constitutional: weakness. denies: chills, diaphoresis, fever, malaise Eyes: as per HPI ENT: as per HPI Respiratory: no symptoms reported, see HPI Cardiovascular: as per HPI Endocrine: no symptoms reported, see HPI Gastrointestinal: diarrhea Genitourinary: as per HPI Musculoskeletal: as per HPI Skin: as per HPI Neurological: as per HPI Psychiatric: as per HPI Hematological/Lymphatic: as per HPI ED Past Medical Hx - Past Medical History Previous Medical History?: Yes Hx Hypertension: Yes Hx Heart Attack/AMI: Yes Hx Deep Vein Thrombosis: Yes Hx GERD: Yes Hx Liver Disease: No Hx Renal Disease: Yes (Dialysis MWF Left fistula) Hx Arthritis: Yes Hx Headaches / Migraines: Yes Hx Kidney Stones: Yes Additional medical history: A-Fib - Surgical History Hx Open Heart Surgery: Yes (2012 Aortic valve replacement) Hx Pacemaker: No Hx Internal Defibrillator: No Additional Surgical History: open heart surgery - Social History Smoking Status: Never Smoker Substance Use Type: None - Medications Home Medications: Home Medications Medication Instructions Recorded Confirmed Last Taken Type Clonidine HCl [Kapvay] 0.1 mg PO QDAY PRN 11/10/18 01/05/20 03/25/19 07:00 History AtorvaSTATin 10 mg PO QHS 01/05/20 01/05/20 01/04/20 History Fexofenadine (Nf) 180 mg PO QDAY 01/05/20 01/05/20 01/05/20 History Melatonin 10 mg PO HS PRN 01/05/20 01/05/20 01/04/20 History [place]-3 Fatty Acids/Fish Oil [Fish 1 each PO TID 01/05/20 01/05/20 01/05/20 History Oil] Omeprazole 20 mg PO BID 01/05/20 01/05/20 01/05/20 History allopurinoL [Zyloprim] 100 mg PO QDAY 01/05/20 01/05/20 01/05/20 History Apixaban [Eliquis] 2.5 mg PO BID #60 tablet 01/07/20 Unknown Rx Aspirin EC [Halfprin EC] 81 mg PO QDAY tablet 01/07/20 Unknown Rx AtorvaSTATin 10 mg PO QHS tablet 01/07/20 Unknown Rx Calcium Carbonate [Oscal 1250MG 1,250 mg PO TID tablet 01/07/20 Unknown Rx TAB] Metoprolol [Lopressor TAB] 50 mg PO BID #60 tablet 01/07/20 Unknown Rx Pantoprazole [Protonix TAB] 20 mg PO QDAY #30 tablet. 01/07/20 Unknown Rx oxyCODONE /ACETAMINOPHEN [Percocet 1 tab PO Q6H PRN #12 tablet 01/07/20 Unknown Rx 5/325 mg] levoFLOXacin [Levaquin TAB] 500 mg PO Q24H 3 Days #3 tablet 03/13/22 Unknown Rx levoFLOXacin [Levaquin] 750 mg PO QDAY 1 Days #1 tablet 03/13/22 Unknown Rx levoFLOXacin [Levaquin] 750 mg PO QDAY 7 Days #7 tablet 03/13/22 Unknown Rx ED Physical Exam - General Limitations: No Limitations General appearance: alert, in no apparent distress, other (PLEASANTLY CONFUSED) - Head Head exam: Present: atraumatic, normocephalic, normal inspection - Eye Eye exam: Present: normal appearance, EOMI Pupils: Present: normal accommodation - ENT ENT exam: Present: normal exam, mucous membranes moist - Neck Neck exam: Present: normal inspection, full ROM - Respiratory Respiratory exam: Present: normal lung sounds bilaterally - Cardiovascular Cardiovascular Exam: Present: regular rate, normal rhythm, normal heart sounds - GI/Abdominal GI/Abdominal exam: Present: soft - Rectal Rectal exam: Present: normal inspection - Extremities Exam Extremities exam: Present: normal inspection, full ROM, normal capillary refill - Back Exam Back exam: Present: normal inspection, full ROM - Neurological Exam Neurological exam: Present: alert, altered, CN II-XII intact - Psychiatric Psychiatric exam: Present: normal affect, normal mood - Skin Skin exam: Present: normal color ED Course Vital Signs 03/13/22 11:49 Temperature 98.3 F Pulse Rate 80 Respiratory 18 Rate Blood Pressure 170/90 [Left] O2 Sat by Pulse 97 Oximetry - Consultations Consultation #1: 03/13/22 19:[address] LAY WHO ALSO EVALUATED THE PATIENT AND STATES PATIENT CAN GO HEAD WITH ORAL ANTIBIOTICS. I WILL CALL PATIENT'S DAUGHTER AND D/C [facility]. INFORMED DAUGHTER TO MAKE SURE TO INFO ANALYST THE ANTIBIOTICS. 750 INITIALLY AND THEN 500MG EVERY OTHER DAY. ED Medical Decision Making - Lab Data Result diagrams: 03/13/22 14:36 03/13/22 14:36 Critical care attestation.: If time is entered above; I have spent that time in minutes in the direct care o f this critically ill patient, excluding procedure time. ED Disposition Clinical Impression: UTI (urinary tract infection), PNA (pneumonia), Visual hallucination, Metabolic encephalopathy Disposition: 01 HOME / SELF CARE / HOMELESS Is pt being admited?: No Does the pt Need Aspirin: No Condition: Stable Instructions: Bacterial Pneumonia (ED) Prescriptions: levoFLOXacin [Levaquin TAB] 500 mg PO Q24H 3 Days #3 tablet levoFLOXacin [Levaquin] 750 mg PO QDAY 7 Days #7 tablet levoFLOXacin [Levaquin] 750 mg PO QDAY 1 Days #1 tablet Referrals: MURTAZA LAWSON MD [Primary Care Provider] - 3-5 Days Time of Disposition: 19:39
[2022-03-13 15:07] LABS: Hematocrit 41.7 % (35.5-45.6); Hemoglobin 13.4 gm/dl (11.8-15.2); Mean Corpuscular HGB Conc 32 % (32-34); Mean Corpuscular Volume 90 fl (84-94); Platelet Count 325 K/mm3 (140-440); Red Blood Count 4.63 M/mm3 (3.65-5.03)
[2022-03-13 15:45] LABS: Calcium 9.7 mg/dL (8.4-10.2)
[2022-03-13 17:39] LABS: Bilirubin,Urine NEG (Negative); Blood,Urine SM (Negative); Color,Urine Yellow (Yellow); Urobilinogen,Urine < 2.0 mg/dL (<2.0)
--- NOTE | 2022-03-13 17:44 | XRay Report ---
CHEST 1 VIEW 03/13/2022 4:30 PM INDICATION / CLINICAL INFORMATION: PLEASANTLY CONFUSED. COMPARISON: September 19, 2021 FINDINGS: SUPPORT DEVICES: None. HEART / MEDIASTINUM: No significant abnormality. LUNGS / PLEURA: Left basilar opacity likely representing portion of hiatal hernia. No concerning lung opacity. No pneumothorax. ADDITIONAL FINDINGS: No significant additional findings. IMPRESSION: 1. No acute findings. Signer Name: Andrew Khan DO Signed: 03/13/2022 5:36 PM Workstation Name: [email or web address]
[2022-03-13 17:54] LABS: Bacteria,Urine 1+ /HPF (Negative)
--- NOTE | 2022-03-13 18:45 | Cat Scan Report ---
CT head/brain wo con INDICATION / CLINICAL INFORMATION: 76 years Male; CONFUSED. TECHNIQUE: Routine CT head without contrast. All CT scans at this location are performed using CT dos e reduction for ALARA by means of automated exposure control. COMPARISON: The study is compared to the previous CT of 08/06/2021. FINDINGS: BRAIN / INTRACRANIAL CONTENTS: The motion degrades the image quality. However, there is mild cerebral white matter disease most consistent with microvascular angiopathy. There is also mild to moderate c erebral atrophy with associated prominence of the ventricular system. There is no clear CT evidence o f acute intracranial hemorrhage or significant mass effect. ORBITS: No significant abnormality of visualized orbits. SINUSES / MASTOIDS: There is mild mucosal thickening involving ethmoid air cells and opacification al diamond the posterior left maxillary sinus. CRANIOCERVICAL JUNCTION: No significant abnormality. ADDITIONAL FINDINGS: None. IMPRESSION: 1. 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 Signer Name: Arley Jaramillo MD Signed: 03/13/2022 6:40 PM Workstation Name: [id number]
[2022-03-13 18:46] LABS: Protein,Urine >500 mg/dL (Negative)
[2022-03-13] MEDS ORDERED: AZITHROMYCIN/NS 500 MG/250 ML 500 MG/250 ML BAG IV ONE (18:58)
[2022-03-13] MEDS ORDERED: LIDOCAINE-MPF (1%) 10 MG/1 ML VIAL 5 ML INFILTRATI ONE (18:58)
[2022-03-13 20:59] VITALS: BP 151/69
== END 2022-03-13 21:21 | disposition home or self-care (01) ==
LOC: ED 11:49
DX: N39.0 Urinary tract infection, site not specified (principal); J18.9 Pneumonia, unspecified organism; R44.1 Visual hallucinations; G93.41 Metabolic encephalopathy; I10 Essential (primary) hypertension
CPT/HCPCS: 36415; 70450; 71045; 80048; 81001; 85027; 87040; 87086; 96365; 96372; 99285; J0456; J0696; J3490